=== PATIENT | male | born 1965 | race Caucasian/White ===

== ENCOUNTER 2016-08-27 13:33 | Inpatient (IN) | payer OTHER ==
[~2016-08-27] VITALS: Ht 185.4 cm; Wt 75.5 kg
[~2016-08-27 13:33] MED LIST: TRAZ50TA78 PO
[2016-08-27 13:37] VITALS: BP 111/67; PULSE 84; RESP 18; O2SAT 95
[2016-08-27] MEDS ORDERED: TRAZ100T5 PO (13:46)
[2016-08-27 14:07] VITALS: RESP 18; O2SAT 99
--- NOTE | 2016-08-27 14:09 | PD ---
HPI Chief Complaint: Chest Pain Time Seen by Provider: 13:54 Travel History International Travel<30 days: No Contact w/Intl Traveler<30days: No Traveled to known affect area: No History of Present Illness HPI This patient complains of chest tightness. Started at noon today while he was lying in his bed. Low center sternum as the location. No radiation. It did resolve spontaneously with no alleviating factors. It lasted approximately 90 minutes. He denies personal history of cardiac disease. Symptoms were moderate in severity but at this time have resolved. Denies productive cough or fever. Symptoms were not pleuritic. PFSH Past Medical History Anemia: Yes Arthritis: No Asthma: No Autoimmune Disease: No Blood Disorders: No Anxiety: Yes Depression: Yes Heart Rhythm Problems: No Cancer: No High Cholesterol: No Chemotherapy: No Chest Pain: Yes Congestive Heart Failure: No Cirrhosis: Yes COPD: No Cerebrovascular Accident: No Diabetes: No Diminished Hearing: Yes (Diminished hearing left side due to water/infection per pt.) Endocrine: No Gastrointestinal Disorders: Yes (Celiac disease) GERD: Yes Genitourinary: No Hiatal Hernia: No Hypertension: Yes Immune Disorder: No Implanted Vascular Access Dvce: Yes Kidney Stones: No Musculoskeletal: Yes (Back, Neck, and Left Femur) Neurologic: No Psychiatric: Yes Reproductive: No Respiratory: No Immunizations Current: Yes Migraines: Yes Radiation Therapy: No Renal Failure: No Sickle Cell Disease: No Sleep Apnea: No Thyroid Disease: Yes (hypothyroid) Ulcer: No Past Surgical History Abdominal Surgery: No AICD: No Arteriovenous Shunt: No Body Medical Devices: angel left leg Cardiac Surgery: Yes (pericardiocentesis) Ear Surgery: No Endocrine Surgery: No Eye Surgery: Yes (cataract both eyes) Genitourinary Surgery: No Gynecologic Surgery: Yes (Pelvic hernia) Insulin Pump: No Joint Replacement: Yes (LEFT FEMUR) Pacemaker: No Thoracic Surgery: No Other Surgery: Yes (LEFT FEMUR FX) Social History Alcohol Use: Yes (DAILY- 1 BOTTLE VODKA) Tobacco Use: No (OCCASIONALLY - 5 CIGARETTES/DAY) Substance Use: Yes (cocaine,heroine,speed,crystal meth,opiates ) Allergies-Medications (Allergen,Severity, Reaction): Coded Allergies: No Known Allergies (Unverified , 02/03/16) Reported Meds & Prescriptions Reported Meds & Active Scripts Active Desyrel (Trazodone HCl) 50 Mg Tab 150 Mg PO HS 30 Days Reported Trazodone HCl 100 Mg Tab 150 Review of Systems General / Constitutional: No: Fever Eyes: No: Visual changes HENT: No: Headaches Cardiovascular: Positive: Chest Pain or Discomfort Respiratory: No: Shortness of Breath Gastrointestinal: No: Abdominal Pain Genitourinary: No: Dysuria Musculoskeletal: No: Pain Skin: No Rash Neurologic: No: Weakness Psychiatric: No: Depression Endocrine: No: Polydipsia Hematologic/Lymphatic: No: Easy Bruising Physical Exam Narrative GENERAL: Well-nourished, well-developed patient in no apparent distress. SKIN: Focused skin assessment reveals no rash and nodules. Skin is Warm and dry. HEAD: Atraumatic. Normocephalic. EYES: Pupils equal and round. No scleral icterus. No injection or drainage. ENT: No nasal bleeding or discharge. Mucous membranes pink and moist. NECK: Trachea midline. No JVD. CARDIOVASCULAR: Regular rate and rhythm. No murmur appreciated. RESPIRATORY: No accessory muscle use. Clear to auscultation. Breath sounds equal bilaterally. GASTROINTESTINAL: Abdomen soft, non-tender, nondistended. Hepatic and splenic margins not palpable. MUSCULOSKELETAL: No obvious deformities. No clubbing. No cyanosis. No edema. NEUROLOGICAL: Awake and alert. No obvious cranial nerve deficits. Motor grossly within normal limits. Normal speech. PSYCHIATRIC: Appropriate mood and affect; insight and judgment normal. Data Data Last Documented VS Vital Signs Date Time Temp Pulse Resp B/P Pulse Ox O2 Delivery O2 Flow Rate FiO2 08/27/16 14:07 18 99 Room Air 08/27/16 13:41 82 08/27/16 13:37 111/67 Orders Electrocardiogram (08/27/16 14:04) Basic Metabolic Panel (Bmp) (08/27/16 14:04) Ckmb (Isoenzyme) Profile (08/27/16 14:04) Complete Blood Count With Diff (08/27/16 14:04) Prothrombin Time / Inr (Pt) (08/27/16 14:04) Act Partial Throm Time (Ptt) (08/27/16 14:04) Troponin I (08/27/16 14:04) Chest, Single Ap (08/27/16 14:04) Ecg Monitoring (08/27/16 14:04) Iv Access Insert/Monitor (08/27/16 14:04) Oximetry (08/27/16 14:04) Aspirin (Aspirin) (08/27/16 14:15) Sodium Chloride 0.9% Flush (Ns Flush) (08/27/16 14:15) CKMB (08/27/16 14:14) CKMB% (08/27/16 14:14) Admit Order (Ed Use Only) (08/27/16 16:20) Labs Laboratory Tests Test 08/27/16 14:14 White Blood Count 2.8 TH/MM3 Red Blood Count 3.81 MIL/MM3 Hemoglobin 9.7 GM/DL Hematocrit 30.8 % Mean Corpuscular Volume 80.7 FL Mean Corpuscular Hemoglobin 25.6 PG Mean Corpuscular Hemoglobin 31.7 % Concent Red Cell Distribution Width 19.8 % Platelet Count 136 TH/MM3 Mean Platelet Volume 7.8 FL Neutrophils (%) (Auto) 43.6 % Lymphocytes (%) (Auto) 37.3 % Monocytes (%) (Auto) 7.6 % Eosinophils (%) (Auto) 10.2 % Basophils (%) (Auto) 1.3 % Neutrophils # (Auto) 1.2 TH/MM3 Lymphocytes # (Auto) 1.0 TH/MM3 Monocytes # (Auto) 0.2 TH/MM3 Eosinophils # (Auto) 0.3 TH/MM3 Basophils # (Auto) 0.0 TH/MM3 CBC Comment DIFF FINAL Differential Comment Prothrombin Time 14.3 SEC Prothromb Time International 1.3 RATIO Ratio Activated Partial 32.5 SEC Thromboplast Time Sodium Level 137 MEQ/L Potassium Level 4.1 MEQ/L Chloride Level 100 MEQ/L Carbon Dioxide Level 22.7 MEQ/L Anion Gap 14 MEQ/L Blood Urea Nitrogen 7 MG/DL Creatinine 1.15 MG/DL Estimat Glomerular Filtration 67 ML/MIN Rate Random Glucose 117 MG/DL Calcium Level 8.0 MG/DL Total Creatine Kinase 4353 U/L Creatine Kinase MB 19.7 NG/ML Creatine Kinase MB % 0.5 % Troponin I LESS THAN 0.02 NG/ML MDM Medical Decision Making Medical Screen Exam Complete: Yes Emergency Medical Condition: Yes Medical Record Reviewed: Yes Differential Diagnosis Differential diagnosis includes GA, angina, pericarditis, pleurisy, GERD, anxiety. Narrative Course I have reviewed the patient's electronic medical record. This patient had stress testing here 16 months ago which I have reviewed. IV placed I reviewed the EKG shows sinus rhythm without ST elevation I reviewed the chest x-ray which is negative Extended cardiac monitoring shows sinus rhythm without ectopy CBC is shows pancytopenia, he has known cirrhosis Metabolic profile is normal CK is 4500 suggestive of rhabdomyolysis. MB percent is normal Troponin is normal Coagulation studies are normal I gave him an aspirin He is pain-free at this time. Patient has chest tightness which will need evaluation. He also is in rhabdomyolysis which is a frequent problem for him I gave him a liter normal saline IV Reviewed with [facility] hospitalist coverage who will admit Diagnosis Primary Impression: Chest pain Qualified Code: R07.9 - Chest pain, unspecified type Additional Impression: Rhabdomyolysis Qualified Code: M62.82 - Non-traumatic rhabdomyolysis Admitting Information Admitting Physician Requests: Admit Mikel Joyner MD August 27, 2016 14:09
[2016-08-27] MEDS ORDERED: ASPIRIN 325 MG TAB PO ONE (14:15)
[2016-08-27] MEDS ORDERED: SODIUM CHLORIDE 0.9% FLUSH 10 ML FLUSH IVF PRN (14:15)
[2016-08-27 14:28] LABS: AUTOMATED NEUTROPHIL # 1.2 TH/MM3 (1.8-7.7); BASOPHIL % 1.3 % (0.0-2.0); EOSINOPHIL # 0.3 TH/MM3 (0-0.4); EOSINOPHIL % 10.2 % (0.0-4.0); HEMATOCRIT 30.8 % (39.0-51.0); HEMO FLAGS DIFF FINAL; LYMPH % 37.3 % (9.0-44.0); MEAN CELL VOLUME 80.7 FL (80.0-100.0); MEAN CORPUSCULAR HEMOGLOBIN 25.6 PG (27.0-34.0); MEAN CORPUSCULAR HGB CONC 31.7 % (32.0-36.0); MONO % 7.6 % (0.0-8.0); NEUT % 43.6 % (16.0-70.0); PLATELET COUNT 136 TH/MM3 (150-450); RED BLOOD COUNT 3.81 MIL/MM3 (4.50-5.90); RED CELL DISTRIBUTION WIDTH 19.8 % (11.6-17.2); WHITE BLOOD COUNT 2.8 TH/MM3 (4.0-11.0)
[2016-08-27 14:38] LABS: PROTHROMBIN TIME - PATIENT 14.3 SEC (9.8-11.6)
[2016-08-27 14:39] LABS: APTT (PATIENT) 32.5 SEC (24.3-30.1); INTERNATIONAL NORMALIZED RATIO 1.3 RATIO
--- NOTE | 2016-08-27 14:54 | RADRPT ---
EXAM DATE/TIME: 08/27/2016 14:07 [facility] COMPARISON: CHEST SINGLE AP, December 14, 2015, 22:38. INDICATIONS : Patient has had chest pain since this afternoon. MEDICAL HISTORY : Hypertension. SURGICAL HISTORY : None. ENCOUNTER: Initial ACUITY: 1 day PAIN SCORE: 8/10 LOCATION: Bilateral chest FINDINGS: The examination demonstrates advanced COPD changes. The heart is normal in size. There is no pleural effusion. The visualized bony structures demonstrate degenerative changes but are otherwise intact. T he exam appears improved compared to previous dated 12/14/15. CONCLUSION: Advanced COPD. Tom Live MD on August 27, 2016 at 14:52 Board Certified Radiologist. This report was verified electronically.
[2016-08-27 15:22] LABS: ANION GAP 14 MEQ/L (5-15); BICARBONATE 22.7 MEQ/L (21.0-32.0); CHLORIDE 100 MEQ/L (98-107); CREATINE KINASE 4353 U/L (39-308); GLOMERULAR FILTRATION RATE 67 ML/MIN (>89); SODIUM (NA) 137 MEQ/L (136-145)
[2016-08-27 15:23] LABS: BLOOD UREA NITROGEN 7 MG/DL (7-18); POTASSIUM 4.1 MEQ/L (3.5-5.1)
[2016-08-27 15:35] LABS: CKMB 19.7 NG/ML (0.5-3.6)
[2016-08-27] MEDS ORDERED: ONDANSETRON HCL 4 MG/2 ML VIAL IVP PRN (16:45)
[2016-08-27] MEDS ORDERED: ACETAMINOPHEN 325 MG TAB PO PRN (16:45)
[2016-08-27] MEDS ORDERED: NALOXONE HCL 0.4 MG/ML AMP IV PRN (16:45)
[2016-08-27] MEDS ORDERED: SODIUM CHLORIDE 0.9% FLUSH 10 ML FLUSH IV FLUSH PRN (16:45)
[2016-08-27 17:45] VITALS: BP 100/60; PULSE 64; RESP 18; O2SAT 96
[2016-08-27] MEDS: SODIUM CHLOR 0.9% 1000 ML INJ 1,000 ML IV SCH (17:45)
[2016-08-27] MEDS ORDERED: RESP: ALBUTEROL 2.5 MG/IPRATROPIUM 0.5 MG NEB (PRN) NEB (18:15)
--- NOTE | 2016-08-27 18:20 | HHI.HP ---
HPI Service [facility] Primary Care Physician Kwame Du, DO Admission Diagnosis chest pain, rhabdomyolysis Diagnoses: Chief Complaint: CHEST PAIN (Corrina Moss Lisette LONGORIA) Travel History International Travel<30 Days: No Contact w/Intl Traveler <30 Da: No Traveled to Known Affected Are: No (Corrina MossRishi LONGORIA) History of Present Illness This is a 51-year-old with significant past medical history of anxiety , cirrhosis, celiac disease, hypothyroidism patient refuses to take thyroid replacement, COPD, history of DVT, history of EtOH abuse, pericardial effusion and psychosis, noncompliance.Pt. well known to undersign from multiple admissions for rhabdomyolysis, severe hypothyroid, and psychiatric admissions. Patient had not actually been in the hospital since January 2016. Patient call either today after he woke up around 12 noon and started to develop chest tightness, felt like a "snake" was squeezing his chest. He did have some shortness of breath, mild nausea, no diaphoresis, no palpitations. He also felt very cold, no fever, no chills, no cough, no sputum production. Patient indicates that prior to this had been doing relatively well. He uses a walker for ambulation. He continues to follow-up with his primary care physician but refuses to take his Synthroid. States that it doesn't do nothing for him. The only medications that he's taking is ibuprofen and trazodone. He does not follow-up with psychiatry as outpatient. Admits to drinking 2 L of vodka every 3 days and has been using cocaine, crystal meth and some marijuana. Patient was evaluated in emergency room, CBC remarkable for WBC of 2.8, hemoglobin 9.7, hematocrit 30.8, platelets 136. This is similar to previous admissions. BMP remarkable for rhabdomyolysis, total creatinine kinase 4353. Troponin negative, 0.02. Renal function was stable. Chest x-ray significant for advanced COPD but no acute findings. EKG did not reveal any acute findings , no ST segment elevation. Patient received aspirin. Patient is examined in the emergency room, he is covered up in blankets as he usually is. He is complaining of back pain which is chronic, indicates that that is the reason he continues to do drugs. At this time, his chest discomfort stable. He has no other complaints. Denies any history of coronary artery disease, thinks that he had a stress test many years ago that was negative. Did see cardiology last year for pericardial effusion which remained stable and was likely due to severe hypothyroidism. Patient is admitted for further evaluation and treatment. (Corrina Moss) Review of Systems ROS Limitations: Poor Historian Constitutional: COMPLAINS OF: Chills Respiratory: COMPLAINS OF: Cough, Shortness of breath Cardiovascular: COMPLAINS OF: Chest pain Gastrointestinal: COMPLAINS OF: Constipation (Corrina Moss) Past Family Social History Past Medical History anxiety, cirrhosis, celiac disease, hypothyroidism patient has been given medication the past and refuses to take this, COPD, history of DVT, history of EtOH abuse history of pericardial effusion and psychosis, pericardial effusion recently found 12/2015 multiple psych admissions -depression, substance-induced mood disorder, alcohol use disorder, Past Surgical History Left hip replacement, hernia repair, left femur fracture repair Reported Medications Reported Meds & Active Scripts Active Reported Trazodone HCl 100 Mg Tab 150 Mg PO HS (Corrina Moss) Allergies: Coded Allergies: No Known Allergies (Unverified , 02/03/16) Active Ordered Medications Inpatient Medications Acetaminophen (Tylenol) 650 mg Q4H PRN PO TEMP > 100.4; Start 08/27/16 at 16:45 Aspirin (Aspirin) 325 mg ONCE ONCE PO Last administered on 08/27/16 14:12; Start 08/27/16 at 14:15; Stop 08/27/16 at 14:16; Status DC Chlordiazepoxide (Librium) 10 mg Q8H PRN PO ANXIETY; Start 08/27/16 at 17:30 Naloxone HCl (Narcan Inj) 0.4 mg UNSCH PRN IV SEE LABEL COMMENTS; Start at 16:45 Ondansetron HCl (Zofran Inj) 4 mg Q6H PRN IVP NAUSEA OR VOMITING; Start at 16:45 Sodium Chloride (NS 1000 ml Inj) 1,000 ml @ 100 mls/hr Q10H IV Last administered on 08/27/16 17:45; Start 08/27/16 at 17:00 Sodium Chloride (NS Flush) 2 ml BID IV FLUSH ; Start 08/27/16 at 21:00 Sodium Chloride 2 ml 2 ml UNSCH PRN IVF FLUSH AFTER USING IV ACCESS; Start at 14:15; Stop 08/27/16 at 16:48; Status DC Family History Mother is alive and well, she's healthy. Has a brother who recently had some cardiac intervention, possibly an AICD placement. Social History Patient currently lives with his mother, he does not work. He smokes occasionally, 5 cigarettes a day. Indicates he drinks a 2 L bottle of vodka every 3 days, and also wine. Admits to cocaine use a few days ago, did crystal meth 2-3 weeks ago, does occasional marijuana. (Corrina Moss) Physical Exam Vital Signs Vital Signs Date Time Temp Pulse Resp B/P Pulse Ox O2 Delivery O2 Flow Rate FiO2 08/27/16 17:45 64 18 100/60 96 08/27/16 14:07 18 99 Room Air 08/27/16 13:41 82 18 95 Room Air 08/27/16 13:37 84 18 111/67 95 Physical Exam GENERAL: This is a frail thin built male, appears older than stated age. SKIN: Skin is pale, cool dry. Skin to his feet is extremely dry and flaky, toenails are thick and long. HEAD: Atraumatic. Normocephalic. No temporal or scalp tenderness. EYES: Pupils equal round and reactive. Extraocular motions intact. No scleral icterus. No injection or drainage. ENT: Nose without bleeding, purulent drainage or septal hematoma. Throat without erythema, tonsillar hypertrophy or exudate. Uvula midline. Airway patent. NECK: Trachea midline. No JVD or lymphadenopathy. Supple, nontender, no meningeal signs. CARDIOVASCULAR: Regular rate and rhythm without murmurs, gallops, or rubs. RESPIRATORY: Clear to auscultation. Breath sounds equal bilaterally. No wheezes , rales, or rhonchi. GASTROINTESTINAL: Abdomen soft, non-tender, nondistended. No hepato-splenomegaly , or palpable masses. No guarding. MUSCULOSKELETAL: Extremities without clubbing, cyanosis. Bilateral pedal edema , pulses +1 bilaterally .No joint tenderness, effusion, or edema noted. No calf tenderness. Negative Homans sign bilaterally. Lower extremities with muscle atrophy. NEUROLOGICAL: Awake, alert oriented 3. Follows commands. No focal deficits. Laboratory Laboratory Tests Test 08/27/16 14:14 White Blood Count 2.8 Red Blood Count 3.81 Hemoglobin 9.7 Hematocrit 30.8 Mean Corpuscular Volume 80.7 Mean Corpuscular Hemoglobin 25.6 Mean Corpuscular Hemoglobin 31.7 Concent Red Cell Distribution Width 19.8 Platelet Count 136 Mean Platelet Volume 7.8 Neutrophils (%) (Auto) 43.6 Lymphocytes (%) (Auto) 37.3 Monocytes (%) (Auto) 7.6 Eosinophils (%) (Auto) 10.2 Basophils (%) (Auto) 1.3 Neutrophils # (Auto) 1.2 Lymphocytes # (Auto) 1.0 Monocytes # (Auto) 0.2 Eosinophils # (Auto) 0.3 Basophils # (Auto) 0.0 CBC Comment DIFF FINAL Differential Comment Prothrombin Time 14.3 Prothromb Time International 1.3 Ratio Activated Partial 32.5 Thromboplast Time Sodium Level 137 Potassium Level 4.1 Chloride Level 100 Carbon Dioxide Level 22.7 Anion Gap 14 Blood Urea Nitrogen 7 Creatinine 1.15 Estimat Glomerular Filtration 67 Rate Random Glucose 117 Calcium Level 8.0 Total Creatine Kinase 4353 Creatine Kinase MB 19.7 Creatine Kinase MB % 0.5 Troponin I LESS THAN 0.02 (Corrina Moss) Result Diagram: 08/27/16 1414 08/27/16 1414 Imaging Last Impressions Chest X-Ray 08/27/16 1404 Signed Impressions: Service Date/Time: Saturday, August 27, 2016 14:07 - CONCLUSION: Advanced COPD. Tom Live MD (Corrina Moss) Assessment and Plan Problem List: (1) Chest pain (2) COPD (chronic obstructive pulmonary disease) (3) Anemia (4) Chronic leukopenia (5) Hypothyroid (6) Tobacco abuse (7) Alcohol abuse (8) Bilateral edema of lower extremity (9) Hypoalbuminemia (10) Noncompliance with medications (11) Rhabdomyolysis (12) Anxiety and depression Assessment and Plan Admit to Dr. Aguila This is a 51-year-old male with history of severe hypothyroidism and noncompliance refuses to take medications, pericardial effusion, rhabdomyolysis , polysubstance abuse. Patient presented to the emergency room complaining of chest pain, squeezing type, associated with shortness of breath nausea. Troponin negative, EKG without any acute findings. Chest pain, negative troponin, no EKG changes. Atypical presentation. Patient endorses doing cocaine and drinking heavily. -Continuous cardiac telemetry Continue with serial cardiac enzymes If any change in EKG and increase in troponin, will consult cardiology. At this time we will hold off Continue with aspirin 81 mg by mouth daily Severe hypothyroidism, due to noncompliance Patient again counseled about taking Synthroid, he adamantly refuses. Rhabdomyolysis, this is chronic -We will give normal saline at 100 hour CPK in the morning Polysubstance abuse, admits to drinking 2 L of vodka every 3 days, also positive for cocaine and meth use Tobacco abuse Patient counseled about polysubstance abuse -Monitor for withdrawal symptoms Librium 10 mg by mouth every 8 when necessary for anxiety and withdrawal symptoms. COPD, stable DuoNeb's when necessary for wheezing -Oxygen as needed to keep sats greater than 92 Chronic back pain Tylenol when necessary for back pain. Depression, stable, denies any suicidal ideation, no visual hallucinations Continue trazodone Anemia Chronic leukopenia Monitor CBC Home medications reviewed, initiated as indicated SCDs for DVT prophylaxis Plan of care has been discussed with the patient, attending and registered nurse. Further management of the patient will be dependent on the hospital course This patient was seen by myself and Dr. Aguila, this H&P is written on his behalf (Corrina Moss) Assessment and Plan evaluation was done as above chart was reviewed plan of care was chanel longoria dw pt (Chris Aguila MD) Problem Qualifiers (1) Chest pain: Qualified Code: R07.9 - Chest pain, unspecified type (2) COPD (chronic obstructive pulmonary disease): Qualified Code: J44.9 - Chronic obstructive pulmonary disease, unspecified COPD type (3) Hypothyroid: Qualified Code: E03.9 - Hypothyroidism, unspecified type (4) Rhabdomyolysis: Qualified Code: M62.82 - Non-traumatic rhabdomyolysis Corrina Moss August 27, 2016 18:20 Chris Aguila MD August 28, 2016 11:03
[2016-08-27 19:33] VITALS: O2SAT 96
[2016-08-27 20:00] VITALS: BP 126/81; PULSE 81; RESP 20; TEMP 97.5; O2SAT 99
[2016-08-27] MEDS: SODIUM CHLORIDE 0.9% FLUSH 10 ML FLUSH IV FLUSH SCH (21:00)
[2016-08-27] MEDS: traZODone HCL 50 MG TAB PO SCH (21:00)
[2016-08-27 21:41] LABS: CREATINE KINASE 4478 U/L (39-308)
[2016-08-27 21:55] LABS: CKMB 22.1 NG/ML (0.5-3.6)
[2016-08-28] VITALS (8 sets, daily range): BP systolic 90–121; BP diastolic 51–79; PULSE 70–84; RESP 16–20; TEMP 97.7–98.1; O2SAT 90–93
[2016-08-28 02:07] LABS: BASOPHIL % 1.7 % (0.0-2.0); EOSINOPHIL # 0.1 TH/MM3 (0-0.4); EOSINOPHIL % 5.3 % (0.0-4.0); HEMATOCRIT 29.3 % (39.0-51.0); LYMPH % 28.4 % (9.0-44.0); LYMPHOCYTE # 0.5 TH/MM3 (1.0-4.8); MEAN CELL VOLUME 79.8 FL (80.0-100.0); MEAN CORPUSCULAR HEMOGLOBIN 25.5 PG (27.0-34.0); MEAN CORPUSCULAR HGB CONC 31.9 % (32.0-36.0); MONO % 9.8 % (0.0-8.0); NEUT % 54.8 % (16.0-70.0); PLATELET COUNT 111 TH/MM3 (150-450); RED BLOOD COUNT 3.68 MIL/MM3 (4.50-5.90); RED CELL DISTRIBUTION WIDTH 19.1 % (11.6-17.2); WHITE BLOOD COUNT 1.9 TH/MM3 (4.0-11.0)
[2016-08-28 02:14] LABS: HEMO FLAGS AUTO DIFF
[2016-08-28 02:31] LABS: ANION GAP 12 MEQ/L (5-15); BICARBONATE 26.7 MEQ/L (21.0-32.0); BLOOD UREA NITROGEN 7 MG/DL (7-18); CHLORIDE 99 MEQ/L (98-107); GLOMERULAR FILTRATION RATE 69 ML/MIN (>89); POTASSIUM 3.8 MEQ/L (3.5-5.1); SODIUM (NA) 138 MEQ/L (136-145)
[2016-08-28 02:45] LABS: CREATINE KINASE 4082 U/L (39-308)
[2016-08-28 02:47] LABS: BURR CELLS 1+ (NORMAL); OVALOCYTES 1+ (NORMAL); PLATELET ESTIMATE SMEAR LOW (NORMAL); PLATELET MORPHOLOGY NORMAL (NORMAL); SCAN/DIFF AUTO DIFF CONFIRMED
[2016-08-28 02:57] LABS: CKMB 19.2 NG/ML (0.5-3.6)
[2016-08-28] MEDS: SODIUM CHLOR 0.9% 1000 ML INJ 1,000 ML IV SCH ×3 (03:00→23:00)
[2016-08-28] MEDS: SODIUM CHLORIDE 0.9% FLUSH 10 ML FLUSH IV FLUSH SCH ×2 (09:00→21:00)
[2016-08-28] MEDS: ASPIRIN EC 81 MG TABEC PO SCH (09:16)
[2016-08-28] MEDS ORDERED: LORazepam 2 MG/ML VIAL IV PUSH PRN ×4 (09:45)
[2016-08-28] MEDS ORDERED: LORazepam 2 MG TAB PO PRN (09:45)
[2016-08-28] MEDS ORDERED: FLUMAZENIL 0.5 MG/5 ML VIAL IV PUSH PRN (09:45)
--- NOTE | 2016-08-28 09:45 | HHI.PR ---
Subjective Remarks has been noted more jittery overnight, asking for Librium chronic back pain some chest pain, no sob no fever wants to eat "I can't go home, I don't have my keys" states mother in [place] and won't be back until Tuesday Objective Objective Results - Vital Signs Date Time Temp Pulse Resp B/P Pulse Ox O2 Delivery O2 Flow Rate FiO2 08/28/16 07:50 98.1 79 20 121/79 91 08/28/16 04:42 72 08/28/16 04:06 Room Air 08/28/16 04:00 97.9 83 16 111/73 93 08/28/16 00:05 97.9 70 16 110/67 93 08/28/16 00:00 Room Air 08/27/16 20:00 97.5 81 20 126/81 99 08/27/16 20:00 97.5 81 20 126/81 99 08/27/16 20:00 Room Air 08/27/16 19:33 96 Nasal Cannula 2.00 08/27/16 17:45 64 18 100/60 96 08/27/16 14:07 18 99 Room Air 08/27/16 13:41 82 18 95 Room Air 08/27/16 13:37 84 18 111/67 95 I/O 08/27/16 08/27/16 08/27/16 08/28/16 08/28/16 08/28/16 07:00 15:00 23:00 07:00 15:00 23:00 Intake Total 540 ml 997 ml Output Total 350 ml Balance 540 ml 647 ml Intake Oral 240 ml 220 ml IV Total 300 ml 777 ml Output Urine Total 350 ml Stool Total 0 ml Result Diagram: 08/28/16 0145 08/28/16 0145 Imaging Last Impressions Chest X-Ray 08/27/16 1404 Signed Impressions: Service Date/Time: Saturday, August 27, 2016 14:07 - CONCLUSION: Advanced COPD. Tom Live MD Other Results Laboratory Tests Test 08/27/16 08/27/16 08/28/16 14:14 20:40 01:45 White Blood Count 2.8 1.9 Red Blood Count 3.81 3.68 Hemoglobin 9.7 9.4 Hematocrit 30.8 29.3 Mean Corpuscular Volume 80.7 79.8 Mean Corpuscular Hemoglobin 25.6 25.5 Mean Corpuscular Hemoglobin 31.7 31.9 Concent Red Cell Distribution Width 19.8 19.1 Platelet Count 136 111 Mean Platelet Volume 7.8 7.4 Neutrophils (%) (Auto) 43.6 54.8 Lymphocytes (%) (Auto) 37.3 28.4 Monocytes (%) (Auto) 7.6 9.8 Eosinophils (%) (Auto) 10.2 5.3 Basophils (%) (Auto) 1.3 1.7 Neutrophils # (Auto) 1.2 1.0 Lymphocytes # (Auto) 1.0 0.5 Monocytes # (Auto) 0.2 0.2 Eosinophils # (Auto) 0.3 0.1 Basophils # (Auto) 0.0 0.0 CBC Comment DIFF FINAL AUTO DIFF Differential Comment AUTO DIFF CONFIRMED Prothrombin Time 14.3 Prothromb Time International 1.3 Ratio Activated Partial 32.5 Thromboplast Time Sodium Level 137 138 Potassium Level 4.1 3.8 Chloride Level 100 99 Carbon Dioxide Level 22.7 26.7 Anion Gap 14 12 Blood Urea Nitrogen 7 7 Creatinine 1.15 1.13 Estimat Glomerular Filtration 67 69 Rate Random Glucose 117 102 Calcium Level 8.0 8.2 Total Creatine Kinase 4353 4478 4082 Creatine Kinase MB 19.7 22.1 19.2 Creatine Kinase MB % 0.5 0.5 0.5 Troponin I LESS THAN 0.02 LESS THAN 0.02 LESS THAN 0.02 Platelet Estimate LOW Platelet Morphology Comment NORMAL Ovalocytes 1+ Luis Cells 1+ ROS General: Weakness, Other (POOR HISTORIAN ), No: Fatigue HEENT: No: Sore Throat, Dysphagia Cardiac: Chest Pain Pulmonary: No: Cough, SOB, Wheezing GI: No: Abdominal Pain, BM, Diarrhea, N/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 SKIN: Skin is pale, cool dry. Skin to his feet is extremely dry and flaky, toenails are thick and long. HEAD: Atraumatic. Normocephalic. No temporal or scalp tenderness. EYES: Pupils equal round and reactive. Extraocular motions intact. No scleral icterus. No injection or drainage. ENT: Nose without bleeding, purulent drainage or septal hematoma. Throat without erythema, tonsillar hypertrophy or exudate. Uvula midline. Airway patent. NECK: Trachea midline. No JVD or lymphadenopathy. Supple, nontender, no meningeal signs. CARDIOVASCULAR: Regular rate and rhythm without murmurs, gallops, or rubs. RESPIRATORY: Clear to auscultation. Breath sounds equal bilaterally. No wheezes , rales, or rhonchi. GASTROINTESTINAL: Abdomen soft, non-tender, nondistended. No hepato-splenomegaly , or palpable masses. No guarding. MUSCULOSKELETAL: Extremities without clubbing, cyanosis. Bilateral pedal edema , pulses +1 bilaterally .No joint tenderness, effusion, or edema noted. No calf tenderness. Negative Homans sign bilaterally. Lower extremities with muscle atrophy. NEUROLOGICAL: Awake, alert oriented 3. Follows commands. No focal deficits. Urinary Catheter: No Vascular Central Line Catheter: No A/P Diagnosis: (1) Chest pain (2) COPD (chronic obstructive pulmonary disease) (3) Anemia (4) Chronic leukopenia (5) Hypothyroid (6) Tobacco abuse (7) Alcohol abuse (8) Bilateral edema of lower extremity (9) Hypoalbuminemia (10) Noncompliance with medications (11) Rhabdomyolysis (12) Anxiety and depression Assessment and Plan This is a 51-year-old male with history of severe hypothyroidism and noncompliance refuses to take medications, pericardial effusion, rhabdomyolysis , polysubstance abuse. Patient presented to the emergency room complaining of chest pain, squeezing type, associated with shortness of breath nausea. Troponin negative, EKG without any acute findings. Chest pain, negative troponin, no EKG changes. Atypical presentation. Patient endorses doing cocaine and drinking heavily. -Continuous cardiac telemetry -cardiac enzymes negative, no EKG changes Continue with aspirin 81 mg by mouth daily Severe hypothyroidism, due to noncompliance Patient again counseled about taking Synthroid, he adamantly refuses. Rhabdomyolysis, this is chronic -We will give normal saline at 100 hour CPK trending down, 4082 Polysubstance abuse, admits to drinking 2 L of vodka every 3 days, also positive for cocaine and meth use Tobacco abuse Patient counseled about polysubstance abuse -Monitor for withdrawal symptoms put on CIWA protocol, more anxious today COPD, stable DuoNeb's when necessary for wheezing -Oxygen as needed to keep sats greater than 92 Chronic back pain Tylenol when necessary for back pain. Depression, stable, denies any suicidal ideation, no visual hallucinations Continue trazodone Anemia Chronic leukopenia-WBC 1.9 Thrombocytopenia plat 111 monitor CBC SCDs for DVT prophylaxis Keep one more day, monitor CPK and withdrawal symptoms Labs in am D/W RN D/W Dr. Aguila D/W pt. This patient was seen by myself and Dr. gAuila, this note is written on his behalf Problem Qualifiers (1) Chest pain: Qualified Code: R07.9 - Chest pain, unspecified type (2) COPD (chronic obstructive pulmonary disease): Qualified Code: J44.9 - Chronic obstructive pulmonary disease, unspecified COPD type (3) Hypothyroid: Qualified Code: E03.9 - Hypothyroidism, unspecified type (4) Rhabdomyolysis: Qualified Code: M62.82 - Non-traumatic rhabdomyolysis Corrina Moss August 28, 2016 09:45
[2016-08-28] MEDS: LORazepam 1 MG TAB PO PRN ×2 (11:17→21:50)
--- NOTE | 2016-08-28 16:41 | EKG ---
Date Performed: 08/27/2016 Time Performed: 13:44:02 PTAGE: 51 years EKG: Sinus rhythm WITH FIRST DEGREE AV BLOCK LOW QRS VOLTAGE IN EXTREMITY LEADS SEPTAL MYOCARDIAL INFARCTION Significa nt baseline artifact, precluding accurate interpretation Compared to prior tracing no significant clarita nge ABNORMAL ECG NO PREVIOUS TRACING DOCTOR: Bren Willoughby Interpretating Date/Time 08/28/2016 16:41:25
--- NOTE | 2016-08-28 16:42 | EKG ---
Date Performed: 08/28/2016 Time Performed: 03:04:56 PTAGE: 51 years EKG: Probable accelerated junctional rhythm Extensive T wave changes are nonspecific Low QRS vol tages in limb leads Significant baseline artifact, precluding accurate interpretation Compared to oneil or tracing no significant change Abnormal ECG PREVIOUS TRACING : 08/27/2016 19.50 DOCTOR: Bren Willoughby Interpretating Date/Time 08/28/2016 16:41:44
--- NOTE | 2016-08-28 16:42 | EKG ---
Date Performed: 08/27/2016 Time Performed: 19:50:20 PTAGE: 51 years EKG: Sinus rhythm WITH FIRST DEGREE AV BLOCK LOW QRS VOLTAGE IN EXTREMITY LEADS NONSPECIFIC T-WAVE ABNORMALITY Signifi cant baseline artifact, precluding accurate interpretation Compared to prior tracing no significant c hange ABNORMAL ECG PREVIOUS TRACING : 08/27/2016 13.44 DOCTOR: Bren Willoughby Interpretating Date/Time 08/28/2016 16:41:35
[2016-08-28] MEDS: traZODone HCL 50 MG TAB PO SCH (21:50)
[2016-08-29] VITALS: BP_SYST 102; BP_SYST 85; BP_DIAS 53; BP_DIAS 82; PULSE 75; RESP 18; O2SAT 90
[2016-08-29 06:00] VITALS: BP_SYST 104; BP_SYST 89; BP_DIAS 62; PULSE 88; RESP 18; O2SAT 93
[2016-08-29 08:00] VITALS: BP 102/63; PULSE 73; PULSE 80; RESP 16; TEMP 98.1; O2SAT 95
[2016-08-29] MEDS: SODIUM CHLORIDE 0.9% FLUSH 10 ML FLUSH IV FLUSH SCH ×2 (08:25→21:00)
[2016-08-29] MEDS: SODIUM CHLOR 0.9% 1000 ML INJ 1,000 ML IV SCH ×2 (08:25→23:13)
[2016-08-29] MEDS: ASPIRIN EC 81 MG TABEC PO SCH (08:25)
--- NOTE | 2016-08-29 09:16 | HHI.PR ---
Subjective Remarks chronic back pain no more cp no sob doesn't want to get out of bed wants to go to [facility] for rehab BP 90-100s Objective Objective Results - Vital Signs Date Time Temp Pulse Resp B/P Pulse Ox O2 Delivery O2 Flow Rate FiO2 08/29/16 08:00 Nasal Cannula 2.00 08/29/16 06:00 88 18 93 104/62 08/29/16 04:04 Nasal Cannula 2.00 08/29/16 00:00 Nasal Cannula 2.00 08/29/16 00:00 75 18 85/53 90 102/82 08/28/16 20:00 90 Room Air 08/28/16 20:00 74 08/28/16 20:00 97.9 82 20 104/66 90 08/28/16 15:50 97.7 84 20 90/51 91 08/28/16 11:50 98.0 83 20 109/74 92 I/O 08/28/16 08/28/16 08/28/16 08/29/16 08/29/16 08/29/16 07:00 15:00 23:00 07:00 15:00 23:00 Intake Total 997 ml 1245 ml 1272 ml 610 ml Output Total 350 ml 400 ml 250 ml 200 ml Balance 647 ml 845 ml 1022 ml 410 ml Intake Oral 220 ml 300 ml 480 ml IV Total 777 ml 945 ml 792 ml 610 ml Output Urine Total 350 ml 400 ml 250 ml 200 ml Stool Total 0 ml # Bowel Movements 0 Result Diagram: 08/28/16 0145 08/28/16 0145 Imaging Last Impressions Chest X-Ray 08/27/16 1404 Signed Impressions: Service Date/Time: Saturday, August 27, 2016 14:07 - CONCLUSION: Advanced COPD. Tom Live MD ROS General: Other (12 point ROS completed, unreliable ) Physical Exam Physical Exam GENERAL: This is a frail thin built male, appears older than stated age. SKIN: Skin is pale, cool dry. Skin to his feet is extremely dry and flaky, toenails are thick and long. HEAD: Atraumatic. Normocephalic. No temporal or scalp tenderness. EYES: Pupils equal round and reactive. Extraocular motions intact. No scleral icterus. No injection or drainage. ENT: Nose without bleeding, purulent drainage or septal hematoma. Throat without erythema, tonsillar hypertrophy or exudate. Uvula midline. Airway patent. NECK: Trachea midline. No JVD or lymphadenopathy. Supple, nontender, no meningeal signs. CARDIOVASCULAR: Regular rate and rhythm without murmurs, gallops, or rubs. RESPIRATORY: Clear to auscultation. Breath sounds equal bilaterally. No wheezes , rales, or rhonchi. GASTROINTESTINAL: Abdomen soft, non-tender, nondistended. No hepato-splenomegaly , or palpable masses. No guarding. MUSCULOSKELETAL: Extremities without clubbing, cyanosis. Bilateral pedal edema , pulses +1 bilaterally .No joint tenderness, effusion, or edema noted. No calf tenderness. Negative Homans sign bilaterally. Lower extremities with muscle atrophy. NEUROLOGICAL: Awake, alert oriented 3. Follows commands. No focal deficits. Urinary Catheter: No Vascular Central Line Catheter: No A/P Diagnosis: (1) Chest pain (2) COPD (chronic obstructive pulmonary disease) (3) Anemia (4) Chronic leukopenia (5) Hypothyroid (6) Tobacco abuse (7) Alcohol abuse (8) Bilateral edema of lower extremity (9) Hypoalbuminemia (10) Noncompliance with medications (11) Rhabdomyolysis (12) Anxiety and depression Assessment and Plan This is a 51-year-old male with history of severe hypothyroidism and noncompliance refuses to take medications, pericardial effusion, rhabdomyolysis , polysubstance abuse. Patient presented to the emergency room complaining of chest pain, squeezing type, associated with shortness of breath nausea. Troponin negative, EKG without any acute findings. Chest pain, negative troponin, no EKG changes. Atypical presentation. Patient endorses doing cocaine and drinking heavily. -Continuous cardiac telemetry -cardiac enzymes negative, no EKG changes Continue with aspirin 81 mg by mouth daily -no more cp, stable Severe hypothyroidism, due to noncompliance Patient again counseled about taking Synthroid, he adamantly refuses. Rhabdomyolysis, this is chronic -We will give normal saline at 100 hour CPK trending down, 4082, labs for today pending Low blood pressure, appears to be his baseline, asymptomatic -continue with IVF Polysubstance abuse, admits to drinking 2 L of vodka every 3 days, also positive for cocaine and meth use Tobacco abuse Patient counseled about polysubstance abuse -Monitor for withdrawal symptoms continue CIWA protocol COPD, stable DuoNeb's when necessary for wheezing -Oxygen as needed to keep sats greater than 92 Chronic back pain Tylenol when necessary for back pain. Depression, stable, denies any suicidal ideation, no visual hallucinations Continue trazodone Anemia Chronic leukopenia-WBC 1.9 Thrombocytopenia plat 111 monitor CBC SCDs for DVT prophylaxis CM for dc planning, wants rehab PT eval pending pt. refusing to get out of bed Labs pending D/W RN D/W Dr. Aguila D/W pt. This patient was seen by myself and Dr. Aguila, this note is written on his behalf Problem Qualifiers (1) Chest pain: Qualified Code: R07.9 - Chest pain, unspecified type (2) COPD (chronic obstructive pulmonary disease): Qualified Code: J44.9 - Chronic obstructive pulmonary disease, unspecified COPD type (3) Hypothyroid: Qualified Code: E03.9 - Hypothyroidism, unspecified type (4) Rhabdomyolysis: Qualified Code: M62.82 - Non-traumatic rhabdomyolysis Corrina Moss August 29, 2016 09:16
[2016-08-29 09:50] LABS: HEMATOCRIT 28.6 % (39.0-51.0); MEAN CELL VOLUME 81.8 FL (80.0-100.0); MEAN CORPUSCULAR HEMOGLOBIN 24.9 PG (27.0-34.0); MEAN CORPUSCULAR HGB CONC 30.4 % (32.0-36.0); PLATELET COUNT 76 TH/MM3 (150-450); RED BLOOD COUNT 3.49 MIL/MM3 (4.50-5.90); RED CELL DISTRIBUTION WIDTH 19.1 % (11.6-17.2); WHITE BLOOD COUNT 2.4 TH/MM3 (4.0-11.0)
[2016-08-29 10:17] LABS: BICARBONATE 28.6 MEQ/L (21.0-32.0); CALCIUM-PROTEIN CORRECTED 7.5 MG/DL (8.5-10.1); POTASSIUM 3.7 MEQ/L (3.5-5.1); TOTAL BILIRUBIN ADULT 0.7 MG/DL (0.2-1.0)
[2016-08-29 10:20] LABS: REVIEW FLAG AUTO DIFF
[2016-08-29 12:00] VITALS: BP 116/77; PULSE 88; RESP 16; TEMP 97.5; O2SAT 92
[2016-08-29 12:37] LABS: CKMB 8.4 NG/ML (0.5-3.6)
[2016-08-29] MEDS ORDERED: CALCIUM GLUCONATE INJ 2 GM in DEXTROSE 5% IN WATER 100ML INJ 100 ML IV ONE ×2 (13:00)
[2016-08-29 16:00] VITALS: BP 108/69; PULSE 85; RESP 20; TEMP 97.2; O2SAT 93
[2016-08-29 20:00] VITALS: BP 98/64; PULSE 75; PULSE 82; RESP 18; TEMP 97.6; O2SAT 96
[2016-08-29] MEDS: traZODone HCL 50 MG TAB PO SCH (23:12)
[2016-08-30] VITALS: BP 113/74; PULSE 92; RESP 18; TEMP 97.3; O2SAT 91
[2016-08-30 04:00] VITALS: BP 93/68; PULSE 80; RESP 18; TEMP 97.7; O2SAT 93
[2016-08-30] MEDS: SODIUM CHLOR 0.9% 1000 ML INJ 1,000 ML IV SCH ×2 (07:41→12:26)
[2016-08-30 08:02] VITALS: BP 111/75; PULSE 83; RESP 19; TEMP 98.2; O2SAT 90
[2016-08-30] MEDS: SODIUM CHLORIDE 0.9% FLUSH 10 ML FLUSH IV FLUSH SCH (08:46)
[2016-08-30] MEDS: ASPIRIN EC 81 MG TABEC PO SCH (08:46)
--- NOTE | 2016-08-30 10:28 | HHI.DCPOC ---
Discharge Care Plan Diagnosis: (1) Chest pain Your Health Problems Are: Chest Pain Goals to Promote Your Health * To prevent worsening of your condition and complications * To maintain your health at the optimal level Directions to Meet Your Goals Take your medications as prescribed Follow your dietary instruction Follow activity as directed Keep your appointments as scheduled Take your immunizations and boosters as scheduled If your symptoms worsen call your PCP, if no PCP go to Urgent Care Center or Emergency Room Smoking is Dangerous to Your Health. Avoid second hand smoke Call the 24-hour hour crisis hotline for domestic abuse at Corrina Moss. [facility] August 30, 2016 10:28
--- NOTE | 2016-08-30 10:34 | HHI.PR ---
Subjective Remarks chronic back pain no more cp no sob doesn't want rehab, wants to go home "I can't leave because my mother is out of town" states he has no keys to his home Objective Objective Results - Vital Signs Date Time Temp Pulse Resp B/P Pulse Ox O2 Delivery O2 Flow Rate FiO2 08/30/16 08:02 98.2 83 19 111/75 90 08/30/16 04:00 Nasal Cannula 2.00 08/30/16 04:00 97.7 80 18 93/68 93 08/30/16 00:00 Nasal Cannula 2.00 08/30/16 00:00 97.3 92 18 113/74 91 08/29/16 20:00 75 08/29/16 20:00 Nasal Cannula 2.00 08/29/16 20:00 97.6 82 18 98/64 96 08/29/16 16:00 97.2 85 20 108/69 93 08/29/16 16:00 Nasal Cannula 2.00 08/29/16 12:00 Nasal Cannula 2.00 08/29/16 12:00 97.5 88 16 116/77 92 I/O 08/29/16 08/29/16 08/29/16 08/30/16 08/30/16 08/30/16 06:59 14:59 22:59 06:59 14:59 22:59 Intake Total 610 ml 1712 ml 759 ml 915 ml Output Total 200 ml 400 ml Balance 410 ml 1712 ml 759 ml 515 ml Intake Oral 480 ml 240 ml 240 ml IV Total 610 ml 1232 ml 519 ml 675 ml Output Urine Total 200 ml Stool Total 400 ml # Voids 0 # Bowel Movements 0 0 Result Diagram: 08/29/16 0855 08/29/16 0853 Imaging Last Impressions Chest X-Ray 08/27/16 1404 Signed Impressions: Service Date/Time: Saturday, August 27, 2016 14:07 - CONCLUSION: Advanced COPD. Tom Live MD ROS General: Other (12 point ROS unreliable ) Physical Exam Physical Exam GENERAL: This is a frail thin built male, appears older than stated age. SKIN: Skin is pale, cool dry. Skin to his feet is extremely dry and flaky, toenails are thick and long. HEAD: Atraumatic. Normocephalic. No temporal or scalp tenderness. EYES: Pupils equal round and reactive. Extraocular motions intact. No scleral icterus. No injection or drainage. ENT: Nose without bleeding, purulent drainage or septal hematoma. Throat without erythema, tonsillar hypertrophy or exudate. Uvula midline. Airway patent. NECK: Trachea midline. No JVD or lymphadenopathy. Supple, nontender, no meningeal signs. CARDIOVASCULAR: Regular rate and rhythm without murmurs, gallops, or rubs. RESPIRATORY: Clear to auscultation. Breath sounds equal bilaterally. No wheezes , rales, or rhonchi. GASTROINTESTINAL: Abdomen soft, non-tender, nondistended. No hepato-splenomegaly , or palpable masses. No guarding. MUSCULOSKELETAL: Extremities without clubbing, cyanosis. Bilateral pedal edema , pulses +1 bilaterally .No joint tenderness, effusion, or edema noted. No calf tenderness. Negative Homans sign bilaterally. Lower extremities with muscle atrophy. NEUROLOGICAL: Awake, alert oriented 3. Follows commands. No focal deficits. Urinary Catheter: No Vascular Central Line Catheter: No A/P Diagnosis: (1) Chest pain (2) COPD (chronic obstructive pulmonary disease) (3) Anemia (4) Chronic leukopenia (5) Hypothyroid (6) Tobacco abuse (7) Alcohol abuse (8) Bilateral edema of lower extremity (9) Hypoalbuminemia (10) Noncompliance with medications (11) Rhabdomyolysis (12) Anxiety and depression Assessment and Plan This is a 51-year-old male with history of severe hypothyroidism and noncompliance refuses to take medications, pericardial effusion, rhabdomyolysis , polysubstance abuse. Patient presented to the emergency room complaining of chest pain, squeezing type, associated with shortness of breath nausea. Troponin negative, EKG without any acute findings. Chest pain, negative troponin, no EKG changes. Atypical presentation. Patient endorses doing cocaine and drinking heavily. -Continuous cardiac telemetry -cardiac enzymes negative, no EKG changes Continue with aspirin 81 mg by mouth daily -no more cp, stable Severe hypothyroidism, due to noncompliance Patient again counseled about taking Synthroid, he adamantly refuses. Rhabdomyolysis, this is chronic -continue IVF. CPK trending down, 2807 at baseline. It's chronically high. Low blood pressure, appears to be his baseline, asymptomatic -continue with IVF -BP better 100s Polysubstance abuse, admits to drinking 2 L of vodka every 3 days, also positive for cocaine and meth use Tobacco abuse Patient counseled about polysubstance abuse -Monitor for withdrawal symptoms continue CIWA protocol COPD, stable DuoNeb's when necessary for wheezing -Oxygen as needed to keep sats greater than 92 Chronic back pain Tylenol when necessary for back pain. Depression, stable, denies any suicidal ideation, no visual hallucinations Continue trazodone Anemia Chronic leukopenia-WBC 1.9 [address]romb[address] 111 monitor CBC SCDs for DVT prophylaxis PT eval CM consult dc planning, they can arrange hotel until mother returns to tomorrow. Pt. now doesn't want rehab. Wants to go home but requesting to stay in until tomorrow night. pt. counselled about polysubstance abuse, medication compliance. Not likely to follow advice. Stable for discharge Discharge home today, CM to arrange hotel F/U PCP Diet-heart healthy Activity-as tolerated D/W RN D/W Dr. Francisco D/W pt. D/C CM This patient was seen by myself and Dr. Francisco, this note is written on his behalf Problem Qualifiers (1) Chest pain: Qualified Code: R07.9 - Chest pain, unspecified type (2) COPD (chronic obstructive pulmonary disease): Qualified Code: J44.9 - Chronic obstructive pulmonary disease, unspecified COPD type (3) Hypothyroid: Qualified Code: E03.9 - Hypothyroidism, unspecified type (4) Rhabdomyolysis: Qualified Code: M62.82 - Non-traumatic rhabdomyolysis Corrina Moss August 30, 2016 10:34
--- NOTE | 2016-08-30 10:34 | HHI.DS ---
Discharge Summary Admission Date August 27, 2016 at 16:22 Discharge Date: August 30, 2016 Admitting Diagnosis chest pain, rhabdomyolysis (1) Chest pain (2) COPD (chronic obstructive pulmonary disease) (3) Anemia (4) Chronic leukopenia (5) Hypothyroid (6) Tobacco abuse (7) Alcohol abuse (8) Bilateral edema of lower extremity (9) Hypoalbuminemia (10) Noncompliance with medications (11) Rhabdomyolysis (12) Anxiety and depression CBC/BMP: 08/29/16 0855 08/29/16 0853 Significant Findings Laboratory Tests Test 08/27/16 08/27/16 08/28/16 08/29/16 14:14 20:40 01:45 08:53 White Blood Count 2.8 TH/MM3 1.9 TH/MM3 (4.0-11.0) (4.0-11.0) Red Blood Count 3.81 MIL/MM3 3.68 MIL/MM3 (4.50-5.90) (4.50-5.90) Hemoglobin 9.7 GM/DL 9.4 GM/DL (13.0-17.0) (13.0-17.0) Hematocrit 30.8 % 29.3 % (39.0-51.0) (39.0-51.0) Mean Corpuscular Hemoglobin 25.6 PG 25.5 PG (27.0-34.0) (27.0-34.0) Mean Corpuscular Hemoglobin 31.7 % 31.9 % Concent (32.0-36.0) (32.0-36.0) Red Cell Distribution Width 19.8 % 19.1 % (11.6-17.2) (11.6-17.2) Platelet Count 136 TH/MM3 111 TH/MM3 (150-450) (150-450) Eosinophils (%) (Auto) 10.2 % 5.3 % (0.0-4.0) (0.0-4.0) Neutrophils # (Auto) 1.2 TH/MM3 1.0 TH/MM3 (1.8-7.7) (1.8-7.7) Prothrombin Time 14.3 SEC (9.8-11.6) Activated Partial 32.5 SEC Thromboplast Time (24.3-30.1) Estimat Glomerular Filtration 67 ML/MIN (>89) 69 ML/MIN (>89) 72 ML/MIN (>89) Rate Random Glucose 117 MG/DL (74-106) Calcium Level 8.0 MG/DL 8.2 MG/DL 6.8 MG/DL (8.5-10.1) (8.5-10.1) (8.5-10.1) Total Creatine Kinase 4353 U/L 4478 U/L 4082 U/L 2807 U/L (39-308) (39-308) (39-308) (39-308) Creatine Kinase MB 19.7 NG/ML 22.1 NG/ML 19.2 NG/ML 8.4 NG/ML (0.5-3.6) (0.5-3.6) (0.5-3.6) (0.5-3.6) Troponin I LESS THAN 0.02 LESS THAN 0.02 LESS THAN 0.02 NG/ML NG/ML NG/ML (0.02-0.05) (0.02-0.05) (0.02-0.05) Mean Corpuscular Volume 79.8 FL (80.0-100.0) Monocytes (%) (Auto) 9.8 % (0.0-8.0) Lymphocytes # (Auto) 0.5 TH/MM3 (1.0-4.8) Platelet Estimate LOW (NORMAL) Ovalocytes 1+ (NORMAL) Luis Cells 1+ (NORMAL) Protein Corrected Calcium 7.5 MG/DL (8.5-10.1) Aspartate Amino Transf 98 U/L (15-37) (AST/SGOT) Total Protein 5.7 GM/DL (6.4-8.2) Albumin 3.2 GM/DL (3.4-5.0) Test 08/29/16 08:55 White Blood Count 2.4 TH/MM3 (4.0-11.0) Red Blood Count 3.49 MIL/MM3 (4.50-5.90) Hemoglobin 8.7 GM/DL (13.0-17.0) Hematocrit 28.6 % (39.0-51.0) Mean Corpuscular Hemoglobin 24.9 PG (27.0-34.0) Mean Corpuscular Hemoglobin 30.4 % Concent (32.0-36.0) Red Cell Distribution Width 19.1 % (11.6-17.2) Platelet Count 76 TH/MM3 (150-450) Hospital Course This is a 51-year-old with significant past medical history of anxiety , cirrhosis, celiac disease, hypothyroidism patient refuses to take thyroid replacement, COPD, history of DVT, history of EtOH abuse, pericardial effusion and psychosis, noncompliance.Pt. well known to undersign from multiple admissions for rhabdomyolysis, severe hypothyroid, and psychiatric admissions. Patient had not actually been in the hospital since January 2016. Patient call either today after he woke up around 12 noon and started to develop chest tightness, felt like a "snake" was squeezing his chest. He did have some shortness of breath, mild nausea, no diaphoresis, no palpitations. He also felt very cold, no fever, no chills, no cough, no sputum production. Patient indicates that prior to this had been doing relatively well. He uses a walker for ambulation. He continues to follow-up with his primary care physician but refuses to take his Synthroid. States that it doesn't do nothing for him. The only medications that he's taking is ibuprofen and trazodone. He does not follow-up with psychiatry as outpatient. Admits to drinking 2 L of vodka every 3 days and has been using cocaine, crystal meth and some marijuana. Patient was evaluated in emergency room, CBC remarkable for WBC of 2.8, hemoglobin 9.7, hematocrit 30.8, platelets 136. This is similar to previous admissions. BMP remarkable for rhabdomyolysis, total creatinine kinase 4353. Troponin negative, 0.02. Renal function was stable. Chest x-ray significant for advanced COPD but no acute findings. EKG did not reveal any acute findings , no ST segment elevation. Patient received aspirin. Patient is examined in the emergency room, he is covered up in blankets as he usually is. He is complaining of back pain which is chronic, indicates that that is the reason he continues to do drugs. At this time, his chest discomfort stable. He has no other complaints. Denies any history of coronary artery disease, thinks that he had a stress test many years ago that was negative. Did see cardiology last year for pericardial effusion which remained stable and was likely due to severe hypothyroidism. Patient is admitted for further evaluation and treatment. Pt Condition on Discharge: Stable Discharge Disposition: Discharge Home Discharge Instructions DIET: Follow Instructions for: Heart Healthy Diet Activities you can perform: Weight Bearing as Camron Corrina Moss August 30, 2016 10:34
== END 2016-08-30 15:16 | disposition home or self-care (01) | DRG 558 ==
LOC: NEPE 13:33 → NEDA 16:22 → N04B 18:55
PROVIDERS: ADMIT Specialist; ATTEND Specialist
DX: M62.82 Rhabdomyolysis (principal); D69.6 Thrombocytopenia, unspecified; K74.60 Unspecified cirrhosis of liver; K90.0 Celiac disease; E88.09 Other disorders of plasma-protein metabolism, not elsewhere classified; K21.9 Gastro-esophageal reflux disease without esophagitis; F32.9 Major depressive disorder, single episode, unspecified; F41.9 Anxiety disorder, unspecified; E03.9 Hypothyroidism, unspecified; F17.210 Nicotine dependence, cigarettes, uncomplicated; J44.9 Chronic obstructive pulmonary disease, unspecified; D64.9 Anemia, unspecified; F10.10 Alcohol abuse, uncomplicated; D72.819 Decreased white blood cell count, unspecified; G89.29 Other chronic pain; F14.10 Cocaine abuse, uncomplicated; F15.10 Other stimulant abuse, uncomplicated; M54.9 Dorsalgia, unspecified; Z91.14 Patient's other noncompliance with medication regimen; Z86.718 Personal history of other venous thrombosis and embolism
CPT/HCPCS: 71010; 80048; 80053; 82550; 82552; 84484; 85025; 85027; 85610; 85730; 93005; J0610; J7030

== ENCOUNTER 2017-05-26 08:24 | Inpatient (IN) | payer OTHER ==
[2017-05-26] VITALS (8 sets, daily range): BP systolic 92–111; BP diastolic 53–78; PULSE 64–103; RESP 14–20; TEMP 97.2–98.2; O2SAT 92–99
[~2017-05-26] VITALS: Ht 185.4 cm; Wt 66.8 kg
[~2017-05-26 08:24] MED LIST changes: +TRAZ100T5 PO; -TRAZ50TA78 PO
[2017-05-26] MEDS ORDERED: TRAZ1TAB14 PO (08:31)
--- NOTE | 2017-05-26 08:56 | PD ---
HPI Chief Complaint: Chest Pain Time Seen by Provider: 08:51 Travel History International Travel<30 days: No Contact w/Intl Traveler<30days: No Traveled to known affect area: No History of Present Illness HPI 52-year-old male patient presents to the ER today because he states that he started having substernal chest pains which she currently measures a 7 out of 10 starting about an hour before arrival by EMS. He has been having difficulty sleeping. He has some shortness of breath. He denies any coughing, fevers, or other issues. He states that he also tripped and flipped his left ankle several days ago and is having left ankle pain. Modifying Factors: None Associated Signs & Symptoms: Chest pain, left ankle injury Risk Factors: None PFSH Past Medical History Anemia: Yes Arthritis: No Asthma: No Autoimmune Disease: No Blood Disorders: No Anxiety: Yes Depression: Yes Heart Rhythm Problems: No Cancer: No Cardiovascular Problems: Yes High Cholesterol: No Chemotherapy: No Chest Pain: Yes Congestive Heart Failure: No Cirrhosis: Yes COPD: No Cerebrovascular Accident: No Diabetes: No Diminished Hearing: Yes (Diminished hearing left side due to water/infection per pt.) Endocrine: Yes Gastrointestinal Disorders: Yes (Celiac disease) GERD: Yes Genitourinary: No Hiatal Hernia: No Hypertension: Yes Immune Disorder: No Implanted Vascular Access Dvce: Yes Kidney Stones: No Musculoskeletal: Yes (Back, Neck, and Left Femur) Neurologic: No Psychiatric: Yes Reproductive: No Respiratory: Yes Immunizations Current: Yes Migraines: Yes Radiation Therapy: No Renal Failure: No Sickle Cell Disease: No Sleep Apnea: No Thyroid Disease: Yes (hypothyroid) Ulcer: No Tetanus Vaccination: Unknown Influenza Vaccination: No Past Surgical History Abdominal Surgery: No AICD: No Arteriovenous Shunt: No Body Medical Devices: angel left leg Cardiac Surgery: Yes (pericardiocentesis) Ear Surgery: No Endocrine Surgery: No Eye Surgery: Yes (cataract both eyes) Genitourinary Surgery: No Gynecologic Surgery: Yes (Pelvic hernia) Insulin Pump: No Joint Replacement: Yes (LEFT FEMUR) Pacemaker: No Thoracic Surgery: No Other Surgery: Yes (LEFT FEMUR FX) Social History Alcohol Use: Yes (PT REPORTED DRINKING OCCASIONALLY) Tobacco Use: Yes (3 CIGARETTES/DAY) Substance Use: No (DENIED, H/O marijuana , snorting cocaine,smoke meth ) Allergies-Medications (Allergen,Severity, Reaction): Coded Allergies: No Known Allergies (Unverified Adverse Reaction, Unknown, 05/26/17) Reported Meds & Prescriptions Reported Meds & Active Scripts Active Reported Trazodone (Trazodone HCl) 150 Mg Tablet 150 Mg PO HS Review of Systems Except as stated in HPI: all other systems reviewed are Neg Physical Exam Narrative GENERAL: Well-developed middle-aged male patient currently in mild distress. Awake and oriented 3. SKIN: Focused skin assessment warm/dry. HEAD: Atraumatic. Normocephalic. EYES: Pupils equal and round. No scleral icterus. No injection or drainage. ENT: No nasal bleeding or discharge. Mucous membranes pink and moist. NECK: Trachea midline. No JVD. Supple. CARDIOVASCULAR: Regular rate and rhythm. No murmur appreciated. RESPIRATORY: No accessory muscle use. Clear to auscultation. Breath sounds equal bilaterally. GASTROINTESTINAL: Abdomen soft, non-tender, nondistended. Hepatic and splenic margins not palpable. MUSCULOSKELETAL: No obvious deformities. No clubbing. No cyanosis. Bilateral ankle edema with barking and mild erythema, both mildly tender to palpation with no obvious bony deformities. NEUROLOGICAL: Awake and alert. No obvious cranial nerve deficits. Motor grossly within normal limits. Normal speech. PSYCHIATRIC: Appropriate mood and affect; insight and judgment normal. Data Data Last Documented VS Vital Signs Date Time Temp Pulse Resp B/P (MAP) Pulse Ox O2 Delivery O2 Flow Rate FiO2 05/26/17 10:07 70 16 101/65 (77) 99 Room Air 05/26/17 08:31 97.5 Orders Orders Electrocardiogram (05/26/17 08:51) B-Type Natriuretic Peptide (05/26/17 08:51) Ckmb (Isoenzyme) Profile (05/26/17 08:51) Complete Blood Count With Diff (05/26/17 08:51) Comprehensive Metabolic Panel (05/26/17 08:51) Magnesium (Mg) (05/26/17 08:51) Prothrombin Time / Inr (Pt) (05/26/17 08:51) Act Partial Throm Time (Ptt) (05/26/17 08:51) Troponin I (05/26/17 08:51) Chest, Single Ap (05/26/17 08:51) Ecg Monitoring (05/26/17 08:51) Bilateral Bp Monitoring (05/26/17 08:51) Iv Access Insert/Monitor (05/26/17 08:51) Oximetry (05/26/17 08:51) Oxygen Administration (05/26/17 08:51) Sodium Chloride 0.9% Flush (Ns Flush) (05/26/17 09:00) Ankle, Complete ([id number]) (05/26/17 08:51) CKMB (05/26/17 08:30) CKMB% (05/26/17 08:30) Sodium Chlor 0.9% 1000 Ml Inj (Ns 1000 M (05/26/17 10:15) Admit Order (Ed Use Only) (05/26/17 10:38) Labs Laboratory Tests Test 05/26/17 08:30 White Blood Count 2.7 TH/MM3 Red Blood Count 2.89 MIL/MM3 Hemoglobin 8.3 GM/DL Hematocrit 24.3 % Mean Corpuscular Volume 84.3 FL Mean Corpuscular Hemoglobin 28.6 PG Mean Corpuscular Hemoglobin Concent 34.0 % Red Cell Distribution Width 17.5 % Platelet Count 194 TH/MM3 Mean Platelet Volume 7.7 FL Neutrophils (%) (Auto) 37.1 % Lymphocytes (%) (Auto) 36.7 % Monocytes (%) (Auto) 13.5 % Eosinophils (%) (Auto) 11.3 % Basophils (%) (Auto) 1.4 % Neutrophils # (Auto) 1.0 TH/MM3 Lymphocytes # (Auto) 1.0 TH/MM3 Monocytes # (Auto) 0.4 TH/MM3 Eosinophils # (Auto) 0.3 TH/MM3 Basophils # (Auto) 0.0 TH/MM3 CBC Comment DIFF FINAL Differential Comment Prothrombin Time 11.0 SEC Prothromb Time International Ratio 1.1 RATIO Activated Partial Thromboplast Time 28.9 SEC Blood Urea Nitrogen 19 MG/DL Creatinine 0.83 MG/DL Random Glucose 93 MG/DL Total Protein 6.6 GM/DL Albumin 3.3 GM/DL Calcium Level 7.4 MG/DL Magnesium Level 2.3 MG/DL Alkaline Phosphatase 54 U/L Aspartate Amino Transf (AST/SGOT) 125 U/L Alanine Aminotransferase (ALT/SGPT) 53 U/L Total Bilirubin 0.4 MG/DL Sodium Level 138 MEQ/L Potassium Level 4.6 MEQ/L Chloride Level 105 MEQ/L Carbon Dioxide Level 26.3 MEQ/L Anion Gap 7 MEQ/L Estimat Glomerular Filtration Rate 98 ML/MIN Protein Corrected Calcium 7.7 MG/DL Total Creatine Kinase 6245 U/L Creatine Kinase MB 39.4 NG/ML Creatine Kinase MB % 0.6 % Troponin I LESS THAN 0.02 NG/ML B-Type Natriuretic Peptide 26 PG/ML MDM Medical Decision Making Medical Screen Exam Complete: Yes Emergency Medical Condition: Yes Medical Record Reviewed: Yes Interpretation(s) EKG shows normal sinus rhythm at a rate of 69 bpm. Low voltage leads. No signs of acute ST elevations or depressions. Laboratory Tests Test 05/26/17 08:30 White Blood Count 2.7 TH/MM3 (4.0-11.0) Red Blood Count 2.89 MIL/MM3 (4.50-5.90) Hemoglobin 8.3 GM/DL (13.0-17.0) Hematocrit 24.3 % (39.0-51.0) Red Cell Distribution Width 17.5 % (11.6-17.2) Monocytes (%) (Auto) 13.5 % (0.0-8.0) Eosinophils (%) (Auto) 11.3 % (0.0-4.0) Neutrophils # (Auto) 1.0 TH/MM3 (1.8-7.7) Blood Urea Nitrogen 19 MG/DL (7-18) Albumin 3.3 GM/DL (3.4-5.0) Calcium Level 7.4 MG/DL (8.5-10.1) Aspartate Amino Transf (AST/SGOT) 125 U/L (15-37) Protein Corrected Calcium 7.7 MG/DL (8.5-10.1) Total Creatine Kinase 6245 U/L (39-308) Creatine Kinase MB 39.4 NG/ML (0.5-3.6) Troponin I LESS THAN 0.02 NG/ML Last 24 hours Impressions Chest X-Ray 05/26/1753 Signed Impressions: Service Date/Time: May 09:06 - CONCLUSION: 1. Minimal left lung base airspace disease, presumably atelectasis. Gregor Haynes MD Ankle X-Ray 05/26/1781 Signed Impressions: Service Date/Time: May 09:11 - CONCLUSION: 1. Soft tissue swelling about is an acute fracture or dislocation. 2. Significant bone demineralization. Shawn Rodriguez MD Differential Diagnosis ACS versus dysrhythmias versus costochondritis Narrative Course Patient has been here multiple times for rhabdomyolysis and chest pains. Lab work are indicative of rhabdomyolysis, and IV fluids were given in the ER. EKG did not show dysrhythmias or any signs of ST changes. Cardiac enzymes, troponin was negative. X-ray of the left ankle which he states he injured is not showing any signs of fractures. He may have an ankle strain. At this point , my plan would be to admit the patient for further treatment of rhabdomyolysis. Case was discussed with Dr. Anne for admission. Diagnosis Primary Impression: Elevated CK Additional Impressions: Rhabdomyolysis Chest pain Admitting Information Admitting Physician Requests: Yaquelin Elmore MD May 26, 2017 08:56
[2017-05-26] MEDS ORDERED: SODIUM CHLORIDE 0.9% FLUSH 10 ML FLUSH IVF PRN (09:00)
[2017-05-26 09:13] LABS: BASOPHIL % 1.4 % (0.0-2.0); EOSINOPHIL # 0.3 TH/MM3 (0-0.4); EOSINOPHIL % 11.3 % (0.0-4.0); HEMATOCRIT 24.3 % (39.0-51.0); HEMOGLOBIN 8.3 GM/DL (13.0-17.0); LYMPH % 36.7 % (9.0-44.0); MEAN CELL VOLUME 84.3 FL (80.0-100.0); MEAN CORPUSCULAR HEMOGLOBIN 28.6 PG (27.0-34.0); MEAN PLATELET VOLUME 7.7 FL (7.0-11.0); MONO % 13.5 % (0.0-8.0); MONOCYTE # 0.4 TH/MM3 (0-0.9); NEUT % 37.1 % (16.0-70.0); PLATELET COUNT 194 TH/MM3 (150-450); RED BLOOD COUNT 2.89 MIL/MM3 (4.50-5.90); RED CELL DISTRIBUTION WIDTH 17.5 % (11.6-17.2); WHITE BLOOD COUNT 2.7 TH/MM3 (4.0-11.0)
[2017-05-26 09:25] LABS: INTERNATIONAL NORMALIZED RATIO 1.1 RATIO
--- NOTE | 2017-05-26 09:29 | RADRPT ---
EXAM DATE/TIME: 05/26/2017 09:11 [facility] COMPARISON: ANKLE LEFT COMPLETE ([id number]), April 14, 2014, 16:58. INDICATIONS : Left ankle pain, fall down steps. MEDICAL HISTORY : Hypertension. SURGICAL HISTORY : None. ENCOUNTER: Initial ACUITY: 2 days PAIN SCORE: 9/10 LOCATION: Left entire ankle FINDINGS: Three view exam was performed of the left ankle. The bony structures are in normal alignment. Marked generalized soft tissue swelling is noted. There is no evidence of acute fracture or dislocation. Th e ankle mortise is intact. No radiopaque foreign bodies are seen. Significant decreased bone mineral ization is noted. CONCLUSION: 1. Soft tissue swelling about is an acute fracture or dislocation. 2. Significant bone demineralization. Shawn Rodriguez MD on May 26, 2017 at 9:26 Board Certified Radiologist. This report was verified electronically.
--- NOTE | 2017-05-26 09:37 | RADRPT ---
EXAM DATE/TIME: 05/26/2017 09:06 [facility] COMPARISON: CHEST SINGLE AP, August 27, 2016, 14:07. INDICATIONS : Chest pain. MEDICAL HISTORY : Hypertension. SURGICAL HISTORY : None. ENCOUNTER: Initial ACUITY: 2 days PAIN SCORE: 8/10 LOCATION: Left upper chest FINDINGS: Mild diffuse interstitial prominence with biapical scarring. Minimal left lung base airspace disease. Cardiomediastinal contours are stable. Remainder of exam is unchanged. CONCLUSION: 1. Minimal left lung base airspace disease, presumably atelectasis. Gregor Haynes MD on May 26, 2017 at 9:26 Board Certified Radiologist. This report was verified electronically.
[2017-05-26 09:56] LABS: ALBUMIN 3.3 GM/DL (3.4-5.0); ALKALINE PHOSPHATASE 54 U/L (45-117); ALT (GPT) 53 U/L (12-78); AST (GOT) 125 U/L (15-37); BICARBONATE 26.3 MEQ/L (21.0-32.0); BLOOD UREA NITROGEN 19 MG/DL (7-18); CALCIUM 7.4 MG/DL (8.5-10.1); CALCIUM-PROTEIN CORRECTED 7.7 MG/DL (8.5-10.1); CHLORIDE 105 MEQ/L (98-107); CREATININE 0.83 MG/DL (0.60-1.30); GLOMERULAR FILTRATION RATE 98 ML/MIN (>89); GLUCOSE,RANDOM 93 MG/DL (74-106); MAGNESIUM 2.3 MG/DL (1.5-2.5); SODIUM (NA) 138 MEQ/L (136-145); TOTAL BILIRUBIN ADULT 0.4 MG/DL (0.2-1.0); TOTAL PROTEIN 6.6 GM/DL (6.4-8.2); TROPONIN I LESS THAN 0.02 NG/ML (0.02-0.05)
[2017-05-26] MEDS ORDERED: SODIUM CHLOR 0.9% 1000 ML INJ 1,000 ML IV ONE (10:15)
[2017-05-26] MEDS ORDERED: ACETAMINOPHEN 500 MG CPLT PO PRN (10:45)
[2017-05-26] MEDS ORDERED: BISACODYL 10 MG SUPP RECTAL PRN (10:45)
[2017-05-26] MEDS ORDERED: LACTULOSE SYRUP 20 GM/30 ML CUP PO PRN (10:45)
[2017-05-26] MEDS ORDERED: SENNOSIDES 8.6 MG TAB PO PRN (10:45)
[2017-05-26] MEDS ORDERED: NALOXONE HCL 0.4 MG/ML AMP IV PUSH PRN ×2 (10:45→14:00)
[2017-05-26] MEDS ORDERED: SODIUM CHLORIDE 0.9% FLUSH 10 ML FLUSH IV FLUSH PRN (10:45)
[2017-05-26] MEDS ORDERED: ACETAMINOPHEN 325 MG TAB PO PRN (10:45)
[2017-05-26] MEDS ORDERED: ONDANSETRON HCL 4 MG/2 ML VIAL IVP PRN (10:45)
[2017-05-26] MEDS ORDERED: MAGNESIUM HYDROXIDE SUSP 30 ML CUP PO PRN (10:45)
[2017-05-26] MEDS: SODIUM CHLOR 0.9% 1000 ML INJ 1,000 ML IV SCH ×2 (11:24→20:23)
[2017-05-26] MEDS: HEPARIN SODIUM - SQ 10,000 UNITS/ML VIAL SQ SCH (12:30)
--- NOTE | 2017-05-26 14:22 | HHI.HP ---
[facility] No Primary Care Physician Admission Diagnosis Chest pain/rhabdomyolysis Diagnoses: Chief Complaint: Shortness of breath and chest pain Travel History International Travel<30 Days: No Contact w/Intl Traveler <30 Da: No Traveled to Known Affected Are: No History of Present Illness 52-year-old male with a medical history significant for anxiety, depression, substance-induced mood disorder, hypothyroidism not on medications presented to the hospital with complaints of shortness of breath and chest tightness that started this morning. By the time of my evaluation, the patient reported shortness of breath and chest pain has resolved. However he is complaining of left ankle pain. He reports persistent and sharp pain. He states that the pain started yesterday after he tripped on a doorway injured his ankle. Workup in the emergency room concerning for rhabdomyolysis. Initial EKG and cardiac enzymes unremarkable. Review of Systems Constitutional: DENIES: Fever, Chills Endocrine: DENIES: Polyuria, Polyphagia Eyes: DENIES: Blurred vision, Vision loss Respiratory: COMPLAINS OF: Shortness of breath Cardiovascular: COMPLAINS OF: Chest pain, DENIES: Palpitations, Syncope Gastrointestinal: DENIES: Abdominal pain, Nausea, Vomiting Musculoskeletal: COMPLAINS OF: Joint pain Except as stated in HPI: all other systems reviewed are Neg Past Family Social History Past Medical History anxiety, depression, substance-induced mood disorder, hypothyroidism, patient has been refusing to be on medications for hypothyroidism. Past Surgical History History of left hip replacement Left femur fracture repair Hernia repair. Reported Medications Reported Meds & Active Scripts Active Reported Trazodone (Trazodone HCl) 150 Mg Tablet 150 Mg PO HS Allergies: Coded Allergies: No Known Allergies (Unverified Allergy, Unknown, 05/26/17) Family History Reviewed and found to be noncontributory. Social History Patient admits to smoking up to 1 pack of cigarettes per day. He states he only drank alcohol a couple of times a week. 2-6 drinks at a time. He denies illicit drug use. States he has not use drugs for years. Physical Exam Vital Signs Vital Signs Date Time Temp Pulse Resp B/P (MAP) Pulse Ox O2 Delivery O2 Flow Rate FiO2 05/26/17 12:50 72 14 111/78 (89) 98 Room Air 05/26/17 10:07 70 16 101/65 (77) 99 Room Air 05/26/17 08:31 97.5 103 16 101/65 (77) 97 Physical Exam GENERAL: This is a well-nourished, well-developed patient, in no apparent distress. SKIN: Bilateral lower extremities with dry scales diffusely. HEAD: Atraumatic. Normocephalic. No temporal or scalp tenderness. EYES: Pupils equal round and reactive. Extraocular motions intact. No scleral icterus. No injection or drainage. ENT: Nose without bleeding, purulent drainage or septal hematoma. Throat without erythema, tonsillar hypertrophy or exudate. Uvula midline. Airway patent. NECK: Trachea midline. No JVD or lymphadenopathy. Supple, nontender, no meningeal signs. CARDIOVASCULAR: Regular rate and rhythm without murmurs, gallops, or rubs. RESPIRATORY: Clear to auscultation. Breath sounds equal bilaterally. No wheezes , rales, or rhonchi. GASTROINTESTINAL: Abdomen soft, non-tender, nondistended. No hepato-splenomegaly , or palpable masses. No guarding. MUSCULOSKELETAL: Left ankle with mild swelling. Some limitation of ankle range of motion secondary to pain. Normal passive range of motion. As noted above, chronic venous stasis changes in diffuse dry blocks on bilateral lower extremities. NEUROLOGICAL: Awake and alert. Cranial nerves II through XII intact. Motor and sensory grossly within normal limits. Five out of 5 muscle strength in all muscle groups. Normal speech. Laboratory Laboratory Tests Test 05/26/17 08:30 05/26/17 13:20 White Blood Count 2.7 Red Blood Count 2.89 Hemoglobin 8.3 Hematocrit 24.3 Mean Corpuscular Volume 84.3 Mean Corpuscular Hemoglobin 28.6 Mean Corpuscular Hemoglobin Concent 34.0 Red Cell Distribution Width 17.5 Platelet Count 194 Mean Platelet Volume 7.7 Neutrophils (%) (Auto) 37.1 Lymphocytes (%) (Auto) 36.7 Monocytes (%) (Auto) 13.5 Eosinophils (%) (Auto) 11.3 Basophils (%) (Auto) 1.4 Neutrophils # (Auto) 1.0 Lymphocytes # (Auto) 1.0 Monocytes # (Auto) 0.4 Eosinophils # (Auto) 0.3 Basophils # (Auto) 0.0 CBC Comment DIFF FINAL Differential Comment Prothrombin Time 11.0 Prothromb Time International Ratio 1.1 Activated Partial Thromboplast Time 28.9 Blood Urea Nitrogen 19 Creatinine 0.83 Random Glucose 93 Total Protein 6.6 Albumin 3.3 Calcium Level 7.4 Magnesium Level 2.3 Alkaline Phosphatase 54 Aspartate Amino Transf (AST/SGOT) 125 Alanine Aminotransferase (ALT/SGPT) 53 Total Bilirubin 0.4 Sodium Level 138 Potassium Level 4.6 Chloride Level 105 Carbon Dioxide Level 26.3 Anion Gap 7 Estimat Glomerular Filtration Rate 98 Protein Corrected Calcium 7.7 Total Creatine Kinase 6245 Creatine Kinase MB 39.4 Creatine Kinase MB % 0.6 Troponin I LESS THAN 0.02 B-Type Natriuretic Peptide 26 Result Diagram: 05/26/1782905/26/17829 Imaging Last Impressions Chest X-Ray 05/26/17850 Signed Impressions: Service Date/Time: May 09:06 - CONCLUSION: 1. Minimal left lung base airspace disease, presumably atelectasis. Gregor Haynes MD Ankle X-Ray 05/26/17850 Signed Impressions: Service Date/Time: May 09:11 - CONCLUSION: 1. Soft tissue swelling about is an acute fracture or dislocation. 2. Significant bone demineralization. MD Kt Josue VTE Risk Assessment Caprini VTE Risk Assessment: Mod/High Risk (score >= 2) Caprini Risk Assessment Model Point Value = 1 Point Value = 2 Point Value = 3 Point Value = 5 Age 41-60 Minor surgery BMI > 25 kg/m2 Swollen legs Varicose veins or History of unexplained or recurrent spontaneous Oral contraceptives or hormone replacement Sepsis (< 1 month) Serious lung disease, including pneumonia (< 1 month) Abnormal pulmonary function Acute myocardial infarction Congestive heart failure (< 1 month) History of inflammatory bowel disease Medical patient at bed rest Age 61-74 Arthroscopic surgery Major open surgery (> 45 min) Laparoscopic surgery (> 45 min) Malignancy Confined to bed (> 72 hours) Immobilizing plaster cast Central venous access Age >= 75 History of VTE Family history of VTE Factor V Leiden Prothrombin [id number] Lupus anticoagulant Anticardiolipin antibodies Elevated serum homocysteine Heparin-induced thrombocytopenia Other congenital or acquired thrombophilia Stroke (< 1 month) Elective arthroplasty Hip, pelvis, or leg fracture Acute spinal cord injury (< 1 month) Prophylaxis Regimen Total Risk Factor Score Risk Level Prophylaxis Regimen 0-1 Low Early ambulation 2 Moderate Order ONE of the following: *Sequential Compression Device (SCD) *Heparin 5000 units SQ BID 3-4 Higher Order ONE of the following medications: *Heparin 5000 units SQ TID *Enoxaparin/Lovenox 40 mg SQ daily (WT < 150 kg, CrCl > 30 mL/min) *Enoxaparin/Lovenox 30 mg SQ daily (WT < 150 kg, CrCl > 10-29 mL/min) *Enoxaparin/Lovenox 30 mg SQ BID (WT < 150 kg, CrCl > 30 mL/min) AND/OR *Sequential Compression Device (SCD) 5 or more Highest Order ONE of the following medications: *Heparin 5000 units SQ TID (Preferred with Epidurals) *Enoxaparin/Lovenox 40 mg SQ daily (WT < 150 kg, CrCl > 30 mL/min) *Enoxaparin/Lovenox 30 mg SQ daily (WT < 150 kg, CrCl > 10-29 mL/min) *Enoxaparin/Lovenox 30 mg SQ BID (WT < 150 kg, CrCl > 30 mL/min) AND *Sequential Compression Device (SCD) Assessment and Plan Problem List: (1) Rhabdomyolysis ICD Code: M62.82 - Rhabdomyolysis Status: Acute Plan: Likely secondary to ankle injury. Continue IV hydration. Follow-up CK tomorrow BMP in a.m. (2) Chest pain ICD Code: R07.9 - Chest pain, unspecified Status: Acute Plan: I suspect this is related to anxiety. Symptoms have completely resolved. Patient admits that he was very anxious today due to "life stressors " Initial EKG and cardiac enzymes unremarkable. Continue ACS rule out with serial cardiac enzymes and EKG.. (3) Generalized anxiety disorder ICD Code: F41.1 - Generalized anxiety disorder Status: Acute Plan: Continue trazodone at night. Counseling provided to the patient. (4) Hypothyroidism ICD Code: E03.9 - Hypothyroidism Status: Acute Plan: Patient reports he always has side effects from thyroid medication and adamantly refused to take them. He was counseled on importance of treating hypothyroidism, he still refused. I advised him to follow-up outpatient with PCP. (5) Noncompliance with medications ICD Code: Z91.14 - Noncompliance with medication regimen Status: Chronic (6) Tobacco abuse ICD Code: Z72.0 - Tobacco use Status: Acute Plan: Tobacco cessation counseling provided. Patient minimize adverse effects of tobacco on his health. (7) Onychomycosis of toenail ICD Code: B35.1 - Onychomycosis of toenail Status: Acute Discussed Condition With Dr. Parker Physician Certification 2 Midnight Certification Type: Admission for Inpatient Services Order for Inpatient Services The services are ordered in accordance with Medicare regulations or non- Medicare payer requirements, as applicable. In the case of services not specified as inpatient-only, they are appropriately provided as inpatient services in accordance with the 2-midnight benchmark. Estimated LOS (days): 2 days is the estimated time the patient will need to remain in the hospital, assuming treatment plan goals are met and no additional complications. Post-Hospital Plan: Home Nicholas Anne MD May 26, 2017 14:22
--- NOTE | 2017-05-26 14:31 | EKG ---
Date Performed: 05/26/2017 Time Performed: 08:53:52 PTAGE: 52 years EKG: Sinus rhythm WITH FIRST DEGREE AV BLOCK LOW QRS VOLTAGE IN PRECORDIAL LEADS POSSIBLE INFERIOR MYOCARDIAL INFARCTI ON ABNORMAL ECG Compared to PREVIOUS TRACING , inferior Q-waves are new, clinical correlation is recommended. PREVIOU S TRACIN08/28/2016 03.04 DOCTOR: Peter Fairbanks Interpretating Date/Time 05/26/2017 14:28:45
[2017-05-26] MEDS: CALCIUM CARBONATE 500 MG CHEWABLE TAB CHEW SCH ×2 (15:37→20:24)
[2017-05-26] MEDS: IBUPROFEN 400 MG TAB PO PRN (15:37)
[2017-05-26] MEDS: FAMOTIDINE 20 MG TAB PO SCH (20:22)
[2017-05-26] MEDS: SODIUM CHLORIDE 0.9% FLUSH 10 ML FLUSH IV FLUSH SCH (20:23)
[2017-05-26] MEDS ORDERED: traZODone HCL 50 MG TAB PO SCH (21:00)
[2017-05-26] MEDS ORDERED: CALCIUM GLUCONATE 10% 1 GM/10 ML VIAL IV PUSH ONE (22:30)
[2017-05-27] MEDS ORDERED: CALCIUM GLUCONATE INJ 2 GM in SODIUM CHLORIDE 0.9% INJ 100 ML IV ONE ×2
[2017-05-27] MEDS: IBUPROFEN 400 MG TAB PO PRN ×2 (03:38→09:59)
[2017-05-27 03:44] VITALS: PULSE 56
[2017-05-27 04:45] VITALS: BP 94/59; PULSE 64; RESP 16; TEMP 97.8; O2SAT 92
[2017-05-27 08:00] VITALS: PULSE 55
[2017-05-27] MEDS: SODIUM CHLORIDE 0.9% FLUSH 10 ML FLUSH IV FLUSH SCH (09:00)
[2017-05-27] MEDS: FAMOTIDINE 20 MG TAB PO SCH (09:59)
[2017-05-27] MEDS: CALCIUM CARBONATE 500 MG CHEWABLE TAB CHEW SCH (09:59)
[2017-05-27] MEDS ORDERED: NORC5TAB PO (11:06)
[2017-05-27 11:19] LABS: BICARBONATE 26.2 MEQ/L (21.0-32.0); CREATININE 0.69 MG/DL (0.60-1.30)
--- NOTE | 2017-05-27 11:22 | HHI.PR ---
Subjective Remarks Patient reports he is feeling okay. He wants to go home. He adamantly refused any thyroid medications. He states he was diagnosed 20 years ago and has been refusing medications since. States his ankle pain is not well controlled with the ibuprofen, he is requesting [place]. Objective Vitals Vital Signs Date Time Temp Pulse Resp B/P (MAP) Pulse Ox O2 Delivery O2 Flow Rate FiO2 05/27/17 08:00 55 05/27/17 04:45 97.8 64 16 94/59 (71) 92 05/27/17 03:44 56 05/26/17 23:49 72 05/26/17 23:42 98.2 84 16 98/53 (68) 92 05/26/17 20:45 97.5 67 16 92/63 (73) 92 05/26/17 19:47 66 05/26/17 16:00 97.2 64 20 106/68 (81) 96 05/26/17 14:50 05/26/17 12:50 72 14 111/78 (89) 98 Room Air I/O 05/26/17 05/26/17 05/26/17 05/27/17 05/27/17 05/27/17 07:00 15:00 23:00 07:00 15:00 23:00 Intake Total 1000 ml 950 ml 240 ml Output Total 250 ml Balance 1000 ml 950 ml -10 ml Intake Oral 240 ml IV Total 1000 ml 950 ml Output Urine Total 250 ml # Bowel Movements 0 Result Diagram: 05/26/17 0830 05/27/17 0908 Objective Remarks GENERAL: Obese male, in no apparent distress. SKIN: Bilateral lower extremities with dry scales diffusely. CARDIOVASCULAR: Regular rate and rhythm without murmurs, gallops, or rubs. RESPIRATORY: Clear to auscultation. Breath sounds equal bilaterally. No wheezes , rales, or rhonchi. MUSCULOSKELETAL: Left ankle with mild swelling. Some limitation of ankle range of motion secondary to pain. Normal passive range of motion. As noted above, chronic venous stasis changes in diffuse dry blocks on bilateral lower extremities. NEUROLOGICAL: Awake and alert. Normal speech. A/P Problem List: (1) Rhabdomyolysis ICD Code: M62.82 - Rhabdomyolysis Status: Acute Plan: Likely secondary to ankle injury. Much improved with IV fluid. CK trending down. Patient does have some elements of chronically elevated CK. He is advised on continuing with oral hydration. (2) Chest pain ICD Code: R07.9 - Chest pain, unspecified Status: Acute Plan: I suspect this is related to anxiety. Symptoms have completely resolved. Patient admits that he was very anxious today due to "life stressors " ACS ruled out with negative serial cardiac enzymes and EKG.. (3) Generalized anxiety disorder ICD Code: F41.1 - Generalized anxiety disorder Status: Acute Plan: Continue trazodone at night. Counseling provided to the patient. (4) Hypothyroidism ICD Code: E03.9 - Hypothyroidism Status: Acute Plan: Patient adamantly refused thyroid medications. He states he was diagnosed over 20 years ago and has been refusing medication since. He was counseled on the possible adverse effects of prolonged hypothyroidism. (5) Noncompliance with medications ICD Code: Z91.14 - Noncompliance with medication regimen Status: Chronic (6) Tobacco abuse ICD Code: Z72.0 - Tobacco use Status: Acute Plan: Tobacco cessation counseling provided. Patient minimize adverse effects of tobacco on his health. (7) Onychomycosis of toenail ICD Code: B35.1 - Onychomycosis of toenail Status: Acute Discharge Planning The patient is refusing recommended treatments. He has capacity to make medical decisions. At this time, he is deemed stable for discharge home. Discharge home in stable condition Activity: Regular as tolerated. Diet: Heart healthy Meds: Per med rec Follow-up: With PCP Nicholas Anne MD May 27, 2017 11:22
[2017-05-27 11:33] LABS: TOTAL PROTEIN 5.2 GM/DL (6.4-8.2)
[2017-05-27 12:00] VITALS: BP 109/66; PULSE 68; RESP 20; TEMP 97.6; O2SAT 93
[2017-05-27 12:36] VITALS: PULSE 62
--- NOTE | 2017-05-27 12:36 | HHI.DCPOC ---
Discharge Care Plan Diagnosis: (1) Rhabdomyolysis (2) Generalized anxiety disorder (3) Chest pain (4) Hypothyroid (5) Tobacco abuse Goals to Promote Your Health * To prevent worsening of your condition and complications * To maintain your health at the optimal level Directions to Meet Your Goals Take your medications as prescribed Follow your dietary instruction Follow activity as directed Keep your appointments as scheduled Take your immunizations and boosters as scheduled If your symptoms worsen call your PCP, if no PCP go to Urgent Care Center or Emergency Room Smoking is Dangerous to Your Health. Avoid second hand smoke Call the 24-hour hour crisis hotline for domestic abuse at Nicholas Anne MD May 27, 2017 12:36
[2017-05-27] MEDS: HEPARIN SODIUM - SQ 10,000 UNITS/ML VIAL SQ SCH ×2 (13:01)
--- NOTE | 2017-05-28 00:21 | EKG ---
Date Performed: 05/26/2017 Time Performed: 21:48:18 PTAGE: 52 years EKG: Sinus rhythm WITH FIRST DEGREE AV BLOCK LOW QRS VOLTAGE ABNORMAL ECG PREVIOUS TRACING : 05/26/2017 14.45 Since the prior tracing, there has been no significant rodriguez DOCTOR: Katerina Adame Interpretating Date/Time 05/28/2017 00:19:36
--- NOTE | 2017-05-28 00:59 | EKG ---
Date Performed: 05/26/2017 Time Performed: 14:45:31 PTAGE: 52 years EKG: Sinus rhythm WITH FIRST DEGREE AV BLOCK LOW QRS VOLTAGE SEPTAL MYOCARDIAL INFARCTION ABNORMAL ECG PREVIOUS TRACING : 05/26/2017 08.53 Since the prior tracing, there has been no significant rodriguez DOCTOR: Katerina Adame Interpretating Date/Time 05/28/2017 00:58:45
== END 2017-05-27 16:12 | disposition home or self-care (01) | DRG 558 ==
LOC: NEPC 08:24 → NEDA 10:40 → N04B 15:08
PROVIDERS: ADMIT Family Medicine; ATTEND Family Medicine
DX: M62.82 Rhabdomyolysis (principal); K74.60 Unspecified cirrhosis of liver; B35.1 Tinea unguium; F17.210 Nicotine dependence, cigarettes, uncomplicated; I10 Essential (primary) hypertension; Z68.1 Body mass index [BMI] 19.9 or less, adult; R07.89 Other chest pain; E03.9 Hypothyroidism, unspecified; K21.9 Gastro-esophageal reflux disease without esophagitis; S93.402A Sprain of unspecified ligament of left ankle, initial encounter; H91.90 Unspecified hearing loss, unspecified ear; X50.1XXA Overexertion from prolonged static or awkward postures, initial encounter; E66.9 Obesity, unspecified; F32.9 Major depressive disorder, single episode, unspecified; F41.1 Generalized anxiety disorder; Z91.14 Patient's other noncompliance with medication regimen; Z96.642 Presence of left artificial hip joint
CPT/HCPCS: 71045; 73610; 80048; 80053; 80307; 82550; 82552; 83735; 83880; 84155; 84443; 84484; 85025; 85610; 85730; 93005; 94150; 96360; J1644; J7030

== ENCOUNTER 2017-05-31 11:06 | Inpatient (IN) | payer OTHER ==
[2017-05-31] VITALS (19 sets, daily range): BP systolic 84–115; BP diastolic 56–79; PULSE 50–78; RESP 16–22; TEMP 94.7–98; O2SAT 96–100
[~2017-05-31] VITALS: Ht 188 cm; Wt 78.8 kg
[~2017-05-31 11:06] MED LIST changes: +NORC5TAB PO; -TRAZ100T5 PO; +TRAZ1TAB14 PO
--- NOTE | 2017-05-31 11:25 | PD ---
HPI Chief Complaint: possible syncope Time Seen by Provider: 11:14 Travel History International Travel<30 days: No Contact w/Intl Traveler<30days: No Traveled to known affect area: No History of Present Illness HPI This 52-year-old male is somewhat incoherent. He believes he passed out this morning. He apparently lives with his mother. Paramedics were called and he apparently had several falls. It is not known if he hit his head. He does drink heavily. He was released from the hospital on the May 27 after an admission for rhabdomyolysis. He admits that he has been drinking. He was complaining to paramedics of pain all over. He has been admitted to the hospital on several occasions for rhabdomyolysis he was discharged just a few days ago. He has been hypothyroid in the past. 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.) Endocrine: Yes Gastrointestinal Disorders: Yes (Celiac disease) GERD: Yes Genitourinary: No Hiatal Hernia: No Hypertension: Yes Immune Disorder: No Implanted Vascular Access Dvce: Yes Kidney Stones: No Musculoskeletal: Yes (Back, Neck, and Left Femur) Neurologic: No Psychiatric: Yes Reproductive: No Respiratory: Yes Immunizations Current: Yes Migraines: Yes Radiation Therapy: No Renal Failure: No Sickle Cell Disease: No Sleep Apnea: No Thyroid Disease: Yes (hypothyroid) Ulcer: No Past Surgical History Abdominal Surgery: No AICD: No Arteriovenous Shunt: No Body Medical Devices: angel left leg Cardiac Surgery: Yes (pericardiocentesis) Ear Surgery: No Endocrine Surgery: No Eye Surgery: Yes (cataract both eyes) Genitourinary Surgery: No Gynecologic Surgery: No Insulin Pump: No Joint Replacement: Yes (LEFT FEMUR) Pacemaker: No Thoracic Surgery: No Other Surgery: Yes (LEFT FEMUR FX) Social History Alcohol Use: Yes (PT REPORTED DRINKING OCCASIONALLY) Tobacco Use: Yes (3 CIGARETTES/DAY) Substance Use: No (DENIED, H/O marijuana , snorting cocaine,smoke meth ) Allergies-Medications (Allergen,Severity, Reaction): Coded Allergies: No Known Allergies (Unverified Allergy, Unknown, 05/31/17) Reported Meds & Prescriptions Reported Meds & Active Scripts Active [place] (Hydrocodone-Acetaminophen) 5 Mg-325 Mg Tab 1 Tab PO Q6H PRN Reported Trazodone (Trazodone HCl) 150 Mg Tablet 150 Mg PO HS Review of Systems ROS Limitations: Altered Mental Status Physical Exam Narrative GENERAL: Chronically ill-appearing male. He is a very pale. He is somewhat combative SKIN: Focused skin assessment cool HEAD: Atraumatic. Normocephalic. EYES: Pupils equal and round. No scleral icterus. No injection or drainage. ENT: No nasal bleeding or discharge. Mucous membranes pink and moist. NECK: Trachea midline. No JVD. CARDIOVASCULAR: Regular rate and rhythm. No murmur appreciated. RESPIRATORY: No accessory muscle use. Clear to auscultation. Breath sounds equal bilaterally. GASTROINTESTINAL: Abdomen soft, liver appears firm and enlarged, nondistended. Hepatic and splenic margins not palpable. Rectal exam there are no masses. Stool is brown and guaiac negative MUSCULOSKELETAL: No obvious deformities. No clubbing. No cyanosis. Bilateral pedal edema. There is some bruising of his right hand NEUROLOGICAL: Confused. Moves all extremities PSYCHIATRIC: Not testable Data Data Last Documented VS Vital Signs Date Time Temp Pulse Resp B/P (MAP) Pulse Ox O2 Delivery O2 Flow Rate FiO2 05/31/17 13:50 57 16 84/56 (65) 96 Nasal Cannula 2.00 05/31/17 11:40 94.8 Orders Orders Electrocardiogram (05/31/17 11:16) Complete Blood Count With Diff (05/31/17 11:16) Comprehensive Metabolic Panel (05/31/17 11:16) Creatine Kinase (Cpk) (05/31/17 11:16) Ckmb (Isoenzyme) Profile (05/31/17 11:16) Troponin I (05/31/17 11:16) Prothrombin Time / Inr (Pt) (05/31/17 11:16) Act Partial Throm Time (Ptt) (05/31/17 11:16) Lipase (05/31/17 11:16) Urinalysis - C+S If Indicated (05/31/17 11:16) Magnesium (Mg) (05/31/17 11:16) Ammonia (05/31/17 11:16) Ct Brain W/O Iv Contrast(Rout) (05/31/17 11:16) Drug Screen, Random Urine (05/31/17 11:16) Alcohol (Ethanol) (05/31/17 11:16) Ct Cerv Spine W/O Contrast (05/31/17 11:16) Hand, Complete ([id number]) (05/31/17 11:28) Ct Abd/Pel W Iv Contrast(Rout) (05/31/17 11:28) Sodium Chlor 0.9% 1000 Ml Inj (Ns 1000 M (05/31/17 11:30) Thiamine Inj (Thiamine Inj) (05/31/17 11:30) Chest, Single Ap (05/31/17 11:50) Thyroid Stimulating Hormone (05/31/17 11:20) CKMB (05/31/17 11:20) CKMB% (05/31/17 11:20) Sodium Chlor 0.9% 1000 Ml Inj (Ns 1000 M (05/31/17 12:45) Ct Thorax/ Chest W Iv Contrast (05/31/17 12:49) Admit Order (Ed Use Only) (05/31/17 14:17) Labs Laboratory Tests Test 05/31/17 11:20 05/31/17 12:00 White Blood Count 2.2 TH/MM3 Red Blood Count 3.03 MIL/MM3 Hemoglobin 8.2 GM/DL Hematocrit 25.9 % Mean Corpuscular Volume 85.5 FL Mean Corpuscular Hemoglobin 27.1 PG Mean Corpuscular Hemoglobin Concent 31.7 % Red Cell Distribution Width 17.3 % Platelet Count 251 TH/MM3 Mean Platelet Volume 6.7 FL Neutrophils (%) (Auto) 28.9 % Lymphocytes (%) (Auto) 47.4 % Monocytes (%) (Auto) 7.7 % Eosinophils (%) (Auto) 14.6 % Basophils (%) (Auto) 1.4 % Neutrophils # (Auto) 0.6 TH/MM3 Lymphocytes # (Auto) 1.1 TH/MM3 Monocytes # (Auto) 0.2 TH/MM3 Eosinophils # (Auto) 0.3 TH/MM3 Basophils # (Auto) 0.0 TH/MM3 CBC Comment AUTO DIFF Differential Total Cells Counted 100 Neutrophils % (Manual) 30 % Lymphocytes % 53 % Monocytes % 4 % Eosinophils % 13 % Neutrophils # (Manual) 0.7 TH/MM3 Differential Comment FINAL DIFF MANUAL Prothrombin Time 11.8 SEC Prothromb Time International Ratio 1.2 RATIO Activated Partial Thromboplast Time 31.7 SEC Blood Urea Nitrogen 8 MG/DL Creatinine 0.84 MG/DL Random Glucose 85 MG/DL Total Protein 6.3 GM/DL Albumin 3.4 GM/DL Calcium Level 7.4 MG/DL Magnesium Level 2.5 MG/DL Alkaline Phosphatase 55 U/L Aspartate Amino Transf (AST/SGOT) 97 U/L Alanine Aminotransferase (ALT/SGPT) 44 U/L Total Bilirubin 0.3 MG/DL Sodium Level 140 MEQ/L Potassium Level 4.2 MEQ/L Chloride Level 105 MEQ/L Carbon Dioxide Level 28.5 MEQ/L Anion Gap 7 MEQ/L Estimat Glomerular Filtration Rate 96 ML/MIN Protein Corrected Calcium 7.8 MG/DL Total Creatine Kinase 5034 U/L Creatine Kinase MB 39.0 NG/ML Creatine Kinase MB % 0.8 % Troponin I LESS THAN 0.02 NG/ML Lipase 170 U/L Thyroid Stimulating Hormone 3rd Gen 71.000 uIU/ML Ethyl Alcohol Level 262 MG/DL Ammonia 14 MCMOL/L [facility] Medical Decision Making Medical Screen Exam Complete: Yes Emergency Medical Condition: Yes Medical Record Reviewed: Yes Differential Diagnosis Differential includes subdural hematoma, alcohol intoxication, rhabdomyolysis Narrative Course Hemoglobin is 8.2 with a white count of 2.2. There are 30% neutrophils 50% lymphocytes and 13% eosinophils. Urine is a. His CPK is again elevated at 5034. TSH is quite elevated at 71. His blood alcohol is 262. X-ray of the hand does not show any acute fracture. Chest x-ray showed ill-defined infiltrate in the left lower lung. EKG showed low voltage. There is sinus bradycardia with first-degree AV block. CT brain is negative. CT cervical spine is negative. CT abdomen and pelvis shows sludge within the gallbladder. No calcified stones or biliary duct dilatation. There is pericardial effusion CT thorax shows old lower rib fractures probable pericardial effusion and clear lungs Diagnosis Primary Impression: Rhabdomyolysis Qualified Codes: M62.82 - Rhabdomyolysis Additional Impressions: Severe hypothyroidism Alcohol intoxication Mario Alvarado MD May 31, 2017 11:25
[2017-05-31] MEDS ORDERED: THIAMINE INJ 100 MG in SODIUM CHLORIDE 0.9% INJ 100 ML IV ONE (11:30)
[2017-05-31] MEDS ORDERED: SODIUM CHLOR 0.9% 1000 ML INJ 1,000 ML IV ONE ×2 (11:30→12:45)
[2017-05-31 11:31] LABS: AUTOMATED NEUTROPHIL # 0.6 TH/MM3 (1.8-7.7); BASOPHIL % 1.4 % (0.0-2.0); EOSINOPHIL # 0.3 TH/MM3 (0-0.4); EOSINOPHIL % 14.6 % (0.0-4.0); HEMATOCRIT 25.9 % (39.0-51.0); HEMOGLOBIN 8.2 GM/DL (13.0-17.0); LYMPH % 47.4 % (9.0-44.0); LYMPHOCYTE # 1.1 TH/MM3 (1.0-4.8); MEAN CELL VOLUME 85.5 FL (80.0-100.0); MEAN CORPUSCULAR HEMOGLOBIN 27.1 PG (27.0-34.0); MEAN CORPUSCULAR HGB CONC 31.7 % (32.0-36.0); MEAN PLATELET VOLUME 6.7 FL (7.0-11.0); MONO % 7.7 % (0.0-8.0); MONOCYTE # 0.2 TH/MM3 (0-0.9); NEUT % 28.9 % (16.0-70.0); PLATELET COUNT 251 TH/MM3 (150-450); RED BLOOD COUNT 3.03 MIL/MM3 (4.50-5.90); RED CELL DISTRIBUTION WIDTH 17.3 % (11.6-17.2); WHITE BLOOD COUNT 2.2 TH/MM3 (4.0-11.0)
[2017-05-31 11:43] LABS: CHLORIDE 105 MEQ/L (98-107); SODIUM (NA) 140 MEQ/L (136-145)
[2017-05-31 11:50] LABS: INTERNATIONAL NORMALIZED RATIO 1.2 RATIO; PROTHROMBIN TIME - PATIENT 11.8 SEC (9.8-11.6)
[2017-05-31 12:00] LABS: LYMPHOCYTES 53 % (9-44); MONOCYTES 4 % (0-8); NEUTROPHIL # MANUAL DIFF 0.7 TH/MM3 (1.8-7.7); POLYS (SEG NEUTROPHILS) 30 % (16-70)
[2017-05-31 12:11] LABS: ALBUMIN 3.4 GM/DL (3.4-5.0); ALKALINE PHOSPHATASE 55 U/L (45-117); ALT (GPT) 44 U/L (12-78); AST (GOT) 97 U/L (15-37); BICARBONATE 28.5 MEQ/L (21.0-32.0); BLOOD UREA NITROGEN 8 MG/DL (7-18); CALCIUM 7.4 MG/DL (8.5-10.1); CALCIUM-PROTEIN CORRECTED 7.8 MG/DL (8.5-10.1); CREATININE 0.84 MG/DL (0.60-1.30); GLOMERULAR FILTRATION RATE 96 ML/MIN (>89); GLUCOSE,RANDOM 85 MG/DL (74-106); MAGNESIUM 2.5 MG/DL (1.5-2.5); TOTAL BILIRUBIN ADULT 0.3 MG/DL (0.2-1.0); TOTAL PROTEIN 6.3 GM/DL (6.4-8.2); TROPONIN I LESS THAN 0.02 NG/ML (0.02-0.05)
--- NOTE | 2017-05-31 12:13 | RADRPT ---
EXAM DATE/TIME: 05/31/2017 11:51 [facility] COMPARISON: CHEST SINGLE AP, May 26, 2017, 9:06. INDICATIONS : Chest pain. MEDICAL HISTORY : Hypertension. Pericardiocentesis. SURGICAL HISTORY : None. ENCOUNTER: Initial ACUITY: 1 day PAIN SCORE: 5/10 LOCATION: Bilateral chest FINDINGS: The patient's chin superimposes upon the apex. There are patchy infiltrates in the lower lateral lef t lung superimposing upon the cardiac apex. The right lung is clear. Healed bilateral rib fractures similar to prior. Diffuse osteopenia. The heart is normal size. CONCLUSION: Ill-defined infiltrate in the left lower lung. Alok Bae MD on May 31, 2017 at 12:09 Board Certified Radiologist. This report was verified electronically.
--- NOTE | 2017-05-31 12:15 | RADRPT ---
EXAM DATE/TIME: 05/31/2017 11:51 [facility] COMPARISON: No previous studies available for comparison. INDICATIONS : Right hand pain. Bruising at the proximal 2nd and 3rd digit. MEDICAL HISTORY : Hypertension. Pericardiocentesis. SURGICAL HISTORY : None. ENCOUNTER: Initial ACUITY: 1 day PAIN SCORE: 5/10 LOCATION: Right hand. FINDINGS: Diffuse osteopenia. Deformity of the distal 5th metacarpal bone characteristic of an old healed boxe r's fracture. There is also some sclerosis in the proximal metaphysis of the proximal phalanx of the 5th digit suggesting old injury. The osseous structures of the 2nd and 3rd digit are intact without evidence of fracture or dislocation. No radiopaque foreign bodies. CONCLUSION: No evidence of recent bony injury. Diffuse osteopenia. Evidence of old bony injury 5th digit proximal phalanx and distal metacarpal bone. Alok Bae MD on May 31, 2017 at 12:11 Board Certified Radiologist. This report was verified electronically.
[2017-05-31] MEDS ORDERED: IOHEXOL 350 MG/ML 10 ML VIAL (for RAD DIAG) IVCONTRAST ONE (13:01)
--- NOTE | 2017-05-31 13:28 | RADRPT ---
EXAM DATE/TIME: 05/31/2017 12:55 [facility] COMPARISON: CT BRAIN W/O CONTRAST, November 21, 2015, 22:06. INDICATIONS : Passed out and fell. Pain everywhere. RADIATION DOSE: 65.07 CTDIvol (mGy) MEDICAL HISTORY : Hypothyroidism. Cirrhosis. Hepatitis.Celiac disease. Hypertension. SURGICAL HISTORY : Musculoskeletal surgery. ENCOUNTER: Initial ACUITY: 1 day PAIN SCALE: 5/10 LOCATION: cranial TECHNIQUE: Multiple contiguous axial images were obtained of the head. Using automated exposure control and adj ustment of the mA and/or kV according to patient size, radiation dose was kept as low as reasonably a chievable to obtain optimal diagnostic quality images. DICOM format image data is available electro nically for review and comparison. FINDINGS: CEREBRUM: The ventricles are normal for age. No evidence of midline shift, mass lesion, hemorrhage or acute in farction. No extra-axial fluid collections are seen. POSTERIOR FOSSA: The cerebellum and brainstem are intact. The 4th ventricle is midline. The cerebellopontine angle i s unremarkable. EXTRACRANIAL: The visualized portion of the orbits is intact. SKULL: The calvaria is intact. No evidence of skull fracture. CONCLUSION: Negative noncontrast CT brain. Alok Bae MD on May 31, 2017 at 13:25 Board Certified Radiologist. This report was verified electronically.
--- NOTE | 2017-05-31 13:31 | RADRPT ---
EXAM DATE/TIME: 05/31/2017 12:55 [facility] COMPARISON: CT CERVICAL SPINE W/O CONTRAST, November 21, 2015, 22:06. INDICATIONS : Passed out and fell. Pain everywhere. RADIATION DOSE: 26.66 CTDIvol (mGy) MEDICAL HISTORY : Hypothyroidism. Cirrhosis. Hepatitis.Celiac disease. Hypertension. SURGICAL HISTORY : Musculoskeletal surgery. ENCOUNTER: Initial ACUITY: 1 day PAIN SCALE: 5/10 LOCATION: neck TECHNIQUE: Volumetric scanning of the cervical spine was performed. Multiplanar reconstructions in the sagittal, coronal and oblique axial planes were performed. Using automated exposure control and adjustment o f the mA and/or kV according to patient size, radiation dose was kept as low as reasonably achievable to obtain optimal diagnostic quality images. DICOM format image data is available electronically f or review and comparison. FINDINGS: There is normal alignment of vertebral bodies of the cervical spine and preservation of vertebral bod y height. Posterior elements are normal alignment without evidence of locked or perched facets. The spinous processes are intact. The atlantoaxial articulation is intact. C2-C3: No fracture seen. The neural foramina are patent. C3-C4: No fracture seen. The neural foramina are patent. Mild bulging of the disc, similar to prior. C4-C5: No fracture seen. The neural foramina are patent. Mild disc bulging, similar to prior. C5-C6: No fracture seen. The neural foramina are patent. C6-C7: No fracture seen. The neural foramina are patent. C7-T1: No fracture seen. The neural foramina are patent. CONCLUSION: 1. No evidence of compression deformity or spondylolisthesis. Alok Bae MD on May 31, 2017 at 13:27 Board Certified Radiologist. This report was verified electronically.
--- NOTE | 2017-05-31 13:39 | RADRPT ---
EXAM DATE/TIME: 05/31/2017 13:01 [facility] COMPARISON: No previous studies available for comparison. INDICATIONS : Passed out and fell. Pain all over. IV CONTRAST: 95 cc Omnipaque 350 (iohexol) IV ; Cumulative dose for multiple exams. RADIATION DOSE: 14.19 CTDIvol (mGy) ; Combined studies - Thorax/Abdomen/Pelvis MEDICAL HISTORY : Hypothyroidism. Cirrhosis. Hepatitis.Hypertension. Celiac disease. SURGICAL HISTORY : None. ENCOUNTER: Initial ACUITY: 1 day PAIN SCALE: 6/10 LOCATION: chest TECHNIQUE: Volumetric scanning of the chest was performed. Using automated exposure control and adjustment of t he mA and/or kV according to patient size, radiation dose was kept as low as reasonably achievable to obtain optimal diagnostic quality images. DICOM format image data is available electronically for review and comparison. Follow-up recommendations for detected pulmonary nodules are based at a minimum on nodule size and pa tient risk factors according to Fleischner Society Guidelines. FINDINGS: LUNGS: There is no consolidation or pneumothorax. No concerning pulmonary nodule is visualized. PLEURA: There is no pleural thickening or pleural effusion. MEDIASTINUM: No evidence of mediastinal adenopathy or pneumomediastinum most the ascending aorta is mildly promine nt measuring 4.6 centimeters in AP dimension. The margins are smooth and the surrounding soft tissue s have a normal configuration.. No intraluminal abnormality. The arch and descending aorta is jitendra l dimension. There is moderate thickening of the pericardium measuring 1.4 cm anteriorly. AXILLAE: Within normal limits. No lymphadenopathy. SKELETAL: Fractures with some callus, but still discernible fracture lines are seen crew person lateral right 9th an d 10th ribs and posterolateral left 9th rib. CONCLUSION: 1. Bilateral lower lateral rib fractures with some non-bridging callus formation suggesting that thes e are subacute or old. 2. Probable pericardial effusion. 3. Mild aneurysmal enlargement to the ascending aorta measuring 4.6 cm without luminal irregularity o r defect.. 4. The lungs are clear. No evidence of pneumothorax. Alok Bae MD on May 31, 2017 at 13:30 Board Certified Radiologist. This report was verified electronically.
--- NOTE | 2017-05-31 13:44 | RADRPT ---
EXAM DATE/TIME: 05/31/2017 13:01 [facility] COMPARISON: CT ABDOMEN & PELVIS W CONTRAST, February 22, 2012, 16:46. INDICATIONS : Passed out and fell. Pain everywhere. IV CONTRAST: 95 cc Omnipaque 350 (iohexol) IV ; Cumulative dose for multiple exams. ORAL CONTRAST: No oral contrast ingested. RADIATION DOSE: 14.19 CTDIvol (mGy) ; Combined studies - Thorax/Abdomen/Pelvis MEDICAL HISTORY : Hypothyroidism. Cirrhosis. Hepatitis.Celiac disease. Hypertension. SURGICAL HISTORY : Musculoskeletal surgery. ENCOUNTER: Initial ACUITY: 1 day PAIN SCALE: 6/10 LOCATION: pelvis abdomen TECHNIQUE: Volumetric scanning of the abdomen and pelvis was performed. Using automated exposure control and ad justment of the mA and/or kV according to patient size, radiation dose was kept as low as reasonably achievable to obtain optimal diagnostic quality images. DICOM format image data is available electro nically for review and comparison. FINDINGS: LOWER LUNGS: The visualized lower lungs are clear. Pericardial effusion. LIVER: Homogeneous density without lesion. There is no dilation of the biliary tree. No calcified gallston es, but there is some layering sludge within the dependent lumen near the neck.. SPLEEN: Normal size without lesion. PANCREAS: Within normal limits. KIDNEYS: Normal in size and shape. There is no mass, stone or hydronephrosis. ADRENAL GLANDS: Within normal limits. VASCULAR: There is no aortic aneurysm. BOWEL/MESENTERY: No dilated loops of small or large bowel. ABDOMINAL WALL: Within normal limits. RETROPERITONEUM: There is no lymphadenopathy. BLADDER: Moderately distended with smooth margins. No wall thickening or mass. REPRODUCTIVE: Within normal limits. INGUINAL: There is no lymphadenopathy or hernia. MUSCULOSKELETAL: Femoral neck screw and intramedullary angel in the proximal left femur. Healed fractures of the inferi or pubic ramus bilaterally and multiple posterolateral rib fractures, very similar to prior CT scan i n 2011. Bilateral pars defects at L5. CONCLUSION: 1. Probable sludge within the gallbladder. No calcified stones or biliary ductal dilatation. 2. Pericardial effusion. 3. Old fractures of the ribs and pelvis. Stable bilateral pars defects L5 Alok Bae MD on May 31, 2017 at 13:37 Board Certified Radiologist. This report was verified electronically.
[2017-05-31] MEDS ORDERED: MAGNESIUM HYDROXIDE SUSP 30 ML CUP PO PRN (14:30)
[2017-05-31] MEDS ORDERED: LACTULOSE SYRUP 20 GM/30 ML CUP PO PRN (14:30)
[2017-05-31] MEDS ORDERED: FLUMAZENIL 0.5 MG/5 ML VIAL IV PUSH PRN (14:30)
[2017-05-31] MEDS ORDERED: MISCELLANEOUS NURSING INFORMATION XX SCH (14:30)
[2017-05-31] MEDS ORDERED: CHLORHEXIDINE GLUCONATE 2 % 1 PACK (2 CLOTHS) TOP PRN (14:30)
[2017-05-31] MEDS ORDERED: SENNOSIDES 8.6 MG TAB PO PRN (14:30)
[2017-05-31] MEDS ORDERED: SODIUM CHLORIDE 0.9% FLUSH 10 ML FLUSH IV FLUSH PRN (14:30)
[2017-05-31] MEDS ORDERED: RESP: ALBUTEROL 2.5 MG/IPRATROPIUM 0.5 MG NEB (PRN) INH (14:30)
[2017-05-31] MEDS ORDERED: ONDANSETRON HCL 4 MG/2 ML VIAL IV PUSH PRN (14:30)
[2017-05-31] MEDS: LEVOTHYROXINE SODIUM 100 MCG TAB PO ONE ×2 (14:30→14:50)
[2017-05-31] MEDS ORDERED: BISACODYL 10 MG SUPP RECTAL PRN (14:30)
[2017-05-31] MEDS ORDERED: LORazepam 2 MG/ML VIAL IV PUSH PRN (14:30)
[2017-05-31] MEDS ORDERED: LEVOTHYROXINE SODIUM 100 MCG VIAL IV PUSH ONE (15:15)
[2017-05-31 15:51] LABS: BILIRUBIN, URINE NEG (NEG); BLOOD, URINE NEG (NEG); GLUCOSE,URINE NEG (NEG); KETONE, URINE NEG (NEG); NITRITE,URINE NEG (NEG); PH, URINE 5.5 (5.0-8.5); URINE LEUKOCYTE ESTERASE NEG (NEG)
[2017-05-31] MEDS: THIAMINE INJ 100 MG in SODIUM CHLORIDE 0.9% INJ 100 ML IV SCH (16:00)
[2017-05-31] MEDS: MULTIVITAMIN INJ 10 ML, FOLIC ACID INJ 1 MG in SODIUM CHLORID 0.9% 500 ML INJ 500 ML IV SCH (16:09)
[2017-05-31] MEDS: SODIUM CHLOR 0.9% 1000 ML INJ 1,000 ML IV SCH ×2 (16:09→21:29)
[2017-05-31] MEDS: HEPARIN SODIUM - SQ 10,000 UNITS/ML VIAL SQ SCH (16:10)
[2017-05-31 16:25] LABS: URINE COLOR YELLOW (YELLW/STRAW)
[2017-05-31 16:26] LABS: SQUAMOUS EPITHELIAL CELL URINE 0-5 /hpf (0-5)
[2017-05-31 17:17] LABS: FREE T3 LESS THAN 0.50 PG/ML (2.18-3.98)
--- NOTE | 2017-05-31 18:55 | HHI.HP ---
HPI Service Critical Care Medicine Primary Care Physician No Primary Care Physician Admission Diagnosis RHABDOMYOLYSIS Diagnosis: Travel History International Travel<30 Days: No Contact w/Intl Traveler <30 Da: No Traveled to Known Affected Are: No History of Present Illness HPI This 52-year-old male that presented to the ED, with altered mental status. Per report from ED , he believes he he had LOC the morning. The paramedics were called and he apparently had several falls. It is not known if he hit his head. He has a history of EtOH abuse. He was released from the hospital on the May 27 after an admission for rhabdomyolysis. He was complaining to paramedics of pain all over. He has been admitted to the hospital on several occasions for rhabdomyolysis he was discharged just a few days ago. The patient 's medical history is significant for hypothyroidism for several years patient has refused to take Synthroid, stating side effects despite extensive counseling regarding hypothyroidism and the possibility of myxedema edema, and . Critical care medicine was consulted secondary to his hypotension. 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.) Endocrine: Yes Gastrointestinal Disorders: Yes (Celiac disease) GERD: Yes Genitourinary: No Hiatal Hernia: No Hypertension: Yes Immune Disorder: No Implanted Vascular Access Dvce: Yes Kidney Stones: No Musculoskeletal: Yes (Back, Neck, and Left Femur) Neurologic: No Psychiatric: Yes Reproductive: No Respiratory: Yes Immunizations Current: Yes Migraines: Yes Radiation Therapy: No Renal Failure: No Sickle Cell Disease: No Sleep Apnea: No Thyroid Disease: Yes (hypothyroid) Ulcer: No Past Surgical History Abdominal Surgery: No AICD: No Arteriovenous Shunt: No Body Medical Devices: angel left leg Cardiac Surgery: Yes (pericardiocentesis) Ear Surgery: No Endocrine Surgery: No Eye Surgery: Yes (cataract both eyes) Genitourinary Surgery: No Gynecologic Surgery: No Insulin Pump: No Joint Replacement: Yes (LEFT FEMUR) Pacemaker: No Thoracic Surgery: No Other Surgery: Yes (LEFT FEMUR FX) Social History Alcohol Use: Yes (PT REPORTED DRINKING OCCASIONALLY) Tobacco Use: Yes (3 CIGARETTES/DAY) Substance Use: No (DENIED, H/O marijuana , snorting cocaine,smoke meth ) Allergies-Medications Allergies-Medications (Allergen,Severity, Reaction): Coded Allergies: No Known Allergies (Unverified Allergy, Unknown, 05/31/17) Reported Meds & Prescriptions Reported Meds & Active Scripts Active [place] (Hydrocodone-Acetaminophen) 5 Mg-325 Mg Tab 1 Tab PO Q6H PRN Reported Trazodone (Trazodone HCl) 150 Mg Tablet 150 Mg PO HS ROS Review of Systems ROS Limitations: Altered Mental St Physical Exam Vital Signs Vital Signs Date Time Temp Pulse Resp B/P (MAP) Pulse Ox O2 Delivery O2 Flow Rate FiO2 05/31/17 18:00 78 16 97/63 (74) 100 05/31/17 18:00 78 05/31/17 17:00 50 22 93/64 (74) 96 05/31/17 16:34 66 17 113/78 (90) 96 05/31/17 16:20 72 05/31/17 16:15 97.4 60 18 110/67 (81) 98 05/31/17 16:03 60 16 99/58 (72) 99 Nasal Cannula 2.00 05/31/17 14:36 60 16 84/56 (65) 97 Nasal Cannula 2.00 05/31/17 14:23 94.7 05/31/17 13:50 57 16 84/56 (65) 96 Nasal Cannula 2.00 05/31/17 13:50 Nasal Cannula 2.00 05/31/17 12:41 60 16 103/67 (79) 99 Nasal Cannula 2.00 05/31/17 12:07 78 16 101/68 (79) 98 Nasal Cannula 2.00 05/31/17 11:40 94.8 56 16 89/67 (74) 96 Nasal Cannula 2.00 05/31/17 11:30 Room Air 05/31/17 11:26 94.8 68 18 88/60 (69) 96 Physical Exam GENERAL: This is a well-developed well-nourished male notably inebriated at this time, with complaints of pain '"all over" SKIN: Warm and dry. HEAD: Atraumatic. Normocephalic. EYES: Pupils equal and round. No scleral icterus. No injection or drainage. ENT: No nasal bleeding or discharge. Mucous membranes pink and moist. NECK: Trachea midline. No JVD. CARDIOVASCULAR: Normal rate, regular rhythm. RESPIRATORY: No accessory muscle use. Clear to auscultation. Breath sounds equal bilaterally. GASTROINTESTINAL: Abdomen soft, non-tender, nondistended. No guarding. MUSCULOSKELETAL: Extremities without clubbing, cyanosis. B/L lower extremity edema scaling flaky dry skin NEUROLOGICAL: Lethargic. RASS -1. No gross focal/sensory deficits. Follows commands in all 4 extremities. Laboratory Laboratory Tests Test 05/31/17 11:20 05/31/17 12:00 05/31/17 15:00 05/31/17 15:10 White Blood Count 2.2 Red Blood Count 3.03 Hemoglobin 8.2 Hematocrit 25.9 Mean Corpuscular Volume 85.5 Mean Corpuscular Hemoglobin 27.1 Mean Corpuscular Hemoglobin Concent 31.7 Red Cell Distribution Width 17.3 Platelet Count 251 Mean Platelet Volume 6.7 Neutrophils (%) (Auto) 28.9 Lymphocytes (%) (Auto) 47.4 Monocytes (%) (Auto) 7.7 Eosinophils (%) (Auto) 14.6 Basophils (%) (Auto) 1.4 Neutrophils # (Auto) 0.6 Lymphocytes # (Auto) 1.1 Monocytes # (Auto) 0.2 Eosinophils # (Auto) 0.3 Basophils # (Auto) 0.0 CBC Comment AUTO DIFF Differential Total Cells Counted 100 Neutrophils % (Manual) 30 Lymphocytes % 53 Monocytes % 4 Eosinophils % 13 Neutrophils # (Manual) 0.7 Differential Comment FINAL DIFF MANUAL Prothrombin Time 11.8 Prothromb Time International Ratio 1.2 Activated Partial Thromboplast Time 31.7 Blood Urea Nitrogen 8 Creatinine 0.84 Random Glucose 85 Total Protein 6.3 Albumin 3.4 Calcium Level 7.4 Magnesium Level 2.5 Alkaline Phosphatase 55 Aspartate Amino Transf (AST/SGOT) 97 Alanine Aminotransferase (ALT/SGPT) 44 Total Bilirubin 0.3 Sodium Level 140 Potassium Level 4.2 Chloride Level 105 Carbon Dioxide Level 28.5 Anion Gap 7 Estimat Glomerular Filtration Rate 96 Protein Corrected Calcium 7.8 Total Creatine Kinase 5034 Creatine Kinase MB 39.0 Creatine Kinase MB % 0.8 Troponin I LESS THAN 0.02 Lipase 170 Free Thyroxine 0.10 Free Triiodothyronine (T3) pg/dL LESS THAN 0.50 Thyroid Stimulating Hormone 3rd Gen 71.000 Ethyl Alcohol Level 262 Ammonia 14 Random Cortisol 9.8 Urine Color YELLOW Urine Turbidity CLEAR Urine pH 5.5 Urine Specific [place] 1.015 Urine Protein NEG Urine Glucose (UA) NEG Urine Ketones NEG Urine Occult Blood NEG Urine Nitrite NEG Urine Bilirubin NEG Urine Leukocyte Esterase NEG Urine Squamous Epithelial Cells 0-5 Microscopic Urinalysis Comment CULT NOT INDICATED Urine Opiates Screen NEG Urine Barbiturates Screen NEG Urine Amphetamines Screen NEG Urine Benzodiazepines Screen NEG Urine Cocaine Screen NEG Urine Cannabinoids Screen NEG Test 05/31/17 16:50 Result Diagram: 05/31/17 1120 05/31/17 1120 Imaging Last Impressions Chest CT 05/31/17 1249 Signed Impressions: Service Date/Time: Wednesday, May 31, 2017 13:01 - CONCLUSION: 1. Bilateral lower lateral rib fractures with some non-bridging callus formation suggesting that these are subacute or old. 2. Probable pericardial effusion. 3. Mild aneurysmal enlargement to the ascending aorta measuring 4.6 cm without luminal irregularity or defect.. 4. The lungs are clear. No evidence of pneumothorax. Alok Bae MD Chest X-Ray 05/31/17 1150 Signed Impressions: Service Date/Time: Wednesday, May 31, 2017 11:51 - CONCLUSION: Ill- defined infiltrate in the left lower lung. Alok Bae MD Hand X-Ray 05/31/17 1128 Signed Impressions: Service Date/Time: Wednesday, May 31, 2017 11:51 - CONCLUSION: No evidence of recent bony injury. Diffuse osteopenia. Evidence of old bony injury 5th digit proximal phalanx and distal metacarpal bone. Alok Bae MD Abdomen/Pelvis CT 05/31/17 1128 Signed Impressions: Service Date/Time: Wednesday, May 31, 2017 13:01 - CONCLUSION: 1. Probable sludge within the gallbladder. No calcified stones or biliary ductal dilatation. 2. Pericardial effusion. 3. Old fractures of the ribs and pelvis. Stable bilateral pars defects L5 Alok Bae MD Head CT 05/31/17 1116 Signed Impressions: Service Date/Time: Wednesday, May 31, 2017 12:55 - CONCLUSION: Negative noncontrast CT brain. Alok Bae MD Cervical Spine CT 05/31/17 1116 Signed Impressions: Service Date/Time: Wednesday, May 31, 2017 12:55 - CONCLUSION: 1. No evidence of compression deformity or spondylolisthesis. Alok Bae MD Septic Shock Reassessment Septic shock perfusion: reassessment completed Caprini VTE Risk Assessment Caprini VTE Risk Assessment: Mod/High Risk (score >= 2) Caprini Risk Assessment Model Point Value = 1 Point Value = 2 Point Value = 3 Point Value = 5 Age 41-60 Minor surgery BMI > 25 kg/m2 Swollen legs Varicose veins or History of unexplained or recurrent spontaneous Oral contraceptives or hormone replacement Sepsis (< 1 month) Serious lung disease, including pneumonia (< 1 month) Abnormal pulmonary function Acute myocardial infarction Congestive heart failure (< 1 month) History of inflammatory bowel disease Medical patient at bed rest Age 61-74 Arthroscopic surgery Major open surgery (> 45 min) Laparoscopic surgery (> 45 min) Malignancy Confined to bed (> 72 hours) Immobilizing plaster cast Central venous access Age >= 75 History of VTE Family history of VTE Factor V Leiden Prothrombin [id number] Lupus anticoagulant Anticardiolipin antibodies Elevated serum homocysteine Heparin-induced thrombocytopenia Other congenital or acquired thrombophilia Stroke (< 1 month) Elective arthroplasty Hip, pelvis, or leg fracture Acute spinal cord injury (< 1 month) Prophylaxis Regimen Total Risk Factor Score Risk Level Prophylaxis Regimen 0-1 Low Early ambulation 2 Moderate Order ONE of the following: *Sequential Compression Device (SCD) *Heparin 5000 units SQ BID 3-4 Higher Order ONE of the following medications: *Heparin 5000 units SQ TID *Enoxaparin/Lovenox 40 mg SQ daily (WT < 150 kg, CrCl > 30 mL/min) *Enoxaparin/Lovenox 30 mg SQ daily (WT < 150 kg, CrCl > 10-29 mL/min) *Enoxaparin/Lovenox 30 mg SQ BID (WT < 150 kg, CrCl > 30 mL/min) AND/OR *Sequential Compression Device (SCD) 5 or more Highest Order ONE of the following medications: *Heparin 5000 units SQ TID (Preferred with Epidurals) *Enoxaparin/Lovenox 40 mg SQ daily (WT < 150 kg, CrCl > 30 mL/min) *Enoxaparin/Lovenox 30 mg SQ daily (WT < 150 kg, CrCl > 10-29 mL/min) *Enoxaparin/Lovenox 30 mg SQ BID (WT < 150 kg, CrCl > 30 mL/min) AND *Sequential Compression Device (SCD) Assessment and Plan Assessment and Plan This is a 52-year-old male with a history of EtOH abuse and noncompliance with medication regimen. Patient has a noted medical diagnoses of hypothyroidism and refuses to take Synthroid, stating side effects uncomfortable for him . Patient has been hospitalized on multiple occasion, recently for rhabdomyolysis on 05/26. Rhabdomyolysis and significant hypothyroidism due to noncompliance with medication regimen. 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 Monitor for signs of alcohol withdrawal Alcohol level 262 Ammonia level 14 Ativan 2 mg every 4 hours when necessary for agitation and anxiety Seizure precautions Multivitamin and thiamine supplementation Counseled patient on the importance of taking medication as prescribed, and resultant effects of severe hypothyroidism to include myxedema coma and possible Tylenol 650 mg every 6 hours for pain Respiratory: Tobaccoism Consider nicotine patch Maintain O2 sat greater than 92% currently O2 sat 96% on room air Patient counseled on smoking cessation Duo nebs every 4 hours when necessary for wheezing Cardiovascular: Hypotension Maintain MAP greater than 60 Begin steroid supplementation hydrocortisone 100 mg every 12 hours Begin Synthroid 50 mics daily (IV) Renal: 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 Central line if indicated Dispo: Level 2 follow-up. Plan transfer to [facility] in a.m. 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
[2017-05-31] MEDS ORDERED: CALCIUM GLUCONATE INJ 2 GM in SODIUM CHLORIDE 0.9% INJ 100 ML IV ONE (20:00)
[2017-05-31] MEDS: DOCUSATE SODIUM 50 MG/SENNA 8.6 MG TAB PO SCH (21:00)
[2017-05-31] MEDS: SODIUM CHLORIDE 0.9% FLUSH 10 ML FLUSH IV FLUSH SCH (21:26)
[2017-05-31] MEDS: HYDROCORTISONE SOD SUCCINATE 100 MG VIAL IV PUSH SCH (21:30)
[2017-05-31] MEDS: FAMOTIDINE 20 MG/2 ML VIAL IV PUSH SCH (21:30)
[2017-06-01] VITALS (24 sets, daily range): BP systolic 99–128; BP diastolic 70–89; PULSE 54–88; RESP 14–26; TEMP 97.4–98.6; O2SAT 86–97
[2017-06-01] MEDS: CHLORHEXIDINE GLUCONATE 2 % 1 PACK (2 CLOTHS) TOP SCH (03:16)
[2017-06-01] MEDS: SODIUM CHLOR 0.9% 1000 ML INJ 1,000 ML IV SCH ×4 (03:16→18:55)
[2017-06-01] MEDS: HEPARIN SODIUM - SQ 10,000 UNITS/ML VIAL SQ SCH ×2 (03:18→16:18)
[2017-06-01 05:03] LABS: AUTOMATED NEUTROPHIL # 2.8 TH/MM3 (1.8-7.7); BASOPHIL # 0.1 TH/MM3 (0-0.2); BASOPHIL % 1.7 % (0.0-2.0); EOSINOPHIL % 0.6 % (0.0-4.0); HEMATOCRIT 28.4 % (39.0-51.0); HEMOGLOBIN 9.3 GM/DL (13.0-17.0); LYMPH % 13.4 % (9.0-44.0); LYMPHOCYTE # 0.4 TH/MM3 (1.0-4.8); MEAN CELL VOLUME 84.8 FL (80.0-100.0); MEAN CORPUSCULAR HEMOGLOBIN 27.9 PG (27.0-34.0); MEAN CORPUSCULAR HGB CONC 32.8 % (32.0-36.0); MEAN PLATELET VOLUME 7.2 FL (7.0-11.0); MONO % 1.2 % (0.0-8.0); NEUT % 83.1 % (16.0-70.0); PLATELET COUNT 267 TH/MM3 (150-450); RED BLOOD COUNT 3.35 MIL/MM3 (4.50-5.90); RED CELL DISTRIBUTION WIDTH 17.7 % (11.6-17.2); WHITE BLOOD COUNT 3.3 TH/MM3 (4.0-11.0)
[2017-06-01 05:21] LABS: ALBUMIN 3.3 GM/DL (3.4-5.0); BICARBONATE 22.5 MEQ/L (21.0-32.0); CALCIUM 7.4 MG/DL (8.5-10.1); CALCIUM-PROTEIN CORRECTED 7.8 MG/DL (8.5-10.1); CREATININE 0.71 MG/DL (0.60-1.30); MAGNESIUM 2.2 MG/DL (1.5-2.5); PHOSPHORUS 3.2 MG/DL (2.5-4.9); TOTAL BILIRUBIN ADULT 0.4 MG/DL (0.2-1.0); TOTAL PROTEIN 6.4 GM/DL (6.4-8.2)
[2017-06-01] MEDS ORDERED: LEVOTHYROXINE SODIUM 100 MCG VIAL IV PUSH SCH (06:00)
[2017-06-01] MEDS ORDERED: LEVOTHYROXINE SODIUM 100 MCG TAB PO SCH (06:00)
[2017-06-01] MEDS: FAMOTIDINE 20 MG/2 ML VIAL IV PUSH SCH ×2 (08:36→21:00)
[2017-06-01] MEDS: HYDROCORTISONE SOD SUCCINATE 100 MG VIAL IV PUSH SCH ×2 (08:36→21:00)
[2017-06-01] MEDS: DOCUSATE SODIUM 50 MG/SENNA 8.6 MG TAB PO SCH ×2 (08:37→21:00)
[2017-06-01] MEDS: SODIUM CHLORIDE 0.9% FLUSH 10 ML FLUSH IV FLUSH SCH ×2 (08:37→21:00)
[2017-06-01] MEDS: LEVOTHYROXINE SODIUM 100 MCG TAB PO SCH (10:00)
--- NOTE | 2017-06-01 11:41 | HHI.PR ---
Subjective Remarks Follow-up rhabdomyolysis. Patient seen and examined, lying in bed comfortably. Patient states he did not sleep well requesting his home trazodone. Patient has been eating well, denies any abdominal pain, nausea or vomiting. Patient states that he will not take his thyroid medication prescribed to him, states that this does not help him and makes him sick. Spoke extensively about the importance of taking this medicine, patient continues to refuse. Blood pressure normal today, continued IV fluids. No improvement with CPK. Continue to monitor. Objective Vitals Vital Signs Date Time Temp Pulse Resp B/P (MAP) Pulse Ox O2 Delivery O2 Flow Rate FiO2 06/01/17 09:00 80 15 127/85 (99) 96 06/01/17 08:00 72 06/01/17 08:00 63 19 102/79 (87) 86 06/01/17 07:00 98 Room Air 06/01/17 07:00 98.3 72 20 102/79 (87) 97 06/01/17 06:00 60 06/01/17 06:00 64 16 102/71 (81) 97 06/01/17 05:00 64 16 113/71 (85) 97 06/01/17 04:00 58 06/01/17 04:00 98.0 70 16 100/76 (84) 95 06/01/17 03:00 70 16 111/77 (88) 95 06/01/17 02:00 54 06/01/17 02:00 60 16 99/71 (80) 06/01/17 01:00 56 16 107/73 (84) 06/01/17 00:00 97.4 56 16 110/74 (86) 96 06/01/17 00:00 56 05/31/17 23:22 62 16 115/79 (91) 05/31/17 22:00 60 16 109/77 (88) 98 05/31/17 22:00 60 05/31/17 21:00 58 16 111/69 (83) 98 05/31/17 20:12 99 Room Air 05/31/17 20:05 98.0 66 16 113/75 (88) 100 05/31/17 20:00 56 05/31/17 19:00 60 16 110/69 (83) 100 05/31/17 18:00 78 16 97/63 (74) 100 05/31/17 18:00 78 05/31/17 17:00 50 22 93/64 (74) 96 05/31/17 16:34 66 17 113/78 (90) 96 05/31/17 16:20 72 05/31/17 16:15 97.4 60 18 110/67 (81) 98 05/31/17 16:03 60 16 99/58 (72) 99 Nasal Cannula 2.00 05/31/17 14:36 60 16 84/56 (65) 97 Nasal Cannula 2.00 05/31/17 14:23 94.7 05/31/17 13:50 57 16 84/56 (65) 96 Nasal Cannula 2.00 05/31/17 13:50 Nasal Cannula 2.00 05/31/17 12:41 60 16 103/67 (79) 99 Nasal Cannula 2.00 05/31/17 12:07 78 16 101/68 (79) 98 Nasal Cannula 2.00 05/31/17 11:40 94.8 56 16 89/67 (74) 96 Nasal Cannula 2.00 05/31/17 11:30 Room Air 05/31/17 11:26 94.8 68 18 88/60 (69) 96 I/O 05/31/17 05/31/17 05/31/17 06/01/17 06/01/17 06/01/17 07:00 15:00 23:00 07:00 15:00 23:00 Intake Total 1101 ml 2510 ml 1220 ml 1000 ml Output Total 600 ml 2100 ml Balance 1101 ml 1910 ml -880 ml 1000 ml Intake Oral 100 ml IV Total 1101 ml 2510 ml 1120 ml 1000 ml Output Urine Total 600 ml 2100 ml # Voids 1 3 # Bowel Movements 0 Result Diagram: 06/01/17 0406 06/01/17 0406 Imaging Last Impressions Chest CT 05/31/17 1249 Signed Impressions: Service Date/Time: Wednesday, May 31, 2017 13:01 - CONCLUSION: 1. Bilateral lower lateral rib fractures with some non-bridging callus formation suggesting that these are subacute or old. 2. Probable pericardial effusion. 3. Mild aneurysmal enlargement to the ascending aorta measuring 4.6 cm without luminal irregularity or defect.. 4. The lungs are clear. No evidence of pneumothorax. Alok Bae MD Chest X-Ray 2/20/18 1150 Signed Impressions: Service Date/Time: Wednesday, May 31, 2017 11:51 - CONCLUSION: Ill- defined infiltrate in the left lower lung. Alok Bae MD Hand X-Ray 05/31/17 1128 Signed Impressions: Service Date/Time: Wednesday, May 31, 2017 11:51 - CONCLUSION: No evidence of recent bony injury. Diffuse osteopenia. Evidence of old bony injury 5th digit proximal phalanx and distal metacarpal bone. Alok Bae MD Abdomen/Pelvis CT 05/31/17 1128 Signed Impressions: Service Date/Time: Wednesday, May 31, 2017 13:01 - CONCLUSION: 1. Probable sludge within the gallbladder. No calcified stones or biliary ductal dilatation. 2. Pericardial effusion. 3. Old fractures of the ribs and pelvis. Stable bilateral pars defects L5 Alok Bae MD Head CT 05/31/17 1116 Signed Impressions: Service Date/Time: Wednesday, May 31, 2017 12:55 - CONCLUSION: Negative noncontrast CT brain. Alok Bae MD Cervical Spine CT 05/31/17 1116 Signed Impressions: Service Date/Time: Wednesday, May 31, 2017 12:55 - CONCLUSION: 1. No evidence of compression deformity or spondylolisthesis. Alok Bae MD Objective Remarks GENERAL: Well-developed, well-nourished patient in [facility]. SKIN: Warm and dry. No rash. Pale HEAD: Normocephalic. Atraumatic. EYES: Pupils equal and round. No scleral icterus. No injection or drainage. ENT: No nasal bleeding or discharge. Mucous membranes pink and moist. NECK: Supple. Trachea midline. CARDIOVASCULAR: Regular rate and rhythm. S1, S2 noted. No murmur appreciated. RESPIRATORY: No accessory muscle use. Clear to auscultation. Breath sounds equal bilaterally. GASTROINTESTINAL: Abdomen soft, non-tender, nondistended. Normoactive bowel sounds x4. MUSCULOSKELETAL: No obvious deformities. Extremities without clubbing, cyanosis , or edema. NEUROLOGICAL: Awake and alert. No obvious cranial nerve deficits. Motor grossly within normal limits. 5/5 muscle strength in bilateral upper and lower extremities. Normal speech. PSYCHIATRIC: Appropriate mood and affect; insight and judgment normal. A/P Assessment and Plan This is a 52-year-old male with a history of EtOH abuse and noncompliance with medication regimen. Patient has a noted medical diagnoses of hypothyroidism and refuses to take Synthroid, stating side effects uncomfortable for him . Patient has been hospitalized on multiple occasion, recently for rhabdomyolysis on 05/26. Rhabdomyolysis and significant hypothyroidism due to noncompliance with medication regimen. 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 Noncompliant. Trending CPK. No improvement today. Strict I/Os. Continue IVF. Encourage PO intake. PT evaluation performed, appreciate recommendations and input. Continue condom catheter. Chest CT reviewed showing bilateral lower lateral rib fractures, suggestive of old fractures. Probable pericaridal effusion. Mild aneurysmal enlargement to ascending aorta. Lungs clear. No pneumo. Head CT reviewed, negative. PT following. Fall risk assessment complete. Hypotension suspect secondary to dehydration, resolved. Maintain MAP greater than 60. Continue IVF for now. 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 Tylenol 650 mg every 6 hours for pain Will continue Trazodone for sleep. Tobaccoism Maintain O2 sat greater than 92% currently O2 sat 97% on room air Patient counseled on smoking cessation Duo nebs every 4 hours when necessary for wheezing Hypothyroidism TSH 65 Continue Synthroid 50 mics IV daily, patient is refusing. Stress importance. Continue cortisol 100 mg every 12 hours GI Prophylaxis: Famotidine every 12 hours DVT Prophylaxis: SCDs. Heparin. Buffy Morales Jun 01, 2017 11:41
--- NOTE | 2017-06-01 11:44 | HHI.FF ---
Face to Face Verification Diagnosis: (1) Rhabdomyolysis (2) Hypothyroid (3) Pericardial effusion Physical Therapy Order: Evaluate and Treat, Improve ambulation, Strength and gait training Home Health Nursing Order: Medical education Signs/symptoms of disease process Medication education-adverse effect Nursing assessment with vital signs I have seen patient Venkata Bryant on 06/01/17. My clinical findings support the need for the requested home health care services because: Deconditioned w/ increased weakness I certify that my clinical findings support that this patient is homebound because: Unsteady gait/balance Buffy Morales Jun 01, 2017 11:44
[2017-06-01] MEDS ORDERED: IBUPROFEN 200 MG TAB PO PRN (12:00)
[2017-06-01] MEDS ORDERED: CALCIUM GLUCONATE INJ 1 GM in SODIUM CHLORIDE 0.9% INJ 100 ML IV ONE (13:00)
--- NOTE | 2017-06-01 16:05 | EKG ---
Date Performed: 05/31/2017 Time Performed: 11:43:11 PTAGE: 52 years EKG: SINUS BRADYCARDIA WITH FIRST DEGREE AV BLOCK LOW QRS VOLTAGE IN EXTREMITY LEADS SEPTAL MYOC ARDIAL INFARCTION ABNORMAL ECG PREVIOUS TRACING : 05/26/2017 21.48 DOCTOR: Steven Rapp Interpretating Date/Time 06/01/2017 16:03:38
[2017-06-01] MEDS: THIAMINE INJ 100 MG in SODIUM CHLORIDE 0.9% INJ 100 ML IV SCH (16:18)
[2017-06-01] MEDS: MULTIVITAMIN INJ 10 ML, FOLIC ACID INJ 1 MG in SODIUM CHLORID 0.9% 500 ML INJ 500 ML IV SCH (17:29)
[2017-06-01] MEDS ORDERED: traZODone HCL 50 MG TAB PO SCH (21:00)
[2017-06-02] VITALS (15 sets, daily range): BP systolic 87–138; BP diastolic 53–82; PULSE 64–92; RESP 11–26; TEMP 97.3–99; O2SAT 89–99
[2017-06-02] MEDS: SODIUM CHLOR 0.9% 1000 ML INJ 1,000 ML IV SCH ×3 (00:34→12:20)
[2017-06-02] MEDS: HEPARIN SODIUM - SQ 10,000 UNITS/ML VIAL SQ SCH (04:00)
[2017-06-02] MEDS: CHLORHEXIDINE GLUCONATE 2 % 1 PACK (2 CLOTHS) TOP SCH (04:00)
[2017-06-02 05:52] LABS: AUTOMATED NEUTROPHIL # 2.4 TH/MM3 (1.8-7.7); BASOPHIL % 0.4 % (0.0-2.0); EOSINOPHIL % 0.9 % (0.0-4.0); HEMATOCRIT 23.2 % (39.0-51.0); HEMOGLOBIN 7.3 GM/DL (13.0-17.0); LYMPH % 27.1 % (9.0-44.0); MEAN CELL VOLUME 84.8 FL (80.0-100.0); MEAN CORPUSCULAR HEMOGLOBIN 26.8 PG (27.0-34.0); MEAN CORPUSCULAR HGB CONC 31.6 % (32.0-36.0); MEAN PLATELET VOLUME 7.5 FL (7.0-11.0); MONO % 9.2 % (0.0-8.0); MONOCYTE # 0.3 TH/MM3 (0-0.9); NEUT % 62.4 % (16.0-70.0); PLATELET COUNT 235 TH/MM3 (150-450); RED BLOOD COUNT 2.73 MIL/MM3 (4.50-5.90); RED CELL DISTRIBUTION WIDTH 17.6 % (11.6-17.2); WHITE BLOOD COUNT 3.7 TH/MM3 (4.0-11.0)
[2017-06-02] MEDS: LEVOTHYROXINE SODIUM 100 MCG TAB PO SCH (06:00)
[2017-06-02 06:19] LABS: ALBUMIN 2.7 GM/DL (3.4-5.0); BICARBONATE 25.3 MEQ/L (21.0-32.0)
[2017-06-02 06:35] LABS: CALCIUM 6.8 MG/DL (8.5-10.1); CALCIUM-PROTEIN CORRECTED 7.8 MG/DL (8.5-10.1); CREATININE 0.88 MG/DL (0.60-1.30); TOTAL BILIRUBIN ADULT 0.5 MG/DL (0.2-1.0); TOTAL PROTEIN 5.2 GM/DL (6.4-8.2)
[2017-06-02] MEDS ORDERED: POTASSIUM CHLORIDE 10 MEQ CONTROLLED RELEASE TAB PO ONE (08:00)
[2017-06-02] MEDS: HYDROCORTISONE SOD SUCCINATE 100 MG VIAL IV PUSH SCH (09:00)
[2017-06-02] MEDS: FAMOTIDINE 20 MG/2 ML VIAL IV PUSH SCH (09:00)
[2017-06-02] MEDS ORDERED: CALCIUM GLUCONATE INJ 1 GM in SODIUM CHLORIDE 0.9% INJ 100 ML IV ONE (09:00)
[2017-06-02] MEDS: DOCUSATE SODIUM 50 MG/SENNA 8.6 MG TAB PO SCH (09:50)
[2017-06-02] MEDS: SODIUM CHLORIDE 0.9% FLUSH 10 ML FLUSH IV FLUSH SCH (09:52)
--- NOTE | 2017-06-02 10:50 | HHI.PR ---
Subjective Remarks Follow-up rhabdomyolysis. Patient seen and examined, sleeping in bed. Awakens to voice. Patient states he did not sleep once again. Has been eating okay, denies any nausea or vomiting or diarrhea. Patient denies any suicidal ideation or plan at this time. Was seen by psychiatry who has [place] acted him this morning, plan to transfer to medical psych unit today. Patient still denies need for thyroid medication prescribed to him, continued to express the importance of taking this medicine. Vital signs are stable today. CPK improving some. Will be discharged to medical psych unit today. Hemoglobin has dropped, will repeat H&H. Suspect secondary to aggressive IV hydration. Although, patient may need blood transfusion if symptomatic, asymptomatic at this time. Blood pressure and heart rate normal. Will continue IV fluid on medical psych unit and continue to trend CPK. Objective Vitals Vital Signs Date Time Temp Pulse Resp B/P (MAP) Pulse Ox O2 Delivery O2 Flow Rate FiO2 06/02/17 10:01 92 18 119/82 (94) 93 06/02/17 10:00 89 06/02/17 09:00 78 22 99/60 (73) 92 06/02/17 08:00 66 13 92/57 (69) 93 06/02/17 07:00 Room Air 06/02/17 07:00 98.9 68 13 93/56 (68) 93 06/02/17 06:00 74 15 96/60 (72) 93 06/02/17 06:00 85 06/02/17 05:00 66 12 91/53 (66) 93 06/02/17 04:00 68 06/02/17 04:00 99.0 70 11 92/57 (69) 91 06/02/17 03:00 68 13 93/57 (69) 90 06/02/17 02:00 68 12 87/56 (66) 90 06/02/17 02:00 67 06/02/17 01:00 68 12 90/59 (69) 89 06/02/17 00:00 98.5 64 13 108/72 (84) 89 06/02/17 00:00 68 06/01/17 23:00 72 17 111/77 (88) 92 06/01/17 22:00 72 06/01/17 22:00 76 19 113/71 (85) 91 06/01/17 21:00 78 23 116/82 (93) 90 06/01/17 21:00 78 23 116/82 (93) 90 06/01/17 20:00 73 06/01/17 20:00 86 19 121/78 (92) 92 06/01/17 19:49 88 22 121/77 (92) 92 06/01/17 19:00 98 Room Air 06/01/17 18:00 66 26 111/70 (84) 92 06/01/17 18:00 87 06/01/17 17:00 70 20 113/72 (86) 94 06/01/17 16:00 98.6 70 23 117/70 (86) 91 06/01/17 16:00 70 06/01/17 15:00 66 16 114/73 (87) 95 06/01/17 14:00 74 06/01/17 14:00 74 19 109/80 (90) 96 06/01/17 13:00 74 14 118/78 (91) 95 06/01/17 12:00 70 06/01/17 12:00 98.6 72 18 128/89 (102) 97 06/01/17 11:00 66 15 117/80 (92) 97 I/O 06/01/17 06/01/17 06/01/17 06/02/17 06/02/17 06/02/17 06:59 14:59 22:59 06:59 14:59 22:59 Intake Total 1220 ml 1110 ml 1061 ml 3750 ml Output Total 2100 ml 1550 ml Balance -880 ml 1110 ml -489 ml 3750 ml Intake Oral 100 ml 960 ml 620 ml IV Total 1120 ml 1110 ml 101 ml 3130 ml Output Urine Total 2100 ml 1550 ml # Voids 3 2 # Bowel Movements 0 1 0 Result Diagram: 06/02/17 0525 06/02/17 0525 Imaging Last Impressions Lower Extremity Ultrasound 06/02/17 0000 Signed Impressions: Service Date/Time: May 12:15 - CONCLUSION: 1. No DVT identified within the left lower extremity. Tom Live MD [id number] Chest CT 05/31/17 1249 Signed Impressions: Service Date/Time: Wednesday, May 31, 2017 13:01 - CONCLUSION: 1. Bilateral lower lateral rib fractures with some non-bridging callus formation suggesting that these are subacute or old. 2. Probable pericardial effusion. 3. Mild aneurysmal enlargement to the ascending aorta measuring 4.6 cm without luminal irregularity or defect.. 4. The lungs are clear. No evidence of pneumothorax. Alok Bae MD Chest X-Ray 05/31/17 1150 Signed Impressions: Service Date/Time: Wednesday, May 31, 2017 11:51 - CONCLUSION: Ill- defined infiltrate in the left lower lung. Alok Bae MD Hand X-Ray 05/31/17 1128 Signed Impressions: Service Date/Time: Wednesday, May 31, 2017 11:51 - CONCLUSION: No evidence of recent bony injury. Diffuse osteopenia. Evidence of old bony injury 5th digit proximal phalanx and distal metacarpal bone. Alok Bae MD Abdomen/Pelvis CT 05/31/17 1128 Signed Impressions: Service Date/Time: Wednesday, May 31, 2017 13:01 - CONCLUSION: 1. Probable sludge within the gallbladder. No calcified stones or biliary ductal dilatation. 2. Pericardial effusion. 3. Old fractures of the ribs and pelvis. Stable bilateral pars defects L5 Alok Bae MD Head CT 05/31/17 1116 Signed Impressions: Service Date/Time: Wednesday, May 31, 2017 12:55 - CONCLUSION: Negative noncontrast CT brain. Alok Bae MD Cervical Spine CT 05/31/17 1116 Signed Impressions: Service Date/Time: Wednesday, May 31, 2017 12:55 - CONCLUSION: 1. No evidence of compression deformity or spondylolisthesis. Alok Bae MD Objective Remarks GENERAL: Well-developed, well-nourished patient in [facility]. SKIN: Warm and dry. No rash. Pale HEAD: Normocephalic. Atraumatic. EYES: Pupils equal and round. No scleral icterus. No injection or drainage. ENT: No nasal bleeding or discharge. Mucous membranes pink and moist. NECK: Supple. Trachea midline. CARDIOVASCULAR: Regular rate and rhythm. S1, S2 noted. No murmur appreciated. RESPIRATORY: No accessory muscle use. Clear to auscultation. Breath sounds equal bilaterally. GASTROINTESTINAL: Abdomen soft, non-tender, nondistended. Normoactive bowel sounds x4. MUSCULOSKELETAL: No obvious deformities. Extremities without clubbing, cyanosis , or edema. Left lower extremity pain to palpation, mild erythema and swelling. NEUROLOGICAL: Awake and alert. No obvious cranial nerve deficits. Motor grossly within normal limits. 5/5 muscle strength in bilateral upper and lower extremities. Normal speech. PSYCHIATRIC: Appropriate mood and affect; insight and judgment normal. A/P Assessment and Plan This is a 52-year-old male with a history of EtOH abuse and noncompliance with medication regimen. Patient has a noted medical diagnoses of hypothyroidism and refuses to take Synthroid, stating side effects uncomfortable for him . Patient has been hospitalized on multiple occasion, recently for rhabdomyolysis on 05/26. Rhabdomyolysis and significant hypothyroidism due to noncompliance with medication regimen. 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 Noncompliant. Trending CPK. Some improvement today. Continue to follow. Strict I/Os. Continue IVF. Encourage PO intake. PT evaluation performed, appreciate recommendations and input. Continue condom catheter. Chest CT reviewed showing bilateral lower lateral rib fractures, suggestive of old fractures. Probable pericaridal effusion. Mild aneurysmal enlargement to ascending aorta. Lungs clear. No pneumo. Head CT reviewed, negative. PT following. Fall risk assessment complete. Normocytic hypochromic anemia, suspect secondary aggressive IV hydration Continue to monitor CBC. Patient may need blood transfusion if symptomatic, at this time patient is asymptomatic. Vitals are stable. Continue to monitor. Trend H&H. Will recheck. Suicidal ideation Psychiatry consulted, appreciate input recommendations. Plan will be to transfer to medical psych unit. At this time patient denies any suicidal ideation or plan. Continue to monitor. Suicide precautions. 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 Tylenol 650 mg every 6 hours for pain Will continue Trazodone for sleep. Tobaccoism Maintain O2 sat greater than 92% currently O2 sat 97% on room air Patient counseled on smoking cessation Duo nebs every 4 hours when necessary for wheezing Hypothyroidism TSH 65 Continue Synthroid 50 mics IV daily, patient is refusing. Stressed importance. Continue p.o. steroids. GI Prophylaxis: Famotidine every 12 hours DVT Prophylaxis: SCDs. Heparin. Buffy Morales Jun 02, 2017 10:50
--- NOTE | 2017-06-02 11:30 | HHI.DS ---
Discharge Summary Admission Date May 31, 2017 at 14:18 Discharge Date: Jun 02, 2017 Admitting Diagnosis RHABDOMYOLYSIS (1) Weakness ICD Code: R53.1 - Weakness Status: Acute (2) Elevated CK ICD Code: R74.8 - Abnormal levels of other serum enzymes Status: Acute (3) Rhabdomyolysis ICD Code: M62.82 - Rhabdomyolysis Status: Acute (4) Anemia ICD Code: D64.9 - Anemia Status: Acute Procedures . Brief History - From Admission This 52-year-old male that presented to the ED, with altered mental status. Per report from ED , he believes he he had LOC the morning. The paramedics were called and he apparently had several falls. It is not known if he hit his head. He has a history of EtOH abuse. He was released from the hospital on the May 27 after an admission for rhabdomyolysis. He was complaining to paramedics of pain all over. He has been admitted to the hospital on several occasions for rhabdomyolysis he was discharged just a few days ago. The patient 's medical history is significant for hypothyroidism for several years patient has refused to take Synthroid, stating side effects despite extensive counseling regarding hypothyroidism and the possibility of myxedema edema, and . Critical care medicine was consulted secondary to his hypotension. 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.) Endocrine: Yes Gastrointestinal Disorders: Yes (Celiac disease) GERD: Yes Genitourinary: No Hiatal Hernia: No Hypertension: Yes Immune Disorder: No Implanted Vascular Access Dvce: Yes Kidney Stones: No Musculoskeletal: Yes (Back, Neck, and Left Femur) Neurologic: No Psychiatric: Yes Reproductive: No Respiratory: Yes Immunizations Current: Yes Migraines: Yes Radiation Therapy: No Renal Failure: No Sickle Cell Disease: No Sleep Apnea: No Thyroid Disease: Yes (hypothyroid) Ulcer: No Past Surgical History Abdominal Surgery: No AICD: No Arteriovenous Shunt: No Body Medical Devices: angel left leg Cardiac Surgery: Yes (pericardiocentesis) Ear Surgery: No Endocrine Surgery: No Eye Surgery: Yes (cataract both eyes) Genitourinary Surgery: No Gynecologic Surgery: No Insulin Pump: No Joint Replacement: Yes (LEFT FEMUR) Pacemaker: No Thoracic Surgery: No Other Surgery: Yes (LEFT FEMUR FX) Social History Alcohol Use: Yes (PT REPORTED DRINKING OCCASIONALLY) Tobacco Use: Yes (3 CIGARETTES/DAY) Substance Use: No (DENIED, H/O marijuana , snorting cocaine,smoke meth ) Allergies-Medications Allergies-Medications (Allergen,Severity, Reaction): Coded Allergies: No Known Allergies (Unverified Allergy, Unknown, 05/31/17) Reported Meds & Prescriptions Reported Meds & Active Scripts Active [place] (Hydrocodone-Acetaminophen) 5 Mg-325 Mg Tab 1 Tab PO Q6H PRN Reported Trazodone (Trazodone HCl) 150 Mg Tablet 150 Mg PO HS ROS Review of Systems ROS Limitations: Altered Mental St CBC/BMP: 06/02/17 0525 06/02/17 0525 Significant Findings Laboratory Tests Test 05/31/17 11:20 05/31/17 12:00 05/31/17 15:00 05/31/17 15:10 White Blood Count 2.2 TH/MM3 (4.0-11.0) Red Blood Count 3.03 MIL/MM3 (4.50-5.90) Hemoglobin 8.2 GM/DL (13.0-17.0) Hematocrit 25.9 % (39.0-51.0) Mean Corpuscular Hemoglobin Concent 31.7 % (32.0-36.0) Red Cell Distribution Width 17.3 % (11.6-17.2) Mean Platelet Volume 6.7 FL (7.0-11.0) Lymphocytes (%) (Auto) 47.4 % (9.0-44.0) Eosinophils (%) (Auto) 14.6 % (0.0-4.0) Neutrophils # (Auto) 0.6 TH/MM3 (1.8-7.7) Lymphocytes % 53 % (9-44) Eosinophils % 13 % (0-4) Neutrophils # (Manual) 0.7 TH/MM3 (1.8-7.7) Prothrombin Time 11.8 SEC (9.8-11.6) Activated Partial Thromboplast Time 31.7 SEC (24.3-30.1) Total Protein 6.3 GM/DL (6.4-8.2) Calcium Level 7.4 MG/DL (8.5-10.1) Aspartate Amino Transf (AST/SGOT) 97 U/L (15-37) Protein Corrected Calcium 7.8 MG/DL (8.5-10.1) Total Creatine Kinase 5034 U/L (39-308) Creatine Kinase MB 39.0 NG/ML (0.5-3.6) Troponin I LESS THAN 0.02 NG/ML Free Thyroxine 0.10 NG/DL (0.76-1.46) Free Triiodothyronine (T3) pg/dL LESS THAN 0.50 PG/ML Thyroid Stimulating Hormone 3rd Gen 71.000 uIU/ML (0.358-3.740) Ethyl Alcohol Level 262 MG/DL (0-5) Test 05/31/17 16:50 05/31/17 20:15 06/01/17 04:06 06/02/17 05:25 Total Creatine Kinase 4728 U/L (39-308) 4867 U/L (39-308) 3254 U/L (39-308) Creatine Kinase MB 42.6 NG/ML (0.5-3.6) 37.9 NG/ML (0.5-3.6) 14.9 NG/ML (0.5-3.6) White Blood Count 3.3 TH/MM3 (4.0-11.0) 3.7 TH/MM3 (4.0-11.0) Red Blood Count 3.35 MIL/MM3 (4.50-5.90) 2.73 MIL/MM3 (4.50-5.90) Hemoglobin 9.3 GM/DL (13.0-17.0) 7.3 GM/DL (13.0-17.0) Hematocrit 28.4 % (39.0-51.0) 23.2 % (39.0-51.0) Red Cell Distribution Width 17.7 % (11.6-17.2) 17.6 % (11.6-17.2) Neutrophils (%) (Auto) 83.1 % (16.0-70.0) Lymphocytes # (Auto) 0.4 TH/MM3 (1.0-4.8) Albumin 3.3 GM/DL (3.4-5.0) 2.7 GM/DL (3.4-5.0) Calcium Level 7.4 MG/DL (8.5-10.1) 6.8 MG/DL (8.5-10.1) Aspartate Amino Transf (AST/SGOT) 87 U/L (15-37) 60 U/L (15-37) Protein Corrected Calcium 7.8 MG/DL (8.5-10.1) 7.8 MG/DL (8.5-10.1) Ammonia LESS THAN 10 MCMOL/L Mean Corpuscular Hemoglobin 26.8 PG (27.0-34.0) Mean Corpuscular Hemoglobin Concent 31.6 % (32.0-36.0) Monocytes (%) (Auto) 9.2 % (0.0-8.0) Random Glucose 134 MG/DL (74-106) Total Protein 5.2 GM/DL (6.4-8.2) Potassium Level 3.3 MEQ/L (3.5-5.1) Imaging Last Impressions Lower Extremity Ultrasound 06/02/17 0000 Signed Impressions: Service Date/Time: May 12:15 - CONCLUSION: 1. No DVT identified within the left lower extremity. Tom Live MD [id number] Chest CT 05/31/17 1249 Signed Impressions: Service Date/Time: Wednesday, May 31, 2017 13:01 - CONCLUSION: 1. Bilateral lower lateral rib fractures with some non-bridging callus formation suggesting that these are subacute or old. 2. Probable pericardial effusion. 3. Mild aneurysmal enlargement to the ascending aorta measuring 4.6 cm without luminal irregularity or defect.. 4. The lungs are clear. No evidence of pneumothorax. Alok Bae MD Chest X-Ray 05/31/17 1150 Signed Impressions: Service Date/Time: Wednesday, May 31, 2017 11:51 - CONCLUSION: Ill- defined infiltrate in the left lower lung. Alok Bae MD Hand X-Ray 05/31/17 1128 Signed Impressions: Service Date/Time: Wednesday, May 31, 2017 11:51 - CONCLUSION: No evidence of recent bony injury. Diffuse osteopenia. Evidence of old bony injury 5th digit proximal phalanx and distal metacarpal bone. Alok Bae MD Abdomen/Pelvis CT 05/31/17 1128 Signed Impressions: Service Date/Time: Wednesday, May 31, 2017 13:01 - CONCLUSION: 1. Probable sludge within the gallbladder. No calcified stones or biliary ductal dilatation. 2. Pericardial effusion. 3. Old fractures of the ribs and pelvis. Stable bilateral pars defects L5 Alok Bae MD Head CT 05/31/17 1116 Signed Impressions: Service Date/Time: Wednesday, May 31, 2017 12:55 - CONCLUSION: Negative noncontrast CT brain. Alok Bae MD Cervical Spine CT 05/31/17 1116 Signed Impressions: Service Date/Time: Wednesday, May 31, 2017 12:55 - CONCLUSION: 1. No evidence of compression deformity or spondylolisthesis. Alok Bae MD PE at Discharge GENERAL: Well-developed, well-nourished patient in NAD. SKIN: Warm and dry. No rash. Pale HEAD: Normocephalic. Atraumatic. EYES: Pupils equal and round. No scleral icterus. No injection or drainage. ENT: No nasal bleeding or discharge. Mucous membranes pink and moist. NECK: Supple. Trachea midline. CARDIOVASCULAR: Regular rate and rhythm. S1, S2 noted. No murmur appreciated. RESPIRATORY: No accessory muscle use. Clear to auscultation. Breath sounds equal bilaterally. GASTROINTESTINAL: Abdomen soft, non-tender, nondistended. Normoactive bowel sounds x4. MUSCULOSKELETAL: No obvious deformities. Extremities without clubbing, cyanosis , or edema. NEUROLOGICAL: Awake and alert. No obvious cranial nerve deficits. Motor grossly within normal limits. 5/5 muscle strength in bilateral upper and lower extremities. Normal speech. PSYCHIATRIC: Appropriate mood and affect; insight and judgment normal. Pt update on day of discharge Follow-up rhabdomyolysis. Patient seen and examined, sleeping in bed. Awakens to voice. Patient states he did not sleep once again. Has been eating okay, denies any nausea or vomiting or diarrhea. Patient denies any suicidal ideation or plan at this time. Was seen by psychiatry who has [place] acted him this morning, plan to transfer to medical psych unit today. Patient still denies need for thyroid medication prescribed to him, continued to express the importance of taking this medicine. Vital signs are stable today. CPK improving some. Will be discharged to medical psych unit today. Hemoglobin has dropped, will repeat H&H. Suspect secondary to aggressive IV hydration. Although, patient may need blood transfusion if symptomatic, asymptomatic at this time. Blood pressure and heart rate normal. Will continue IV fluid on medical psych unit and continue to trend CPK. 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 Patient refusing thyroid supplementation despite education of importance. Noncompliant. CPK was elevated. Aggressive IVF were given. Chest CT reviewed showing bilateral lower lateral rib fractures, suggestive of old fractures. Probable pericaridal effusion. Mild aneurysmal enlargement to ascending aorta. Lungs clear. No pneumo. Head CT reviewed, negative. Patient does admit to a history of pericardiocentesis in the past and has been following outpatient. BP and heart stable upon discharge, asymptomatic. During hospitalization patient did express some suicidal ideation. Psychiatry [place] Acted patient and transferred to medical psych unit. Suicide precautions. History of multiple psych issues including alcohol use disorder, anxiety disorder, substance-induced mood disorder, noncompliance, depression. Alcohol level on presentation 262. Placed on multivitamin and thiamine supplementation. Counseled extensively on the importance of taking medication as prescribed, and resultant effects of severe hypothyroidism to include myxedema coma and possible . TSH 65 on presentation. Synthroid ordered but patient refusing despite extensive education on importance of medication and disease. Started on steroids, continued on DC. Day of discharge to medical psych unit H&H has dropped likely secondary to aggressive IV hydration and dilutional reasons. Patient's vitals are stable and asymptomatic. Will trend H&H and monitor for any bleeding upon discharge to psych med unit. Patient may need blood transfusion if continues to drop. Hospitalist will be consulted upon arrival to medical psych unit and will continue to trend H&H as well as continue IVF for rhabdomyolysis and trend CPK. Pt Condition on Discharge: Stable Discharge Disposition: Disc to Psych Care Fac Discharge Time: <= 30 minutes Discharge Instructions DIET: Follow Instructions for: Heart Healthy Diet Speech Therapy-Diet Recommends: Regular Activities you can perform: Regular-No Restrictions Follow up Referrals: PCP Follow-up Please have Hospitalist consulted upon admission to MED PSYCH. New Medications: Folic Acid (Folic Acid) 1 Mg Tablet 1 MG PO DAILY for supplementation for 30 Days, #30 TAB Hydrocortisone (Hydrocortisone) 20 Mg Tab 20 MG PO BID for adrenal insuff for 30 Days, #60 TAB 0 Refills Take with food to decrease GI upset Thiamine (B-1) 250 Mg Tab 250 MG PO DAILY for Nutritional Supplement for 30 Days, #30 TAB 0 Refills Levothyroxine (Synthroid) 100 Mcg Tab 100 MCG PO DAILY@0600 for hypothyroidism for 30 Days, #30 TAB Sennosides-Docusate Sodium (Gnp Senna Plus 8.6-50 mg) 8.6 Mg-50 Mg Tab 1 TAB PO BID for constipation for 30 Days, #60 TAB Continued Medications: Hydrocodone-Acetaminophen ([place]) 5 Mg-325 Mg Tab 1 TAB PO Q6H PRN for PAIN, #10 TAB 0 Refills Trazodone (Trazodone) 150 Mg Tablet 150 MG PO HS for Control Depression, #30 TAB 0 Refills Additional Information Consult medical hospitalist upon transfer to main medical psych unit. Trend CPK. Continue IVF. Trend H&H, monitor for any bleeding. Anemia likely dilutional , may need blood transfusion if symptomatic. Buffy Morales Jun 02, 2017 11:30
--- NOTE | 2017-06-02 12:08 | PD.PSY.CON ---
Provisional Diagnosis Admission Date May 31, 2017 at 14:18 [place] I. Major depressive disorder, recurrent, severe, without psychosis, alcohol use disorder [place] II. Deferred [place] III. Hypothyroidism, COPD History of Present Illness Service Psychiatry Consult Requested By Medical team Reason for Consult Suicidal ideation Primary Care Physician No Primary Care Physician HPI The patient is a 52 year-old man, domiciled with his mother, single, unemployed, supported by [facility], with psychiatric history of major depressive disorder, 1 previous psychiatric hospitalization here in [place] in 2016, documentation was reviewed. He also has history of alcohol use disorder, no previous suicidal attempts, he is in trazodone 150 mg at bedtime, prescribed by PCP, with medical history of hypothyroidism, noncompliant with medications.Patient has a noted medical diagnoses of hypothyroidism and refuses to take Synthroid, stating side effects uncomfortable for him . Patient has been hospitalized on multiple occasion, recently for rhabdomyolysis on 05/26. Admitted due to Rhabdomyolysis and significant hypothyroidism due to noncompliance with medication regimen. Consulted to psychiatry due to symptoms of depression and suicidal ideation. On psychiatric evaluation the patient is found in the ICU, he is is sleeping but easily arousable. Patient reports that he has been feeling very frustrated, overwhelmed, sad. He says that he doesn't know exactly what he is going to do tomorrow "maybe I just should ". He says that he is too sick, his mother doesn't want him back Home, he doesn't have a place to go, he doesn't have any friends, no family support, and he feels very hopeless, helpless, worthless. The patient has a marked psychomotor retardation, slow speech, delayed thought process which is to be part of severe hypothyroidism. He reports suicidal ideation with a plan of overdosing with his medications. The patient reports also poor sleep at night without his medication, low level of energy, poor appetite and energy. The patient is fully oriented 3, without any attention deficit, no fluctuation of consciousness, no major or gross cognitive impairment present. He reports daily use of alcohol, 3 or 4 beers per day. He denies the use of illegal drugs. Rh Review of Systems Constitutional: DENIES: Diaphoretic episodes, Fatigue, Fever, Weight gain, Weight loss, Chills, Dizziness, Change in appetite, Night Sweats Endocrine: DENIES: Heat/cold intolerance, Polydipsia, Polyuria, Polyphagia Eyes: DENIES: Blurred vision, Diplopia, Eye inflammation, Eye pain, Vision loss , Photosensitivity, Double Vision Ears, nose, mouth, throat: DENIES: Tinnitus, Hearing loss, Vertigo, Nasal discharge, Oral lesions, Throat pain, Hoarseness, Ear Pain, Running Nose, Epistaxis, Sinus Pain, Toothache, Odynophagia Respiratory: DENIES: Apneas, Cough, Snoring, Wheezing, Hemoptysis, Sputum production, Shortness of breath Cardiovascular: DENIES: Chest pain, Palpitations, Syncope, Dyspnea on Exertion , PND, Lower Extremity Edema, Orthopnea, Claudication Gastrointestinal: DENIES: Abdominal pain, Black stools, Bloody stools, Constipation, Diarrhea, Nausea, Vomiting, Difficulty Swallowing, Anorexia Genitourinary: DENIES: Sexual dysfunction, Urinary frequency, Urinary incontinence, Urgency, Hematuria, Dysuria, Nocturia, Penile Discharge, Testicular Pain, Testicular Swelling Musculoskeletal: DENIES: Joint pain, Muscle aches, Stiffness, Joint Swelling, Back pain, Neck pain Integumentary: DENIES: Abnormal pigmentation, Nail changes, Pruritus, Rash Hematologic/lymphatic: DENIES: Bruising, Lymphadenopathy Immunologic/allergic: DENIES: Eczema, Urticaria Neurologic: DENIES: Abnormal gait, Headache, Localized weakness, Paresthesias, Seizures, Speech Problems, Tremor, Poor Balance Psychiatric: COMPLAINS OF: Mood changes, Depression, Suicidal Ideation, DENIES : Anxiety, Confusion, Hallucinations, Agitation, Homicidal Ideation, Delusions Past Family Social History Coded Allergies: No Known Allergies (Unverified Allergy, Unknown, 05/31/17) Active Scripts Hydrocodone-Acetaminophen ([place]) 5 Mg-325 Mg Tab, 1 TAB PO Q6H Y for PAIN, #10 TAB 0 Refills Prov:Nicholas Anne MD 05/27/17 Reported Medications Trazodone (Trazodone) 150 Mg Tablet, 150 MG PO HS for Control Depression, #30 TAB 0 Refills 05/26/17 Current Medications Medications (Trade) Dose Ordered Sig/Mohini Route Start Time Stop Time Status Last Admin Sodium Chloride 1,000 ml @ 125 mls/hr Q8H IV 05/31/17 14:20 06/02/17 00:34 (NS Flush) 2 ml UNSCH PRN IV FLUSH 05/31/17 14:30 (NS Flush) 2 ml BID IV FLUSH 05/31/17 21:00 06/02/17 09:52 (Pepcid Inj) 20 mg Q12HR IV PUSH 05/31/17 21:00 05/31/17 21:30 (Ativan Inj) 2 mg Q4H PRN IV PUSH 05/31/17 14:30 (Zofran Inj) 4 mg Q6H PRN IV PUSH 05/31/17 14:30 (Duoneb Neb) 1 ampule Q4HR NEB PRN INH 05/31/17 14:30 (Heparin Inj) 5,000 units Q12H SQ 05/31/17 16:00 06/01/17 16:18 Miscellaneous Information 1 Q361D XX 05/31/17 14:30 05/31/17 14:30 (Chlorhexidine 2% Cloth) 3 pack Taper DAILY@04 TOP 06/01/17 04:00 05/28/18 03:59 06/01/17 03:16 (Chlorhexidine 2% Cloth) 3 pack UNSCH PRN TOP 05/31/17 14:30 (Dominga-Colace) 1 tab BID PO 05/31/17 21:00 06/02/17 09:50 (Milk Of Magnesia Liq) 30 ml Q12H PRN PO 05/31/17 14:30 (Senokot) 17.2 mg Q12H PRN PO 05/31/17 14:30 (Dulcolax Supp) 10 mg DAILY PRN RECTAL 05/31/17 14:30 (Lactulose Liq) 30 ml DAILY PRN PO 05/31/17 14:30 Multivitamins 10 ml/Folic Acid 1 mg/Sodium Chloride 510.2 ml @ 125 mls/hr Q24H IV 05/31/17 16:00 06/05/17 15:59 06/01/17 17:29 Thiamine HCl 100 mg/Sodium Chloride 101 ml @ 100 mls/hr Q24H IV 05/31/17 16:00 06/03/17 15:59 06/01/17 16:18 (Romazicon Inj) 0.2 mg Q1M PRN IV PUSH 05/31/17 14:30 (SoluCORTEF INJ) 100 mg Q12HR IV PUSH 05/31/17 21:00 06/01/17 08:36 (Synthroid) 100 mcg DAILY@0600 PO 06/01/17 10:00 (Desyrel) 150 mg HS PO 06/01/17 21:00 06/01/17 21:20 (Advil) 400 mg Q6H PRN PO 06/01/17 12:00 06/01/17 14:01 Family Psych History No family psychiatric history Social History Patient was born and raised in [facility] [place], he lives with his mother in [facility] [place], unemployed, supported by [facility], his single, his highest level of education is GED Patient's Strengths (min. 2) Verbal communication Physical Exam Marked psychomotor retardation, but no tremors, no EPS, no stiffness Vital Signs Vital Signs Date Time Temp Pulse Resp B/P (MAP) Pulse Ox O2 Delivery O2 Flow Rate FiO2 06/02/17 11:01 68 13 106/73 (84) 91 06/02/17 07:00 Room Air 06/02/17 07:00 98.9 05/31/17 16:03 2.00 I/O 06/02/17 06/02/17 06/03/17 08:00 16:00 00:00 Intake Total 3750 ml Balance 3750 ml Lab Results Test 06/02/17 05:25 White Blood Count 3.7 TH/MM3 Red Blood Count 2.73 MIL/MM3 Hemoglobin 7.3 GM/DL Hematocrit 23.2 % Mean Corpuscular Volume 84.8 FL Mean Corpuscular Hemoglobin 26.8 PG Mean Corpuscular Hemoglobin Concent 31.6 % Red Cell Distribution Width 17.6 % Platelet Count 235 TH/MM3 Mean Platelet Volume 7.5 FL Neutrophils (%) (Auto) 62.4 % Lymphocytes (%) (Auto) 27.1 % Monocytes (%) (Auto) 9.2 % Eosinophils (%) (Auto) 0.9 % Basophils (%) (Auto) 0.4 % Neutrophils # (Auto) 2.4 TH/MM3 Lymphocytes # (Auto) 1.0 TH/MM3 Monocytes # (Auto) 0.3 TH/MM3 Eosinophils # (Auto) 0.0 TH/MM3 Basophils # (Auto) 0.0 TH/MM3 CBC Comment DIFF FINAL Differential Comment Blood Urea Nitrogen 10 MG/DL Creatinine 0.88 MG/DL Random Glucose 134 MG/DL Total Protein 5.2 GM/DL Albumin 2.7 GM/DL Calcium Level 6.8 MG/DL Alkaline Phosphatase 52 U/L Aspartate Amino Transf (AST/SGOT) 60 U/L Alanine Aminotransferase (ALT/SGPT) 34 U/L Total Bilirubin 0.5 MG/DL Sodium Level 141 MEQ/L Potassium Level 3.3 MEQ/L Chloride Level 107 MEQ/L Carbon Dioxide Level 25.3 MEQ/L Anion Gap 9 MEQ/L Estimat Glomerular Filtration Rate 91 ML/MIN Protein Corrected Calcium 7.8 MG/DL Magnesium Level 1.8 MG/DL Total Creatine Kinase 3254 U/L Creatine Kinase MB 14.9 NG/ML Creatine Kinase MB % 0.5 % Mental Status Examination Appearance: Appropriate Consciousness: Alert Orientation: x4 Motor Activity: Normal gait Speech: Unremarkable Language: Adequate Fund of Knowledge: Adequate Attention and Concentration: Adequate Mood: Appropriate, Sad Affect: Sad Thought Process & Associations: Intact Thought Content: Appropriate Hallucination Type: None Delusion Type: None Suicidal Ideation: Yes Suicidal Plan: Yes Suicidal Intention: No Homicidal Ideation: No Homicidal Plan: No Homicidal Intention: No Insight: Poor Judgment: Poor Assessment & Plan Problem List: (1) Major depressive disorder, recurrent episode, severe ICD Codes: F33.2 - Major depressive disorder, recurrent severe without psychotic features Status: Acute Assessment & Plan: On psychiatric evaluation today the patient presents with severe symptomatology of depression consisting of sense of hopelessness, helplessness, worthlessness, poor level of energy, appetite, insomnia, and suicidal ideation with a plan of overdosing. Patient reports as a major stressors recent argument with his mother, medical decompensations. Patient has history of suicidal attempts and previous psychiatric hospitalizations. She has an increased risk of danger to self. He denies psychiatric hospitalization for stabilization. Will restart trazodone 150 mg at bedtime for depression. Please transfer to med psych once medically stable. Assessment & Plan Estimated LOS: Jay Noguera MD Jun 02, 2017 12:08
--- NOTE | 2017-06-02 13:02 | RADRPT ---
EXAM DATE/TIME: 06/02/2017 12:15 [place] COMPARISON: US CAROTID ARTERIES, April 07, 2015, 22:51. INDICATIONS : Left leg pain. MEDICAL HISTORY : Hypertension. Hypothyroidism. Gastroesophageal reflux disease. Hiatal hernia. Cirrhosis. Hepatitis . ETOH use daily. SURGICAL HISTORY : Left femur surgery. ENCOUNTER: Initial ACUITY: 1 day PAIN SCORE: 3/10 LOCATION: Left leg. TECHNIQUE: Venous ultrasound of the leg was performed from the inguinal ligament to the proximal calf. Real-lidia e, color Doppler and spectral tracing, compression and augmentation techniques were used. FINDINGS: The There is normal compressibility of the deep venous system from the inguinal region to the proximal ca lf. No echogenic clot is seen in the lumen of the common femoral, femoral, popliteal, and posterior tibial veins. There is a normal response of the venous system to proximal and distal augmentation an d respiration. CONCLUSION: 1. No DVT identified within the left lower extremity. Tom Live MD on June 02, 2017 at 12:36 Board Certified Radiologist. This report was verified electronically.
[2017-06-02] MEDS ORDERED: FOLI1TAB6 PO (14:16)
[2017-06-02] MEDS ORDERED: LEVO.1 PO (14:16)
[2017-06-02] MEDS ORDERED: PERI PO (14:16)
[2017-06-02] MEDS ORDERED: HYDR20TA PO (14:16)
[2017-06-02] MEDS ORDERED: B-1250TA PO (14:16)
[2017-06-02 14:46] LABS: HEMATOCRIT 25.7 % (39.0-51.0); HEMOGLOBIN 8.2 GM/DL (13.0-17.0)
== END 2017-06-02 16:00 | DRG 644 ==
LOC: PHED 11:06 → PHEDA 14:18 → PHICU 16:03
PROVIDERS: ADMIT Hospitalist; ATTEND Hospitalist
DX: E03.9 Hypothyroidism, unspecified (principal); M62.82 Rhabdomyolysis; I31.3 Pericardial effusion (noninflammatory); F33.2 Major depressive disorder, recurrent severe without psychotic features; R45.851 Suicidal ideations; G73.7 Myopathy in diseases classified elsewhere; I10 Essential (primary) hypertension; D50.9 Iron deficiency anemia, unspecified; I71.2 Thoracic aortic aneurysm, without rupture; K90.0 Celiac disease; E86.0 Dehydration; K21.9 Gastro-esophageal reflux disease without esophagitis; I44.0 Atrioventricular block, first degree; R00.1 Bradycardia, unspecified; H91.92 Unspecified hearing loss, left ear; F10.129 Alcohol abuse with intoxication, unspecified; F17.210 Nicotine dependence, cigarettes, uncomplicated; F41.9 Anxiety disorder, unspecified; Y90.8 Blood alcohol level of 240 mg/100 ml or more; Z91.14 Patient's other noncompliance with medication regimen
CPT/HCPCS: 70450; 71045; 71260; 72125; 73130; 74177; 76937; 80053; 80307; 81001; 82140; 82533; 82550; 82552; 83690; 83735; 84100; 84439; 84443; 84481; 84484; 85007; 85014; 85018; 85025; 85027; 85610; 85730; 87641; 93005; 93971; 96361; 96365; J0610; J1644; J1720; J3411; J7030; J7040; Q9967

== ENCOUNTER 2017-06-02 16:39 | Inpatient (IN) | payer MEDICAID, OTHER ==
[~2017-06-02] VITALS: Ht 188 cm; Wt 77.6 kg
[~2017-06-02 16:39] MED LIST changes: +B-1250TA PO; +FOLI1TAB6 PO; +HYDR20TA PO; +LEVO.1 PO; +PERI PO
[2017-06-02 16:54] VITALS: BP 119/80; PULSE 75; RESP 16; TEMP 97.3
[2017-06-03 06:00] VITALS: BP 107/68; PULSE 70; RESP 16; TEMP 97.2; O2SAT 93
[2017-06-03] MEDS ORDERED: ACETAMINOPHEN 325 MG TAB PO PRN (11:45)
[2017-06-03] MEDS ORDERED: diphenhydrAMINE HCL 50 MG CAP PO PRN (11:45)
[2017-06-03] MEDS ORDERED: MAGNESIUM HYDROXIDE SUSP 30 ML CUP PO PRN (11:45)
[2017-06-03] MEDS ORDERED: hydrOXYzine HCL 50 MG TAB PO PRN (11:45)
[2017-06-03] MEDS ORDERED: ALUMINUM/MAGNESIUM/SIMETH 30 ML CUP PO PRN (11:45)
--- NOTE | 2017-06-03 11:58 | HHI.HP ---
Provisional Diagnosis Admission Date Jun 02, 2017 at 16:39 Certification of Person's Competence To Provide Express and Informed Consent I have personally examined Venkata Bryant , a person being served at [facility] on, Jun 03, 2017 11:42. Express and informed consent means consent voluntarily given in writing, by a competent person, after sufficient explanation and disclosure of the subject matter involved to enable the person to make a knowing and willful decision without any element of force, fraud, deceit, duress, or other form of constraint or coercion. This person is 18 years of age or older, is not now known to be incompetent to consent to treatment with a guardian advocate, and does not have a health care surrogate or proxy currently making medical treatment decisions. I have found this person to be one of the following: [xxx] Competent to provide express and informed consent, as defined above, for voluntary admission to this facility and is competent to provide express and informed consent for treatment. He/she has the consistent capacity to make well reasoned, willful, and knowing decisions concerning his or her medical or mental health treatment. The person fully and consistently understands the purpose of the admission for examination/placement and is fully capable of personally exercising all rights assured under [place] Incompetent to provide express and informed consent to voluntary admission, and this is incompetent to provide express and informed consent to treatment. The person must be transferred to involuntary status and a petition for a guardian advocate filed with the Circuit Court. [] Refusing to provide express and informed consent to voluntary admission but is competent to provide express and informed consent for treatment. The person must be discharged or transferred to involuntary status. Form shall be completed within 24 hours of a person's arrival at the receiving facility and filed in the clinical record of each person: 1. Admitted on a voluntary basis 2. Permitted to provide express and informed consent to his/her own treatment 3. Allowed to transfer from involuntary to voluntary status 4. Prior to permitting a person to consent to his or her own treatment after having been previously found incompetent to consent to treatment. History of Present Illness Capacity: Has Capacity HPI Patient is a 52-year-old man, single, unemployed on SSI, recently was domiciled with mother but not homeless for the past psychiatric history of major depressive disorder, 1 previous psychiatric admission in 2016, alcohol use disorder, no previous suicide attempts or self-injurious behavior was seen during his medical admission for rhabdomyolysis hypothyroidism as patient was endorsing feeling depressed along with suicide ideations with plan to overdose which she was admitted to the inpatient psychiatry for further evaluation and management. Patient was found lying in hospital bed, cooperative. Patient reports prior to his admission he had fell in the context of alcohol intoxication which mother had called 911 was admitted to the inpatient medical unit for rhabdomyolysis hypothyroidism. Patient reports that he has had issues with hypothyroidism but states that he does not believe he needs to take any medications for the same. He also reports that he had been intoxicated the day of admission because she was watching "[place]". Reports feeling depressed due to financial difficulties, now being homeless stating that his mother did not want him to return back to the home along with decreased sleep, appetite energy concentration along with feeling helpless and hopeless. Patient also endorses paranoid ideations of "cocaine dealers after me" but denies any perceptual disturbances at this time. Patient had also admitted to suicidal ideations 2 days ago but denies at this time. Family psychiatric history: Denies Past psychiatric history: Previous psychiatric diagnoses of MDD, 1 previous psychiatric admissions 2016, no previous suicide attempt or self with his behavior. Patient denies any history of abuse. Patient also has a diagnosis of alcohol use disorder. Substance use history: Patient with alcohol use disorder usually about 3-4 beers per day but during interview denies drinking, marijuana use years ago as well as remote use of polysubstances including heroin, cocaine and meth amphetamine. Patient denies any previous detox or habitation progress. Past medical history: Hypothyroidism Allergies NKDA Social history: single, unemployed on [employer], born and raised in [place], domiciled with mother in [place] recently but now homeless. Patient highest education is GED Review of Systems Musculoskeletal: COMPLAINS OF: Joint pain (Pain and fifth digits of right hand with limited range of motion this was noted pain upon palpation) Except as stated in HPI: all other systems reviewed are Neg Past Psych History Psychological trauma history Denies Violence risk - others (6 mos) Low Violence risk - self (6 mos) Elevated due to recent report of suicide ideations Substance Abuse History Drugs/Alcohol past 12 months Patient with alcohol use disorder usually about 3-4 beers per day but during interview denies drinking, marijuana use years ago as well as remote use of polysubstances including heroin, cocaine and meth amphetamine. Patient denies any previous detox or habitation progress. Past Family Social History Coded Allergies: No Known Allergies (Unverified Allergy, Unknown, 05/31/17) Active Scripts Hydrocortisone (Hydrocortisone) 20 Mg Tab, 20 MG PO BID for adrenal insuff for 30 Days, #60 TAB 0 Refills Take with food to decrease GI upset Prov:Buffy Morales 06/02/17 Folic Acid (Folic Acid) 1 Mg Tablet, 1 MG PO DAILY for supplementation for 30 Days, #30 TAB Prov:Buffy Morales 06/02/17 Thiamine (B-1) 250 Mg Tab, 250 MG PO DAILY for Nutritional Supplement for 30 Days, #30 TAB 0 Refills Prov:Buffy Morales 06/02/17 Sennosides-Docusate Sodium (Gnp Senna Plus 8.6-50 mg) 8.6 Mg-50 Mg Tab, 1 TAB PO BID for constipation for 30 Days, #60 TAB Prov:Buffy Morales 06/02/17 Levothyroxine (Synthroid) 100 Mcg Tab, 100 MCG PO DAILY@0600 for hypothyroidism for 30 Days, #30 TAB Prov:Buffy Morales 06/02/17 Hydrocodone-Acetaminophen ([place]) 5 Mg-325 Mg Tab, 1 TAB PO Q6H Y for PAIN, #10 TAB 0 Refills Prov:Nicholsa Anne MD 05/27/17 Reported Medications Trazodone (Trazodone) 150 Mg Tablet, 150 MG PO HS for Control Depression, #30 TAB 0 Refills 05/26/17 Family Psych History Denies Social History single, unemployed on [employer], born and raised in [place], domiciled with mother in [place] recently but now homeless. Patient highest education is GED Patient's Strengths (min. 2) Verbal and communicative Physical Exam Patient not noted to be in acute distress, no gross motor abnormalities aside from swelling of fifth digit of right hand along with Limited range of motion pain upon palpation, no tremor or EPS noted, no psychomotor agitation or retardation noted. Vital Signs Vital Signs Date Time Temp Pulse Resp B/P (MAP) Pulse Ox O2 Delivery O2 Flow Rate FiO2 2/23/18 06:00 97.2 70 16 107/68 (23) 93 I/O 06/03/17 06/03/17 06/03/17 07:59 15:59 23:59 Intake Total 240 ml Balance 240 ml Mental Status Examination Appearance: Disheveled Consciousness: Alert Orientation: Person, Place, Date/Time Speech: Unremarkable Language: Adequate Fund of Knowledge: Inadequate Attention and Concentration: Adequate Memory: Unremarkable Mood: Sad, Anxious Affect: Sad, Anxious Thought Process & Associations: Intact, Linear Thought Content: Delusional Hallucination Type: None Delusion Type: Paranoid Suicidal Ideation: Yes Suicidal Plan: No Suicidal Intention: No Homicidal Ideation: No Homicidal Plan: No Homicidal Intention: No Insight: Fair Judgment: Impulsive Assessment & Plan Problem List: (1) Adjustment disorder with depressed mood ICD Codes: F43.21 - Adjustment disorder with depressed mood Assessment & Plan Patient is a 52-year-old man who carries a diagnosis of depression, alcohol use disorder, remote history of polysubstance use, who was brought in under [place] act for worsening depression along with suicide ideation and paranoid delusions. We will start patient on quetiapine 50 mg p.o. at bedtime with upper titration for depression and psychosis. We will add lorazepam 1 mg every 6 hours as needed anxiety as well as diphenhydramine 50 mg at bedtime for insomnia. Patient to continue recommendations per medical team. Collateral information pending from patient's mother (Vangie Little [phone]). Discharge planning in progress Discharge Planning To be determined Carlos Chou MD Jun 03, 2017 11:58
--- NOTE | 2017-06-03 13:59 | RADRPT ---
EXAM DATE/TIME: 06/03/2017 13:30 [facility] COMPARISON: No previous studies available for comparison. INDICATIONS : Right hand 5th digit pain, fell MEDICAL HISTORY : Hypertension. Hepatitis. Hypothyroidism. cirrhosis, celiac disease SURGICAL HISTORY : None. ENCOUNTER: Initial ACUITY: 3 days PAIN SCORE: 8/10 LOCATION: Right 5th digit FINDINGS: Mild osteopenia. There is deformity of the distal 5th metacarpal bone characteristic of a healed box er's fracture. There is also cortical angulation in the proximal metaphysis of the 5th digit proxima l phalanx suggesting a nondisplaced metaphyseal fracture. The remainder of the osseous structures th e hand appear intact. CONCLUSION: 1. Probable non-displaced/non-angulated fracture of the proximal metaphysis of the 5th digit proximal phalanx. 2. Old boxers fracture with palmar angulation deformity. Alok Bae MD on June 03, 2017 at 13:56 Board Certified Radiologist. This report was verified electronically.
[2017-06-03 18:00] VITALS: BP 114/69; PULSE 77; RESP 16; TEMP 97.6; O2SAT 96
--- NOTE | 2017-06-03 20:52 | PD.CONS ---
HPI Service [facility] Hospitalists Consult Requested By Dr. Chou. Reason for Consult Medical management. Primary Care Physician No Primary Care Physician Diagnoses: History of Present Illness This is a 52-year-old male with past medical history as stated below who presented to [facility] on May 31, 2017 with altered mental status. At that time the patient was admitted to the hospital and was found to have rhabdomyolysis and significant hypothyroidism. 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 Patient was treated with IV fluids and initially started on Synthroid IV as well as steroid supplementation with hydrocortisone. The patient as per medical records has been refusing to supplementation despite education of importance. Rhabdomyolysis improved with IV fluid administration. CT of the chest show bilateral lower lateral rib fractures, suggestive of old fractures. Probable pericardial effusion. 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 Head CT negative at the time. Apparently the patient expressed some suicidal ideation. Psychiatry was consulted and patient was placed on [place] act and the patient was transferred to the medical psych unit where I am being consulted. Review of Systems As per HPI, other systems reviewed by me and negative. Past Family Social History Allergies: Coded Allergies: No Known Allergies (Unverified Allergy, Unknown, 05/31/17) Past Medical History 1. Rhabdomyolysis. 2. Anemia. 3. Anxiety. 4. Depression. 5. Cirrhosis. 6. Celiac disease. 7. Hypothyroidism. 8. Migraine headaches. Past Surgical History 1. History of pericardiocentesis. 2. Correct surgery in both eyes. 3. Left femur fracture status post angel placement in the left lower extremity. Reported Medications Reported Meds & Active Scripts Active Hydrocortisone 20 Mg Tab 20 Mg PO BID 30 Days Take with food to decrease GI upset Folic Acid 1 Mg Tablet 1 Mg PO DAILY 30 Days B-1 (Thiamine HCl) 250 Mg Tab 250 Mg PO DAILY 30 Days Gnp Senna Plus 8.6-50 mg (Sennosides-Docusate Sodium) 8.6 Mg-50 Mg Tab 1 Tab PO BID 30 Days Synthroid (Levothyroxine Sodium) 100 Mcg Tab 100 Mcg PO DAILY@0600 30 Days [place] (Hydrocodone-Acetaminophen) 5 Mg-325 Mg Tab 1 Tab PO Q6H PRN Reported Trazodone (Trazodone HCl) 150 Mg Tablet 150 Mg PO HS Active Ordered Medications Current Medications Medications (Trade) Dose Ordered Sig/Mohini Route Start Time Stop Time Status Last Admin (Benadryl) 50 mg HS PRN PO 06/03/17 11:45 (Tylenol) 650 mg Q4H PRN PO 06/03/17 11:45 (Milk Of Magnesia Liq) 30 ml DAILY PRN PO 06/03/17 11:45 (Mag-Al Plus Susp Liq) 30 ml Q6H PRN PO 06/03/17 11:45 (Atarax) 50 mg Q6H PRN PO 06/03/17 11:45 (SEROquel) 50 mg Taper HS PO 06/03/17 21:00 06/16/17 20:59 Social History Smokes 3 cigarettes per day. Patient reports drinking occasionally. Patient denies history of substance abuse. Physical Exam Vital Signs Vital Signs Date Time Temp Pulse Resp B/P (MAP) Pulse Ox O2 Delivery O2 Flow Rate FiO2 06/03/17 18:00 97.6 77 16 114/69 (84) 96 06/03/17 06:00 97.2 70 16 107/68 (81) 93 Physical Exam GENERAL: This is a well-nourished, well-developed patient, in no apparent distress. SKIN: No rashes, ecchymoses or lesions. Cool and dry. HEAD: Atraumatic. Normocephalic. No temporal or scalp tenderness. EYES: Pupils equal round and reactive. Extraocular motions intact. No scleral icterus. No injection or drainage. ENT: Nose without bleeding, purulent drainage or septal hematoma. Throat without erythema, tonsillar hypertrophy or exudate. Uvula midline. Airway patent. NECK: Trachea midline. No JVD or lymphadenopathy. Supple, nontender, no meningeal signs. CARDIOVASCULAR: Regular rate and rhythm without murmurs, gallops, or rubs. RESPIRATORY: Clear to auscultation. Breath sounds equal bilaterally. No wheezes , rales, or rhonchi. GASTROINTESTINAL: Abdomen soft, non-tender, nondistended. No hepato-splenomegaly , or palpable masses. No guarding. MUSCULOSKELETAL: Extremities without clubbing, cyanosis, or edema. No joint tenderness, effusion, or edema noted. No calf tenderness. Negative Homans sign bilaterally. NEUROLOGICAL: Awake and alert. Cranial nerves II through XII intact. Motor and sensory grossly within normal limits. Five out of 5 muscle strength in all muscle groups. Normal speech. Imaging Last Impressions Finger X-Ray 06/03/17 0000 Signed Impressions: Service Date/Time: Saturday, June 03, 2017 13:30 - CONCLUSION: 1. Probable non-displaced/non-angulated fracture of the proximal metaphysis of the 5th digit proximal phalanx. 2. Old boxers fracture with palmar angulation deformity. Alok Bae MD Assessment and Plan Problem List: (1) Suicidal ideation ICD Code: R45.851 - Suicidal ideations Plan: Management as per psychiatry. The patient has been started on Seroquel 50 mg at at bedtime. 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 We will place on normal saline. Continue to monitor CPK. (3) Chronic leukopenia ICD Code: D72.819 - Decreased white blood cell count, unspecified Status: Acute (4) Hypothyroid ICD Code: E03.9 - Hypothyroidism, unspecified Status: Acute (5) Anemia ICD Code: D64.9 - Anemia, unspecified Status: Acute Assessment and Plan This is a 52-year-old male with a history of EtOH abuse and noncompliance with medication regimen. Patient has a noted medical diagnoses of hypothyroidism and refuses to take Synthroid, stating side effects uncomfortable for him . Patient has been hospitalized on multiple occasion, recently for rhabdomyolysis on 05/26. Rhabdomyolysis and significant hypothyroidism due to noncompliance with medication regimen. 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 Noncompliant. Trending CPK. Some improvement today. Continue to follow. Strict I/Os. Placed on IV fluids. Encourage PO intake. PT evaluation performed, appreciate recommendations and input. PT consultation. Normocytic hypochromic anemia, Check iron studies. Check stool guaiac. Continue to monitor CBC. Suicidal ideation Management as per psychiatry. 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 Tylenol 650 mg every 6 hours for pain Will continue Trazodone for sleep. Tobaccoism Patient counseled on smoking cessation Hypothyroidism TSH 65, free T4 0.10. Continue Synthroid 50 mics IV daily, patient is refusing. Stressed importance. Continue p.o. steroids. Hypocalcemia. Will check calcium levels and replace with IV calcium chloride if needed. Hypokalemia Potassium 3.3 on BMP dated 06/02/17. Will check BMP and replace with oral potassium chloride if less than 3.5. Code Status Full code Discussed Condition With Patient, RN. Problem Qualifiers (1) Rhabdomyolysis: Qualified Codes: M62.82 - Rhabdomyolysis Eleuterio Hudson MD Jun 03, 2017 20:52
[2017-06-03] MEDS: HYDROCORTISONE 10 MG TAB PO SCH (21:00)
[2017-06-03] MEDS: QUEtiapine FUMARATE 100 MG TAB PO SCH (21:00)
[2017-06-03] MEDS: NS + KCL 20 MEQ INJ 1,000 ML IV SCH (21:00)
[2017-06-03] MEDS: DOCUSATE SODIUM 50 MG/SENNA 8.6 MG TAB PO SCH (21:00)
[2017-06-03] MEDS ORDERED: PILL SPLITTER OTHER PRN (22:30)
[2017-06-04] MEDS: NS + KCL 20 MEQ INJ 1,000 ML IV SCH ×3 (05:00→20:59)
[2017-06-04] MEDS: LEVOTHYROXINE SODIUM 100 MCG TAB PO SCH (06:00)
[2017-06-04 06:32] VITALS: BP 94/54; PULSE 79; RESP 15; TEMP 97.6; O2SAT 93
[2017-06-04 07:35] LABS: AUTOMATED NEUTROPHIL # 1.5 TH/MM3 (1.8-7.7); BASOPHIL % 0.8 % (0.0-2.0); EOSINOPHIL # 0.3 TH/MM3 (0-0.4); HEMATOCRIT 23.1 % (39.0-51.0); HEMOGLOBIN 7.7 GM/DL (13.0-17.0); LYMPH % 32.7 % (9.0-44.0); MEAN CELL VOLUME 84.3 FL (80.0-100.0); MEAN CORPUSCULAR HEMOGLOBIN 28.2 PG (27.0-34.0); MEAN CORPUSCULAR HGB CONC 33.4 % (32.0-36.0); MEAN PLATELET VOLUME 7.3 FL (7.0-11.0); MONO % 9.1 % (0.0-8.0); MONOCYTE # 0.3 TH/MM3 (0-0.9); NEUT % 48.4 % (16.0-70.0); PLATELET COUNT 195 TH/MM3 (150-450); RED BLOOD COUNT 2.74 MIL/MM3 (4.50-5.90); RED CELL DISTRIBUTION WIDTH 17.5 % (11.6-17.2); WHITE BLOOD COUNT 3.1 TH/MM3 (4.0-11.0)
[2017-06-04 08:15] LABS: ALBUMIN 2.5 GM/DL (3.4-5.0); ALKALINE PHOSPHATASE 39 U/L (45-117); ALT (GPT) 31 U/L (12-78); AST (GOT) 48 U/L (15-37); BICARBONATE 28.9 MEQ/L (21.0-32.0); BLOOD UREA NITROGEN 11 MG/DL (7-18); CALCIUM-PROTEIN CORRECTED 8.2 MG/DL (8.5-10.1); CHLORIDE 102 MEQ/L (98-107); CHOLESTEROL 171 MG/DL (120-200); CHOLESTEROL/ HDL RATIO 5.87 RATIO; CREATININE 0.73 MG/DL (0.60-1.30); GLOMERULAR FILTRATION RATE 113 ML/MIN (>89); GLUCOSE,RANDOM 91 MG/DL (74-106); HDL CHOLESTEROL 29.1 MG/DL (40.0-60.0); LDL CHOLESTEROL 102 MG/DL (0-99); MAGNESIUM 1.8 MG/DL (1.5-2.5); SODIUM (NA) 139 MEQ/L (136-145); TOTAL BILIRUBIN ADULT 0.2 MG/DL (0.2-1.0); TOTAL PROTEIN 4.9 GM/DL (6.4-8.2); TRIGLYCERIDES 200 MG/DL (42-150)
[2017-06-04] MEDS: DOCUSATE SODIUM 50 MG/SENNA 8.6 MG TAB PO SCH ×2 (09:00→21:00)
[2017-06-04] MEDS: THIAMINE HCL 100 MG TAB PO SCH (09:00)
[2017-06-04] MEDS: HYDROCORTISONE 10 MG TAB PO SCH ×2 (09:00→21:00)
[2017-06-04] MEDS: FOLIC ACID 1 MG TAB PO SCH (09:00)
[2017-06-04] MEDS: CALCIUM CARBONATE 1.25 GM (CA 500 MG) TAB PO SCH (12:00)
[2017-06-04] MEDS ORDERED: POTASSIUM CHLORIDE 25 MEQ EFFERVESCENT TAB PO ONE (12:00)
--- NOTE | 2017-06-04 13:19 | HHI.PR ---
Subjective Remarks f/u for medical conditions patient refusing medication. When I explained to patient purpose of treatment he stated "no you take it." otherwise no other complaints. discussed case with nurse. Objective Vitals Vital Signs Date Time Temp Pulse Resp B/P (MAP) Pulse Ox O2 Delivery O2 Flow Rate FiO2 06/04/17 06:32 97.6 79 15 94/54 (67) 93 06/03/17 18:00 97.6 77 16 114/69 (84) 96 I/O 06/03/17 06/03/17 06/03/17 06/04/17 06/04/17 06/04/17 07:00 15:00 23:00 07:00 15:00 23:00 Intake Total 240 ml 360 ml Output Total 300 ml Balance 240 ml 360 ml -300 ml Intake Oral 240 ml 360 ml Output Urine Total 300 ml Result Diagram: 06/04/17 0643 06/04/17 0643 Objective Remarks GENERAL: in NAD CARDIOVASCULAR: Regular rate and rhythm without murmurs, gallops, or rubs. RESPIRATORY: Breath sounds equal bilaterally. No accessory muscle use. GASTROINTESTINAL: Abdomen soft, non-tender, nondistended. MUSCULOSKELETAL: No cyanosis, or edema. Medications and IVs Current Medications Diphenhydramine HCl (Benadryl) 50 mg HS PRN PO INSOMNIA; Start 06/03/17 at 11: 45 Acetaminophen (Tylenol) 650 mg Q4H PRN PO Pain 1-5 or Temp >101F; Start at 11:45 Magnesium Hydroxide (Milk Of Magnesia Liq) 30 ml DAILY PRN PO CONSTIPATION; Start 06/03/17 at 11:45 Al Hydrox/Mg Hydrox/Simethicone (Mag-Al Plus Susp Liq) 30 ml Q6H PRN PO DYSPEPSIA; Start 06/03/17 at 11:45 Hydroxyzine HCl (Atarax) 50 mg Q6H PRN PO ANXIETY; Start 06/03/17 at 11:45 Quetiapine Fumarate (SEROquel) 50 mg Taper HS PO Last administered on at 21:00; Start 06/03/17 at 21:00; Stop 06/16/17 at 20:59 Potassium Chloride/Sodium Chloride 1,000 ml @ 125 mls/hr Q8H IV Last administered on 06/03/17at 21:00; Start 06/03/17 at 21:00 Folic Acid (Folate) 1 mg DAILY PO ; Start 06/04/17 at 09:00 Hydrocortisone (Cortef) 20 mg BID PO ; Start 06/03/17 at 21:00 Levothyroxine Sodium (Synthroid) 100 mcg DAILY@0600 PO ; Start 06/04/17 at 06:00 Senna/Docusate Sodium ([place]-Colace) 1 tab BID PO ; Start 06/03/17 at 21:00 Thiamine HCl (Vitamin B1) 250 mg DAILY PO ; Start 06/04/17 at 09:00 Acetaminophen/ Hydrocodone Bitart ([place] 5-325 Mg) 1 tab Q6H PRN PO PAIN 6-10 ; Start 06/03/17 at 21:00 Miscellaneous (Pill Splitter) 1 ea UNSCH PRN OTHER SEE LABEL COMMENTS; Start at 22:30 Potassium Bicarb/ Potassium Chloride (K-Lyte Cl Eff) 50 meq ONCE ONCE PO ; Start 06/04/17 at 12:00; Stop 06/04/17 at 12:01; Status DC Calcium Carbonate ([place]scal) 500 mg Q12H PO ; Start 06/04/17 at 12:00 A/P Problem List: (1) Suicidal ideation ICD Code: R45.851 - Suicidal ideations (2) Rhabdomyolysis ICD Code: M62.82 - Rhabdomyolysis (3) Chronic leukopenia ICD Code: D72.819 - Decreased white blood cell count, unspecified Status: Acute (4) Hypothyroid ICD Code: E03.9 - Hypothyroidism, unspecified Status: Acute (5) Anemia ICD Code: D64.9 - Anemia, unspecified Status: Acute Assessment and Plan This is a 52-year-old male with a history of EtOH abuse and noncompliance with medication regimen. Patient has a noted medical diagnoses of hypothyroidism and refuses to take Synthroid, stating side effects uncomfortable for him . Patient has been hospitalized on multiple occasion, recently for rhabdomyolysis on 05/26. Rhabdomyolysis and significant hypothyroidism due to noncompliance with medication regimen. 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 noncompliance. Strict I/Os. Placed on IV fluids. Encourage PO intake. PT consulted. Normocytic hypochromic anemia, Check iron studies. Check stool guaiac. Continue to monitor CBC. Suicidal ideation Management as per psychiatry. 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 Tylenol 650 mg every 6 hours for pain Will continue Trazodone for sleep. Tobaccoism Patient counseled on smoking cessation Hypothyroidism TSH 65, free T4 0.10. Continue Synthroid 50 mics IV daily, patient is refusing. Stressed importance. Continue p.o. steroids. Hypocalcemia. Will check calcium levels and replace with IV calcium chloride if needed. Hypokalemia Potassium 3.3 on BMP dated 06/02/17. Will check BMP and replace with oral potassium chloride if less than 3.5. Problem Qualifiers (1) Rhabdomyolysis: Qualified Codes: M62.82 - Rhabdomyolysis Lizabeth Merritt MD Jun 04, 2017 13:19
[2017-06-04 14:22] LABS: HEMOGLOBIN A1C 6.3 % (4.3-6.0)
--- NOTE | 2017-06-04 16:37 | HHI.PYPN ---
Subjective Remarks Patient seen and examined with nurse in weekend coverage for Dr. Chou. Chart reviewed. Case discussed with nursing staff. Patient refused all of his medications except for his Seroquel which she did accept last night. On my examination today, the patient presents as hypoverbal and flat. He endorses vague suicidal ideation but contracts for safety on the inpatient unit. He reports vague visual hallucinations out of the corner of his eye but denies any other hallucinatory material. He is somewhat watchful and guarded. He complains of some restless legs from the Seroquel but otherwise denies side effects. No physical complaints. Review of Systems ROS Limitations: Poor Historian Except as stated in HPI: all other systems reviewed are Neg Mental Status Examination Appearance: Disheveled Consciousness: Alert Orientation: Person, Place Speech: Unremarkable Language: Adequate Fund of Knowledge: Inadequate Attention and Concentration: Adequate Memory: Unremarkable Mood: Other (somewhat dysphoric) Affect: Flat Thought Process & Associations: Intact, Linear Thought Content: Delusional Hallucination Type: None Delusion Type: Paranoid Suicidal Ideation: Yes (vague) Suicidal Plan: No Suicidal Intention: No (contracts for safety on the inpatient unit) Homicidal Ideation: No Homicidal Plan: No Homicidal Intention: No Insight: Fair Judgment: Impulsive Results Labs Test 06/04/17 06:43 White Blood Count 3.1 TH/MM3 Red Blood Count 2.74 MIL/MM3 Hemoglobin 7.7 GM/DL Hematocrit 23.1 % Mean Corpuscular Volume 84.3 FL Mean Corpuscular Hemoglobin 28.2 PG Mean Corpuscular Hemoglobin Concent 33.4 % Red Cell Distribution Width 17.5 % Platelet Count 195 TH/MM3 Mean Platelet Volume 7.3 FL Neutrophils (%) (Auto) 48.4 % Lymphocytes (%) (Auto) 32.7 % Monocytes (%) (Auto) 9.1 % Eosinophils (%) (Auto) 9.0 % Basophils (%) (Auto) 0.8 % Neutrophils # (Auto) 1.5 TH/MM3 Lymphocytes # (Auto) 1.0 TH/MM3 Monocytes # (Auto) 0.3 TH/MM3 Eosinophils # (Auto) 0.3 TH/MM3 Basophils # (Auto) 0.0 TH/MM3 CBC Comment DIFF FINAL Differential Comment Blood Urea Nitrogen 11 MG/DL Creatinine 0.73 MG/DL Random Glucose 91 MG/DL Total Protein 4.9 GM/DL Albumin 2.5 GM/DL Calcium Level 7.0 MG/DL Phosphorus Level 3.0 MG/DL Magnesium Level 1.8 MG/DL Alkaline Phosphatase 39 U/L Aspartate Amino Transf (AST/SGOT) 48 U/L Alanine Aminotransferase (ALT/SGPT) 31 U/L Total Bilirubin 0.2 MG/DL Sodium Level 139 MEQ/L Potassium Level 3.0 MEQ/L Chloride Level 102 MEQ/L Carbon Dioxide Level 28.9 MEQ/L Anion Gap 8 MEQ/L Estimat Glomerular Filtration Rate 113 ML/MIN Hemoglobin A1c 6.3 % Protein Corrected Calcium 8.2 MG/DL Total Creatine Kinase 2315 U/L Creatine Kinase MB 11.0 NG/ML Creatine Kinase MB % 0.5 % Triglycerides Level 200 MG/DL Cholesterol Level 171 MG/DL LDL Cholesterol 102 MG/DL HDL Cholesterol 29.1 MG/DL Cholesterol/HDL Ratio 5.87 RATIO Labs reviewed. Vitals/IOs Vital Signs Date Time Temp Pulse Resp B/P (MAP) Pulse Ox O2 Delivery O2 Flow Rate FiO2 06/04/17 06:32 97.6 79 15 94/54 (67) 93 Intake and Output 06/04/17 06/04/17 06/05/17 08:00 16:00 00:00 Output Total 300 ml 425 ml Balance -300 ml -425 ml Assessment & Plan Problem List: (1) Adjustment disorder with depressed mood ICD Codes: F43.21 - Adjustment disorder with depressed mood Assessment & Plan Continue Seroquel titration as ordered by Dr. Chou. I have encouraged patient to adhere with his medication regimen including medical medications. I will make Cogentin available as needed for any EPS. Continue to monitor on inpatient unit. Continue other medications and care as ordered. Justification for Cont. Inpt. Risk for decompensation and less restrictive environment. Discharge Planning Per Yeison Ramos MD Jun 04, 2017 16:37
[2017-06-04] MEDS ORDERED: BENZTROPINE MESYLATE 1 MG TAB PO PRN (16:45)
[2017-06-04 17:00] VITALS: BP 121/78; PULSE 70; RESP 16; TEMP 97.8; O2SAT 92
[2017-06-04] MEDS: QUEtiapine FUMARATE 100 MG TAB PO SCH (21:00)
[2017-06-05] MEDS: NS + KCL 20 MEQ INJ 1,000 ML IV SCH ×3 (05:00→20:35)
[2017-06-05] MEDS: LEVOTHYROXINE SODIUM 100 MCG TAB PO SCH (05:41)
[2017-06-05 06:00] VITALS: BP 120/77; PULSE 82; RESP 18; TEMP 97.9; O2SAT 95
--- NOTE | 2017-06-05 08:45 | HHI.PR ---
Subjective Remarks Patient is in bed he appears in no acute distress at this time. Still refusing medication and care. No nausea vomiting no diarrhea or constipation.. Eating well Objective Vitals Vital Signs Date Time Temp Pulse Resp B/P (MAP) Pulse Ox O2 Delivery O2 Flow Rate FiO2 06/05/17 06:00 97.9 82 18 120/77 (91) 95 06/04/17 17:00 97.8 70 16 121/78 (92) 92 I/O 06/04/17 06/04/17 06/04/17 06/05/17 06/05/17 06/05/17 07:00 15:00 23:00 07:00 15:00 23:00 Intake Total 1440 ml 720 ml 480 ml Output Total 300 ml 1200 ml Balance -300 ml 240 ml 720 ml 480 ml Intake Oral 1440 ml 720 ml 480 ml Output Urine Total 300 ml 1200 ml # Voids 1 # Bowel Movements 1 Result Diagram: 06/04/17 0643 06/04/17 0643 Imaging Last Impressions Finger X-Ray 06/03/17 0000 Signed Impressions: Service Date/Time: Saturday, June 03, 2017 13:30 - CONCLUSION: 1. Probable non-displaced/non-angulated fracture of the proximal metaphysis of the 5th digit proximal phalanx. 2. Old boxers fracture with palmar angulation deformity. Alok Bae MD Objective Remarks GENERAL: 52-year-old male, in NAD, pale. CARDIOVASCULAR: Regular rate and rhythm without murmurs, gallops, or rubs. RESPIRATORY: Breath sounds equal bilaterally. No accessory muscle use. GASTROINTESTINAL: Abdomen soft, non-tender, nondistended. MUSCULOSKELETAL: No cyanosis, or edema. A/P Problem List: (1) Suicidal ideation ICD Code: R45.851 - Suicidal ideations (2) Rhabdomyolysis ICD Code: M62.82 - Rhabdomyolysis (3) Chronic leukopenia ICD Code: D72.819 - Decreased white blood cell count, unspecified Status: Acute (4) Hypothyroid ICD Code: E03.9 - Hypothyroidism, unspecified Status: Acute (5) Anemia ICD Code: D64.9 - Anemia, unspecified Status: Acute Assessment and Plan This is a 52-year-old male with a history of EtOH abuse and noncompliance with medication regimen. Patient has a noted medical diagnoses of hypothyroidism and refuses to take Synthroid, stating side effects uncomfortable for him . Patient has been hospitalized on multiple occasion, recently for rhabdomyolysis on 05/26. Rhabdomyolysis and significant hypothyroidism due to noncompliance with medication regimen. 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 noncompliance. Strict I/Os. Placed on IV fluids. Encourage PO intake. PT consulted. Normocytic hypochromic anemia, Check iron studies. Check stool guaiac. Continue to monitor CBC. Suicidal ideation Management as per psychiatry. 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 Tylenol 650 mg every 6 hours for pain Will continue Trazodone for sleep. Tobaccoism Patient counseled on smoking cessation Hypothyroidism TSH 65, free T4 0.10. Continue Synthroid 50 mics IV daily, patient is refusing. Stressed importance. Continue p.o. steroids. Hypocalcemia. Will check calcium levels and replace with IV calcium chloride if needed. Patient refusing ca IV. Will give tums patient agrees o take tums Hypokalemia, refusing supplement, says he is eating better, monitor and replace as need, Moderate protein calorie patient.. Low albumin, check prealbumin. Multivitamins, add Ensure to diet and encourage p.o. intake. Consult dietitian. Discussed with the patient, nurse Problem Qualifiers (1) Rhabdomyolysis: Qualified Codes: M62.82 - Rhabdomyolysis Alena Rubi MD Jun 05, 2017 08:45
[2017-06-05] MEDS: DOCUSATE SODIUM 50 MG/SENNA 8.6 MG TAB PO SCH ×2 (09:00→20:35)
[2017-06-05] MEDS: MULTIVITAMIN TAB PO SCH (09:00)
[2017-06-05] MEDS: FOLIC ACID 1 MG TAB PO SCH (09:00)
[2017-06-05] MEDS: HYDROCORTISONE 10 MG TAB PO SCH ×2 (09:00→20:35)
[2017-06-05] MEDS: CALCIUM CARBONATE 500 MG CHEWABLE TAB CHEW SCH ×2 (09:00→21:00)
[2017-06-05] MEDS: THIAMINE HCL 100 MG TAB PO SCH (09:00)
[2017-06-05] MEDS: CALCIUM CARBONATE 1.25 GM (CA 500 MG) TAB PO SCH ×2 (11:33)
--- NOTE | 2017-06-05 16:25 | HHI.PYPN ---
Subjective Remarks Patient seen and examined with nurse in coverage for Dr. Chou. Chart reviewed. Case discussed with nurse. Patient is now refusing all medications. He is taking his meals. On my examination today, the patient is hypoverbal. He remains quite flat. He says that he plans to refuse all psychotropic medications because "I feel like I don't need them." I endeavored to provide education to the patient on the need to take his prescribed medications, but he is quite recalcitrant on this point. He denies any suicidal or homicidal ideation. No physical complaints. Review of Systems ROS Limitations: Poor Historian Except as stated in HPI: all other systems reviewed are Neg Mental Status Examination Appearance: Disheveled Consciousness: Alert Orientation: Person, Place (at least) Motor Activity: Other (no motor abnormalities noted) Speech: Unremarkable Language: Adequate Fund of Knowledge: Inadequate Attention and Concentration: Adequate Memory: Unremarkable Mood: Other (dysphoric) Affect: Flat Thought Process & Associations: Intact, Linear, Other (slowed) Thought Content: Delusional Hallucination Type: None Delusion Type: Paranoid Suicidal Ideation: No Suicidal Plan: No Suicidal Intention: No Homicidal Ideation: No Homicidal Plan: No Homicidal Intention: No Insight: Fair Judgment: Impulsive Results Labs Labs reviewed. Vitals/IOs Vital Signs Date Time Temp Pulse Resp B/P (MAP) Pulse Ox O2 Delivery O2 Flow Rate FiO2 06/05/17 06:00 97.9 82 18 120/77 (91) 95 Intake and Output 06/05/17 06/05/17 06/06/17 08:00 16:00 00:00 Intake Total 960 ml 480 ml Balance 960 ml 480 ml Assessment & Plan Problem List: (1) Adjustment disorder with depressed mood ICD Codes: F43.21 - Adjustment disorder with depressed mood Assessment & Plan Patient now refusing all medications including psychotropics. Consider transferring patient to involuntary status and requesting a healthcare surrogate /guardian advocate. Continue to monitor on inpatient unit. Continue other medications and care as ordered. Justification for Cont. Inpt. Risk for decompensation in less restrictive environment. Discharge Planning Per Yeison Ramos MD Jun 05, 2017 16:25
[2017-06-05 18:03] VITALS: BP 113/78; PULSE 78; RESP 18; TEMP 98; O2SAT 93
[2017-06-05] MEDS: QUEtiapine FUMARATE 100 MG TAB PO SCH (21:00)
[2017-06-06] MEDS: NS + KCL 20 MEQ INJ 1,000 ML IV SCH ×3 (04:59→21:00)
[2017-06-06] MEDS: LEVOTHYROXINE SODIUM 100 MCG TAB PO SCH (06:00)
[2017-06-06 06:12] VITALS: BP 105/56; PULSE 72; RESP 17; TEMP 97.9; O2SAT 91
[2017-06-06 08:29] LABS: AUTOMATED NEUTROPHIL # 2.2 TH/MM3 (1.8-7.7); BASOPHIL % 1.2 % (0.0-2.0); EOSINOPHIL # 0.3 TH/MM3 (0-0.4); EOSINOPHIL % 8.8 % (0.0-4.0); HEMATOCRIT 26.4 % (39.0-51.0); HEMOGLOBIN 8.8 GM/DL (13.0-17.0); LYMPH % 24.6 % (9.0-44.0); MEAN CELL VOLUME 84.1 FL (80.0-100.0); MEAN CORPUSCULAR HEMOGLOBIN 28.1 PG (27.0-34.0); MEAN CORPUSCULAR HGB CONC 33.4 % (32.0-36.0); MEAN PLATELET VOLUME 6.9 FL (7.0-11.0); MONO % 9.5 % (0.0-8.0); MONOCYTE # 0.4 TH/MM3 (0-0.9); NEUT % 55.9 % (16.0-70.0); PLATELET COUNT 215 TH/MM3 (150-450); RED BLOOD COUNT 3.14 MIL/MM3 (4.50-5.90); RED CELL DISTRIBUTION WIDTH 17.6 % (11.6-17.2); WHITE BLOOD COUNT 3.9 TH/MM3 (4.0-11.0)
[2017-06-06] MEDS: ACETAMINOPHEN/HYDROcodone 325 MG/5 MG TAB PO PRN ×3 (08:45→22:38)
[2017-06-06] MEDS: MULTIVITAMIN TAB PO SCH (09:00)
[2017-06-06] MEDS: THIAMINE HCL 100 MG TAB PO SCH (09:00)
[2017-06-06] MEDS: FOLIC ACID 1 MG TAB PO SCH (09:00)
[2017-06-06] MEDS: CALCIUM CARBONATE 500 MG CHEWABLE TAB CHEW SCH ×2 (09:00→21:00)
[2017-06-06] MEDS: DOCUSATE SODIUM 50 MG/SENNA 8.6 MG TAB PO SCH ×2 (09:00→21:00)
[2017-06-06] MEDS: HYDROCORTISONE 10 MG TAB PO SCH ×2 (09:00→21:00)
[2017-06-06 09:08] LABS: BICARBONATE 32.8 MEQ/L (21.0-32.0); BLOOD UREA NITROGEN 15 MG/DL (7-18); CALCIUM 8.2 MG/DL (8.5-10.1); CHLORIDE 97 MEQ/L (98-107); CREATININE 0.84 MG/DL (0.60-1.30); GLOMERULAR FILTRATION RATE 96 ML/MIN (>89); GLUCOSE,RANDOM 87 MG/DL (74-106); SODIUM (NA) 135 MEQ/L (136-145)
[2017-06-06 09:10] LABS: % SATURATION IRON PROFILE 5.9 % (20-50); IRON (FE) 24 MCG/DL (65-175); TOTAL IRON BINDING CAPACITY 407 MCG/DL (250-450)
[2017-06-06 09:13] LABS: FERRITIN 6 NG/ML (26-388)
--- NOTE | 2017-06-06 10:22 | HHI.PYPN ---
Subjective Remarks Patient is here for follow, chart reviewed. Discussion nursing staff reported the patient refusing all medications including psychotropics, continues to report missing his mother and having suicide ideations along with poor sleep. Patient was found lying in hospital bed, calm and cooperative. Patient states that she had difficulty with sleep last night and believing that the bed vibrates which kept him up. Patient states that he continues to feel depressed and when asked about suicide ideations patient stated "I do not know". Patient is encouraged to continue adherent to treatment when she continues to be resistant and refusing stating that he does not need this medication and was perseverative on being able to return back to live with mother. Importance of adherence to recommendations for per medical team as well as treatment for his depression was reviewed patient continues to have poor insight into the consequences of untreated medical conditions and psychiatric. Patient's focused solely on being homeless at this time. Review of Systems Except as stated in HPI: all other systems reviewed are Neg Mental Status Examination Appearance: Disheveled, Other Consciousness: Alert Orientation: Person, Place (at least) Motor Activity: Other (no motor abnormalities noted) Speech: Unremarkable Language: Adequate Fund of Knowledge: Inadequate Attention and Concentration: Adequate Memory: Unremarkable Mood: Other (dysphoric) Affect: Flat Thought Process & Associations: Intact, Linear, Other (slowed) Thought Content: Delusional Hallucination Type: None Delusion Type: Paranoid (Drug dealers are after him) Suicidal Ideation: No Suicidal Plan: No Suicidal Intention: No Homicidal Ideation: No Homicidal Plan: No Homicidal Intention: No Insight: Poor Judgment: Poor Results Labs Labs reviewed Test 06/06/17 08:17 White Blood Count 3.9 TH/MM3 Red Blood Count 3.14 MIL/MM3 Hemoglobin 8.8 GM/DL Hematocrit 26.4 % Mean Corpuscular Volume 84.1 FL Mean Corpuscular Hemoglobin 28.1 PG Mean Corpuscular Hemoglobin Concent 33.4 % Red Cell Distribution Width 17.6 % Platelet Count 215 TH/MM3 Mean Platelet Volume 6.9 FL Neutrophils (%) (Auto) 55.9 % Lymphocytes (%) (Auto) 24.6 % Monocytes (%) (Auto) 9.5 % Eosinophils (%) (Auto) 8.8 % Basophils (%) (Auto) 1.2 % Neutrophils # (Auto) 2.2 TH/MM3 Lymphocytes # (Auto) 1.0 TH/MM3 Monocytes # (Auto) 0.4 TH/MM3 Eosinophils # (Auto) 0.3 TH/MM3 Basophils # (Auto) 0.0 TH/MM3 CBC Comment DIFF FINAL Differential Comment Blood Urea Nitrogen 15 MG/DL Creatinine 0.84 MG/DL Random Glucose 87 MG/DL Calcium Level 8.2 MG/DL Magnesium Level 2.0 MG/DL Sodium Level 135 MEQ/L Potassium Level 3.9 MEQ/L Chloride Level 97 MEQ/L Carbon Dioxide Level 32.8 MEQ/L Anion Gap 5 MEQ/L Estimat Glomerular Filtration Rate 96 ML/MIN Iron Level 24 MCG/DL Total Iron Binding Capacity 407 MCG/DL Percent Iron Saturation 5.9 % Ferritin 6 NG/ML Vitals/IOs Vital Signs Date Time Temp Pulse Resp B/P (MAP) Pulse Ox O2 Delivery O2 Flow Rate FiO2 06/06/17 06:12 97.9 72 17 105/56 (72) 91 Intake and Output 06/06/17 06/06/17 06/07/17 08:00 16:00 00:00 Intake Total 660 ml Balance 660 ml Assessment & Plan Problem List: (1) Adjustment disorder with depressed mood ICD Codes: F43.21 - Adjustment disorder with depressed mood Assessment & Plan Patient this time has poor insight into the severity of his current medical conditions including rhabdomyolysis which is 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 At this time there is concern for patient's ability to make appropriate decisions for self-care which includes his treatment for current ongoing medical conditions as well as for depression. Patient only willing to take trazodone and therefore we will continue to titrate for depression at this time. Will petition for involuntary psychiatric admission with concerns of patient's inability to care for self at this time which probable secondary to ongoing depressive disorder with paranoia coupled with alcohol use disorder and untreated hypothyroidism. Second opinion will be requested. Continue to encourage patient to adhere the current recommendations. Continue monitor mood and behavior. We will request patient to have healthcare surrogate and a guardian advocate. Discharge planning in progress. Justification for Cont. Inpt. At risk of further decompensation at lower level of care. Carlos Chou MD Jun 06, 2017 10:22
[2017-06-06] MEDS: CALCIUM CARBONATE 1.25 GM (CA 500 MG) TAB PO SCH ×2 (12:00)
--- NOTE | 2017-06-06 13:38 | PD.PSY.CON ---
Provisional Diagnosis Admission Date Jun 02, 2017 at 16:39 History of Present Illness Service Psychiatry Consult Requested By Psychiatry Reason for Consult Second opinion Primary Care Physician No Primary Care Physician HPI Patient is a 52-year-old man, single, unemployed on [facility], recently was domiciled with mother but not homeless for the past psychiatric history of major depressive disorder, 1 previous psychiatric admission in 2016, alcohol use disorder, no previous suicide attempts or self-injurious behavior was seen during his medical admission for rhabdomyolysis hypothyroidism as patient was endorsing feeling depressed along with suicide ideations with plan to overdose which she was admitted to the inpatient psychiatry for further evaluation and management. Patient was found lying in hospital bed, cooperative. Patient reports prior to his admission he had fell in the context of alcohol intoxication which mother had called 911 was admitted to the inpatient medical unit for rhabdomyolysis hypothyroidism. Patient reports that he has had issues with hypothyroidism but states that he does not believe he needs to take any medications for the same. He also reports that he had been intoxicated the day of admission because she was watching "[employer]". Reports feeling depressed due to financial difficulties, now being homeless stating that his mother did not want him to return back to the home along with decreased sleep, appetite energy concentration along with feeling helpless and hopeless. Patient also endorses paranoid ideations of "cocaine dealers after me" but denies any perceptual disturbances at this time. Patient had also admitted to suicidal ideations 2 days ago but denies at this time. The patient is a 52 year-old man, domiciled with his mother, single, unemployed, supported by [facility], with psychiatric history of major depressive disorder, 1 previous psychiatric hospitalization here in [place] in 2016, documentation was reviewed. He also has history of alcohol use disorder, no previous suicidal attempts, he is in trazodone 150 mg at bedtime, prescribed by PCP, with medical history of hypothyroidism, noncompliant with medications.Patient has a noted medical diagnoses of hypothyroidism and refuses to take Synthroid, stating side effects uncomfortable for him . Patient was admitted under the care of Dr. Chou. I was consulted for second opinion. Patient reports that he has been feeling very frustrated, overwhelmed, sad. He says that he doesn't know exactly what he is going to do tomorrow "maybe I just should ". He says that he is too sick, his mother doesn't want him back Home , he doesn't have a place to go, he doesn't have any friends, no family support , and he feels very hopeless, helpless, worthless. The patient has a marked psychomotor retardation, slow speech, delayed thought process which is to be part of severe hypothyroidism. He reports suicidal ideation with a plan of overdosing with his medications. The patient reports also poor sleep at night without his medication, low level of energy, poor appetite and energy. The patient is fully oriented 3, without any attention deficit, no fluctuation of consciousness, no major or gross cognitive impairment present. He reports daily use of alcohol, 3 or 4 beers per day. He denies the use of illegal drugs. Past Family Social History Coded Allergies: No Known Allergies (Unverified Allergy, Unknown, 05/31/17) Active Scripts Hydrocortisone (Hydrocortisone) 20 Mg Tab, 20 MG PO BID for adrenal insuff for 30 Days, #60 TAB 0 Refills Take with food to decrease GI upset Prov:Buffy Morales 06/02/17 Folic Acid (Folic Acid) 1 Mg Tablet, 1 MG PO DAILY for supplementation for 30 Days, #30 TAB Prov:Buffy Morales 06/02/17 Thiamine (B-1) 250 Mg Tab, 250 MG PO DAILY for Nutritional Supplement for 30 Days, #30 TAB 0 Refills Prov:Buffy Morales 06/02/17 Sennosides-Docusate Sodium (Gnp Senna Plus 8.6-50 mg) 8.6 Mg-50 Mg Tab, 1 TAB PO BID for constipation for 30 Days, #60 TAB Prov:Buffy Morales 06/02/17 Levothyroxine (Synthroid) 100 Mcg Tab, 100 MCG PO DAILY@0600 for hypothyroidism for 30 Days, #30 TAB Prov:Buffy Morales 06/02/17 Hydrocodone-Acetaminophen (Peralta) 5 Mg-325 Mg Tab, 1 TAB PO Q6H Y for PAIN, #10 TAB 0 Refills Prov:Nicholas Anne MD 05/27/17 Reported Medications Trazodone (Trazodone) 150 Mg Tablet, 150 MG PO HS for Control Depression, #30 TAB 0 Refills 05/26/17 Current Medications Medications (Trade) Dose Ordered Sig/Mohini Route Start Time Stop Time Status Last Admin (Benadryl) 50 mg HS PRN PO 06/03/17 11:45 06/06/17 03:17 (Tylenol) 650 mg Q4H PRN PO 06/03/17 11:45 (Milk Of Magnesia Liq) 30 ml DAILY PRN PO 06/03/17 11:45 (Mag-Al Plus Susp Liq) 30 ml Q6H PRN PO 06/03/17 11:45 (Atarax) 50 mg Q6H PRN PO 06/03/17 11:45 (SEROquel) 200 mg Taper HS PO 06/03/17 21:00 06/16/17 20:59 06/03/17 21:00 Potassium Chloride/Sodium Chloride 1,000 ml @ 125 mls/hr Q8H IV 06/03/17 21:00 06/03/17 21:00 (Folate) 1 mg DAILY PO 06/04/17 09:00 (Cortef) 20 mg BID PO 06/03/17 21:00 (Synthroid) 100 mcg DAILY@0600 PO 06/04/17 06:00 (Dominga-Colace) 1 tab BID PO 06/03/17 21:00 (Vitamin B1) 250 mg DAILY PO 06/04/17 09:00 (Peralta 5-325 Mg) 1 tab Q6H PRN PO 06/03/17 21:00 06/06/17 08:45 (Pill Splitter) 1 ea UNSCH PRN OTHER 06/03/17 22:30 (Oscal) 500 mg Q12H PO 06/04/17 12:00 (Cogentin) 1 mg Q12HR PRN PO 06/04/17 16:45 (Tums Chew) 500 mg Q12HR CHEW 06/05/17 09:00 (Theragran) 1 tab DAILY PO 06/05/17 09:00 (Desyrel) 150 mg HS PO 06/06/17 21:00 Patient's Strengths (min. 2) Verbal and communicative Physical Exam Vital Signs Vital Signs Date Time Temp Pulse Resp B/P (MAP) Pulse Ox O2 Delivery O2 Flow Rate FiO2 06/06/17 06:12 97.9 72 17 105/56 (72) 91 I/O 06/06/17 06/06/1706/07/18 08:00 16:00 00:00 Intake Total 660 ml 240 ml Balance 660 ml 240 ml Lab Results Test 06/06/17 08:17 White Blood Count 3.9 TH/MM3 Red Blood Count 3.14 MIL/MM3 Hemoglobin 8.8 GM/DL Hematocrit 26.4 % Mean Corpuscular Volume 84.1 FL Mean Corpuscular Hemoglobin 28.1 PG Mean Corpuscular Hemoglobin Concent 33.4 % Red Cell Distribution Width 17.6 % Platelet Count 215 TH/MM3 Mean Platelet Volume 6.9 FL Neutrophils (%) (Auto) 55.9 % Lymphocytes (%) (Auto) 24.6 % Monocytes (%) (Auto) 9.5 % Eosinophils (%) (Auto) 8.8 % Basophils (%) (Auto) 1.2 % Neutrophils # (Auto) 2.2 TH/MM3 Lymphocytes # (Auto) 1.0 TH/MM3 Monocytes # (Auto) 0.4 TH/MM3 Eosinophils # (Auto) 0.3 TH/MM3 Basophils # (Auto) 0.0 TH/MM3 CBC Comment DIFF FINAL Differential Comment Blood Urea Nitrogen 15 MG/DL Creatinine 0.84 MG/DL Random Glucose 87 MG/DL Calcium Level 8.2 MG/DL Magnesium Level 2.0 MG/DL Sodium Level 135 MEQ/L Potassium Level 3.9 MEQ/L Chloride Level 97 MEQ/L Carbon Dioxide Level 32.8 MEQ/L Anion Gap 5 MEQ/L Estimat Glomerular Filtration Rate 96 ML/MIN Iron Level 24 MCG/DL Total Iron Binding Capacity 407 MCG/DL Percent Iron Saturation 5.9 % Ferritin 6 NG/ML Prealbumin 22 MG/DL Mental Status Examination Appearance: Disheveled, Other Consciousness: Alert Orientation: Person, Place (at least) Motor Activity: Other (no motor abnormalities noted) Speech: Unremarkable Language: Adequate Fund of Knowledge: Inadequate Attention and Concentration: Adequate Memory: Unremarkable Mood: Other (dysphoric) Affect: Flat Thought Process & Associations: Intact, Linear, Other (slowed) Thought Content: Delusional Hallucination Type: None Delusion Type: Paranoid (Drug dealers are after him) Suicidal Ideation: No Suicidal Plan: No Suicidal Intention: No Homicidal Ideation: No Homicidal Plan: No Homicidal Intention: No Insight: Poor Judgment: Poor Assessment & Plan Problem List: (1) Adjustment disorder with depressed mood ICD Codes: F43.21 - Adjustment disorder with depressed mood Assessment & Plan: I have seen and examined this patient, reviewed the documentation, I agree and concur with Dr. Chou assessment and plan. Assessment & Plan Estimated LOS: Jay Noguera MD Jun 06, 2017 13:38
--- NOTE | 2017-06-06 14:59 | HHI.PR ---
Subjective Remarks Patient reported "I feel like the bed is vibrating " No chest pain short of breath fever or chills Objective Vitals Vital Signs Date Time Temp Pulse Resp B/P (MAP) Pulse Ox O2 Delivery O2 Flow Rate FiO2 06/06/17 06:12 97.9 72 17 105/56 (72) 91 06/05/17 18:03 98.0 78 18 113/78 (90) 93 I/O 06/05/17 06/05/17 06/05/17 06/06/17 06/06/17 06/06/17 07:00 15:00 23:00 07:00 15:00 23:00 Intake Total 720 ml 720 ml 1080 ml 480 ml 420 ml Balance 720 ml 720 ml 1080 ml 480 ml 420 ml Intake Oral 720 ml 720 ml 1080 ml 480 ml 420 ml # Voids 1 1 2 # Bowel Movements 1 Result Diagram: 06/06/1781606/06/17 0817 Objective Remarks GENERAL: This is a well-nourished, well-developed patient, in no apparent distress. CARDIOVASCULAR: Regular rate and rhythm without murmurs, gallops, or rubs. RESPIRATORY: Fair air entry bilaterally. No wheezes, rales, or rhonchi. GASTROINTESTINAL: Abdomen soft, non-tender, nondistended. Positive bowel sounds MUSCULOSKELETAL: Extremities without clubbing, cyanosis, or edema. Pedal pulses appreciated NEUROLOGICAL: Awake and alert. Moves all extremity. Normal speech.no focal neurological deficit A/P Problem List: (1) Suicidal ideation ICD Code: R45.851 - Suicidal ideations (2) Rhabdomyolysis ICD Code: M62.82 - Rhabdomyolysis (3) Chronic leukopenia ICD Code: D72.819 - Decreased white blood cell count, unspecified Status: Acute (4) Hypothyroid ICD Code: E03.9 - Hypothyroidism, unspecified Status: Acute (5) Anemia ICD Code: D64.9 - Anemia, unspecified Status: Acute Assessment and Plan This is a 52-year-old male with a history of EtOH abuse and noncompliance with medication regimen. Patient has a noted medical diagnoses of hypothyroidism and refuses to take Synthroid, stating side effects uncomfortable for him . Patient has been hospitalized on multiple occasion, recently for rhabdomyolysis on 05/26. Rhabdomyolysis and significant hypothyroidism due to noncompliance with medication regimen. 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 noncompliance. Strict I/Os. Placed on IV fluids. Encourage PO intake. PT consulted. 06/06 Repeat BMP, monitor vitals Normocytic hypochromic anemia, Iron studies reviewed Continue to monitor CBC. Suicidal ideation Management as per psychiatry. 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 Tylenol 650 mg every 6 hours for pain Will continue Trazodone for sleep. Tobaccoism Patient counseled on smoking cessation Hypothyroidism TSH 65, free T4 0.10. Continue Synthroid 50 mics IV daily, patient is refusing. Stressed importance. Continue p.o. steroids. Hypocalcemia. Improved continue calcium carbonate Hypokalemia, refusing supplement, says he is eating better, monitor and replace as need, Moderate protein calorie patient.. Low albumin, check prealbumin. Multivitamins, add Ensure to diet and encourage p.o. intake. Consult dietitian. Problem Qualifiers (1) Rhabdomyolysis: Qualified Codes: M62.82 - Rhabdomyolysis Harvinder Pennington MD Jun 06, 2017 14:59
--- NOTE | 2017-06-06 16:24 | PD.TTN ---
Patient Problems 1. Discharge planning 2. Medication compliance 3. Knowledge deficit 4. Lack of coping skills Progress Toward Goals Provider Present: Dr. Luca Chou Provider Input: 06/06/2017; patient is being stablized medically and with medication Nurse(s) Present: DENIZ Long Nurse(s) Input: 06/06/2017; patient is eating, taking medication no behavior Psychiatric Counselors Present: YESSICA Mo Psych Therapist Input: 06/06/2017; counselor will discuss outpatient and placement needs with patient Group Spec/RT/OT/BOLAÑOS Input: 06/06/2017; patient does not participate with groups or activities Documentation Scribe: YESSICA Mo Sandra LMHC Jun 06, 2017 16:24
[2017-06-06 18:00] VITALS: BP 110/71; PULSE 76; RESP 17; TEMP 97.6; O2SAT 91
[2017-06-06] MEDS: QUEtiapine FUMARATE 100 MG TAB PO SCH (21:00)
[2017-06-06] MEDS: traZODone HCL 100 MG TAB PO SCH (21:27)
[2017-06-07 05:00] VITALS: BP 113/67; PULSE 74; RESP 16; TEMP 97.7
[2017-06-07] MEDS: NS + KCL 20 MEQ INJ 1,000 ML IV SCH ×3 (05:00→21:00)
[2017-06-07] MEDS: LEVOTHYROXINE SODIUM 100 MCG TAB PO SCH (05:01)
[2017-06-07] MEDS: ACETAMINOPHEN/HYDROcodone 325 MG/5 MG TAB PO PRN ×3 (05:08→21:00)
[2017-06-07] MEDS: HYDROCORTISONE 10 MG TAB PO SCH ×2 (08:56→21:00)
[2017-06-07] MEDS: CALCIUM CARBONATE 500 MG CHEWABLE TAB CHEW SCH ×2 (08:56→21:00)
[2017-06-07] MEDS: FOLIC ACID 1 MG TAB PO SCH (08:56)
[2017-06-07] MEDS: THIAMINE HCL 100 MG TAB PO SCH (08:57)
[2017-06-07] MEDS: DOCUSATE SODIUM 50 MG/SENNA 8.6 MG TAB PO SCH ×2 (09:00→21:00)
[2017-06-07] MEDS: MULTIVITAMIN TAB PO SCH (09:00)
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
[2017-06-07] MEDS: CALCIUM CARBONATE 1.25 GM (CA 500 MG) TAB PO SCH ×3 (11:56→23:51)
--- NOTE | 2017-06-07 15:29 | HHI.PR ---
Subjective Remarks REFUSING TO TAKE HIS MEDICATIONS ARMAND RN AND PATIENT Objective Vitals Vital Signs Date Time Temp Pulse Resp B/P (MAP) Pulse Ox O2 Delivery O2 Flow Rate FiO2 06/07/17 05:00 97.7 74 16 113/67 (82) 06/06/17 23:38 18 06/06/17 18:00 97.6 76 17 110/71 (84) 91 I/O 06/06/17 06/06/17 06/06/17 06/07/17 06/07/17 06/07/17 07:00 15:00 23:00 07:00 15:00 23:00 Intake Total 480 ml 840 ml 720 ml 240 ml 360 ml Balance 480 ml 840 ml 720 ml 240 ml 360 ml Intake Oral 480 ml 840 ml 720 ml 240 ml 360 ml # Voids 2 2 2 Result Diagram: 06/06/17 0817 06/06/17 0817 Other Results Laboratory Tests Test 06/06/17 08:17 White Blood Count 3.9 TH/MM3 Red Blood Count 3.14 MIL/MM3 Hemoglobin 8.8 GM/DL Hematocrit 26.4 % Mean Corpuscular Volume 84.1 FL Mean Corpuscular Hemoglobin 28.1 PG Mean Corpuscular Hemoglobin Concent 33.4 % Red Cell Distribution Width 17.6 % Platelet Count 215 TH/MM3 Mean Platelet Volume 6.9 FL Neutrophils (%) (Auto) 55.9 % Lymphocytes (%) (Auto) 24.6 % Monocytes (%) (Auto) 9.5 % Eosinophils (%) (Auto) 8.8 % Basophils (%) (Auto) 1.2 % Neutrophils # (Auto) 2.2 TH/MM3 Lymphocytes # (Auto) 1.0 TH/MM3 Monocytes # (Auto) 0.4 TH/MM3 Eosinophils # (Auto) 0.3 TH/MM3 Basophils # (Auto) 0.0 TH/MM3 CBC Comment DIFF FINAL Differential Comment Blood Urea Nitrogen 15 MG/DL Creatinine 0.84 MG/DL Random Glucose 87 MG/DL Calcium Level 8.2 MG/DL Magnesium Level 2.0 MG/DL Sodium Level 135 MEQ/L Potassium Level 3.9 MEQ/L Chloride Level 97 MEQ/L Carbon Dioxide Level 32.8 MEQ/L Anion Gap 5 MEQ/L Estimat Glomerular Filtration Rate 96 ML/MIN Iron Level 24 MCG/DL Total Iron Binding Capacity 407 MCG/DL Percent Iron Saturation 5.9 % Ferritin 6 NG/ML Prealbumin 22 MG/DL Imaging Last Impressions Finger X-Ray 06/03/17 0000 Signed Impressions: Service Date/Time: Saturday, June 03, 2017 13:30 - CONCLUSION: 1. Probable non-displaced/non-angulated fracture of the proximal metaphysis of the 5th digit proximal phalanx. 2. Old boxers fracture with palmar angulation deformity. Alok Bae MD Objective Remarks GENERAL: AWAKE AND ALERT AND CONFUSED WITH POOR THOUGHT PROCESS SKIN: Warm and dry. MULTIPLE EXCORIATIONS ON LEGS HEAD: Atraumatic. Normocephalic. EYES: Pupils equal and round. No scleral icterus. No injection or drainage. EOMI ENT: No nasal bleeding or discharge. Mucous membranes pink and moist. TONGUE MIDLINE NECK: Trachea midline. No JVD. SUPPLE CARDIOVASCULAR: Regular rate and rhythm. S1, S2 NO S3 OR S4 RESPIRATORY: No accessory muscle use. Clear to auscultation. Breath sounds equal bilaterally. GASTROINTESTINAL: Abdomen soft, non-tender, nondistended. Hepatic and splenic margins not palpable. MUSCULOSKELETAL: Extremities without clubbing, cyanosis, or edema. No obvious deformities. NEUROLOGICAL: Awake and alert. No obvious cranial nerve deficits. Motor grossly within normal limits. Five out of 5 muscle strength in the arms and legs. Normal speech. PSYCHIATRIC: INAppropriate mood and affect; insight and judgment GROSSLY ABnormal. Medications and IVs Current Medications Diphenhydramine HCl (Benadryl) 50 mg HS PRN PO INSOMNIA Last administered on at 03:17; Start 06/03/17 at 11:45 Acetaminophen (Tylenol) 650 mg Q4H PRN PO Pain 1-5 or Temp >101F; Start at 11:45 Magnesium Hydroxide (Milk Of Magnesia Liq) 30 ml DAILY PRN PO CONSTIPATION; Start 06/03/17 at 11:45 Al Hydrox/Mg Hydrox/Simethicone (Mag-Al Plus Susp Liq) 30 ml Q6H PRN PO DYSPEPSIA; Start 06/03/17 at 11:45 Hydroxyzine HCl (Atarax) 50 mg Q6H PRN PO ANXIETY; Start 06/03/17 at 11:45 Quetiapine Fumarate (SEROquel) 300 mg Taper HS PO Last administered on at 21:00; Start 06/03/17 at 21:00; Stop 06/07/17 at 10:28; Status DC Potassium Chloride/Sodium Chloride 1,000 ml @ 125 mls/hr Q8H IV Last administered on 06/03/17at 21:00; Start 06/03/17 at 21:00 Folic Acid (Folate) 1 mg DAILY PO Last administered on 06/07/17at 08:56; Start 06/04/17 at 09:00 Hydrocortisone (Cortef) 20 mg BID PO Last administered on 06/07/17at 08:56; Start 06/03/17 at 21:00 Levothyroxine Sodium (Synthroid) 100 mcg DAILY@0600 PO ; Start 06/04/17 at 06:00 Senna/Docusate Sodium (Dominga-Colace) 1 tab BID PO ; Start 06/03/17 at 21:00 Thiamine HCl (Vitamin B1) 250 mg DAILY PO Last administered on 06/07/17at 08:57 ; Start 06/04/17 at 09:00 Acetaminophen/ Hydrocodone Bitart ([place] 5-325 Mg) 1 tab Q6H PRN PO PAIN 6-10 Last administered on 06/07/17at 11:57; Start 06/03/17 at 21:00 Miscellaneous (Pill Splitter) 1 ea UNSCH PRN OTHER SEE LABEL COMMENTS; Start at 22:30 Potassium Bicarb/ Potassium Chloride (K-Lyte Cl Eff) 50 meq ONCE ONCE PO ; Start 06/04/17 at 12:00; Stop 06/04/17 at 12:01; Status DC Calcium Carbonate (Oscal) 500 mg Q12H PO ; Start 06/04/17 at 12:00 Benztropine Mesylate (Cogentin) 1 mg Q12HR PRN PO EXTRA PYRAMIDAL SYMPTOMS; Start 06/04/17 at 16:45 Calcium Carbonate (Tums Chew) 500 mg Q12HR CHEW Last administered on 06/07/17at 08:56; Start 06/05/17 at 09:00 Multivitamins (Theragran) 1 tab DAILY PO ; Start 06/05/17 at 09:00 Trazodone HCl (Desyrel) 150 mg HS PO Last administered on 06/06/17at 21:27; Start 06/06/17 at 21:00 Olanzapine (ZyPREXA) 5 mg HS PO ; Start 06/07/17 at 21:00 Olanzapine (ZyPREXA INJ) 5 mg HS IM ; Start 06/07/17 at 21:00 A/P Problem List: (1) Suicidal ideation ICD Code: R45.851 - Suicidal ideations (2) Rhabdomyolysis ICD Code: M62.82 - Rhabdomyolysis (3) Chronic leukopenia ICD Code: D72.819 - Decreased white blood cell count, unspecified Status: Acute (4) Hypothyroid ICD Code: E03.9 - Hypothyroidism, unspecified Status: Acute (5) Anemia ICD Code: D64.9 - Anemia, unspecified Status: Acute Assessment and Plan This is a 52-year-old male with a history of EtOH abuse and noncompliance with medication regimen. Patient has a noted medical diagnoses of hypothyroidism and refuses to take Synthroid, stating side effects uncomfortable for him . Patient has been hospitalized on multiple occasion, recently for rhabdomyolysis on 05/26. Rhabdomyolysis and significant hypothyroidism due to noncompliance with medication regimen. 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 noncompliance. Strict I/Os. Placed on IV fluids. Encourage PO intake. PT consulted. 06/06 Repeat BMP, monitor vitals Normocytic hypochromic anemia, Iron studies reviewed Continue to monitor CBC. Suicidal ideation Management as per psychiatry. 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 Tylenol 650 mg every 6 hours for pain Will continue Trazodone for sleep. Tobaccoism Patient counseled on smoking cessation Hypothyroidism TSH 65, free T4 0.10. Continue Synthroid 50 mics IV daily, patient is refusing. Stressed importance. Continue p.o. steroids. Hypocalcemia. Improved continue calcium carbonate Hypokalemia, refusing supplement, says he is eating better, monitor and replace as need, Moderate protein calorie patient.. Low albumin, check prealbumin. Multivitamins, add Ensure to diet and encourage p.o. intake. Consult dietitian. MALIGNANT MEDICAL NONCOMPLIANCE Discharge Planning PENDING PSYCHIATRIC CLEARANCE Problem Qualifiers (1) Rhabdomyolysis: Qualified Codes: M62.82 - Rhabdomyolysis Mustapha Cornelius DO Jun 07, 2017 15:29
[2017-06-07 18:05] VITALS: BP 93/68; PULSE 71; RESP 16; TEMP 97.4; O2SAT 98
[2017-06-07] MEDS: OLANZapine IM 10 MG VIAL IM SCH (21:00)
[2017-06-07] MEDS: traZODone HCL 100 MG TAB PO SCH (21:01)
[2017-06-07] MEDS: OLANZapine 5 MG TAB PO SCH (21:12)
[2017-06-08 04:45] VITALS: PULSE 78; RESP 16; TEMP 97.3; O2SAT 89
[2017-06-08] MEDS: NS + KCL 20 MEQ INJ 1,000 ML IV SCH ×2 (05:00→20:47)
[2017-06-08] MEDS: LEVOTHYROXINE SODIUM 100 MCG TAB PO SCH (05:26)
[2017-06-08] MEDS ORDERED: SODIUM CHLORID 0.9% 500 ML INJ 500 ML IV ONE (06:15)
[2017-06-08 08:29] VITALS: BP 91/55
[2017-06-08] MEDS: MULTIVITAMIN TAB PO SCH (09:00)
--- NOTE | 2017-06-08 10:32 | RADRPT ---
EXAM DATE/TIME: 06/08/2017 10:07 [facility] COMPARISON: FINGER RIGHT 5TH DIGIT (TGQ3LAL), June 03, 2017, 13:30. INDICATIONS : Right 5th digit pain and bruising for 1 week. MEDICAL HISTORY : Hypertension. Hypothyroidism. Gastroesophageal reflux disease. Hiatal hernia. Cirrhosis. Hepatitis. SURGICAL HISTORY : Left femur surgery. ENCOUNTER: Initial ACUITY: 4 - 6 days PAIN SCORE: 4/10 LOCATION: Right posterior 5th digit. FINDINGS: 3 views of the right hand fifth digit demonstrate a transverse nondisplaced fracture of the fifth dig it proximal phalanx. Fracture line extends through the proximal metaphysis. There is buckling of the cortex along the medial aspect. No other fracture or dislocation is seen. The bones are overall under mineralized. Change in the distal fifth metacarpal is likely related to o ld healed fracture. No soft tissue abnormality or radiopaque foreign body is identified. CONCLUSION: There is a transverse nondisplaced fracture of the fifth digit proximal phalanx proximal metaphysis. The appearance is stable from the prior study. Jaya Eduardo MD on June 08, 2017 at 10:26 Board Certified Radiologist. This report was verified electronically.
--- NOTE | 2017-06-08 12:11 | HHI.PYPN ---
Subjective Remarks Patient seen for follow-up, chart reviewed. Discussion nursing staff reported the patient was resistant with adhering to olanzapine this evening, was found to have low blood pressure which patient had received bolus of normal saline IV 1. Patient was found lying in hospital bed continued to be disheveled stating that he has been stressed due to his relationship discord with his mother states that he had spoken with her yesterday and stating "she is not too mad". Patient continues to report feeling depressed along with suicide ideations. Patient continues to have poor insight into importance of adherence to his treatment but did agree to start antipsychotic medications last evening. Patient was encouraged to maintain adequate hydration as well as adhere to treatment for his hypothyroidism, we will continue to monitor, rhabdomyolysis which is likely secondary to his hypothyroid myopathy, hypokalemia and hypocalcemia. Patient continues with paranoid ideations and persecutory delusions Review of Systems Except as stated in HPI: all other systems reviewed are Neg Mental Status Examination Appearance: Disheveled, Other Consciousness: Alert Orientation: Person, Place (at least) Motor Activity: Other (no motor abnormalities noted) Speech: Unremarkable Language: Adequate Fund of Knowledge: Inadequate Attention and Concentration: Adequate Memory: Unremarkable Mood: Other (dysphoric) Affect: Flat Thought Process & Associations: Intact, Linear, Other (slowed) Thought Content: Bizarre thinking, Delusional Hallucination Type: None Delusion Type: Paranoid (Drug dealers are after him), Other (Persecutory) Suicidal Ideation: Yes Suicidal Plan: No Suicidal Intention: No Homicidal Ideation: No Homicidal Plan: No Homicidal Intention: No Insight: Poor Judgment: Poor Results Vitals/IOs Vital Signs Date Time Temp Pulse Resp B/P (MAP) Pulse Ox O2 Delivery O2 Flow Rate FiO2 06/08/17 08:29 91/55 (67) 06/08/17 04:45 97.3 78 16 89 Intake and Output 06/08/17 06/08/17 06/09/17 08:00 16:00 00:00 Intake Total 720 ml Balance 720 ml Assessment & Plan Problem List: (1) Adjustment disorder with depressed mood ICD Codes: F43.21 - Adjustment disorder with depressed mood (2) Unspecified psychosis ICD Codes: F29 - Unspecified psychosis not due to a substance or known physiological condition Status: Acute Assessment & Plan Patient this time continues with depressed mood along with prosecutorial delusions, paranoia and suicidal ideations. Patient began taking olanzapine last evening, we will continue current treatment regimen as this was just started. Continue to encourage patient to adhere to recommendations for current medical issues as stated previously. Continue to monitor with behavior. Continue to encourage patient to maintain personal hygiene and participate in his care. Patient will present to mental health court tomorrow for petition for involuntary hospitalization. Discharge planning in progress. Justification for Cont. Inpt. At risk for further decompensation at lower level of care Discharge Planning To be determined Carlos Chou MD Jun 08, 2017 12:11
--- NOTE | 2017-06-08 12:24 | EKG ---
Date Performed: 06/07/2017 Time Performed: 13:41:29 PTAGE: 52 years EKG: Sinus rhythm WITH FIRST DEGREE AV BLOCK LOW QRS VOLTAGE ABNORMAL QRS-T ANGLE ABNORMAL ECG PREVIOUS TRACING : 05/31/2017 11.43 Since the prior tracing, there has been no significant rodriguez DOCTOR: Yeison Springer Interpretating Date/Time 06/08/2017 12:22:38
--- NOTE | 2017-06-08 13:30 | HHI.PR ---
Subjective Remarks Although I took the time to explain the impact of chronic hypothyroidism, and the danger of rhabdomyolysis, patient is refusing treatments still. His chief complaint today is right finger pain in the fifth digit of his right hand. He injured this during his fall at home. Objective Vitals Vital Signs Date Time Temp Pulse Resp B/P (MAP) Pulse Ox O2 Delivery O2 Flow Rate FiO2 06/08/17 08:29 91/55 (67) 06/08/17 04:45 97.3 78 16 89 06/07/17 18:05 97.4 71 16 93/68 (76) 98 I/O 06/07/17 06/07/17 06/07/17 06/08/17 06/08/17 06/08/17 07:00 15:00 23:00 07:00 15:00 23:00 Intake Total 240 ml 360 ml 960 ml 480 ml 960 ml Balance 240 ml 360 ml 960 ml 480 ml 960 ml Intake Oral 240 ml 360 ml 960 ml 480 ml 960 ml # Voids 2 1 4 Result Diagram: 06/06/1781606/06/17816 Objective Remarks GENERAL: Well-nourished, well-developed patient. SKIN: Warm and dry. HEAD: Normocephalic. EYES: No scleral icterus. No injection or drainage. NECK: Supple, trachea midline. No JVD or lymphadenopathy. CARDIOVASCULAR: Regular rate and rhythm without murmurs, gallops, or rubs. RESPIRATORY: Breath sounds equal bilaterally. No accessory muscle use. GASTROINTESTINAL: Abdomen soft, non-tender, nondistended. EXTREMITIES: Swelling of right fifth digit, unable to fully extend. NEUROLOGICAL: Awake, alert, and oriented x 3. Non-focal. A/P Problem List: (1) Suicidal ideation ICD Code: R45.851 - Suicidal ideations (2) Rhabdomyolysis ICD Code: M62.82 - Rhabdomyolysis (3) Chronic leukopenia ICD Code: D72.819 - Decreased white blood cell count, unspecified Status: Acute (4) Hypothyroid ICD Code: E03.9 - Hypothyroidism, unspecified Status: Acute (5) Anemia ICD Code: D64.9 - Anemia, unspecified Status: Acute Assessment and Plan This is a 52-year-old male with a history of EtOH abuse and noncompliance with medication regimen. Patient has a noted medical diagnoses of hypothyroidism and refuses to take Synthroid, stating side effects uncomfortable for him . Patient has been hospitalized on multiple occasion, recently for rhabdomyolysis on 05/26. Rhabdomyolysis and significant hypothyroidism due to noncompliance with medication regimen. Rhabdomyolysis Recent fall patient was on the floor for greater than 12 hours (alcohol-related) Patient continues to refused medication. noncompliance. Continue IV fluids and encourage PO intake Repeat total CK ordered for tomorrow Fracture right fifth digit Nondisplaced according to x-ray Requesting right hand orthosis per [facility] consult deferred due to nondisplacement, will repeat film after splint in place Hypothyroidism TSH 65, free T4 0.10. Patient is refusing all meds, states he does not have a problem, noncompliant Patient has been counseled extensively about the impact of refusing these medications Anemia Normocytic hypochromic Likely due to hypothyroidism Will monitor periodic CBC to watch for any downward trend Suicidal ideation /depression Management per psychiatry Alcoholism Monitor for signs of alcohol withdrawal Multivitamin / thiamine supplementation Anxiety disorder Trazodone for insomnia Further meds per psychiatry Tobaccoism Patient counseled on smoking cessation Hypocalcemia Resolved Problem Qualifiers (1) Rhabdomyolysis: Qualified Codes: M62.82 - Rhabdomyolysis Connor Lal MD Jun 08, 2017 13:30
[2017-06-08 18:00] VITALS: BP 78/53; PULSE 79; RESP 16; TEMP 97; O2SAT 96
[2017-06-08] MEDS: ACETAMINOPHEN/HYDROcodone 325 MG/5 MG TAB PO PRN (20:44)
[2017-06-08] MEDS: traZODone HCL 100 MG TAB PO SCH (20:46)
[2017-06-08] MEDS: HYDROCORTISONE 10 MG TAB PO SCH (20:47)
[2017-06-08] MEDS: DOCUSATE SODIUM 50 MG/SENNA 8.6 MG TAB PO SCH (20:48)
[2017-06-08] MEDS: OLANZapine 5 MG TAB PO SCH (20:48)
[2017-06-08] MEDS: CALCIUM CARBONATE 500 MG CHEWABLE TAB CHEW SCH (20:48)
[2017-06-08] MEDS: OLANZapine IM 10 MG VIAL IM SCH (20:53)
[2017-06-08] MEDS: CALCIUM CARBONATE 1.25 GM (CA 500 MG) TAB PO SCH (23:26)
[2017-06-09] MEDS: NS + KCL 20 MEQ INJ 1,000 ML IV SCH ×3 (01:00→21:00)
[2017-06-09] MEDS: LEVOTHYROXINE SODIUM 100 MCG TAB PO SCH ×2 (05:33→06:00)
[2017-06-09 06:00] VITALS: BP 75/49; PULSE 78; RESP 18; TEMP 97.3; O2SAT 93
[2017-06-09 08:05] LABS: AUTOMATED NEUTROPHIL # 2.3 TH/MM3 (1.8-7.7); BASOPHIL % 0.6 % (0.0-2.0); EOSINOPHIL # 0.1 TH/MM3 (0-0.4); EOSINOPHIL % 2.5 % (0.0-4.0); HEMATOCRIT 22.7 % (39.0-51.0); HEMOGLOBIN 7.5 GM/DL (13.0-17.0); LYMPH % 23.5 % (9.0-44.0); LYMPHOCYTE # 0.8 TH/MM3 (1.0-4.8); MEAN CELL VOLUME 84.8 FL (80.0-100.0); MEAN CORPUSCULAR HEMOGLOBIN 27.9 PG (27.0-34.0); MEAN CORPUSCULAR HGB CONC 32.9 % (32.0-36.0); MEAN PLATELET VOLUME 7.5 FL (7.0-11.0); MONOCYTE # 0.3 TH/MM3 (0-0.9); NEUT % 64.4 % (16.0-70.0); PLATELET COUNT 173 TH/MM3 (150-450); RED BLOOD COUNT 2.68 MIL/MM3 (4.50-5.90); RED CELL DISTRIBUTION WIDTH 17.3 % (11.6-17.2); WHITE BLOOD COUNT 3.5 TH/MM3 (4.0-11.0)
[2017-06-09 08:21] LABS: BICARBONATE 31.9 MEQ/L (21.0-32.0); CALCIUM 8.4 MG/DL (8.5-10.1); CREATININE 0.82 MG/DL (0.60-1.30)
[2017-06-09] MEDS: MULTIVITAMIN TAB PO SCH (09:00)
[2017-06-09] MEDS: THIAMINE HCL 100 MG TAB PO SCH ×2 (09:00→11:09)
[2017-06-09] MEDS: FOLIC ACID 1 MG TAB PO SCH ×2 (09:00→11:09)
[2017-06-09] MEDS: ACETAMINOPHEN/HYDROcodone 325 MG/5 MG TAB PO PRN ×2 (09:30→17:30)
[2017-06-09] MEDS: IBUPROFEN 400 MG TAB PO SCH ×3 (09:45→22:00)
--- NOTE | 2017-06-09 10:33 | HHI.PR ---
Subjective Remarks Patient has right hand in soft cast today. He still complains of pain in that finger. He has been unable to tolerate Lortab due to hypotension. We discussed Motrin. Objective Vitals Vital Signs Date Time Temp Pulse Resp B/P (MAP) Pulse Ox O2 Delivery O2 Flow Rate FiO2 06/09/17 06:00 97.3 78 18 75/49 (58) 93 06/08/17 18:00 97.0 79 16 78/53 (61) 96 I/O 06/08/17 06/08/17 06/08/17 06/09/17 06/09/17 06/09/17 07:00 15:00 23:00 07:00 15:00 23:00 Intake Total 480 ml 1920 ml 1560 ml 240 ml Output Total 650 ml Balance 480 ml 1270 ml 1560 ml 240 ml Intake Oral 480 ml 1920 ml 1560 ml 240 ml Output Urine Total 650 ml # Voids 4 2 1 Result Diagram: 06/09/1772506/09/17 0726 Objective Remarks GENERAL: Well-nourished, well-developed patient. SKIN: Warm and dry. HEAD: Normocephalic. EYES: No scleral icterus. No injection or drainage. NECK: Supple, trachea midline. No JVD or lymphadenopathy. CARDIOVASCULAR: Regular rate and rhythm without murmurs, gallops, or rubs. RESPIRATORY: Breath sounds equal bilaterally. No accessory muscle use. GASTROINTESTINAL: Abdomen soft, non-tender, nondistended. EXTREMITIES: Right hand in soft cast, gutter splint over fourth and fifth digit NEUROLOGICAL: Awake, alert, and oriented x 3. Non-focal. A/P Problem List: (1) Suicidal ideation ICD Code: R45.851 - Suicidal ideations (2) Rhabdomyolysis ICD Code: M62.82 - Rhabdomyolysis (3) Chronic leukopenia ICD Code: D72.819 - Decreased white blood cell count, unspecified Status: Acute (4) Hypothyroid ICD Code: E03.9 - Hypothyroidism, unspecified Status: Acute (5) Anemia ICD Code: D64.9 - Anemia, unspecified Status: Acute Assessment and Plan Rhabdomyolysis Recent fall patient was on the floor for greater than 12 hours (alcohol-related) Patient continues to refused medication. noncompliance. Continue IV fluids and encourage PO intake Total CKs showing downward trend, will follow Fracture right fifth digit Nondisplaced according to x-ray Patient placed in soft cast with gutter splint right fourth and fifth digits Orthopedic consult deferred due to nondisplacement We will repeat film in 1-2 days Hypothyroidism TSH 65, free T4 0.10. Patient agreed to single dose of Synthroid today Patient has been counseled extensively about the impact of refusing his Synthroid Anemia Normocytic hypochromic Likely due to hypothyroidism Will monitor periodic CBC to watch for any downward trend Suicidal ideation /depression Management per psychiatry Alcoholism Monitor for signs of alcohol withdrawal Multivitamin / thiamine supplementation Anxiety disorder Trazodone for insomnia Further meds per psychiatry Tobaccoism Patient counseled on smoking cessation Hypocalcemia Resolved DVT prophylaxis Patient is ambulatory Problem Qualifiers (1) Rhabdomyolysis: Qualified Codes: M62.82 - Rhabdomyolysis Connor Lal MD Jun 09, 2017 10:33
[2017-06-09] MEDS: HYDROCORTISONE 10 MG TAB PO SCH ×2 (11:08→21:00)
[2017-06-09] MEDS: CALCIUM CARBONATE 500 MG CHEWABLE TAB CHEW SCH ×2 (11:08→21:00)
[2017-06-09] MEDS: DOCUSATE SODIUM 50 MG/SENNA 8.6 MG TAB PO SCH ×2 (11:09→21:00)
[2017-06-09] MEDS: CALCIUM CARBONATE 1.25 GM (CA 500 MG) TAB PO SCH (11:12)
--- NOTE | 2017-06-09 14:00 | HHI.PYPN ---
Subjective Remarks Patient is here for follow-up, chart reviewed. Discussion nurses have reported the patient continued to be somewhat resistant to some medications. Patient was presented to mental health [facility] where patient was retained on involuntary hospitalization with mother being reported as healthcare surrogate and guardian advocate during this hospitalization. Patient was seen later in room noted to be calm and cooperative. Patient continues to report feeling fatigued, depressed along with continue suicide ideations. Patient was reviewed the importance of adhering to treatment in order to address his current depressive symptomatology which is in part related to his untreated hypothyroidism as well. Patient acknowledged and although resistant had agreed. Patient denies any perceptual disturbances but continues with persecutory delusions. Review of Systems Except as stated in HPI: all other systems reviewed are Neg Mental Status Examination Appearance: Disheveled, Other Consciousness: Alert Orientation: Person, Place (at least) Motor Activity: Other (no motor abnormalities noted) Speech: Unremarkable Language: Adequate Fund of Knowledge: Inadequate Attention and Concentration: Adequate Memory: Unremarkable Mood: Other (dysphoric) Affect: Flat Thought Process & Associations: Intact, Linear, Other (slowed) Thought Content: Bizarre thinking, Delusional Hallucination Type: None Delusion Type: Paranoid (Drug dealers are after him), Other (Persecutory) Suicidal Ideation: Yes Suicidal Plan: No Suicidal Intention: No Homicidal Ideation: No Homicidal Plan: No Homicidal Intention: No Insight: Poor Judgment: Poor Results Labs Labs reviewed Test 06/09/17 07:26 White Blood Count 3.5 TH/MM3 Red Blood Count 2.68 MIL/MM3 Hemoglobin 7.5 GM/DL Hematocrit 22.7 % Mean Corpuscular Volume 84.8 FL Mean Corpuscular Hemoglobin 27.9 PG Mean Corpuscular Hemoglobin Concent 32.9 % Red Cell Distribution Width 17.3 % Platelet Count 173 TH/MM3 Mean Platelet Volume 7.5 FL Neutrophils (%) (Auto) 64.4 % Lymphocytes (%) (Auto) 23.5 % Monocytes (%) (Auto) 9.0 % Eosinophils (%) (Auto) 2.5 % Basophils (%) (Auto) 0.6 % Neutrophils # (Auto) 2.3 TH/MM3 Lymphocytes # (Auto) 0.8 TH/MM3 Monocytes # (Auto) 0.3 TH/MM3 Eosinophils # (Auto) 0.1 TH/MM3 Basophils # (Auto) 0.0 TH/MM3 CBC Comment DIFF FINAL Differential Comment Blood Urea Nitrogen 15 MG/DL Creatinine 0.82 MG/DL Random Glucose 104 MG/DL Calcium Level 8.4 MG/DL Sodium Level 136 MEQ/L Potassium Level 4.2 MEQ/L Chloride Level 97 MEQ/L Carbon Dioxide Level 31.9 MEQ/L Anion Gap 7 MEQ/L Estimat Glomerular Filtration Rate 99 ML/MIN Total Creatine Kinase 1488 U/L Creatine Kinase MB 10.5 NG/ML Creatine Kinase MB % 0.7 % Vitals/IOs Vital Signs Date Time Temp Pulse Resp B/P (MAP) Pulse Ox O2 Delivery O2 Flow Rate FiO2 06/09/17 06:00 97.3 78 18 75/49 (58) 93 Intake and Output 06/09/17 06/09/17 06/10/17 08:00 16:00 00:00 Intake Total 360 ml Balance 360 ml Assessment & Plan Problem List: (1) Adjustment disorder with depressed mood ICD Codes: F43.21 - Adjustment disorder with depressed mood (2) Unspecified psychosis ICD Codes: F29 - Unspecified psychosis not due to a substance or known physiological condition Status: Acute Assessment & Plan Patient this time continues to report feeling depressed along with continue suicide ideations and persecutory delusions. Patient did agree to take his medications today with much encouragement. Patient was detained by mental health Court for involuntary hospitalization. Continue to encourage patient to maintain adherence to recommendations and treatment. Continue to monitor mood and behavior. Continue recommendations as per primary medical team. Discharge planning in progress. Justification for Cont. Inpt. At risk for further decompensation if at lower level of care Discharge Planning To be determined Carlos Chou MD Jun 09, 2017 14:00
[2017-06-09 18:43] VITALS: BP 117/68; PULSE 87; RESP 16; TEMP 97.5
[2017-06-09] MEDS: OLANZapine 5 MG TAB PO SCH (21:00)
[2017-06-09] MEDS: OLANZapine IM 10 MG VIAL IM SCH (21:00)
[2017-06-09] MEDS: traZODone HCL 100 MG TAB PO SCH (21:00)
[2017-06-10] MEDS: NS + KCL 20 MEQ INJ 1,000 ML IV SCH ×3 (05:00→21:40)
[2017-06-10 06:00] VITALS: BP 109/51; PULSE 71; RESP 17; TEMP 97.4; O2SAT 93
[2017-06-10] MEDS: IBUPROFEN 400 MG TAB PO SCH ×4 (06:00→21:56)
[2017-06-10] MEDS: LEVOTHYROXINE SODIUM 100 MCG TAB PO SCH (06:00)
--- NOTE | 2017-06-10 07:57 | HHI.PYPN ---
Subjective Remarks Patient seen for follow, chart reviewed. Discussion nursing staff reported the patient less evening was paranoid with medication and ended up wiping his pain medication with hand violin tutor. Patient was found lying hospital bed noted B, cooperative. Patient states that he is feeling "tired" continues report feeling depressed "a lot" but denies any suicide ideations at this time. Patient denies any perceptual disturbances, reports attempting to eat and drink better but continues to require IV fluid. Patient also reporting having some difficulty with his vision for the past couple weeks which she sees is blurring. Patient continues to endorse paranoid ideations about medications provided to him by staff feeling that they were contaminated or poisoned but is taking with encouragement. Patient also continues with persecutory delusions. Review of Systems Except as stated in HPI: all other systems reviewed are Neg Mental Status Examination Appearance: Disheveled, Other Consciousness: Alert Orientation: Person, Place (at least) Motor Activity: Other (no motor abnormalities noted) Speech: Unremarkable Language: Adequate Fund of Knowledge: Inadequate Attention and Concentration: Adequate Memory: Unremarkable Mood: Sad Affect: Flat Thought Process & Associations: Intact, Linear, Other (slowed) Thought Content: Bizarre thinking, Delusional Hallucination Type: None Delusion Type: Paranoid (Drug dealers are after him), Other (Persecutory) Suicidal Ideation: Yes Suicidal Plan: No Suicidal Intention: No Homicidal Ideation: No Homicidal Plan: No Homicidal Intention: No Insight: Poor Judgment: Poor Results Vitals/IOs Vital Signs Date Time Temp Pulse Resp B/P (MAP) Pulse Ox O2 Delivery O2 Flow Rate FiO2 06/10/17 06:00 97.4 71 17 109/51 (70) 93 Intake and Output 06/10/17 06/10/17 06/11/17 08:00 16:00 00:00 Intake Total 120 ml Balance 120 ml Assessment & Plan Problem List: (1) Adjustment disorder with depressed mood ICD Codes: F43.21 - Adjustment disorder with depressed mood (2) Unspecified psychosis ICD Codes: F29 - Unspecified psychosis not due to a substance or known physiological condition Status: Acute Assessment & Plan Patient this time continues report feeling depressed along with paranoid persecutory delusions but denying any suicide ideations today. We will increase olanzapine to 5 mg p.o. twice daily for psychosis, continue rest of medications. We will consider adding fluoxetine once patient has been more consistent with adherence to treatment. Continue to monitor mood and behavior. Continue to encourage patient to maintain good nutritional intake and fluid intake. Continue recommendations as per prior medical team. Discharge planning in progress. Justification for Cont. Inpt. At risk of further decompensation at lower level of care Discharge Planning To be determined Carlos Chou MD Jun 10, 2017 07:57
[2017-06-10] MEDS ORDERED: OLANZapine IM 10 MG VIAL IM PRN (09:00)
[2017-06-10] MEDS: OLANZapine 5 MG TAB PO SCH ×3 (09:00→21:40)
[2017-06-10] MEDS: CALCIUM CARBONATE 500 MG CHEWABLE TAB CHEW SCH ×3 (09:00→21:39)
[2017-06-10] MEDS: THIAMINE HCL 100 MG TAB PO SCH (09:00)
[2017-06-10] MEDS: HYDROCORTISONE 10 MG TAB PO SCH ×3 (09:00→21:40)
[2017-06-10] MEDS: DOCUSATE SODIUM 50 MG/SENNA 8.6 MG TAB PO SCH ×3 (09:00→21:40)
[2017-06-10] MEDS: FOLIC ACID 1 MG TAB PO SCH (09:00)
[2017-06-10] MEDS: MULTIVITAMIN TAB PO SCH (09:00)
--- NOTE | 2017-06-10 09:59 | PD.TTN ---
Patient Problems 1. Discharge planning 2. Medication compliance 3. Knowledge deficit 4. Lack of coping skills Progress Toward Goals Provider Present: Dr. Luca Chou Provider Input: 06/08/2017; Patient is refusing medication and requires coaching and prompting by staff. Still delusional and paranoid with his thoughts, medication continues to be adjusted 06/06/2017; patient is being stablized medically and with medication Nurse(s) Present: DENIZ Long Nurse(s) Input: 06/08/2017; patient refuses medcation, and needs coaching 06/06/2017; patient is eating, taking medication no behavior Psychiatric Counselors Present: YESSICA Mo Psych Therapist Input: 06/08/2017; patient is encouraged with medication and will be assisted with placement 06/06/2017; counselor will discuss outpatient and placement needs with patient Group Spec/RT/OT/BOLAÑOS Present: MIKY Marquis Spec/RT/OT/BOLAÑOS Input: 06/08/2017; patient refuses groups and activities 06/06/2017; patient does not participate with groups or activities Documentation Scribe: YESSICA Mo Sandra LMHC Jun 10, 2017 09:59
[2017-06-10] MEDS: CALCIUM CARBONATE 1.25 GM (CA 500 MG) TAB PO SCH ×4 (10:41→21:56)
--- NOTE | 2017-06-10 13:02 | HHI.PR ---
Subjective Remarks Patient is concerned about "'warts" that he has had on his ankles for greater than 6 months. When I suggested that these may be due to fungal skin infection he disagreed. When I offered him Lotrisone cream he refused my suggestion. Objective Vitals Vital Signs Date Time Temp Pulse Resp B/P (MAP) Pulse Ox O2 Delivery O2 Flow Rate FiO2 06/10/17 06:00 97.4 71 17 109/51 (70) 93 06/09/17 18:43 97.5 87 16 117/68 (84) I/O 06/09/17 06/09/17 06/09/17 06/10/17 06/10/17 06/10/17 07:00 15:00 23:00 07:00 15:00 23:00 Intake Total 360 ml 1080 ml 120 ml 120 ml Balance 360 ml 1080 ml 120 ml 120 ml Intake Oral 360 ml 1080 ml 120 ml 120 ml # Voids 1 0 2 Result Diagram: 06/09/1772506/09/17725 Objective Remarks GENERAL: Well-nourished, well-developed patient. SKIN: Scaly slightly excoriated dry skin over bilateral heels. Fungal element evident. HEAD: Normocephalic. EYES: No scleral icterus. No injection or drainage. NECK: Supple, trachea midline. No JVD or lymphadenopathy. CARDIOVASCULAR: Regular rate and rhythm without murmurs, gallops, or rubs. RESPIRATORY: Breath sounds equal bilaterally. No accessory muscle use. GASTROINTESTINAL: Abdomen soft, non-tender, nondistended. EXTREMITIES: Right hand in soft cast, gutter splint over fourth and fifth digit NEUROLOGICAL: Awake, alert, and oriented x 3. Non-focal. A/P Problem List: (1) Suicidal ideation ICD Code: R45.851 - Suicidal ideations (2) Rhabdomyolysis ICD Code: M62.82 - Rhabdomyolysis (3) Chronic leukopenia ICD Code: D72.819 - Decreased white blood cell count, unspecified Status: Acute (4) Hypothyroid ICD Code: E03.9 - Hypothyroidism, unspecified Status: Acute (5) Anemia ICD Code: D64.9 - Anemia, unspecified Status: Acute Assessment and Plan Rhabdomyolysis Recent fall patient was on the floor for greater than 12 hours (alcohol-related) Patient continues to refused medication. noncompliance. Continue IV fluids and encourage PO intake Total CKs showing downward trend, will follow Fracture right fifth digit Nondisplaced according to x-ray Patient placed in soft cast with gutter splint right fourth and fifth digits Orthopedic consult deferred due to nondisplacement Repeat film following casting Hypothyroidism TSH 65, free T4 0.10. Patient agreed to single dose of Synthroid, I encouraged him to continue this medication Patient has been counseled extensively about the impact of refusing his Synthroid Anemia Normocytic hypochromic Likely due to hypothyroidism Will monitor periodic CBC to watch for any downward trend Suicidal ideation /depression Management per psychiatry Alcoholism Monitor for signs of alcohol withdrawal Multivitamin / thiamine supplementation Anxiety disorder Trazodone for insomnia Further meds per psychiatry Tobaccoism Patient counseled on smoking cessation Hypocalcemia Resolved DVT prophylaxis Patient is ambulatory Problem Qualifiers (1) Rhabdomyolysis: Qualified Codes: M62.82 - Rhabdomyolysis Connor Lal MD Jun 10, 2017 13:02
--- NOTE | 2017-06-10 14:46 | RADRPT ---
EXAM DATE/TIME: 06/10/2017 14:16 [facility] COMPARISON: FINGER RIGHT 5TH DIGIT ([id number]), June 08, 2017, 10:07. INDICATIONS : Right hand fifth digit pain. Fall. MEDICAL HISTORY : Hypertension. Hypothyroidism. Gastroesophageal reflux disease. Hiatal SURGICAL HISTORY : None. ENCOUNTER: Subsequent ACUITY: 1 week PAIN SCORE: 8/10 LOCATION: Right hand, fifth digit FINDINGS: Fracture base of the fifth digit in the alignment in fiberglass. CONCLUSION: Alignment in fiberglass. Mustapha Live MD FACR on June 10, 2017 at 14:45 Board Certified Radiologist. This report was verified electronically.
[2017-06-10] MEDS: ACETAMINOPHEN/HYDROcodone 325 MG/5 MG TAB PO PRN (16:45)
[2017-06-10 18:04] VITALS: BP 103/60; PULSE 87; RESP 16; TEMP 97.4; O2SAT 93
[2017-06-10] MEDS: traZODone HCL 100 MG TAB PO SCH ×2 (21:00→21:40)
[2017-06-11] MEDS: ACETAMINOPHEN/HYDROcodone 325 MG/5 MG TAB PO PRN ×3 (00:24→20:04)
[2017-06-11] MEDS: LEVOTHYROXINE SODIUM 100 MCG TAB PO SCH (05:13)
[2017-06-11] MEDS: IBUPROFEN 400 MG TAB PO SCH ×3 (05:13→19:41)
[2017-06-11] MEDS: NS + KCL 20 MEQ INJ 1,000 ML IV SCH ×2 (05:15→13:17)
[2017-06-11 05:55] VITALS: BP 108/62; PULSE 79; RESP 20; TEMP 97.6; O2SAT 95
[2017-06-11 08:21] LABS: AUTOMATED NEUTROPHIL # 1.9 TH/MM3 (1.8-7.7); BASOPHIL % 0.9 % (0.0-2.0); EOSINOPHIL # 0.2 TH/MM3 (0-0.4); HEMATOCRIT 23.5 % (39.0-51.0); HEMOGLOBIN 7.6 GM/DL (13.0-17.0); LYMPH % 31.7 % (9.0-44.0); LYMPHOCYTE # 1.2 TH/MM3 (1.0-4.8); MEAN CELL VOLUME 85.6 FL (80.0-100.0); MEAN CORPUSCULAR HEMOGLOBIN 27.8 PG (27.0-34.0); MEAN CORPUSCULAR HGB CONC 32.4 % (32.0-36.0); MEAN PLATELET VOLUME 8.2 FL (7.0-11.0); MONO % 12.8 % (0.0-8.0); MONOCYTE # 0.5 TH/MM3 (0-0.9); NEUT % 49.6 % (16.0-70.0); PLATELET COUNT 184 TH/MM3 (150-450); RED BLOOD COUNT 2.75 MIL/MM3 (4.50-5.90); RED CELL DISTRIBUTION WIDTH 17.1 % (11.6-17.2); WHITE BLOOD COUNT 3.9 TH/MM3 (4.0-11.0)
[2017-06-11] MEDS: HYDROCORTISONE 10 MG TAB PO SCH ×2 (08:51→19:40)
[2017-06-11] MEDS: CALCIUM CARBONATE 500 MG CHEWABLE TAB CHEW SCH ×3 (08:51→19:40)
[2017-06-11] MEDS: FOLIC ACID 1 MG TAB PO SCH (08:52)
[2017-06-11] MEDS: MULTIVITAMIN TAB PO SCH ×2 (08:52→09:00)
[2017-06-11] MEDS: DOCUSATE SODIUM 50 MG/SENNA 8.6 MG TAB PO SCH ×3 (08:52→19:41)
[2017-06-11] MEDS: THIAMINE HCL 100 MG TAB PO SCH (08:53)
[2017-06-11] MEDS: OLANZapine 5 MG TAB PO SCH ×2 (08:53→19:41)
[2017-06-11] MEDS: CALCIUM CARBONATE 1.25 GM (CA 500 MG) TAB PO SCH ×2 (12:00→19:41)
--- NOTE | 2017-06-11 15:09 | HHI.PYPN ---
Subjective Remarks On psychiatric evaluation today the patient is calm, cooperative, reports improved mood, better sleep, good appetite, he is oriented 3, has been compliant with his medications,and medical side effects. Mental Status Examination Appearance: Disheveled, Other Consciousness: Alert Orientation: Person, Place (at least) Motor Activity: Other (no motor abnormalities noted) Speech: Unremarkable Language: Adequate Fund of Knowledge: Inadequate Attention and Concentration: Adequate Memory: Unremarkable Mood: Sad Affect: Flat Thought Process & Associations: Intact, Linear, Other (slowed) Thought Content: Bizarre thinking, Delusional Hallucination Type: None Delusion Type: Paranoid (Drug dealers are after him), Other (Persecutory) Suicidal Ideation: Yes Suicidal Plan: No Suicidal Intention: No Homicidal Ideation: No Homicidal Plan: No Homicidal Intention: No Insight: Poor Judgment: Poor Results Labs Test 06/11/17 07:23 White Blood Count 3.9 TH/MM3 Red Blood Count 2.75 MIL/MM3 Hemoglobin 7.6 GM/DL Hematocrit 23.5 % Mean Corpuscular Volume 85.6 FL Mean Corpuscular Hemoglobin 27.8 PG Mean Corpuscular Hemoglobin Concent 32.4 % Red Cell Distribution Width 17.1 % Platelet Count 184 TH/MM3 Mean Platelet Volume 8.2 FL Neutrophils (%) (Auto) 49.6 % Lymphocytes (%) (Auto) 31.7 % Monocytes (%) (Auto) 12.8 % Eosinophils (%) (Auto) 5.0 % Basophils (%) (Auto) 0.9 % Neutrophils # (Auto) 1.9 TH/MM3 Lymphocytes # (Auto) 1.2 TH/MM3 Monocytes # (Auto) 0.5 TH/MM3 Eosinophils # (Auto) 0.2 TH/MM3 Basophils # (Auto) 0.0 TH/MM3 CBC Comment DIFF FINAL Differential Comment Total Creatine Kinase 1177 U/L Creatine Kinase MB 10.7 NG/ML Creatine Kinase MB % 0.9 % Vitals/IOs Vital Signs Date Time Temp Pulse Resp B/P (MAP) Pulse Ox O2 Delivery O2 Flow Rate FiO2 06/11/17 14:09 18 06/11/17 05:55 97.6 79 108/62 (77) 95 Intake and Output 06/11/17 06/11/17 06/12/17 08:00 16:00 00:00 Intake Total 360 ml 500 ml Balance 360 ml 500 ml Assessment & Plan Problem List: (1) Adjustment disorder with depressed mood ICD Codes: F43.21 - Adjustment disorder with depressed mood (2) Unspecified psychosis ICD Codes: F29 - Unspecified psychosis not due to a substance or known physiological condition Status: Acute Assessment & Plan Estimated LOS: days Justification for Cont. Inpt. Continue current psychotropic. Patient has an elevated risk to decompensate at a lower level of care to Jay Clay MD Jun 11, 2017 15:09
--- NOTE | 2017-06-11 15:49 | HHI.PR ---
Subjective Remarks Pt seen and examined this morning. Vitals reviewed. Reports he feels lousy but states "I don't want to be lectured." Does not elaborate further on symptoms. States he doesn't want to hear about having to take thyroid medication. Objective Vital Signs Date Time Temp Pulse Resp B/P (MAP) Pulse Ox O2 Delivery O2 Flow Rate FiO2 06/11/17 14:09 18 06/11/17 05:55 97.6 79 20 108/62 (77) 95 06/10/17 18:04 97.4 87 16 103/60 (74) 93 I/O 06/10/17 06/10/17 06/10/17 06/11/17 06/11/17 06/11/17 07:00 15:00 23:00 07:00 15:00 23:00 Intake Total 120 ml 120 ml 1560 ml 120 ml 740 ml Balance 120 ml 120 ml 1560 ml 120 ml 740 ml Intake Oral 120 ml 120 ml 1560 ml 120 ml 240 ml IV Total 500 ml # Voids 2 0 1 Result Diagram: 06/11/17 0723 06/09/17 0726 Objective Remarks GENERAL: Pale, disheveled male laying in bed in NAD. SKIN: Warm and dry. HEENT: Pupils equal and round. Periorbital edema. MMM. NECK: Supple no tender LAD or JVD. HEART: RRR no m/r/g. LUNGS: CTAB without wheezes or crackles. ABDOMEN: Soft, NT, ND. EXTREMITIES: No LE edema or calf tenderness. Soft cast right wrist. NEURO: Awake and alert. A/P Problem List: (1) Rhabdomyolysis ICD Code: M62.82 - Rhabdomyolysis Status: Acute (2) Hypothyroidism ICD Code: E03.9 - Hypothyroidism Status: Acute (3) Anemia ICD Code: D64.9 - Anemia, unspecified Status: Acute (4) Tobacco abuse ICD Code: Z72.0 - Tobacco use Status: Acute Assessment and Plan 52 year old male originally admitted on 05/31 with AMS found to have rhabdomyolysis and significant hypothyroidism. Rhabdomyolysis Recent fall patient was on the floor for greater than 12 hours (alcohol-related) CK downtrending; continue to follow Can D/C IV fluids and encourage PO since eating and drinking Fracture right fifth digit Nondisplaced according to x-ray Patient placed in soft cast with gutter splint right fourth and fifth digits Repeat film following casting showed normal alignment Hypothyroidism TSH 65, free T4 0.10. Refusing all forms of Synthroid (both IV and PO) Patient has been counseled extensively about the impact of refusing his Synthroid Anemia Normocytic hypochromic Likely due to hypothyroidism as well as iron deficiency (low ferritin, % sat, and iron) Start ferrous sulfate Suicidal ideation /depression Management per psychiatry Alcoholism No signs of withdrawal Rally pack Anxiety disorder Trazodone for insomnia Further meds per psychiatry Tobaccoism Patient counseled on smoking cessation DVT prophylaxis Patient is ambulatory Juliana Flores MD Jun 11, 2017 15:49
[2017-06-11 18:00] VITALS: BP 128/85; PULSE 103; RESP 20; TEMP 97.5
[2017-06-11] MEDS: traZODone HCL 100 MG TAB PO SCH (21:17)
[2017-06-12] MEDS: IBUPROFEN 400 MG TAB PO SCH ×3 (04:44→20:52)
[2017-06-12] MEDS: LEVOTHYROXINE SODIUM 100 MCG TAB PO SCH (04:44)
[2017-06-12 06:02] VITALS: BP 104/63; PULSE 70; RESP 20; TEMP 97.7; O2SAT 93
[2017-06-12] MEDS: HYDROCORTISONE 10 MG TAB PO SCH ×2 (09:00→20:51)
[2017-06-12] MEDS: THIAMINE HCL 100 MG TAB PO SCH (09:00)
[2017-06-12] MEDS: FOLIC ACID 1 MG TAB PO SCH (09:00)
[2017-06-12] MEDS: FERROUS SULFATE 325 MG (65 MG ELEMENTAL IRON) TAB PO SCH (09:00)
[2017-06-12] MEDS: MULTIVITAMIN TAB PO SCH (09:00)
[2017-06-12] MEDS: CALCIUM CARBONATE 500 MG CHEWABLE TAB CHEW SCH ×2 (09:00→20:51)
[2017-06-12] MEDS: OLANZapine 5 MG TAB PO SCH ×2 (09:00→20:44)
[2017-06-12] MEDS: DOCUSATE SODIUM 50 MG/SENNA 8.6 MG TAB PO SCH ×2 (09:00→20:51)
[2017-06-12] MEDS: ACETAMINOPHEN/HYDROcodone 325 MG/5 MG TAB PO PRN ×3 (09:30→22:24)
--- NOTE | 2017-06-12 09:39 | HHI.PYPN ---
Subjective Remarks The patient was seen today for psychiatric reevaluation. Patient was found sleeping, but easily arousable. Calm, cooperative and pleasant. Oriented 3. Reports good mood. He has been compliant with his medications,and medical side effects. His behavior, no behavioral dysregulation or agitation reported. Mental Status Examination Appearance: Disheveled, Other Consciousness: Alert Orientation: Person, Place (at least) Motor Activity: Other (no motor abnormalities noted) Speech: Unremarkable Language: Adequate Fund of Knowledge: Inadequate Attention and Concentration: Adequate Memory: Unremarkable Mood: Sad Affect: Flat Thought Process & Associations: Intact, Linear, Other (slowed) Thought Content: Bizarre thinking, Delusional Hallucination Type: None Delusion Type: Paranoid (Drug dealers are after him), Other (Persecutory) Suicidal Ideation: Yes Suicidal Plan: No Suicidal Intention: No Homicidal Ideation: No Homicidal Plan: No Homicidal Intention: No Insight: Poor Judgment: Poor Results Vitals/IOs Vital Signs Date Time Temp Pulse Resp B/P (MAP) Pulse Ox O2 Delivery O2 Flow Rate FiO2 06/12/17 06:02 97.7 70 20 104/63 (77) 93 Intake and Output 06/12/17 06/12/17 06/13/17 08:00 16:00 00:00 Intake Total 280 ml Balance 280 ml Assessment & Plan Problem List: (1) Adjustment disorder with depressed mood ICD Codes: F43.21 - Adjustment disorder with depressed mood (2) Unspecified psychosis ICD Codes: F29 - Unspecified psychosis not due to a substance or known physiological condition Status: Acute Assessment & Plan: Continue current psychotropic regimen. Assessment & Plan Estimated LOS: days Justification for Cont. Inpt. Patient has an elevated risk to decompensate at a lower level of care. Jay Clay MD Jun 12, 2017 09:39
--- NOTE | 2017-06-12 10:53 | HHI.PR ---
Subjective Remarks Pt seen and examined this morning. Vitals reviewed. Does not endorse any physical symptoms today and is preoccupied with the nursing staff being part of the "cocaine cartel" and he fears he is in danger. Denies CP, SOB, or myalgias. States he takes his medications when he wants and doesn't want to hear about taking any Synthroid. Objective Vital Signs Date Time Temp Pulse Resp B/P (MAP) Pulse Ox O2 Delivery O2 Flow Rate FiO2 06/12/17 06:02 97.7 70 20 104/63 (77) 93 06/11/17 18:00 97.5 103 20 128/85 (99) 06/11/17 14:09 18 I/O 06/11/17 06/11/17 06/11/17 06/12/17 06/12/17 06/12/17 07:00 15:00 23:00 07:00 15:00 23:00 Intake Total 120 ml 740 ml 1710 ml 280 ml Balance 120 ml 740 ml 1710 ml 280 ml Intake Oral 120 ml 240 ml 1510 ml 280 ml IV Total 500 ml 200 ml # Voids 1 4 2 # Bowel Movements 0 0 Result Diagram: 06/11/17 0723 06/09/17 0726 Objective Remarks GENERAL: Pale, disheveled male laying in bed in NAD. SKIN: Warm and dry. HEENT: Pupils equal and round. Periorbital edema. MMM. NECK: Supple no tender LAD or JVD. HEART: RRR no m/r/g. LUNGS: CTAB without wheezes or crackles. ABDOMEN: Soft, NT, ND. EXTREMITIES: No LE edema or calf tenderness. Soft cast right wrist. NEURO: Awake and alert. PSYCH: Delusional. Speech slowed and repetitive. A/P Problem List: (1) Rhabdomyolysis ICD Code: M62.82 - Rhabdomyolysis Status: Acute (2) Hypothyroidism ICD Code: E03.9 - Hypothyroidism Status: Acute (3) Anemia ICD Code: D64.9 - Anemia, unspecified Status: Acute (4) Tobacco abuse ICD Code: Z72.0 - Tobacco use Status: Acute (5) Schizophrenia ICD Code: F20.9 - Schizophrenia, unspecified Assessment and Plan 52 year old male originally admitted on 05/31 with AMS found to have rhabdomyolysis and significant hypothyroidism. Rhabdomyolysis Recent fall patient was on the floor for greater than 12 hours (alcohol-related) CK downtrending; continue to follow IV fluids discontinued yesterday since eating and drinking Encourage PO Fracture right fifth digit Nondisplaced according to x-ray Patient placed in soft cast with gutter splint right fourth and fifth digits Repeat film following casting showed normal alignment Hypothyroidism TSH 65, free T4 0.10. Refusing all forms of Synthroid (both IV and PO) Patient has been counseled extensively about the impact of refusing his Synthroid Anemia Normocytic hypochromic Likely due to hypothyroidism as well as iron deficiency (low ferritin, % sat, and iron) Start ferrous sulfate Schizophrenia Actively psychotic with delusions Management per psych Suicidal ideation /depression Management per psychiatry Alcoholism No signs of withdrawal Rally pack Anxiety disorder Trazodone for insomnia Further meds per psychiatry Tobaccoism Patient counseled on smoking cessation DVT prophylaxis Patient is ambulatory Juliana Flores MD Jun 12, 2017 10:52
[2017-06-12] MEDS: CALCIUM CARBONATE 1.25 GM (CA 500 MG) TAB PO SCH (12:00)
[2017-06-12 18:06] VITALS: BP 123/73; PULSE 107; RESP 18; TEMP 97.7
[2017-06-12] MEDS: traZODone HCL 100 MG TAB PO SCH (20:45)
[2017-06-13] MEDS: LEVOTHYROXINE SODIUM 100 MCG TAB PO SCH (05:01)
[2017-06-13] MEDS: IBUPROFEN 400 MG TAB PO SCH ×3 (05:01→22:00)
[2017-06-13 05:04] VITALS: BP 103/68; PULSE 68; RESP 17; TEMP 97.5; O2SAT 92
[2017-06-13] MEDS: ACETAMINOPHEN/HYDROcodone 325 MG/5 MG TAB PO PRN ×2 (05:57→22:17)
[2017-06-13] MEDS: FERROUS SULFATE 325 MG (65 MG ELEMENTAL IRON) TAB PO SCH (09:00)
[2017-06-13] MEDS: MULTIVITAMIN TAB PO SCH (09:00)
[2017-06-13] MEDS: FOLIC ACID 1 MG TAB PO SCH (09:00)
[2017-06-13] MEDS: THIAMINE HCL 100 MG TAB PO SCH (09:00)
[2017-06-13] MEDS: DOCUSATE SODIUM 50 MG/SENNA 8.6 MG TAB PO SCH ×2 (09:00→21:00)
[2017-06-13] MEDS: CALCIUM CARBONATE 500 MG CHEWABLE TAB CHEW SCH ×2 (09:00→21:00)
[2017-06-13] MEDS: HYDROCORTISONE 10 MG TAB PO SCH (09:00)
[2017-06-13] MEDS: OLANZapine 5 MG TAB PO SCH ×2 (09:58→22:16)
[2017-06-13] MEDS: CALCIUM CARBONATE 1.25 GM (CA 500 MG) TAB PO SCH ×3 (12:00→22:23)
--- NOTE | 2017-06-13 13:42 | HHI.PYPN ---
Subjective Remarks Reviewed electronic medical record, labs, and discussed case with staff. Follow -up evaluation conducted in patient's room with nurse present. Patient sitting in his bed, alert and oriented to person and place. His speech is clear and organized. Appearance is disheveled. Patient reports that he feels "so-so, up- and-down". When asked to elaborate, patient advises that there is a "drug dealer trying to kill him". Patient continues with his paranoid delusions. Reports that he sleeping well and his appetite is good. He continues to refuse all medications prescribed by medical staff reporting "I do not need it". Mental Status Examination Appearance: Disheveled Consciousness: Alert Orientation: Person, Place (at least) Motor Activity: Other (no motor abnormalities noted) Speech: Unremarkable Language: Adequate Fund of Knowledge: Inadequate Attention and Concentration: Adequate Memory: Unremarkable Mood: Good Affect: Euthymic Thought Process & Associations: Intact, Linear, Other (slowed) Thought Content: Bizarre thinking, Delusional Hallucination Type: None Delusion Type: Paranoid (Drug dealers are after him), Other (Persecutory) Suicidal Ideation: No Suicidal Plan: No Suicidal Intention: No Homicidal Ideation: No Homicidal Plan: No Homicidal Intention: No Insight: Poor Judgment: Poor Results Labs Test 06/13/17 09:11 Total Creatine Kinase 914 U/L Creatine Kinase MB 10.1 NG/ML Creatine Kinase MB % 1.1 % Vitals/IOs Vital Signs Date Time Temp Pulse Resp B/P (MAP) Pulse Ox O2 Delivery O2 Flow Rate FiO2 06/13/17 05:04 97.5 68 17 103/68 (80) 92 Intake and Output 06/13/17 06/13/17 06/14/17 08:00 16:00 00:00 Intake Total 240 ml 120 ml Balance 240 ml 120 ml Assessment & Plan Problem List: (1) Adjustment disorder with depressed mood ICD Codes: F43.21 - Adjustment disorder with depressed mood (2) Unspecified psychosis ICD Codes: F29 - Unspecified psychosis not due to a substance or known physiological condition Status: Acute Assessment & Plan Estimated LOS: We will continue with treatment plan to the patient is psychiatrically stabilized. Due to his paranoid delusions and feelings of persecution, Mr. Bryant would be a danger to himself and others at this time. Justification for Cont. Inpt. Moving this patient to a lower level of care would likely result in decompensation at this time. Jeanine Walters Jun 13, 2017 13:42
[2017-06-13 16:22] VITALS: BP 89/53
[2017-06-13 16:23] VITALS: BP 93/50
--- NOTE | 2017-06-13 16:24 | HHI.PR ---
Subjective Remarks Patient seen this afternoon around 1 PM. Says he is feeling all right. Denies any chest pain shortness of breath. Denies any nausea or vomiting. He is very concerned with dry skin on bilateral feet. Discussed with patient that he needs to take his levothyroxine due to his severe hypothyroidism. He adamantly refuses. Objective Vital Signs Date Time Temp Pulse Resp B/P (MAP) Pulse Ox O2 Delivery O2 Flow Rate FiO2 06/13/17 05:04 97.5 68 17 103/68 (80) 92 06/12/17 18:06 97.7 107 18 123/73 (90) I/O 06/12/17 06/12/17 06/12/17 06/13/17 06/13/17 06/13/17 07:00 15:00 23:00 07:00 15:00 23:00 Intake Total 280 ml 480 ml 240 ml 240 ml 120 ml Balance 280 ml 480 ml 240 ml 240 ml 120 ml Intake Oral 280 ml 480 ml 240 ml 240 ml 120 ml # Voids 2 2 1 1 # Bowel Movements 0 Result Diagram: 06/11/17 0723 06/09/17 0726 Objective Remarks GENERAL: sitting up in bed. AAOx4 SKIN: Warm and dry. HEAD: Normocephalic. EYES: No scleral icterus. No injection or drainage. NECK: Supple, trachea midline. No JVD. CARDIOVASCULAR: Regular rate and rhythm without murmurs, gallops, or rubs. RESPIRATORY: Breath sounds equal bilaterally. No accessory muscle use. GASTROINTESTINAL: Abdomen soft, non-tender, nondistended. MUSCULOSKELETAL: No cyanosis. Nonpitting edema bilateral lower extremities. Very dry flaky skin bilateral lower extremities BACK: Nontender without obvious deformity. No CVA tenderness. A/P Assessment and Plan 52 year old male originally admitted on 05/31 with AMS found to have rhabdomyolysis and significant hypothyroidism. Rhabdomyolysis Recent fall patient was on the floor for greater than 12 hours (alcohol-related) CK downtrending; continue to follow IV fluids discontinued yesterday since eating and drinking Encourage PO Fracture right fifth digit Nondisplaced according to x-ray Patient placed in soft cast with gutter splint right fourth and fifth digits Repeat film following casting showed normal alignment Hypothyroidism TSH 65, free T4 0.10. Refusing all forms of Synthroid (both IV and PO) Patient has been counseled extensively about the impact of refusing his Synthroid Anemia Normocytic hypochromic Likely due to hypothyroidism as well as iron deficiency (low ferritin, % sat, and iron) Start ferrous sulfate Schizophrenia Actively psychotic with delusions Management per psych Suicidal ideation /depression Management per psychiatry Alcoholism No signs of withdrawal Rally pack Anxiety disorder Trazodone for insomnia Further meds per psychiatry Tobaccoism Patient counseled on smoking cessation DVT prophylaxis Patient is ambulatory Discharge Planning We will continue to follow. Jean Whitney MD Jun 13, 2017 16:24
[2017-06-13] MEDS ORDERED: LEVOTHYROXINE SODIUM 100 MCG VIAL IV PUSH ONE (18:00)
[2017-06-13 18:08] VITALS: BP 95/69; PULSE 84; RESP 16; TEMP 97.2; O2SAT 96
[2017-06-13] MEDS: traZODone HCL 100 MG TAB PO SCH (22:15)
[2017-06-13] MEDS: HYDROCORTISONE SOD SUCCINATE 100 MG VIAL IV PUSH SCH (22:18)
[2017-06-14 06:00] VITALS: BP 94/57; PULSE 90; RESP 18; TEMP 97.1; O2SAT 94
[2017-06-14] MEDS: IBUPROFEN 400 MG TAB PO SCH ×3 (06:00→21:03)
[2017-06-14] MEDS ORDERED: LEVOTHYROXINE SODIUM 100 MCG VIAL IV PUSH SCH (06:00)
[2017-06-14] MEDS: ACETAMINOPHEN/HYDROcodone 325 MG/5 MG TAB PO PRN ×3 (06:46→21:24)
[2017-06-14] MEDS: HYDROCORTISONE SOD SUCCINATE 100 MG VIAL IV PUSH SCH ×2 (09:00→21:05)
[2017-06-14] MEDS: CALCIUM CARBONATE 500 MG CHEWABLE TAB CHEW SCH ×2 (10:04→21:00)
[2017-06-14] MEDS: DOCUSATE SODIUM 50 MG/SENNA 8.6 MG TAB PO SCH ×2 (10:04→21:04)
[2017-06-14] MEDS: OLANZapine 5 MG TAB PO SCH ×2 (10:04→21:04)
[2017-06-14] MEDS: FERROUS SULFATE 325 MG (65 MG ELEMENTAL IRON) TAB PO SCH (10:05)
[2017-06-14] MEDS: THIAMINE HCL 100 MG TAB PO SCH (10:05)
[2017-06-14] MEDS: FOLIC ACID 1 MG TAB PO SCH (10:05)
[2017-06-14] MEDS: MULTIVITAMIN TAB PO SCH (10:05)
[2017-06-14] MEDS: CALCIUM CARBONATE 1.25 GM (CA 500 MG) TAB PO SCH (12:00)
--- NOTE | 2017-06-14 12:37 | HHI.PYPN ---
Subjective Remarks Reviewed medical record and discussed case with staff. Additionally, spoke with patient's guardian (mother) this am by phone. She advises that he should "only be given whatever medication he wants too take". She too verbally expresses disbelief that his thyroid could be an issue in his delusions, in spite of this providers best efforts to educate her. Patient's follow-up was conducted in his room with nurse present. I advised patient that if he refused to take the synthroid, there is no further reason to keep him inpatient as he denies SI, HI , visual or auditory hallucinations. Patient responded, "But, I'm homeless". Explained that while this was unfortunate, if he will not comply with treatment for the only condition which warrants his admission at this time, we would be unable to keep him. He then responded "then I will say that I am suicidal again ". Advised patient that this was blatantly manipulative behavior to keep a roof over his head on his part and was witnessed by myself and the DENIZ Rags[place]. Again offered patient the choice between complying with medical treatment or discharge. Patient states that he will comply with po medications. Patient reports that he is sleeping well and has a good appetite. Mental Status Examination Appearance: Disheveled Consciousness: Alert Orientation: Person, Place (at least) Motor Activity: Other (no motor abnormalities noted) Speech: Unremarkable Language: Adequate Fund of Knowledge: Inadequate Attention and Concentration: Adequate Memory: Unremarkable Mood: Good Affect: Euthymic Thought Process & Associations: Intact, Linear, Other (slowed) Thought Content: Bizarre thinking, Delusional Hallucination Type: None Delusion Type: Paranoid (Drug dealers are after him), Other (Persecutory) Suicidal Ideation: No Suicidal Plan: No Suicidal Intention: No Homicidal Ideation: No Homicidal Plan: No Homicidal Intention: No Insight: Poor Judgment: Poor Results Vitals/IOs Vital Signs Date Time Temp Pulse Resp B/P (MAP) Pulse Ox O2 Delivery O2 Flow Rate FiO2 06/14/17 06:00 97.1 90 18 94/57 (69) 94 Intake and Output 06/14/17 06/14/17 06/15/17 08:00 16:00 00:00 Intake Total 240 ml Balance 240 ml Assessment & Plan Problem List: (1) Adjustment disorder with depressed mood ICD Codes: F43.21 - Adjustment disorder with depressed mood (2) Unspecified psychosis ICD Codes: F29 - Unspecified psychosis not due to a substance or known physiological condition Status: Acute Assessment & Plan Estimated LOS: Patient will be medicated for his elevated TSH. Discharge planning is in progress. Justification for Cont. Inpt. Moving patient to a lower level of care would likely result in decompensation. Jeanine Walters Jun 14, 2017 12:36
--- NOTE | 2017-06-14 16:22 | HHI.PR ---
Subjective Remarks Patient seen today around 11 AM. Reports feeling all right. Denies any chest pain or shortness of breath. He agrees to take by mouth Synthroid. Objective Vital Signs Date Time Temp Pulse Resp B/P (MAP) Pulse Ox O2 Delivery O2 Flow Rate FiO2 06/14/17 06:00 97.1 90 18 94/57 (69) 94 06/13/17 18:08 97.2 84 16 95/69 (78) 96 06/13/17 16:23 93/50 (64) 06/13/17 16:22 89/53 (65) I/O 06/13/17 06/13/17 06/13/17 06/14/17 06/14/17 06/14/17 07:00 15:00 23:00 07:00 15:00 23:00 Intake Total 240 ml 120 ml 600 ml 240 ml Balance 240 ml 120 ml 600 ml 240 ml Intake Oral 240 ml 120 ml 600 ml 240 ml # Voids 1 1 2 Result Diagram: 06/11/17 0723 Objective Remarks GENERAL: sitting up in bed. AAOx4. Exam unchanged today. SKIN: Warm and dry. HEAD: Normocephalic. EYES: No scleral icterus. No injection or drainage. NECK: Supple, trachea midline. No JVD. CARDIOVASCULAR: Regular rate and rhythm without murmurs, gallops, or rubs. RESPIRATORY: Breath sounds equal bilaterally. No accessory muscle use. GASTROINTESTINAL: Abdomen soft, non-tender, nondistended. MUSCULOSKELETAL: No cyanosis. Nonpitting edema bilateral lower extremities. Very dry flaky skin bilateral lower extremities BACK: Nontender without obvious deformity. No CVA tenderness. A/P Assessment and Plan 52 year old male originally admitted on 05/31 with AMS found to have rhabdomyolysis and significant hypothyroidism. //Rhabdomyolysis Recent fall patient was on the floor for greater than 12 hours (alcohol-related) CK downtrending; continue to follow IV fluids discontinued yesterday since eating and drinking Encourage PO //Fracture right fifth digit Nondisplaced according to x-ray Patient placed in soft cast with gutter splint right fourth and fifth digits Repeat film following casting showed normal alignment //Hypothyroidism TSH 65, free T4 0.10. Initially refusing all forms of Synthroid (both IV and PO) Patient has been counseled extensively about the impact of refusing his Synthroid = Discussed with psychiatry. Patient is excepting by mouth Synthroid. Will switch back to by mouth Synthroid. Continue to monitor. Recheck TSH in 1 month. //Anemia Normocytic hypochromic Likely due to hypothyroidism as well as iron deficiency (low ferritin, % sat, and iron) Start ferrous sulfate //Schizophrenia Actively psychotic with delusions Management per psych //Suicidal ideation /depression Management per psychiatry //Alcoholism No signs of withdrawal Rally pack //Anxiety disorder Trazodone for insomnia Further meds per psychiatry //Tobaccoism Patient counseled on smoking cessation //DVT prophylaxis Patient is ambulatory Discharge Planning We will continue to follow. Jean Whitney MD Jun 14, 2017 16:22
[2017-06-14 19:06] VITALS: BP 92/50; PULSE 67; RESP 16; TEMP 97.6; O2SAT 93
[2017-06-15] MEDS: CALCIUM CARBONATE 1.25 GM (CA 500 MG) TAB PO SCH ×2 (00:17→12:00)
[2017-06-15] MEDS: traZODone HCL 100 MG TAB PO SCH (00:20)
[2017-06-15 05:21] VITALS: BP 112/47; PULSE 79; RESP 17; TEMP 97.8; O2SAT 93
[2017-06-15] MEDS: IBUPROFEN 400 MG TAB PO SCH ×2 (06:00→14:00)
[2017-06-15] MEDS: ACETAMINOPHEN/HYDROcodone 325 MG/5 MG TAB PO PRN ×2 (06:28→16:14)
[2017-06-15 07:38] LABS: BASOPHIL % 0.8 % (0.0-2.0); EOSINOPHIL # 0.4 TH/MM3 (0-0.4); EOSINOPHIL % 7.7 % (0.0-4.0); HEMATOCRIT 22.7 % (39.0-51.0); HEMOGLOBIN 7.6 GM/DL (13.0-17.0); LYMPH % 25.1 % (9.0-44.0); LYMPHOCYTE # 1.3 TH/MM3 (1.0-4.8); MEAN CELL VOLUME 84.5 FL (80.0-100.0); MEAN CORPUSCULAR HEMOGLOBIN 28.4 PG (27.0-34.0); MEAN CORPUSCULAR HGB CONC 33.6 % (32.0-36.0); MEAN PLATELET VOLUME 7.8 FL (7.0-11.0); MONO % 8.1 % (0.0-8.0); MONOCYTE # 0.4 TH/MM3 (0-0.9); NEUT % 58.3 % (16.0-70.0); PLATELET COUNT 234 TH/MM3 (150-450); RED BLOOD COUNT 2.69 MIL/MM3 (4.50-5.90); RED CELL DISTRIBUTION WIDTH 17.5 % (11.6-17.2); WHITE BLOOD COUNT 5.1 TH/MM3 (4.0-11.0)
[2017-06-15 07:55] LABS: ALBUMIN 3.1 GM/DL (3.4-5.0); CALCIUM 7.5 MG/DL (8.5-10.1); CREATININE 1.03 MG/DL (0.60-1.30); MAGNESIUM 2.4 MG/DL (1.5-2.5); PHOSPHORUS 4.1 MG/DL (2.5-4.9)
[2017-06-15] MEDS: DOCUSATE SODIUM 50 MG/SENNA 8.6 MG TAB PO SCH (09:00)
[2017-06-15] MEDS: THIAMINE HCL 100 MG TAB PO SCH (09:00)
[2017-06-15] MEDS: OLANZapine 5 MG TAB PO SCH (09:00)
[2017-06-15] MEDS: MULTIVITAMIN TAB PO SCH (09:00)
[2017-06-15] MEDS: CALCIUM CARBONATE 500 MG CHEWABLE TAB CHEW SCH (09:00)
[2017-06-15] MEDS: FERROUS SULFATE 325 MG (65 MG ELEMENTAL IRON) TAB PO SCH (09:00)
[2017-06-15] MEDS: FOLIC ACID 1 MG TAB PO SCH (09:00)
--- NOTE | 2017-06-15 11:29 | HHI.PYPN ---
Subjective Remarks Reviewed electronic medical record and discussed case with staff. Reviewed labs. Follow-up conducted in patient's room with patient lying in bed. He is awake alert and oriented. His speech is clear and organized. He reports that he slept "better than usual". When asked about suicidal ideation patient states , "maybe a couple of times, I do not know". He denies homicidal ideation, visual and auditory hallucinations. Patient is vague about his thoughts of self -harm, and they seem to increase it opportune times. He voiced concern about the possibility of being moved to another unit. Stating, "there is a man trying to kill me". Explained the patient that the unit is locked, with camera monitoring, and staff around the clock and that he would be kept safe there. Patient was visited by an assisted living facility parts sales representative today. However, his counselor advises that he inform the parts sales representative he does not want to go there. He did ask this morning about the possibility of being discharged to his mother's. However, he stated that he did not want there to be any record of the address that he would be going to. He would not share why this was a concern. Mental Status Examination Appearance: Disheveled Consciousness: Alert Orientation: Person, Place (at least) Motor Activity: Other (no motor abnormalities noted, patient ambulates to the bathroom and back without difficulty) Speech: Unremarkable Language: Adequate Fund of Knowledge: Inadequate Attention and Concentration: Adequate Memory: Unremarkable Mood: Good Affect: Euthymic Thought Process & Associations: Intact, Linear, Other (slowed) Thought Content: Bizarre thinking, Delusional (He continues to report that a drug dealer is trying to kill him.) Hallucination Type: None Delusion Type: Paranoid (Drug dealers are after him), Other (Persecutory) Suicidal Ideation: No Suicidal Plan: No Suicidal Intention: No Homicidal Ideation: No Homicidal Plan: No Homicidal Intention: No Insight: Fair Judgment: Impulsive Results Labs Test 06/14/17 17:52 06/15/17 06:40 Total Creatine Kinase 1270 U/L Creatine Kinase MB 16.3 NG/ML Creatine Kinase MB % 1.3 % White Blood Count 5.1 TH/MM3 Red Blood Count 2.69 MIL/MM3 Hemoglobin 7.6 GM/DL Hematocrit 22.7 % Mean Corpuscular Volume 84.5 FL Mean Corpuscular Hemoglobin 28.4 PG Mean Corpuscular Hemoglobin Concent 33.6 % Red Cell Distribution Width 17.5 % Platelet Count 234 TH/MM3 Mean Platelet Volume 7.8 FL Neutrophils (%) (Auto) 58.3 % Lymphocytes (%) (Auto) 25.1 % Monocytes (%) (Auto) 8.1 % Eosinophils (%) (Auto) 7.7 % Basophils (%) (Auto) 0.8 % Neutrophils # (Auto) 3.0 TH/MM3 Lymphocytes # (Auto) 1.3 TH/MM3 Monocytes # (Auto) 0.4 TH/MM3 Eosinophils # (Auto) 0.4 TH/MM3 Basophils # (Auto) 0.0 TH/MM3 CBC Comment DIFF FINAL Differential Comment Blood Urea Nitrogen 23 MG/DL Creatinine 1.03 MG/DL Random Glucose 100 MG/DL Albumin 3.1 GM/DL Calcium Level 7.5 MG/DL Phosphorus Level 4.1 MG/DL Magnesium Level 2.4 MG/DL Sodium Level 136 MEQ/L Potassium Level 4.2 MEQ/L Chloride Level 100 MEQ/L Carbon Dioxide Level 30.0 MEQ/L Anion Gap 6 MEQ/L Estimat Glomerular Filtration Rate 76 ML/MIN Vitals/IOs Vital Signs Date Time Temp Pulse Resp B/P (MAP) Pulse Ox O2 Delivery O2 Flow Rate FiO2 06/15/17 05:21 97.8 79 17 112/47 (68) 93 Intake and Output 06/15/17 06/15/17 06/16/17 08:00 16:00 00:00 Intake Total 480 ml Balance 480 ml Assessment & Plan Problem List: (1) Adjustment disorder with depressed mood ICD Codes: F43.21 - Adjustment disorder with depressed mood (2) Unspecified psychosis ICD Codes: F29 - Unspecified psychosis not due to a substance or known physiological condition Status: Acute Assessment & Plan Estimated LOS: Patient continues to be treated for hypothyroidism. This morning it was noted that some of his labs had begun to trend back upwards. Staff notifying his medical care provider for further orders. A safe discharge plan is actively being pursued. Barring the need for further medical treatment , patient should be discharged within the next few days. Justification for Cont. Inpt. Giving patient a lower level of care may result in decompensation at this time. Jeanine Walters Jun 15, 2017 11:29
[2017-06-15 12:33] VITALS: BP 120/88; PULSE 97; RESP 18; TEMP 97.8; O2SAT 98
[2017-06-15] MEDS ORDERED: TRAZ1TAB14 PO (13:56)
[2017-06-15] MEDS ORDERED: OLAN5TAB PO ×2 (13:56→16:36)
[2017-06-15] MEDS ORDERED: FERR325T20 PO (13:59)
--- NOTE | 2017-06-15 14:29 | HHI.DS ---
Psychiatry Discharge Summary Inpatient Psychiatric care?: Yes Advance Directive: No Reason Not Provided: refused Mental Health AdvanceDirective: No Health Care Proxy: No Admission Admission Date Jun 02, 2017 at 16:39 Admission Diagnosis: (1) Adjustment disorder ICD Code: F43.20 - Adjustment disorder, unspecified Brief History Patient is a 52-year-old man, single, unemployed on [facility], recently was domiciled with mother but not homeless for the past psychiatric history of major depressive disorder, 1 previous psychiatric admission in 2016, alcohol use disorder, no previous suicide attempts or self-injurious behavior was seen during his medical admission for rhabdomyolysis hypothyroidism as patient was endorsing feeling depressed along with suicide ideations with plan to overdose which she was admitted to the inpatient psychiatry for further evaluation and management. Patient was found lying in hospital bed, cooperative. Patient reports prior to his admission he had fell in the context of alcohol intoxication which mother had called 911 was admitted to the inpatient medical unit for rhabdomyolysis hypothyroidism. Patient reports that he has had issues with hypothyroidism but states that he does not believe he needs to take any medications for the same. He also reports that he had been intoxicated the day of admission because she was watching "[employer]". Reports feeling depressed due to financial difficulties, now being homeless stating that his mother did not want him to return back to the home along with decreased sleep, appetite energy concentration along with feeling helpless and hopeless. Patient also endorses paranoid ideations of "cocaine dealers after me" but denies any perceptual disturbances at this time. Patient had also admitted to suicidal ideations 2 days ago but denies at this time. The patient is a 52 year-old man, domiciled with his mother, single, unemployed, supported by [facility], with psychiatric history of major depressive disorder, 1 previous psychiatric hospitalization here in [place] in 2016, documentation was reviewed. He also has history of alcohol use disorder, no previous suicidal attempts, he is in trazodone 150 mg at bedtime, prescribed by PCP, with medical history of hypothyroidism, noncompliant with medications.Patient has a noted medical diagnoses of hypothyroidism and refuses to take Synthroid, stating side effects uncomfortable for him . Patient was admitted under the care of Dr. Chou. I was consulted for second opinion. Patient reports that he has been feeling very frustrated, overwhelmed, sad. He says that he doesn't know exactly what he is going to do tomorrow "maybe I just should ". He says that he is too sick, his mother doesn't want him back Home , he doesn't have a place to go, he doesn't have any friends, no family support , and he feels very hopeless, helpless, worthless. The patient has a marked psychomotor retardation, slow speech, delayed thought process which is to be part of severe hypothyroidism. He reports suicidal ideation with a plan of overdosing with his medications. The patient reports also poor sleep at night without his medication, low level of energy, poor appetite and energy. The patient is fully oriented 3, without any attention deficit, no fluctuation of consciousness, no major or gross cognitive impairment present. He reports daily use of alcohol, 3 or 4 beers per day. He denies the use of illegal drugs. Tobacco Use In Past 30 Days: Cigarettes But Not Daily Alcohol Use: 4 or More Times Per Week Hospital Course Patient was admitted to a locked medical psychiatric floor. Safety precautions were maintained around the clock during his stay. During his stay patient tended to pick and choose which medications he was willing to take however, for the most part he remained compliant with his psychotropic medications. He continues to report that he believes a "drug dealer is out to kill him". This is a fixed delusion which patient's mother reports he has had for approximately last 10 years. He denies feeling suicidal except for when discharge is brought up and then he has vague thoughts of suicide with no plan. Today however he did express a desire to be discharged to his mother's home. He is awake, alert , and oriented. His speech is clear, and organized and except for the delusion is logical but manipulative. Patient stated to this provider, in front of the nurse, that he has used his reported suicidality to procure a place to sleep. He no longer meets inpatient criteria, has reached maximal benefit from this day. He does not pose an imminent threat to himself or others. He expresses a desire to be discharged his mother, who has agreed to take him in. Patient will be discharged to home with a follow-up appointment. He is been advised to return if his condition worsens. Results Blood Pressure 120 / 88 Vital Signs Date Time Temp Pulse Resp B/P (MAP) Pulse Ox O2 Delivery O2 Flow Rate FiO2 06/15/17 12:33 97.8 97 18 120/88 (99) 98 Laboratory Tests Test 06/13/17 09:11 06/14/17 17:52 06/15/17 06:40 Total Creatine Kinase 914 U/L (39-308) 1270 U/L (39-308) Creatine Kinase MB 10.1 NG/ML (0.5-3.6) 16.3 NG/ML (0.5-3.6) Red Blood Count 2.69 MIL/MM3 (4.50-5.90) Hemoglobin 7.6 GM/DL (13.0-17.0) Hematocrit 22.7 % (39.0-51.0) Red Cell Distribution Width 17.5 % (11.6-17.2) Monocytes (%) (Auto) 8.1 % (0.0-8.0) Eosinophils (%) (Auto) 7.7 % (0.0-4.0) Blood Urea Nitrogen 23 MG/DL (7-18) Albumin 3.1 GM/DL (3.4-5.0) Calcium Level 7.5 MG/DL (8.5-10.1) Estimat Glomerular Filtration Rate 76 ML/MIN (>89) Laboratory Results Test 06/04/17 06:43 Cholesterol Level 171 MG/DL (120-200) HDL Cholesterol 29.1 MG/DL (40.0-60.0) Hemoglobin A1c 6.3 % (4.3-6.0) LDL Cholesterol 102 MG/DL (0-99) Triglycerides Level 200 MG/DL (42-150) Summary of Procedures none Imaging Last Impressions Finger X-Ray 06/10/17 0000 Signed Impressions: Service Date/Time: Saturday, June 10, 2017 14:16 - CONCLUSION: Alignment in fiberglass. Mustapha Live MD FACR Pending results at discharge: No Medications # of Antipsychotic meds at D/C: 1 Approp Antipsych med options 1 - Minimum of three failed multiple trials of monotherapy. 2 - Documented plan to taper to monotherapy due to previous use of multiple meds OR cross-taper in progress at D/C. 3 - Documentation of augmentation of Clozapine. 4 - Justification other than those listed in allowable values 1-3, document here : Discharge Discharge Date: Jun 15, 2017 Discharge Diagnosis: (1) Adjustment disorder with depressed mood Diagnosis: Principal ICD Code: F43.21 - Adjustment disorder with depressed mood Pt Condition on Discharge: Stable Discharge Disposition: Discharge Home Discharge Instructions Diet Instructions: As Tolerated, No Restrictions Activities you can perform: Regular-No Restrictions Discharge Time > 30 minutes Mental Status Examination Appearance: Disheveled Consciousness: Alert Orientation: Person, Place (at least) Motor Activity: Other (no motor abnormalities noted, patient ambulates to the bathroom and back without difficulty) Speech: Unremarkable Language: Adequate Fund of Knowledge: Inadequate Attention and Concentration: Adequate Memory: Unremarkable Mood: Good Affect: Euthymic Thought Process & Associations: Intact, Linear, Other (slowed) Thought Content: Bizarre thinking, Delusional (He continues to report that a drug dealer is trying to kill him.) Hallucination Type: None Delusion Type: Paranoid (Drug dealers are after him), Other (Persecutory) Suicidal Ideation: No Suicidal Plan: No Suicidal Intention: No Homicidal Ideation: No Homicidal Plan: No Homicidal Intention: No Insight: Fair Judgment: Impulsive Discharge/Advance Care Plan Health Problems: (1) Adjustment disorder with depressed mood (2) Unspecified psychosis Goals to promote your health * To prevent worsening of your condition and complications * To maintain your health at the optimal level Directions to meet your goals Take your medications as prescribed Follow your dietary instruction Follow activity as directed Keep your appointments as scheduled Take your immunizations and boosters as scheduled If your symptoms worsen call your PCP, if no PCP go to Urgent Care Center or Emergency Room For 01/11 questions related to your inpatient stay or results of tests pending at discharge, please contact Dr. Jeanine Walters at Smoking is Dangerous to Your Health. Avoid second hand smoking Problem Qualifiers (1) Adjustment disorder: Qualified Codes: F43.21 - Adjustment disorder with depressed mood Jeanine Walters Jun 15, 2017 14:29
--- NOTE | 2017-06-15 15:42 | PD.TTN ---
Patient Problems 1. Discharge planning 2. Medication compliance 3. Knowledge deficit 4. Lack of coping skills Progress Toward Goals Provider Present: Dr. Luca Chou Provider Input: 06/15/17 if patient is medically cleared he can be dc 06/08/2017; Patient is refusing medication and requires coaching and prompting by staff. Still delusional and paranoid with his thoughts, medication continues to be adjusted 06/06/2017; patient is being stablized medically and with medication Nurse(s) Present: RN Nurse(s) Input: 06/15/2017; patient selectivly takes medication, isolates to self and requires coaching with behavior 06/08/2017; patient refuses medcation, and needs coaching 06/06/2017; patient is eating, taking medication no behavior Psychiatric Counselors Present: YESSICA Mo Psych Therapist Input: 06/15/17; Caroline with [facility] came to assess patient and he refused to go into an [facility], also [facility] was willing to accept patient 06/08/2017; patient is encouraged with medication and will be assisted with placement 06/06/2017; counselor will discuss outpatient and placement needs with patient Group Spec/RT/OT/BOLAÑOS Present: MIKY Marquis Group Spec/RT/OT/BOLAÑOS Input: 06/15/2017; patient refuses groups and activities 06/08/2017; patient refuses groups and activities 06/06/2017; patient does not participate with groups or activities Documentation Scribe: YESSICA Mo Sandra LMHC Jun 15, 2017 15:41
[2017-06-15] MEDS ORDERED: HYDROCORTISONE 10 MG TAB PO SCH (16:00)
--- NOTE | 2017-06-15 22:15 | HHI.PR ---
Subjective Remarks Patient seen today around 11 AM. Reports feeling all right. Denies any chest pain or shortness of breath. he says he wishes to go home today.he says that he will take his Synthroid. Objective Vital Signs Date Time Temp Pulse Resp B/P (MAP) Pulse Ox O2 Delivery O2 Flow Rate FiO2 06/15/17 12:33 97.8 97 18 120/88 (99) 98 06/15/17 05:21 97.8 79 17 112/47 (68) 93 I/O 06/14/17 06/14/17 06/14/17 06/15/17 06/15/17 06/15/17 07:00 15:00 23:00 07:00 15:00 23:00 Intake Total 240 ml 1080 ml 0 ml 720 ml 480 ml Balance 240 ml 1080 ml 0 ml 720 ml 480 ml Intake Oral 240 ml 1080 ml 0 ml 720 ml 480 ml # Voids 2 1 2 Result Diagram: 06/15/17 0640 06/15/17 0640 Objective Remarks GENERAL: sitting up in bed. AAOx4. Exam again unchanged today. SKIN: Warm and dry. HEAD: Normocephalic. EYES: No scleral icterus. No injection or drainage. NECK: Supple, trachea midline. No JVD. CARDIOVASCULAR: Regular rate and rhythm without murmurs, gallops, or rubs. RESPIRATORY: Breath sounds equal bilaterally. No accessory muscle use. GASTROINTESTINAL: Abdomen soft, non-tender, nondistended. MUSCULOSKELETAL: No cyanosis. Nonpitting edema bilateral lower extremities. Very dry flaky skin bilateral lower extremities BACK: Nontender without obvious deformity. No CVA tenderness. A/P Assessment and Plan 52 year old male originally admitted on 05/31 with AMS found to have rhabdomyolysis and significant hypothyroidism. //Rhabdomyolysis Recent fall patient was on the floor for greater than 12 hours (alcohol-related) CK downtrending; continue to follow IV fluids discontinued yesterday since eating and drinking Encourage PO =this is chronic, has always been elevated since 2011, likely secondary to untreated hypothyroidism. //Fracture right fifth digit Nondisplaced according to x-ray Patient placed in soft cast with gutter splint right fourth and fifth digits Repeat film following casting showed normal alignment =patient advised to follow-up with primary care as outpatient. //Hypothyroidism TSH 65, free T4 0.10. Initially refusing all forms of Synthroid (both IV and PO) Patient has been counseled extensively about the impact of refusing his Synthroid = Discussed with psychiatry. Patient is excepting by mouth Synthroid. Will switch back to by mouth Synthroid. Continue to monitor. Recheck TSH in 1 month. =discharge home on by mouth Synthroid, hydrocortisone. //Anemia Normocytic hypochromic Likely due to hypothyroidism as well as iron deficiency (low ferritin, % sat, and iron) Start ferrous sulfate //Schizophrenia Actively psychotic with delusions Management per psych //Suicidal ideation /depression Management per psychiatry //Alcoholism No signs of withdrawal Rally pack //Anxiety disorder Trazodone for insomnia Further meds per psychiatry //Tobaccoism Patient counseled on smoking cessation //DVT prophylaxis Patient is ambulatory Discharge Planning patient was discharged home. Follow-up with primary care. Jean Whitney MD Jun 15, 2017 22:15
[2017-06-16] MEDS ORDERED: HYDROCORTISONE 10 MG TAB PO SCH (09:00)
== END 2017-06-15 17:25 | disposition home or self-care (01) | DRG 885 ==
LOC: H4EA 16:39 → H260 06-15 12:20
PROVIDERS: ADMIT Student in an Organized Health Care Education/Training Program; ATTEND Student in an Organized Health Care Education/Training Program
DX: F22 Delusional disorders (principal); M62.82 Rhabdomyolysis; I95.9 Hypotension, unspecified; R45.851 Suicidal ideations; E83.51 Hypocalcemia; Z91.14 Patient's other noncompliance with medication regimen; K90.0 Celiac disease; F43.21 Adjustment disorder with depressed mood; K74.60 Unspecified cirrhosis of liver; E03.9 Hypothyroidism, unspecified; D72.819 Decreased white blood cell count, unspecified; F41.9 Anxiety disorder, unspecified; E87.6 Hypokalemia; G47.00 Insomnia, unspecified; D50.9 Iron deficiency anemia, unspecified; G25.81 Restless legs syndrome; T43.595A Adverse effect of other antipsychotics and neuroleptics, initial encounter; S62.646A Nondisplaced fracture of proximal phalanx of right little finger, initial encounter for closed fracture; F29 Unspecified psychosis not due to a substance or known physiological condition; F10.20 Alcohol dependence, uncomplicated; F17.210 Nicotine dependence, cigarettes, uncomplicated; W19.XXXA Unspecified fall, initial encounter; Y92.029 Unspecified place in mobile home as the place of occurrence of the external cause; Z59.0 Homelessness
CPT/HCPCS: 73140; 80048; 80053; 80061; 80069; 82550; 82552; 82728; 83036; 83540; 83550; 83735; 84100; 84134; 85025; 93005; J1720; J3480; J7040; Q0163

== ENCOUNTER 2017-07-06 21:57 | Emergency (ER) | payer MEDICAID, OTHER ==
[~2017-07-06] VITALS: Ht 188 cm; Wt 70.0 kg
[~2017-07-06 21:57] MED LIST changes: +FERR325T20 PO; +OLAN5TAB PO
[2017-07-06 23:17] VITALS: BP 93/62; PULSE 96; RESP 18; TEMP 97.8; O2SAT 95
--- NOTE | 2017-07-06 23:51 | RADRPT ---
EXAM DATE/TIME: 07/06/2017 23:37 [facility] COMPARISON: ANKLE LEFT COMPLETE ([id number]), May 26, 2017, 9:11. INDICATIONS : Left ankle sprain from walking. MEDICAL HISTORY : Hypertension. Hypothyroidism. Hiatal hernia. GERD SURGICAL HISTORY : None. ENCOUNTER: Initial ACUITY: 1 day PAIN SCORE: 10/10 LOCATION: Left ankle FINDINGS: Three view exam was performed of the left ankle. The bony structures are in normal alignment. No ev idence of fracture, dislocation. There extensive soft tissue swelling. The ankle mortise is intact. No radiopaque foreign bodies are seen. Bony mineralization is under mineralized. CONCLUSION: Soft tissue swelling without fracture. Carlos Covarrubias MD on July 06, 2017 at 23:48 Board Certified Radiologist. This report was verified electronically.
[2017-07-07 03:49] VITALS: BP 111/65; PULSE 75; RESP 18; O2SAT 94
--- NOTE | 2017-07-07 04:19 | PD ---
HPI Chief Complaint: Injury Time Seen by Provider: 04:12 Travel History International Travel<30 days: No Contact w/Intl Traveler<30days: No Traveled to known affect area: No History of Present Illness HPI 52-year-old male presents to the emergency department complaint of ankle injury. According the patient earlier on Tuesday he misstepped while going down one step and twisted his ankle. Patient reports since that time he has had ankle swelling. Patient has chronic ankle and pedal edema. Patient states that the swelling is more than his normal. Patient rates his discomfort as 9/ 10 intensity. Patient denies other injury no head injury neck injury back injury chest injury abdominal injury pelvic injury or other extremity injury. Patient is taken no pain medication for his symptoms and has not elevated the ankle. PFSH Past Medical History Narrative Medical Anemia anxiety depression chronic recurrent chest pain cirrhosis diminished hearing pedal edema migraines hypothyroidism left femur surgery; alcohol use tobacco use; nursing notes reviewed Anemia: Yes Arthritis: No Asthma: No Autoimmune Disease: No Blood Disorders: No Anxiety: Yes Depression: Yes Heart Rhythm Problems: Yes Cancer: No Cardiovascular Problems: No High Cholesterol: No Chemotherapy: No Chest Pain: Yes Congestive Heart Failure: No Cirrhosis: Yes COPD: No Cerebrovascular Accident: No Diabetes: No Diminished Hearing: Yes (Diminished hearing left side due to water/infection per pt.) Endocrine: Yes Gastrointestinal Disorders: Yes (Celiac disease) GERD: Yes Genitourinary: No Headaches: No Hiatal Hernia: Yes Heparin Induced Thrombocytopen: No Hypertension: Yes Immune Disorder: No Implanted Vascular Access Dvce: Yes Kidney Stones: No Musculoskeletal: Yes (Back, Neck, and Left Femur) Neurologic: No Psychiatric: Yes (Major Depressive Disorder ) Reproductive: No Respiratory: Yes Immunizations Current: Yes Migraines: Yes Radiation Therapy: No Renal Failure: No Seizures: No Sickle Cell Disease: No Sleep Apnea: No Thyroid Disease: Yes (HYPO, HAVEN'T TAKEN SYNTHROID FOR 20 YRS.) Ulcer: No Tetanus Vaccination: < 5 Years Influenza Vaccination: No Past Surgical History Abdominal Surgery: No AICD: No Arteriovenous Shunt: No Body Medical Devices: angel left leg Cardiac Surgery: Yes (pericardiocentesis) Ear Surgery: No Endocrine Surgery: No Eye Surgery: Yes (BOTH EYES CATARACT) Genitourinary Surgery: No Gynecologic Surgery: No Insulin Pump: No Joint Replacement: Yes (LEFT FEMUR) Pacemaker: No Thoracic Surgery: No Other Surgery: Yes (LEFT FEMUR FX) Social History Alcohol Use: Yes (every couple days) Tobacco Use: Yes (3 CIGARETTES/DAY) Substance Use: No ("Quit everything three years ago, cold turkey. Almost killed me.") Allergies-Medications (Allergen,Severity, Reaction): Coded Allergies: No Known Allergies (Unverified Allergy, Unknown, 07/06/17) Reported Meds & Prescriptions Reported Meds & Active Scripts Active Trazodone (Trazodone HCl) 150 Mg Tablet 150 Mg PO HS 30 Days Synthroid (Levothyroxine Sodium) 100 Mcg Tab 100 Mcg PO DAILY@0600 30 Days Review of Systems Except as stated in HPI: all other systems reviewed are Neg General / Constitutional: No: Fever, Chills Eyes: No: Visual changes HENT: No: Headaches, Neck Stiffness Cardiovascular: No: Chest Pain or Discomfort, Diaphoresis, Syncope Gastrointestinal: No: Nausea, Vomiting, Abdominal Pain Genitourinary: No: Decreased Urinary Output, Flank Pain Musculoskeletal: Positive: Edema (chronicBLE), Pain (left ankle) Skin: Positive Rash (chronic bipedal rash/dermatitis), Positive Dryness Neurologic: No: Weakness, Dizziness, Syncope Psychiatric: No: Anxiety Hematologic/Lymphatic: No: Easy Bruising Physical Exam Narrative GENERAL: Well-developed well-nourished male no acute distress no respiratory distress SKIN: Warm and dry. HEAD: Normocephalic. EYES: No scleral icterus. No injection or drainage. NECK: Supple, trachea midline. No JVD or lymphadenopathy. CARDIOVASCULAR: Regular rate and rhythm without murmurs, gallops, or rubs. RESPIRATORY: Breath sounds equal bilaterally. No accessory muscle use. GASTROINTESTINAL: Abdomen soft, non-tender, nondistended. MUSCULOSKELETAL: No cyanosis, bilateral lower leg and pedal edema with left ankle edema greater than right ankle edema. Mild decreased range of motion of the left ankle secondary to reported pain but no deformity no ecchymosis no abrasion. Bilateral dorsalis pedis pulses 2+ to palpation. Patient with markedly dry skin and flaking of skin. Capillary refill brisk and less than 2 seconds. BACK: Nontender without obvious deformity. No CVA tenderness. Data Data Last Documented VS Vital Signs Date Time Temp Pulse Resp B/P (MAP) Pulse Ox O2 Delivery O2 Flow Rate FiO2 07/07/17 03:49 75 18 111/65 (80) 94 07/06/17 23:17 97.8 Orders Orders Ice/Cold Pack (07/06/17 23:22) Ankle, Complete ([id number]) (07/06/17 23:22) Splint Or Brace Apply/Monitor (07/07/17 04:10) Ed Discharge Order (07/07/17 04:10) MDM Medical Decision Making Medical Screen Exam Complete: Yes Emergency Medical Condition: Yes Medical Record Reviewed: Yes Interpretation(s) Last Impressions Ankle X-Ray 07/06/17 [id number] Signed Impressions: Service Date/Time: Thursday, July 06, 2017 23:37 - CONCLUSION: Soft tissue swelling without fracture. Carlos Covarrubias MD Differential Diagnosis Ankle sprain fracture subluxation dislocation xerostomia dermatitis lymphedema hypoproteinemia Narrative Course 52-year-old male with injury to left ankle complaining of isolated left ankle injury imaging study ordered Imaging study reviewed by me and read by radiologist no fracture subluxation or dislocation identified positive soft tissue swelling Patient informed of imaging results and is desirous of being discharged to home but is willing to accept Jossue wrap for support with recommendation to follow-up with his managing provider Diagnosis Primary Impression: Left ankle sprain Referrals: Primary Care Physician 2 days Patient Instructions: General Instructions Additional Instructions: Elevate left lower extremity Follow-up with your primary care provider Apply ice pack intermittently to the ankle Use Jossue wrap for joint support Return to the emergency department for any concerns or change in condition Med/Other Pt SpecificInfo: Prescription(s) given, No Change to Meds Scripts Ibuprofen (Ibuprofen) 600 Mg Tab 600 MG PO Q6H Y for Pain/Inflammation, #7 TAB 0 Refills Prov: Janet Gregory MD 07/07/17 Disposition: 01 DISCHARGE HOME Condition: Stable Janet Gregory MD Jul 07, 2017 04:19
[2017-07-07] MEDS ORDERED: IBUP-232 PO (05:03)
== END 2017-07-07 05:19 | disposition home or self-care (01) ==
LOC: NEPC 21:57
DX: S93.402A Sprain of unspecified ligament of left ankle, initial encounter (principal); F17.210 Nicotine dependence, cigarettes, uncomplicated; X50.1XXA Overexertion from prolonged static or awkward postures, initial encounter
CPT/HCPCS: 73610; 99283

== ENCOUNTER 2017-10-13 18:10 | Inpatient (IN) ==
--- NOTE | 2017-10-13 19:30 | ED ---
HPI General Chief complaint: Chest Pain Stated complaint: Chest Pain/Evac Time Seen by Provider: 10/13/17 19:15 Source: patient Mode of arrival: wheelchair Limitations: no limitations History of Present Illness HPI narrative: Patient is a 52-year-old male presents to the emergency department complaining of chronic chest pain and leg swelling which is new. He states his legs are so swollen up to the thighs that he is unable to walk. He has had edema in the past. Patient states that it gradually worsened over the last few days. The pain he reports is chronic and unchanged from previous, he adds that he is really here for the leg swelling and not the chest pain. MD complaint: "My legs are swelling" Onset (ago): day(s) (3-4) Radiation: non-radiation Severity: mild Severity scale (1-10): 2 Quality: aching Pain Consistency: constant Relieving factors: none Exacerbating factors: none Associated symptoms: denies other symptoms Related Data Allergies Allergy/AdvReac Type Severity Reaction Status Date / Time No Known Allergies Allergy Unknown Uncoded 07/06/17 23:17 Review of Systems Constitutional Reports as per HPI and Denies fever(s) Eyes Denies change in vision ENT Denies headache(s) and Denies nasal congestion Cardiovascular Reports pedal edema, Reports edema and Reports dyspnea Respiratory Denies chest congestion, Denies cough, Denies excessive phlegm production and Reports dyspnea Gastrointestinal Denies abdominal pain Genitourinary Denies difficulty urinating Musculoskeletal Denies myalgias Integumentary/Breasts Denies rash Neurologic Denies headache(s) Psychiatric Denies depression Endocrine Denies polyuria Hematologic/Lymphatic Denies easy bruising PMF Medical History Medical History Alcohol abuse (Acute) Insomnia (Acute) Substance abuse (Acute) Social History Social History Substance History: Active Abuse and Past History Second Hand Smoke Exposure: Yes Smoking Status: Former smoker Tobacco Type: Cigarettes How Often Do You Have a Drink Containing Alcohol: 4 or more times a week Recent Travel in [facility] within the Last 8 Weeks: No Recent Out of Country Travel within the Last 8 Weeks: No Substance Abuse Detail Crack/Cocaine: Substance Use Status: Active Route Used Substance Abuse: Inhalation Substance Frequency: 2-3 TIMES A WEEK Last Used: 3 WEEKS AGO Reason for Use: Get High and Sleep Marijuana: Substance Use Status: Active Route Used Substance Abuse: Inhalation Immunization History Tetanus Immunization: Unsure Hx Influenza Vaccine This Season: Yes Exam Narrative Exam Narrative: GENERAL: Chronically ill-appearing 52-year-old male in no distress SKIN: Focused skin assessment warm/dry. HEAD: Atraumatic. Normocephalic. EYES: Pupils equal and round. No scleral icterus. No injection or drainage. ENT: No nasal bleeding or discharge. Mucous membranes pink and moist. NECK: Trachea midline. No JVD. CARDIOVASCULAR: Regular rate and rhythm. No murmur appreciated. RESPIRATORY: Bilateral rales noted poor inspiration GASTROINTESTINAL: Abdomen soft, non-tender, nondistended. Hepatic and splenic margins not palpable. MUSCULOSKELETAL: Bilateral edema to the knee NEUROLOGICAL: Awake and alert. No obvious cranial nerve deficits. Motor grossly within normal limits. Normal speech. PSYCHIATRIC: Appropriate mood and affect; insight and judgment normal. HENMT Head: normocephalic and atraumatic Nose: no nasal discharge and no epistaxis Mouth: moist mucous membranes Eyes Sclera: normal sclerae Pupils: PERRL Neck Neck: trachea midline and no JVD Resp Effort & Inspection: no use of accessory muscles Auscultation: clear to auscultation bilaterally Cardio Rate: regular rate Rhythm: regular rhythm Heart Sounds: no murmurs GI Inspection: non-distended Palpation: soft, no hepatosplenomegaly and nontender Skin General: dry skin (warm) Neuro General: alert and awake Cranial Nerves: other Speech: speech normal Motor: no movement abnormalities noted Extrem General: normal to inspection, no clubbing, no cyanosis and no edema Psych Mood: congruent mood Affect: normal affect Judgment: judgment good Course Initial Documented Vital Signs Temperature 98.9 F 10/13/17 19:06 Pulse Rate 85 10/13/17 19:06 Respiratory Rate 18 10/13/17 19:06 Blood Pressure 104/75 10/13/17 19:06 Pulse Oximetry 97 10/13/17 19:06 Last Documented Vital Signs Temperature 98.9 F 10/13/17 19:06 Pulse Rate 85 10/13/17 19:06 Respiratory Rate 18 10/13/17 19:06 Blood Pressure 104/75 10/13/17 19:06 Pulse Oximetry 97 10/13/17 19:06 Medical Decision Making MDM Narrative Medical decision making narrative: Patient was seen and evaluated in the emergency department. He was found to be hypocalcemic and hyponatremic and was subsequently admitted for further observation and treatment. Differential Diagnosis Differential Diagnosis: CHF, Drug abuse, Alcohol abuse, [facility] Lab Data Result diagrams: 10/13/17 20:03 10/13/17 20:03 Lab Results 10/13/17 10/13/17 10/13/17 Range/Units 20:03 20:03 20:03 WBC 2.6 L (4.0-11.0) th/mm3 RBC 3.33 L (4.50-5.90) mil/mm3 Hgb 8.1 L (13.0-17.0) gm/dL Hct 26.1 L (39.0-51.0) % MCV 78.3 L (80.0-100.0) fL MCH 24.2 L (27.0-34.0) pg MCHC 30.9 L (32.0-36.0) % RDW 18.6 H (11.6-17.2) % Plt Count 167 (150-450) th/mm3 MPV 7.6 (7.0-11.0) fL Neut % (Auto) 64.1 (16.0-70.0) % Lymph % (Auto) 22.4 (9.0-44.0) % [place] % (Auto) 9.5 H (0.0-8.0) % Eos % (Auto) 3.5 (0.0-4.0) % Baso % (Auto) 0.5 (0.0-2.0) % Neut # (Auto) 1.7 L (1.8-7.7) th/mm3 Lymph # (Auto) 0.6 L (1.0-4.8) th/mm3 [place] # (Auto) 0.2 (0.0-0.9) th/mm3 Eos # (Auto) 0.1 (0.0-0.4) th/mm3 Baso # (Auto) 0.0 (0.0-0.2) th/mm3 WBC Differential . Differential Comment Auto diff final Sodium 129 L (136-145) meq/L Potassium 4.7 (3.5-5.1) meq/L Chloride 93 L (98-107) meq/L Carbon Dioxide 27.3 (21.0-32.0) meq/L Anion Gap 9 (5-15) meq/L BUN 12 (7-18) mg/dL Creatinine 0.86 (0.60-1.30) mg/dL Estimated GFR Greater than 89 (>89) mL/min Random Glucose 79 (74-106) mg/dL Calcium 6.7 L* (8.5-10.1) mg/dL Prot Corrected Calcium 7.2 L* (8.5-10.1) mg/dL Total Bilirubin 0.6 (0.2-1.0) mg/dL AST 145 H (15-37) U/L ALT 59 (12-78) U/L Alkaline Phosphatase 88 (45-117) U/L Total Creatine Kinase 5295 H (39-308) U/L CK-MB (CK-2) 28.6 H (0.5-3.6) ng/mL CK-MB (CK-2) % 0.5 (0.0-4.0) % Troponin I Less than 0.02 L (0.02-0.05) ng/mL B-Natriuretic Peptide 28 (0-100) pg/mL Total Protein 6.1 L (6.4-8.2) g/dL Albumin 3.0 L (3.4-5.0) g/dL Vitamin D 25-Hydroxy Urine Color (Yellw/Straw) Urine Clarity (Clear) Urine pH (5.0-8.5) Ur Specific [place] (1.002-1.035) Urine Protein (Neg-Trace) mg/dL Urine Glucose (UA) (Negative) mg/dL Urine Ketones (Negative) mg/dL Urine Occult Blood (Negative) Urine Nitrate (Negative) Urine Bilirubin (Negative) Urine Urobilinogen (Less than 2) mg/dL Ur Leukocyte Esterase (Negative) Urine RBC (0-3) /hpf Amorphous Sediment (None) /hpf Urine Mucus (Occasional) /lpf Urine Opiates Screen (Neg) Ur Barbiturates Screen (Neg) Ur Amphetamines Screen (Neg) U Benzodiazepines Scrn (Neg) Urine Cocaine Screen (Neg) U Cannabinoids Screen (Neg) Serum Alcohol 10/13/17 10/13/17 10/13/17 Range/Units 20:03 20:20 20:20 WBC (4.0-11.0) th/mm3 RBC (4.50-5.90) mil/mm3 Hgb (13.0-17.0) gm/dL Hct (39.0-51.0) % MCV (80.0-100.0) fL MCH (27.0-34.0) pg MCHC (32.0-36.0) % RDW (11.6-17.2) % Plt Count (150-450) th/mm3 MPV (7.0-11.0) fL Neut % (Auto) (16.0-70.0) % Lymph % (Auto) (9.0-44.0) % [place] % (Auto) (0.0-8.0) % Eos % (Auto) (0.0-4.0) % Baso % (Auto) (0.0-2.0) % Neut # (Auto) (1.8-7.7) th/mm3 Lymph # (Auto) (1.0-4.8) th/mm3 [place] # (Auto) (0.0-0.9) th/mm3 Eos # (Auto) (0.0-0.4) th/mm3 Baso # (Auto) (0.0-0.2) th/mm3 WBC Differential Differential Comment Sodium (136-145) meq/L Potassium (3.5-5.1) meq/L Chloride (98-107) meq/L Carbon Dioxide (21.0-32.0) meq/L Anion Gap (5-15) meq/L BUN (7-18) mg/dL Creatinine (0.60-1.30) mg/dL Estimated GFR (>89) mL/min Random Glucose (74-106) mg/dL Calcium (8.5-10.1) mg/dL Prot Corrected Calcium (8.5-10.1) mg/dL Total Bilirubin (0.2-1.0) mg/dL AST (15-37) U/L ALT (12-78) U/L Alkaline Phosphatase (45-117) U/L Total Creatine Kinase (39-308) U/L CK-MB (CK-2) (0.5-3.6) ng/mL CK-MB (CK-2) % (0.0-4.0) % Troponin I (0.02-0.05) ng/mL B-Natriuretic Peptide (0-100) pg/mL Total Protein (6.4-8.2) g/dL Albumin (3.4-5.0) g/dL Vitamin D 25-Hydroxy Cancelled Urine Color Yellow (Yellw/Straw) Urine Clarity Hazy H (Clear) Urine pH 5.0 (5.0-8.5) Ur Specific [place] 1.024 (1.002-1.035) Urine Protein Negative (Neg-Trace) mg/dL Urine Glucose (UA) Negative (Negative) mg/dL Urine Ketones Negative (Negative) mg/dL Urine Occult Blood Negative (Negative) Urine Nitrate Negative (Negative) Urine Bilirubin Negative (Negative) Urine Urobilinogen 2.0 H (Less than 2) mg/dL Ur Leukocyte Esterase Negative (Negative) Urine RBC 1 (0-3) /hpf Amorphous Sediment Occasional H (None) /hpf Urine Mucus Few H (Occasional) /lpf Urine Opiates Screen Neg (Neg) Ur Barbiturates Screen Neg (Neg) Ur Amphetamines Screen Neg (Neg) U Benzodiazepines Scrn Neg (Neg) Urine Cocaine Screen Neg (Neg) U Cannabinoids Screen Neg (Neg) Serum Alcohol Cancelled Imaging Data Radiologist's impression: ITS Impressions Chest X-Ray 10/13/17 19:24 CONCLUSION: Bibasilar infiltrates. Discharge Plan Discharge Disposition Patient Disposition: 30 Still Patient Physicians Team ED Provider: Fide Chambers Primary Care Provider: Jose Raul Cassidy Attending Provider: Jean Whitney ED Status: Admitted Patient
--- NOTE | 2017-10-13 19:58 | XR ---
EXAM DATE: 10/13/2017 7:39 PM EDT AGE/SEX: 52 years / Male INDICATIONS: Chest pain CLINICAL DATA: This is the patient's initial encounter. Patient reports that signs and symptoms have been present for 1 day and indicates a pain score of 3/10. MEDICAL/SURGICAL HISTORY: . Hypertension. Hypothyroidism. Hiatal hernia. GERD None. COMPARISON: [facility], CHEST SINGLE AP, 05/31/2017. . FINDINGS: Bibasilar infiltrates. Cardiac contours are grossly stable accounting for differences in technique an d projection. Healed rib fractures. CONCLUSION: Bibasilar infiltrates. Electronically signed by: Jaya Ceron MD 10/13/2017 7:57 PM EDT
[2017-10-13 20:39] LABS: Baso % (Auto) 0.5 % (0.0-2.0); Eos # (Auto) 0.1 th/mm3 (0.0-0.4); Eos % (Auto) 3.5 % (0.0-4.0); Hematocrit 26.1 % (39.0-51.0); Hemoglobin 8.1 gm/dL (13.0-17.0); Lymph # (Auto) 0.6 th/mm3 (1.0-4.8); Lymph % (Auto) 22.4 % (9.0-44.0); Mean Corpuscular Hemoglobin 24.2 pg (27.0-34.0); Mean Corpuscular Volume 78.3 fL (80.0-100.0); Mean Platelet Volume 7.6 fL (7.0-11.0); Mono # (Auto) 0.2 th/mm3 (0.0-0.9); Mono % (Auto) 9.5 % (0.0-8.0); Neut # (Auto) 1.7 th/mm3 (1.8-7.7); Neut % (Auto) 64.1 % (16.0-70.0); Platelet Count 167 th/mm3 (150-450); Red Blood Count 3.33 mil/mm3 (4.50-5.90); Red Cell Distribution Width 18.6 % (11.6-17.2); White Blood Count 2.6 th/mm3 (4.0-11.0)
[2017-10-13 20:46] LABS: Amphetamine Screen,Urine Neg (Neg); Barbiturate Screen,Urine Neg (Neg); Cannabinoid Screen,Urine Neg (Neg); Cocaine Screen,Urine Neg (Neg); Opiate Screen,Urine Neg (Neg)
[2017-10-13 20:47] LABS: Amorphous Sediment,Urine Occasional /hpf; Bilirubin,Urine Negative (Negative); Clarity,Urine Hazy (Clear); Color,Urine Yellow (Yellw/Straw); Glucose,Urine (UA) Negative (Negative); Leukocyte Esterase,Urine Negative (Negative); Mucus,Urine Few /lpf (Occasional); Nitrite,Urine Negative (Negative); Specific Gravity,Urine 1.024 (1.002-1.035)
[2017-10-13 20:52] LABS: Mean Corpuscular HGB Conc 30.9 % (32.0-36.0)
[2017-10-13 21:12] LABS: Alanine Aminotransferase 59 U/L (12-78); Alkaline Phosphatase 88 U/L (45-117); Anion Gap 9 meq/L (5-15); Aspartate Aminotransferase 145 U/L (15-37); Blood Urea Nitrogen 12 mg/dL (7-18); Calcium 6.7 mg/dL (8.5-10.1); Carbon Dioxide 27.3 meq/L (21.0-32.0); Chloride 93 meq/L (98-107); Creatine Kinase 5295 U/L (39-308); Glomerular Filtration Rate Greater Than 89 mL/min (>89); Glucose,Random 79 mg/dL (74-106); Sodium 129 meq/L (136-145); Total Protein 6.1 g/dL (6.4-8.2)
[2017-10-13 21:13] LABS: Potassium 4.7 meq/L (3.5-5.1)
[2017-10-13] MEDS ORDERED: Magnesium Oxide 400 MG Tablet PO ONE (21:31)
[2017-10-13 21:32] LABS: CKMB Percent 0.5 % (0.0-4.0); Creatine Kinase MB 28.6 ng/mL (0.5-3.6)
--- NOTE | 2017-10-13 21:50 | ECG ---
Date Performed: 10/13/2017 Time Performed: 18:47:28 PTAGE: 52 years EKG: Marked baseline artifact PROBABLE Sinus rhythm WITH FIRST DEGREE AV BLOCK LOW QRS VOLTAGE ABNORMAL ECG No significant change from prior electrocard iogram. DOCTOR: See Leo Interpretating Date/Time 10/13/2017 21:49:05
[2017-10-13] MEDS ORDERED: LORazepam 1 MG Tablet PO PRN (22:47)
[2017-10-13] MEDS ORDERED: Haloperidol Inj 5 MG/ML Ampul IV.PUSH PRN (22:47)
[2017-10-13] MEDS ORDERED: Bisacodyl 10 MG Supp RECTAL PRN (22:48)
[2017-10-13] MEDS ORDERED: Temazepam 15 MG Capsule PO PRN (22:48)
[2017-10-13] MEDS ORDERED: Calcium Gluconate Inj 1 GM in Sodium Chlor 0.9% Inj 100 ML IV.SIG ONE (23:00)
[2017-10-13] MEDS ORDERED: Calcium Chloride Inj 1 GM/10 ML Syringe IV.PUSH ONE (23:17)
[2017-10-14 01:26] LABS: CKMB Percent 0.5 % (0.0-4.0); Creatine Kinase MB 22.6 ng/mL (0.5-3.6)
[2017-10-14] MEDS: Sodium Bicarbonate 8.4% Inj 150 MEQ in Water for Inj, Sterile 850 ML IV.CONT SCH ×3 (02:32→12:19)
[2017-10-14] MEDS: Heparin - SQ 10,000 UNITS/ML Vial SQ SCH ×3 (02:35→22:10)
[2017-10-14 08:03] LABS: Baso % (Auto) 0.7 % (0.0-2.0); Eos # (Auto) 0.1 th/mm3 (0.0-0.4); Eos % (Auto) 6.2 % (0.0-4.0); Lymph # (Auto) 0.5 th/mm3 (1.0-4.8); Lymph % (Auto) 25.3 % (9.0-44.0); Mean Corpuscular HGB Conc 31.6 % (32.0-36.0); Mean Corpuscular Hemoglobin 24.6 pg (27.0-34.0); Mean Corpuscular Volume 78.1 fL (80.0-100.0); Mean Platelet Volume 6.9 fL (7.0-11.0); Mono # (Auto) 0.2 th/mm3 (0.0-0.9); Mono % (Auto) 9.7 % (0.0-8.0); Neut # (Auto) 1.2 th/mm3 (1.8-7.7); Neut % (Auto) 58.1 % (16.0-70.0); Platelet Count 144 th/mm3 (150-450); Red Blood Count 2.81 mil/mm3 (4.50-5.90); Red Cell Distribution Width 18.6 % (11.6-17.2)
[2017-10-14 08:17] LABS: Anion Gap 7 meq/L (5-15)
[2017-10-14 08:21] LABS: Alanine Aminotransferase 48 U/L (12-78); Albumin 2.7 g/dL (3.4-5.0); Alkaline Phosphatase 72 U/L (45-117); Aspartate Aminotransferase 118 U/L (15-37); Blood Urea Nitrogen 12 mg/dL (7-18); Calcium 6.9 mg/dL (8.5-10.1); Carbon Dioxide 33.5 meq/L (21.0-32.0); Chloride 92 meq/L (98-107); Glomerular Filtration Rate Greater Than 89 mL/min (>89); Glucose,Random 88 mg/dL (74-106); Phosphorus 3.1 mg/dL (2.5-4.9); Potassium 3.9 meq/L (3.5-5.1); Sodium 132 meq/L (136-145); Total Protein 5.2 g/dL (6.4-8.2)
[2017-10-14 08:43] LABS: Hemoglobin 6.9 gm/dL (13.0-17.0)
[2017-10-14 08:47] LABS: CKMB Percent 0.6 % (0.0-4.0); Creatine Kinase MB 23.2 ng/mL (0.5-3.6)
[2017-10-14 09:16] LABS: ABG Base Excess 8.9 mmol/L (-2-2); ABG PCO2 49 mmHg (38-42); ABG PO2 50 mmHg (61-120)
--- NOTE | 2017-10-14 09:42 | XR ---
EXAM DATE: 10/14/2017 9:33 AM EDT AGE/SEX: 52 years / Male INDICATIONS: Shortness of breath. CLINICAL DATA: This is the patient's subsequent encounter. Patient reports that signs and symptoms h ave been present for 2 days and indicates a pain score of 0/10. MEDICAL/SURGICAL HISTORY: Hypertension. None. COMPARISON: C, CHEST 1V SINGLE AP, 10/13/2017. . FINDINGS: Compared to the prior study there appears to be an increasing infiltrate in the left lower lung. Ther e continues to be some mild atelectasis in the right lung base. The heart size is stable. There are o ld bilateral rib fractures. No evidence of pneumothorax. CONCLUSION: Increasing parenchymal infiltrate in the left lower lung compared to the prior study. Electronically signed by: Eb Quispe MD 10/14/2017 9:41 AM EDT
[2017-10-14] MEDS ORDERED: Acetaminophen 325 MG Tablet PO PRN (09:54)
[2017-10-14] MEDS ORDERED: Sodium Chlor 0.9% Inj 250 ML IV.SIG SCH (10:00)
[2017-10-14 10:33] LABS: ABG Base Excess 9.9 mmol/L (-2-2); ABG PCO2 48 mmHg (38-42); ABG PO2 76 mmHg (61-120)
--- NOTE | 2017-10-14 10:43 | P.HPIM ---
History of Present Illness Primary Care Physician: Jose Raul Cassidy History of Present Illness: Patient is a 52-year-old male presents to the emergency department complaining of chronic chest pain and leg swelling which is new. He states his legs are so swollen up to the thighs that he is unable to walk. He has had edema in the past. Patient states that it gradually worsened over the last few days. The pain he reports is chronic and unchanged from previous, he adds that he is really here for the leg swelling and not the chest pain. Inpatient Certification: I certify that the inpatient services were ordered in accordance with Medicare regulations governing the order. This includes certification that hospital inpatient services are reasonable and necessary and in the case of services not specified as inpatient-only under 42 CFR 419.22(n), that they are appropriately provided as inpatient services in accordance to with the 2-midnight benchmark under 43 CFR 412.3(e) Estimated Total Length of Stay (Days): 2 Plans for Post Hospital Care: SNF Review of Systems ROS reviewed and negative except as mentioned in HPI PMFSH - History History Provided By: Patient - Medical History Medical History: Medical History (Last Updated 10/14/17 @ 19:00 by Alena Rubi MD) Alcohol abuse Insomnia Substance abuse - Surgical History Surgical History: Surgical History (Last Updated 10/14/17 @ 19:00 by Alena Rubi MD) Hernia (Acute) Cataract (Acute) - Family History Family History: Family History (Last Updated 10/14/17 @ 19:01 by Alena Rubi MD) Other Cardiac defibrillator in situ Family history of hypertension - Tobacco History Second Hand Smoke Exposure: No Tobacco Use In Past 30 Days: No Smoking Status: Former smoker Tobacco Type: Cigarettes - Alcohol History How Often Do You Have a Drink Containing Alcohol: Monthly or less - Substance Use History Substance History: Active Abuse, Past History - Substance Use Type Crack/Cocaine Status: Active Route Used: Inhalation Frequency: 2-3 TIMES A WEEK Last Used: 3 WEEKS AGO Reason for Use: Get High, Sleep Marijuana Status: Active Route Used: By Mouth Reason for Use: Calm Down, Feels Good - Travel History Recent Travel in the [place] Within the Last 8 Weeks: No Recent Travel Out of the Country Within the Last 8 Weeks: No - Immunization History Tetanus Immunization: Unsure Hx Influenza Vaccine This Season: Yes Medications and Allergies Active Medications: Active Medications Acetaminophen (Tylenol) 650 mg PO Q4H PRN PRN Reason: SEE LABEL COMMENTS Al Hydroxide/Mg Hydroxide (Milk Of Magnesia Liq) 30 ml PO Q12H PRN PRN Reason: Mild Constipation Bisacodyl (Dulcolax Supp) 10 mg RECTAL DAILY PRN PRN Reason: SEVERE CONSITIPATION Diphenhydramine HCl (Benadryl) 25 mg PO Q4H PRN PRN Reason: SEE LABEL COMMENTS Flumazenil (Romazecon Inj) 0.2 mg IV.PUSH Q1M PRN PRN Reason: OVERSEDATION Furosemide (Lasix Inj) 20 mg IV.PUSH ONCE ONE Stop: 10/14/17 09:55 Haloperidol Lactate (Haldol Inj) 1 mg IV.PUSH Q15M PRN PRN Reason: for severe agitation Heparin Sodium (Porcine) (Heparin Inj) 5,000 units SQ Q12H [facility] Last Admin: 10/14/17 02:35 Dose: Not Given Sodium Bicarbonate 150 meq/ (Sterile Water) 1,000 mls @ 150 mls/hr IV.CONT .Q6H40M [facility] Last Admin: 10/14/17 10:37 Dose: 150 mls/hr, 150 mls/hr Calcium Gluconate 2 gm/ (Dextrose) 120 mls @ 120 mls/hr IV.SIG ONCE ONE Stop: 10/14/17 10:53 Sodium Chloride (Ns Inj) 250 mls @ 15 mls/hr IV.SIG ONCE LUPE Stop: 10/15/17 02:39 Ceftriaxone Sodium 1,000 mg/ (Sodium Chloride) 100 mls @ 200 mls/hr IV.SIG Q24H LUPE Azithromycin 500 mg/ Sodium (Chloride) 250 mls @ 250 mls/hr IV.SIG Q24H LUPE Lactulose (Lactulose Liq) 30 ml PO DAILY PRN PRN Reason: SEVERE CONSITIPATION Lorazepam (Ativan) 1 mg PO Q4H PRN PRN Reason: for CIWA 8-10 Lorazepam (Ativan) 2 mg PO Q2H PRN PRN Reason: for CIWA 11-14 Lorazepam (Ativan Inj) 2 mg IV.PUSH Q2H PRN PRN Reason: for CIWA 11-14 Lorazepam (Ativan Inj) 2 mg IV.PUSH Q1H PRN PRN Reason: for CIWA 15-20 Lorazepam (Ativan Inj) 2 mg IV.PUSH Q15M PRN PRN Reason: for CIWA > 20 Lorazepam (Ativan Inj) 1 mg IV.PUSH Q4H PRN PRN Reason: for CIWA 8-10 Sennosides (Senokot) 17.2 mg PO Q12H PRN PRN Reason: Moderate Constipation Temazepam (Restoril) 15 mg PO HS PRN PRN Reason: INSOMNIA Allergies Allergy/AdvReac Type Severity Reaction Status Date / Time No Known Allergies Allergy Unknown Uncoded 07/06/17 23:17 Exam Vital signs: Vital Signs 10/13/17 19:06 10/14/17 00:00 10/14/17 04:00 Temperature 98.9 F 97.0 F L 97.4 F L Pulse Rate 85 69 64 Respiratory Rate 18 19 19 Blood Pressure 104/75 86/61 L 135/75 Pulse Oximetry 97 92 L 94 L 10/14/17 08:00 Temperature 97.4 F L Pulse Rate 69 Respiratory Rate 20 Blood Pressure 91/51 L Pulse Oximetry 89 L Intake & Output 10/13/17 10/14/17 10/14/17 18:59 06:59 18:59 Intake Total 50 / 50 1000 / 1000 Balance 50 / 50 1000 / 1000 Weight 67.58 kg Intake: IV 1000 / 1000 Sodium Bicarbonate 8.4% Inj 150 1000 / 1000 MEQ In Sterile Water for Inj 850 ML @ 150 mls/hr IV.CONT . Q6H40M [facility] Rx#:[id number] Oral 50 / 50 Other: # Voids 1 Narrative: GENERAL: 52 yo male appearing older than the stated age, chronically ill. SKIN: Pale, Warm and dry. EYES: Pupils equal and round. No scleral icterus. No injection or drainage. ENT: No nasal bleeding or discharge. Mucous membranes pink and moist. NECK: Trachea midline. No JVD. CARDIOVASCULAR: Regular rate and rhythm. RESPIRATORY: No accessory muscle use. Clear to auscultation. Breath sounds equal bilaterally. GASTROINTESTINAL: Abdomen soft, non-tender, nondistended. Hepatic and splenic margins not palpable. MUSCULOSKELETAL: Extremities without clubbing, cyanosis. 3+ bilateral LE edema. No obvious deformities. NEUROLOGICAL: Awake and alert. No obvious cranial nerve deficits. Motor grossly within normal limits. Slow speech. PSYCHIATRIC: Appropriate mood and affect; insight and judgment normal. Results - Labs CBC & Chem 7: 10/14/17 07:36 10/14/17 07:36 Labs: Short CBC 10/13/17 10/14/17 Range/Units 20:03 07:36 WBC 2.6 L 2.0 L (4.0-11.0) th/mm3 Hgb 8.1 L 6.9 L* (13.0-17.0) gm/dL Hct 26.1 L 22.0 L (39.0-51.0) % Plt Count 167 144 L (150-450) th/mm3 BMP 10/13/17 10/14/17 20:03 07:36 Sodium 129 L 132 L Potassium 4.7 3.9 D Chloride 93 L 92 L Carbon Dioxide 27.3 33.5 H BUN 12 12 Creatinine 0.86 0.73 Calcium 6.7 L* 6.9 L* Cardiac Enzymes 10/13/17 10/13/17 10/14/17 Range/Units 20:03 23:55 07:36 Total Creatine Kinase 5295 H 4122 H 4062 H (39-308) U/L CK-MB (CK-2) 28.6 H 22.6 H 23.2 H (0.5-3.6) ng/mL Troponin I Less than 0.02 L (0.02-0.05) ng/mL Liver Function 10/13/17 10/14/17 Range/Units 20:03 07:36 Total Bilirubin 0.6 0.5 (0.2-1.0) mg/dL AST 145 H 118 H (15-37) U/L ALT 59 48 (12-78) U/L Alkaline Phosphatase 88 72 (45-117) U/L Albumin 3.0 L 2.7 L (3.4-5.0) g/dL Urine 10/13/17 Range/Units 20:20 Urine Color Yellow (Yellw/Straw) Urine Clarity Hazy H (Clear) Urine pH 5.0 (5.0-8.5) Ur Specific [place] 1.024 (1.002-1.035) Urine Protein Negative (Neg-Trace) mg/dL Urine Glucose (UA) Negative (Negative) mg/dL - Imaging Impressions Chest X-Ray 10/13/17 19:24 CONCLUSION: Bibasilar infiltrates. Chest X-Ray 10/14/17 00:00 CONCLUSION: Increasing parenchymal infiltrate in the left lower lung compared to the prior study. Caprini VTE Risk Assessment Caprini VTE Risk Assessment: Moderate/High Risk (score >= 2) VTE Pharmacological Exception Reason: High risk for bleeding Caprini Risk Assessment Model: Point Value = 1 Point Value = 2 Point Value = 3 Point Value = 5 Age 41-60 Minor surgery BMI > 25 kg/m2 Swollen legs Varicose veins or History of unexplained or recurrent spontaneous Oral contraceptives or hormone replacement Sepsis (< 1 month) Serious lung disease, including pneumonia (< 1 month) Abnormal pulmonary function Acute myocardial infarction Congestive heart failure (< 1 month) History of inflammatory bowel disease Medical patient at bed rest Age 61-74 Arthroscopic surgery Major open surgery (> 45 min) Laparoscopic surgery (> 45 min) Malignancy Confined to bed (> 72 hours) Immobilizing plaster cast Central venous access Age >= 75 History of VTE Family history of VTE Factor V Leiden Prothrombin [id number] Lupus anticoagulant Anticardiolipin antibodies Elevated serum homocysteine Heparin-induced thrombocytopenia Other congenital or acquired thrombophilia Stroke (< 1 month) Elective arthroplasty Hip, pelvis, or leg fracture Acute spinal cord injury (< 1 month) Prophylaxis Regimen: Total Risk Factor Score Risk Level Prophylaxis Regimen 0-1 Low Early ambulation 2 Moderate Order ONE of the following: *Sequential Compression Device (SCD) *Heparin 5000 units SQ BID 3-4 Higher Order ONE of the following medications: *Heparin 5000 units SQ TID *Enoxaparin/Lovenox 40 mg SQ daily (WT < 150 kg, CrCl > 30 mL/min) *Enoxaparin/Lovenox 30 mg SQ daily (WT < 150 kg, CrCl > 10-29 mL/min) *Enoxaparin/Lovenox 30 mg SQ BID (WT < 150 kg, CrCl > 30 mL/min) AND/OR *Sequential Compression Device (SCD) 5 or more Highest Order ONE of the following medications: *Heparin 5000 units SQ TID (Preferred with Epidurals) *Enoxaparin/Lovenox 40 mg SQ daily (WT < 150 kg, CrCl > 30 mL/min) *Enoxaparin/Lovenox 30 mg SQ daily (WT < 150 kg, CrCl > 10-29 mL/min) *Enoxaparin/Lovenox 30 mg SQ BID (WT < 150 kg, CrCl > 30 mL/min) AND *Sequential Compression Device (SCD) Assessment and Plan - Plan Hyponatremia LE edema SOB. Acute respiratory failure Severe anemia with HGB at 6.9 Polysubstance abuse. Counselled. On ciwa protocol ABG reviewed. O2 supplement as need keep O2 sat > 94% Transfuse 3U PRBC. Monitor H/H. Check iron studies, b12, folate, FOBT Check BNP CXR with bilateral infiltrates suggesting PNA or fluid overload Check blood cx Start IV abx Rocephin and azithromycin Check sputum cx if obtainable ] Check urinary pneumococcal and legionella ag Duonebs as need Restart home meds as appropriate DVT ppx scd/teds/ lovenox H&P: Quality - VTE Deep Vein Thrombosis/Pulmonary Embolism Present on Admission: No
[2017-10-14] MEDS ORDERED: WATER IV.SIG ONE ×2 (11:30)
[2017-10-14] MEDS ORDERED: DEXTROSE 5% IV.SIG ONE ×2 (11:30)
[2017-10-14] MEDS ORDERED: CALCIUM CHLORIDE IV.SIG ONE ×2 (11:30)
[2017-10-14 13:07] LABS: % Iron Saturation 11.6 % (20-50)
[2017-10-14] MEDS: Azithromycin Inj 500 MG in Sodium Chlor 0.9% Inj 250 ML IV.SIG SCH (13:14)
[2017-10-15 07:22] LABS: Alanine Aminotransferase 47 U/L (12-78); Albumin 2.8 g/dL (3.4-5.0); Alkaline Phosphatase 71 U/L (45-117); Anion Gap 9 meq/L (5-15); Aspartate Aminotransferase 112 U/L (15-37); Blood Urea Nitrogen 12 mg/dL (7-18); Calcium 6.3 mg/dL (8.5-10.1); Carbon Dioxide 32.4 meq/L (21.0-32.0); Chloride 89 meq/L (98-107); Glomerular Filtration Rate Greater Than 89 mL/min (>89); Glucose,Random 83 mg/dL (74-106); Potassium 3.9 meq/L (3.5-5.1); Total Protein 5.3 g/dL (6.4-8.2)
[2017-10-15 07:33] LABS: Sodium 130 meq/L (136-145)
[2017-10-15] MEDS: Sodium Bicarbonate 8.4% Inj 150 MEQ in Water for Inj, Sterile 850 ML IV.CONT SCH ×5 (07:50→17:07)
[2017-10-15] MEDS ORDERED: Calcium Carbonate 500 MG Tablet PO ONE (08:26)
--- NOTE | 2017-10-15 08:31 | P.PN ---
Subjective Interval history: With sob on 5L NC. He is noncompliant with oxygen. He is still very pale. Still with significant lower extremity edema. Not coughing. Says he feels lightheaded sometimes. Advised to use the oxygen. No nausea vomiting. No chest pain. No abdominal pain. No signs of bleeding. Physical Exam Vital signs: Vital Signs 10/14/17 12:00 10/14/17 14:55 10/14/17 15:07 Temperature 97.1 F L 97.3 F L 97.3 F L Pulse Rate 72 98 H 78 Respiratory Rate 20 18 Blood Pressure 107/72 90/60 L 90/50 L Pulse Oximetry 93 L 92 L 92 L 10/14/17 16:00 10/14/17 18:14 10/14/17 19:39 Temperature 97.3 F L 97.2 F L Pulse Rate 78 78 Respiratory Rate 18 20 17 Blood Pressure 96/60 L 114/68 Pulse Oximetry 94 L 92 L 10/14/17 20:00 10/15/17 00:00 10/15/17 01:03 Temperature 97.2 F L 98.1 F 97.8 F Pulse Rate 78 75 80 Respiratory Rate 17 18 22 Blood Pressure 114/68 104/70 112/64 Pulse Oximetry 91 L 90 L 10/15/17 03:42 10/15/17 04:53 Temperature 97.1 F L Pulse Rate 79 Respiratory Rate 17 Blood Pressure 106/77 Pulse Oximetry 91 L 92 L Intake & Output 10/14/17 10/15/17 10/15/17 18:59 06:59 18:59 Intake Total 1620 / 1620 2300 / 2300 1707 / 1707 Output Total 1300 / 1300 Balance 1620 / 1620 1000 / 1000 1707 / 1707 Weight 67.58 kg Intake: IV 1000 / 1000 1707 / 1707 Sodium Bicarbonate 8.4% Inj 150 1000 / 1000 1000 / 1000 MEQ In Sterile Water for Inj 850 ML @ 150 mls/hr IV.CONT . Q6H40M [facility] Rx#:[id number] Azithromycin Inj 500 MG In NS 250 / 250 Inj 250 ML @ 250 mls/hr IV.SIG Q24H [facility] Rx#:[id number] NS Inj 250 ML @ 15 mls/hr IV. 250 / 250 SIG ONCE [facility] Rx#:[id number] Rocephin Inj 1,000 MG In NS Inj 100 / 100 100 ML @ 200 mls/hr IV.SIG Q24H [facility] Rx#:[id number] Oral 620 / 620 1500 / 1500 Intake (Blood Product) Amt 0 / 0 800 / 800 Rbc As-3 Leukoreduced Unit 0 / 0 400 / 400 [id number] Rbc As-3 Leukoreduced Unit 400 / 400 [id number] Rbc As-5 Leukoreduced Unit 0 / 0 [id number] Output: Urine 1300 / 1300 Other: # Voids 0 # Bowel Movements 0 Narrative: GENERAL: Pale chronically ill patient with sob, he is not wearing oxygen appears short of breath. CARDIOVASCULAR: Regular rate and rhythm without murmurs, gallops, or rubs. RESPIRATORY: With shortness of breath, decreased breath sounds, no accessory muscle use. GASTROINTESTINAL: Abdomen soft, non-tender, nondistended. MUSCULOSKELETAL: No cyanosis. 3+ bilateral LE edema. BACK: Nontender without obvious deformity. No CVA tenderness. Results - Labs CBC & Chem 7: 10/15/17 09:05 10/15/17 04:58 Laboratory Results - last 24 hr 10/14/17 10/14/17 10/14/17 07:36 07:36 07:36 WBC 2.0 L RBC 2.81 L Hgb 6.9 L* Hct 22.0 L MCV 78.1 L MCH 24.6 L MCHC 31.6 L RDW 18.6 H Plt Count 144 L MPV 6.9 L Neut % (Auto) 58.1 Lymph % (Auto) 25.3 Heard % (Auto) 9.7 H Eos % (Auto) 6.2 H Baso % (Auto) 0.7 Neut # (Auto) 1.2 L Lymph # (Auto) 0.5 L Heard # (Auto) 0.2 Eos # (Auto) 0.1 Baso # (Auto) 0.0 WBC Differential . Differential Comment Auto diff final Puncture Site Patient Temperature O2 Saturation ABG pH ABG pCO2 ABG pO2 ABG HCO3 ABG O2 Content ABG Base Excess ABG Methemoglobin Jori Test Hemoglobin Carboxyhemoglobin O2 Delivery Device Liter Flow Critical Value Sodium Potassium Chloride Carbon Dioxide Anion Gap BUN Creatinine Estimated GFR Random Glucose Calcium Prot Corrected Calcium Iron 54 L TIBC 465 H % Saturation 11.6 L Ferritin 7 L Total Bilirubin AST ALT Alkaline Phosphatase CK-MB (CK-2) 23.2 H CK-MB (CK-2) % 0.6 B-Natriuretic Peptide Total Protein Albumin Vitamin B12 233 Folate 3.0 L Blood Type Blood Type Confirm Blood Type Recheck Antibody Screen MTS Gel Crossmatch 10/14/17 10/14/17 10/14/17 07:36 09:05 10:17 WBC RBC Hgb Hct MCV MCH MCHC RDW Plt Count MPV Neut % (Auto) Lymph % (Auto) Heard % (Auto) Eos % (Auto) Baso % (Auto) Neut # (Auto) Lymph # (Auto) Heard # (Auto) Eos # (Auto) Baso # (Auto) WBC Differential Differential Comment Puncture Site Left radial Patient Temperature 98.6 98.6 O2 Saturation 82 L* 93 ABG pH 7.45 H 7.46 H ABG pCO2 49 H 48 H ABG pO2 50 L* 76 ABG HCO3 33 H 34 H ABG O2 Content 8.2 L 9.3 L ABG Base Excess 8.9 H 9.9 H ABG Methemoglobin 1.0 1.1 Jori Test Present Hemoglobin 7.1 L 7.0 L Carboxyhemoglobin 1.7 1.6 O2 Delivery Device Nasal cannula Liter Flow 6.00 Critical Value Yes No Sodium Potassium Chloride Carbon Dioxide Anion Gap BUN Creatinine Estimated GFR Random Glucose Calcium Prot Corrected Calcium Iron TIBC % Saturation Ferritin Total Bilirubin AST ALT Alkaline Phosphatase CK-MB (CK-2) CK-MB (CK-2) % B-Natriuretic Peptide 35 Total Protein Albumin Vitamin B12 Folate Blood Type Blood Type Confirm Blood Type Recheck Antibody Screen MTS Gel Crossmatch 10/14/17 10/14/17 10/14/17 12:12 12:12 12:46 WBC RBC Hgb Hct MCV MCH MCHC RDW Plt Count MPV Neut % (Auto) Lymph % (Auto) Heard % (Auto) Eos % (Auto) Baso % (Auto) Neut # (Auto) Lymph # (Auto) Heard # (Auto) Eos # (Auto) Baso # (Auto) WBC Differential Differential Comment Puncture Site Patient Temperature O2 Saturation ABG pH ABG pCO2 ABG pO2 ABG HCO3 ABG O2 Content ABG Base Excess ABG Methemoglobin Jori Test Hemoglobin Carboxyhemoglobin O2 Delivery Device Liter Flow Critical Value Sodium Potassium Chloride Carbon Dioxide Anion Gap BUN Creatinine Estimated GFR Random Glucose Calcium Prot Corrected Calcium Iron TIBC % Saturation Ferritin Total Bilirubin AST ALT Alkaline Phosphatase CK-MB (CK-2) CK-MB (CK-2) % B-Natriuretic Peptide Total Protein Albumin Vitamin B12 Folate Blood Type A Positive Cancelled Blood Type Confirm A Positive Blood Type Recheck Cancelled Antibody Screen Negative Cancelled MTS Gel Crossmatch See Detail 10/15/17 04:58 WBC RBC Hgb Hct MCV MCH MCHC RDW Plt Count MPV Neut % (Auto) Lymph % (Auto) Heard % (Auto) Eos % (Auto) Baso % (Auto) Neut # (Auto) Lymph # (Auto) Heard # (Auto) Eos # (Auto) Baso # (Auto) WBC Differential Differential Comment Puncture Site Patient Temperature O2 Saturation ABG pH ABG pCO2 ABG pO2 ABG HCO3 ABG O2 Content ABG Base Excess ABG Methemoglobin Jori Test Hemoglobin Carboxyhemoglobin O2 Delivery Device Liter Flow Critical Value Sodium 130 L Potassium 3.9 Chloride 89 L Carbon Dioxide 32.4 H Anion Gap 9 BUN 12 Creatinine 0.77 Estimated GFR Greater than 89 Random Glucose 83 Calcium 6.3 L* Prot Corrected Calcium 7.1 L* D Iron TIBC % Saturation Ferritin Total Bilirubin 1.0 AST 112 H ALT 47 Alkaline Phosphatase 71 CK-MB (CK-2) CK-MB (CK-2) % B-Natriuretic Peptide Total Protein 5.3 L Albumin 2.8 L Vitamin B12 Folate Blood Type Blood Type Confirm Blood Type Recheck Antibody Screen MTS Gel Crossmatch - Imaging Impressions Chest X-Ray 10/14/17 00:00 CONCLUSION: Increasing parenchymal infiltrate in the left lower lung compared to the prior study. Assessment and Plan - Plan Hyponatremia LE edema SOB. Acute respiratory failure Severe anemia with HGB at 6.9 Polysubstance abuse. Counselled. On ciwa protocol Vit D deficiency. Severe hypocalcemia Iron deficiency ABG reviewed. O2 supplement as need keep O2 sat > 94% Transfuse 3U PRBC. Monitor H/H. Check iron studies, b12, folate, FOBT Check BNP Check Vit D is low started ergocalciferiol Replace Ca ,Start Ca carbonate Start iron supplement and give Venofer IV x 3 days as with severe iron deficiency Give one dose of lasix. Check 2D ECHO CXR with bilateral infiltrates suggesting PNA or fluid overload Check blood cx Start IV abx Rocephin and azithromycin Check sputum cx if obtainable ] Check urinary pneumococcal and legionella ag Duonebs as need Restart home meds as appropriate DVT ppx scd/teds/ lovenox
[2017-10-15] MEDS ORDERED: Calcium Chloride Inj 2 GM in Dextrose 5% in Water Inj 100 ML IV.SIG ONE ×2 (09:30)
[2017-10-15 11:14] LABS: Baso % (Auto) 0.4 % (0.0-2.0); Eos # (Auto) 0.2 th/mm3 (0.0-0.4); Eos % (Auto) 5.6 % (0.0-4.0); Hematocrit 35.6 % (39.0-51.0); Hemoglobin 11.7 gm/dL (13.0-17.0); Lymph # (Auto) 0.7 th/mm3 (1.0-4.8); Lymph % (Auto) 23.9 % (9.0-44.0); Mean Corpuscular Hemoglobin 26.8 pg (27.0-34.0); Mean Corpuscular Volume 81.2 fL (80.0-100.0); Mean Platelet Volume 7.4 fL (7.0-11.0); Mono # (Auto) 0.3 th/mm3 (0.0-0.9); Mono % (Auto) 12.6 % (0.0-8.0); Neut # (Auto) 1.6 th/mm3 (1.8-7.7); Neut % (Auto) 57.5 % (16.0-70.0); Platelet Count 131 th/mm3 (150-450); Red Blood Count 4.38 mil/mm3 (4.50-5.90); White Blood Count 2.8 th/mm3 (4.0-11.0)
[2017-10-15] MEDS: Heparin - SQ 10,000 UNITS/ML Vial SQ SCH ×2 (12:03→22:00)
[2017-10-15] MEDS: Azithromycin Inj 500 MG in Sodium Chlor 0.9% Inj 250 ML IV.SIG SCH (13:08)
--- NOTE | 2017-10-15 17:30 | XR ---
EXAM DATE: 10/15/2017 5:21 PM EDT AGE/SEX: 52 years / Male INDICATIONS: Cough. CLINICAL DATA: This is the patient's subsequent encounter. Patient reports that signs and symptoms h ave been present for 3 days and indicates a pain score of 0/10. MEDICAL/SURGICAL HISTORY: Hypertension. None. [place] [facility] [place]. . FINDINGS: There is bilateral mostly basilar airspace disease and small effusions. Heart size mildly enlarged. R emote bilateral rib fractures. No pneumothorax. CONCLUSION: Cardiomegaly with bilateral mostly basilar airspace disease and small effusions. Electronically signed by: Leonidas Mcclure MD 10/15/2017 5:29 PM EDT
[2017-10-15 17:50] LABS: ABG Base Excess 10.2 mmol/L (-2-2); ABG PCO2 54 mmHg (38-42); ABG PO2 69 mmHg (61-120)
[2017-10-15] MEDS: Iron Sucrose Inj 200 MG in Sodium Chlor 0.9% Inj 100 ML IV.SIG SCH (18:42)
--- NOTE | 2017-10-15 21:20 | MB ---
cc: Tom Rich MD, Daniel V MD DATE: 10/15/2017 REASON FOR CONSULTATION: Hyponatremia and volume overload management. HISTORY OF PRESENT ILLNESS: This is a 52-year-old male with a history of cocaine use and heavy alcohol abuse. The patient presented to the emergency room on 10/13 with presentations of lower extremity swelling and chest pains. The patient was seen and admitted with the primary team. He was also found to have significant anemia with a hemoglobin of 6.9 as well as hyponatremia with a sodium of 132 at the time of his presentation here. The patient was transfused 3 units of blood with red blood cells and started on IV iron. Additionally, a chest x-ray was suggestive of pneumonia and he was started on treatment with Rocephin as well as azithromycin. The patient was also found to have elevated CK level of 5200 and he was started with IV fluids with D5W at 150 mL per hour with 150 mEq of sodium bicarbonate. Throughout the last 2 days, the patient has had ongoing hyponatremia with a serum sodium at 130. His renal function has been stable with a creatinine of 0.77. However, he has also had findings of hypochloremia with a serum chloride of 89 and alkalosis with a bicarbonate level of 32.4. The patient has been continued on IV fluids and has had ongoing lower extremity edema. He has also been supplemented with calcium and vitamin D for a calcium level of 7.1 corrected. His albumin levels was also only 2.7. His urinalysis showed no signs of any proteinuria. Given the electrolyte abnormalities, nephrology was consulted for further evaluation. At time of the evaluation, the patient was resting in bed comfortably with no acute distress. REVIEW OF SYSTEMS: The patient denies any chest pains at this time. No shortness of breath, no diarrhea, no constipation, no dysuria. He reports having good urine output. The patient reports having ongoing lower extremity edema, which he reports has been stable. PAST MEDICAL HISTORY: Includes alcohol abuse and substance abuse with cocaine. PAST SURGICAL HISTORY: Includes hernia and cataract surgeries. FAMILY HISTORY: Cardiac disease and hypertension. SOCIAL HISTORY: The patient has lived in a assisted living facility. The patient smokes cigarettes as well as does crack cocaine, last was done several days ago as well as has a heavy abuse of alcohol, which he reports was last several days ago as well as marijuana use. ALLERGIES: NO KNOWN DRUG ALLERGIES. PHYSICAL EXAMINATION: VITAL SIGNS: At the time of evaluation, temperature 97, pulse 65, respiratory rate 17, blood pressure 103/70, pulse oximetry 87%. GENERAL: The patient appears generally ill with pallor. NECK: Soft, supple. CARDIAC: Regular rate and rhythm. PULMONARY: Clear to auscultation. Decreased breath sounds at bases. ABDOMEN: Soft, nontender, nondistended. EXTREMITIES: 2-3+ lower extremity edema. LABORATORY DATA: Sodium 130, potassium 3.9, chloride 89, bicarbonate 32.4, BUN 12, creatinine 0.77, glucose of 83, calcium 7.1 corrected, albumin level of 2.7, AST 112, ALT 47, alkaline phosphatase 71, total protein 5.3. White count 2.8, hemoglobin 11.7, hematocrit 35.6 with a platelet count of 131. Urinalysis negative for protein. Tox screen showed findings of alcohol. The patient had initial CK level of 5200, which is improved to 4000. ASSESSMENT AND PLAN: 1. Hyponatremia. The patient with serum sodium of 130. At this time, he presents with a relative volume overload with lower extremity edema. The patient has been running on IV fluids with D5W with 150 mEq of sodium bicarbonate at 150 mL per hour for approximately 3 days. I suspect he has ongoing volume overload in the setting of IV fluids. at this point, I will stop IV fluids and give a dose of Lasix with albumin to help mobilize fluids. Of note, there are no significant findings of any renal etiology for nephrotic syndrome otherwise with no findings of any proteinuria. This edema may be secondary to possible low albumin with poor nutrition versus possible cardiac etiology versus possible cirrhosis with a history of alcohol abuse. We will attempt Lasix with albumin at this time and continue to monitor symptoms. 2. Alkalosis. The patient with a bicarbonate level of 33.5. He has been receiving bicarbonate in the IV fluids for the last 3 days. I will go ahead and stop the bicarbonate and IV fluids at this point. We should see some improvement at this time with diuresis as well. Continue to monitor at this point. 3. Rhabdomyolysis. The patient had a total CK level of 5200 at the time of his presentation: This is improved slightly to a level of 4000 with administration of his IV fluids; however, given the ongoing peripheral edema and hyponatremia, we will go ahead and start some diuresis at this point. Continue to follow CK levels. Should he have issues with worsening CK levels, may consider to restart fluids with isotonic normal saline. However, we will try some diuresis and continue to monitor at this point. I suspect he may have some rhabdomyolysis from cocaine use prior to his arrival here. We will continue to monitor with primary team. 4. Peripheral edema. Possible edema secondary to cirrhosis in the setting of history of alcohol abuse as well as possible congestive heart failure with cardiomegaly on chest x-ray. We will check a cardiac echo to further assess cardiac function. Of note, at this point No signs of any proteinuria or renal etiology for any edema. Of note, his creatinine is 0.7 with good renal function otherwise 5. Anemia. The patient was transfused here with iron deficiency. Suspect this is part of his poor nutrition. Continue to follow with the primary team. 6. Hypocalcemia with vitamin D deficiency. The patient has been started on vitamin D. He also has low albumin levels and I will start an albumin infusion. Continue with support of nutrition as tolerated. 7. Malnutrition. Continue supplemental nutrition care. May need nutritional supplements if not tolerating adequate p.o. intake. Continue to follow with the primary team. 8. Substance abuse. Counseled on cessation. Suspect his previous crack cocaine use as well as heavy alcohol abuse has contributed to some of his malnutrition. Continue support and may need supplemental nutritional shakes as needed based on p.o. intake. 9. Pneumonia. The patient is on Rocephin and azithromycin. Continue to follow with primary team. MD REBECCA Lee/ , 08:41 PM , 09:19 PM MARGARITA
[2017-10-15] MEDS: Albumin Human 5% Inj 500 ML IV.SIG SCH (21:50)
[2017-10-16 04:05] LABS: Baso % (Auto) 0.3 % (0.0-2.0); Eos # (Auto) 0.1 th/mm3 (0.0-0.4); Eos % (Auto) 3.6 % (0.0-4.0); Hematocrit 39.4 % (39.0-51.0); Hemoglobin 12.9 gm/dL (13.0-17.0); Lymph # (Auto) 0.5 th/mm3 (1.0-4.8); Lymph % (Auto) 15.5 % (9.0-44.0); Mean Corpuscular HGB Conc 32.8 % (32.0-36.0); Mean Corpuscular Hemoglobin 26.4 pg (27.0-34.0); Mean Corpuscular Volume 80.4 fL (80.0-100.0); Mono # (Auto) 0.3 th/mm3 (0.0-0.9); Mono % (Auto) 9.3 % (0.0-8.0); Neut # (Auto) 2.5 th/mm3 (1.8-7.7); Neut % (Auto) 71.3 % (16.0-70.0); Platelet Count 143 th/mm3 (150-450); Red Blood Count 4.89 mil/mm3 (4.50-5.90); Red Cell Distribution Width 18.6 % (11.6-17.2); White Blood Count 3.5 th/mm3 (4.0-11.0)
[2017-10-16 04:41] LABS: Alanine Aminotransferase 60 U/L (12-78); Albumin 3.8 g/dL (3.4-5.0); Alkaline Phosphatase 87 U/L (45-117); Anion Gap 10 meq/L (5-15); Aspartate Aminotransferase 145 U/L (15-37); Blood Urea Nitrogen 13 mg/dL (7-18); Calcium 8.3 mg/dL (8.5-10.1); Carbon Dioxide 35.9 meq/L (21.0-32.0); Chloride 82 meq/L (98-107); Creatine Kinase 4937 U/L (39-308); Glomerular Filtration Rate 87 mL/min (>89); Glucose,Random 104 mg/dL (74-106); Phosphorus 3.2 mg/dL (2.5-4.9); Potassium 3.6 meq/L (3.5-5.1); Sodium 128 meq/L (136-145); Total Protein 6.9 g/dL (6.4-8.2)
[2017-10-16 04:59] LABS: CKMB Percent 0.9 % (0.0-4.0); Creatine Kinase MB 43.3 ng/mL (0.5-3.6)
[2017-10-16] MEDS: Albumin Human 5% Inj 500 ML IV.SIG SCH ×2 (10:00→22:16)
[2017-10-16] MEDS: Calcium Carbonate 500 MG Tablet PO SCH ×2 (10:02→22:18)
[2017-10-16] MEDS: Iron Sucrose Inj 200 MG in Sodium Chlor 0.9% Inj 100 ML IV.SIG SCH (10:02)
[2017-10-16] MEDS: Azithromycin Inj 500 MG in Sodium Chlor 0.9% Inj 250 ML IV.SIG SCH (12:38)
[2017-10-16] MEDS: Heparin - SQ 10,000 UNITS/ML Vial SQ SCH ×2 (12:41→22:18)
--- NOTE | 2017-10-16 13:27 | MB ---
cc: Harshad Alejandre MD DATE: 10/16/2017 HISTORY OF PRESENT ILLNESS: Mr. Bryant is a 52-year-old white male smoker, cocaine abuser, both smoking cocaine and snorting cocaine and a heavy alcohol abuser, who presents with chest pressure. He came in on 10/13/2017. Also, had significant edema in his legs, so has been seen by nephrology. The patient admits to smoking on a daily basis, although he says he is only smoking a few a day. However, he also snorts and inhales cocaine periodically and has begun to drink heavily again, although he said he had quit for a few years. On presentation, he required blood transfusion and diuresis. He says he is feeling better. He has no purulent sputum or hemoptysis. He had a chest x-ray on admission, which revealed some minimal basilar infiltrates, small effusions, so he was started on antibiotics for possible pneumonia. Followup film on 10/15/2017, essentially unchanged. He does have an enlarged heart. He has also had arterial blood gases and on 6 liters, his pO2 was 50 with a pH of 7.4 and a pCO2 of 49. Subsequently, on a simple facemask, his pO2 was 69 with a pH of 7.4 and a pCO2 of 54. When I asked the patient whether he had any insight into what was wrong with his lungs, he said no. He says he has never been given a specific diagnosis. I asked him if it could be related to his cocaine use and tobacco smoking of over 50 pack years and he acknowledged that it may be related. He actually seems to have little insight into this. The only home medication that he was using was trazodone. PAST MEDICAL HISTORY: He has had recurrent admissions to the ER and the hospital, frequently associated with elevated CPKs, thought to be due to his cocaine use. Also, may have underlying cirrhosis. He is chronically anemic and of course has the above-mentioned substance abuse problems. SOCIAL HISTORY: Lives with his mom. Smoking, drinking, drug use as noted above. FAMILY HISTORY: Unrelated. PHYSICAL EXAMINATION: GENERAL: He is awake, alert, very comfortable at rest, afebrile, in no distress. VITAL SIGNS: Pulse is 66, respirations are 16-18. O2 saturation currently 96% on 4 liters. HEENT: Sclerae pale, anicteric. Mucous membranes are moist. CHEST: Diminished, but actually clear. No wheezes. No rales or congestion. HEART: No harsh murmur. No audible S3. ABDOMEN: Soft. EXTREMITIES: He has 2+ peripheral edema and he says that is better than when he presented. No clubbing. DISCUSSION: Mr. Bryant presents with alcoholism, tobaccoism and cocaine use, all probably contributing to the current problems he has with his chest. He is also complaining of some sinus congestion and frontal headache, possibly related to snorting cocaine. I have ordered a sinus scan. He is on aerosol therapy, as well as oxygen and antibiotics have been ordered in light of the basilar infiltrates. At this point, he actually seems fairly stable. Blood gases are compensated. Most of this time with the patient today was helping him to recognize the importance of stopping the alcohol, tobacco and cocaine, all of which are contributing to his health problems including his lung problems. Further diagnostic and/or therapeutic intervention during this hospitalization will depend on his ongoing clinical course. R. Mustapha Alejandre MD RSW/BELLO , 01:06 PM , 01:24 PM
--- NOTE | 2017-10-16 14:30 | P.PNNP ---
Subjective Interval history: feeling better today Physical Exam Vital signs: Vital Signs 10/15/17 15:57 10/15/17 16:00 10/15/17 20:00 Temperature 97.0 F L 98.2 F Pulse Rate 65 72 Respiratory Rate 17 20 Blood Pressure 103/70 117/79 Pulse Oximetry 98 87 L 90 L 10/15/17 20:57 10/16/17 00:00 10/16/17 00:05 Temperature 98 F Pulse Rate 70 72 65 Respiratory Rate 22 18 Blood Pressure 126/79 Pulse Oximetry 90 L 10/16/17 02:30 10/16/17 04:00 10/16/17 08:00 Temperature 97.9 F 97.3 F L Pulse Rate 57 L 65 54 L Respiratory Rate 24 18 17 Blood Pressure 116/77 109/80 Pulse Oximetry 89 L 81 L 10/16/17 09:36 10/16/17 11:55 Temperature 97.2 F L Pulse Rate 66 Respiratory Rate 19 Blood Pressure 109/71 Pulse Oximetry 89 L 96 Intake & Output 10/15/17 10/16/17 10/16/17 18:59 06:59 18:59 Intake Total 2377 / 2377 850 / 850 Output Total 1100 / 1100 3500 / 3500 Balance 1277 / 1277 -2650 / -2650 Weight 68 kg Intake: IV 2077 / 2077 610 / 610 Sodium Bicarbonate 8.4% Inj 150 1000 / 1000 MEQ In Sterile Water for Inj 850 ML @ 150 mls/hr IV.CONT . Q6H40M [facility] Rx#:[id number] Alburx 5% Inj 500 ML @ 250 mls/ 500 / 500 hr IV.SIG Q12H [facility] Rx#:[id number] Azithromycin Inj 500 MG In NS 500 / 500 Inj 250 ML @ 250 mls/hr IV.SIG Q24H [facility] Rx#:[id number] Calcium Chloride Inj 2 GM In 120 / 120 D5W Inj 100 ML @ 120 mls/hr IV. SIG ONCE ONE Rx#:[id number] Venofer Inj 200 MG In NS Inj 110 / 110 100 ML @ 110 mls/hr IV.SIG DAILY [facility] Rx#:[id number] NS Inj 250 ML @ 15 mls/hr IV. 250 / 250 SIG ONCE [facility] Rx#:[id number] Rocephin Inj 1,000 MG In NS Inj 100 / 100 100 ML @ 200 mls/hr IV.SIG Q24H [facility] Rx#:[id number] Oral 300 / 300 240 / 240 Output: Urine 1100 / 1100 3500 / 3500 Other: # Bowel Movements 0 0 - Constitutional no acute distress - Routine HEENT Exam Head: Present: normocephalic Eye: Present: EOMI ENT: Present: mucous membranes moist - Routine Neck Exam Present: supple - Routine Respiratory Exam Present: diminished air movement - Routine Cardiovascular Exam Present: RRR - Routine Abdominal Exam Present: soft - Routine Extremities Exam Present: edema - Routine Skin Exam Present: intact - Routine Neurological Exam Present: alert, oriented X3 - Detailed Neurological Exam: Coma Scale Eye Opening: Spontaneous - Routine Psychiatric Exam Present: normal affect Assessment and Plan - Assessment (1) Electrolyte abnormality Code(s): E87.8 - Other disorders of electrolyte and fluid balance, not elsewhere classified Status: Acute Plan: 1. Hyponatremia with peripheral edema . Volume overload with initial IVF infusion. Possible underlying cirrhosis and CHF. 2D echo ordered No renal proteinuria on U/A. Renal function normal. IVFs stopped yesterday. 4L UOP with lasix and albumin, will repeat lasix 40mg IV again today and continue albumin. Continue IV lasix and albumin as needed. 2. Alkalosis. Was receiving HCO3 in IVFs - stopped now. Continue to monitor. May consider acetazolamide if ongoing issues. 3. Rhabdomyolysis. The patient had a total CK level of 5200 at the time of his presentation due to cocaine. Off IVFs now, continue to monitor. Renal function stable. 4. Anemia. The patient was transfused here with iron deficiency. Suspect this is part of his poor nutrition. Continue to follow with the primary team. 5. Hypocalcemia with vitamin D deficiency. The patient has been started on vitamin D. 6. Malnutrition. Continue supplemental nutrition care. May need nutritional supplements if not tolerating adequate p.o. intake. Continue to follow with the primary team. 7. Substance abuse. Counseled on cessation. Suspect his previous crack cocaine use as well as heavy alcohol abuse has contributed to some of his malnutrition. Continue support and may need supplemental nutritional shakes as needed based on p.o. intake.
--- NOTE | 2017-10-16 15:03 | P.PN ---
Subjective Interval history: Patient in nad, he is pale and appears chronically ill. Refusing iron supplement , venofer dispite discussing with the patient at length regarding need and benefits. No n/v/d/c. Less sob. Physical Exam Vital signs: Vital Signs 10/15/17 15:57 10/15/17 16:00 10/15/17 20:00 Temperature 97.0 F L 98.2 F Pulse Rate 65 72 Respiratory Rate 17 20 Blood Pressure 103/70 117/79 Pulse Oximetry 98 87 L 90 L 10/15/17 20:57 10/16/17 00:00 10/16/17 00:05 Temperature 98 F Pulse Rate 70 72 65 Respiratory Rate 22 18 Blood Pressure 126/79 Pulse Oximetry 90 L 10/16/17 02:30 10/16/17 04:00 10/16/17 08:00 Temperature 97.9 F 97.3 F L Pulse Rate 57 L 65 54 L Respiratory Rate 24 18 17 Blood Pressure 116/77 109/80 Pulse Oximetry 89 L 81 L 10/16/17 09:36 10/16/17 11:55 Temperature 97.2 F L Pulse Rate 66 Respiratory Rate 19 Blood Pressure 109/71 Pulse Oximetry 89 L 96 Intake & Output 10/15/17 10/16/17 10/16/17 18:59 06:59 18:59 Intake Total 2377 / 2377 850 / 850 Output Total 1100 / 1100 3500 / 3500 Balance 1277 / 1277 -2650 / -2650 Weight 68 kg Intake: IV 7 / 7 610 / 610 Sodium Bicarbonate 8.4% Inj 150 1000 / 1000 MEQ In Sterile Water for Inj 850 ML @ 150 mls/hr IV.CONT . Q6H40M [facility] Rx#:[id number] Alburx 5% Inj 500 ML @ 250 mls/ 500 / 500 hr IV.SIG Q12H [facility] Rx#:[id number] Azithromycin Inj 500 MG In NS 500 / 500 Inj 250 ML @ 250 mls/hr IV.SIG Q24H [facility] Rx#:[id number] Calcium Chloride Inj 2 GM In 120 / 120 D5W Inj 100 ML @ 120 mls/hr IV. SIG ONCE ONE Rx#:[id number] Venofer Inj 200 MG In NS Inj 110 / 110 100 ML @ 110 mls/hr IV.SIG DAILY [facility] Rx#:[id number] NS Inj 250 ML @ 15 mls/hr IV. 250 / 250 SIG ONCE [facility] Rx#:[id number] Rocephin Inj 1,000 MG In NS Inj 100 / 100 100 ML @ 200 mls/hr IV.SIG Q24H [facility] Rx#:[id number] Oral 300 / 300 240 / 240 Output: Urine 1100 / 1100 3500 / 3500 Other: # Bowel Movements 0 0 Narrative: GENERAL: Pale chronically ill patient with sob, he is not wearing oxygen appears short of breath. CARDIOVASCULAR: Regular rate and rhythm without murmurs, gallops, or rubs. RESPIRATORY: With shortness of breath, decreased breath sounds, no accessory muscle use. GASTROINTESTINAL: Abdomen soft, non-tender, nondistended. MUSCULOSKELETAL: No cyanosis. 3+ bilateral LE edema. BACK: Nontender without obvious deformity. No CVA tenderness. Results - Labs CBC & Chem 7: 10/16/17 03:43 10/15/17 04:58 Laboratory Results - last 24 hr 10/15/17 10/15/17 10/15/17 03:43 04:58 17:40 WBC Corrected WBC RBC Hgb Hct MCV MCH MCHC RDW Plt Count MPV Neut % (Auto) Lymph % (Auto) [place] % (Auto) Eos % (Auto) Baso % (Auto) Neut # (Auto) Lymph # (Auto) [place] # (Auto) Eos # (Auto) Baso # (Auto) WBC Differential Differential Comment Hematology Comments Puncture Site Right radial Patient Temperature 98.6 O2 Saturation 91 ABG pH 7.43 H ABG pCO2 54 H* ABG pO2 69 ABG HCO3 35 H ABG O2 Content 15.1 ABG Base Excess 10.2 H ABG Methemoglobin 1.1 Jori Test Present Hemoglobin 11.8 L Carboxyhemoglobin 2.0 O2 Delivery Device Simple mask Liter Flow 10.00 Inspired O2 0 Critical Value Yes Sodium 128 L 130 L Potassium 3.6 3.9 Chloride 82 L D 89 L Carbon Dioxide 35.9 H 32.4 H Anion Gap 10 9 BUN 13 12 Creatinine 0.92 0.77 Estimated GFR 87 L Greater than 89 Random Glucose 104 83 Calcium 8.3 L D 6.3 L* D Prot Corrected Calcium 7.1 L* D Phosphorus 3.2 Magnesium 2.0 Total Bilirubin 0.9 1.0 AST 145 H 112 H ALT 60 47 Alkaline Phosphatase 87 71 Total Creatine Kinase 4937 H CK-MB (CK-2) 43.3 H CK-MB (CK-2) % 0.9 Total Protein 6.9 D 5.3 L D Albumin 3.8 D 2.8 L D 10/15/17 10/16/17 23:18 03:43 WBC Cancelled 3.5 L Corrected WBC Cancelled RBC Cancelled 4.89 Hgb Cancelled 12.9 L Hct Cancelled 39.4 MCV Cancelled 80.4 MCH Cancelled 26.4 L MCHC Cancelled 32.8 RDW Cancelled 18.6 H Plt Count Cancelled 143 L MPV Cancelled 7.0 Neut % (Auto) 71.3 H Lymph % (Auto) 15.5 [place] % (Auto) 9.3 H Eos % (Auto) 3.6 Baso % (Auto) 0.3 Neut # (Auto) 2.5 Lymph # (Auto) 0.5 L [place] # (Auto) 0.3 Eos # (Auto) 0.1 Baso # (Auto) 0.0 WBC Differential . Differential Comment Auto diff final Hematology Comments Cancelled Puncture Site Patient Temperature O2 Saturation ABG pH ABG pCO2 ABG pO2 ABG HCO3 ABG O2 Content ABG Base Excess ABG Methemoglobin Jori Test Hemoglobin Carboxyhemoglobin O2 Delivery Device Liter Flow Inspired O2 Critical Value Sodium Potassium Chloride Carbon Dioxide Anion Gap BUN Creatinine Estimated GFR Random Glucose Calcium Prot Corrected Calcium Phosphorus Magnesium Total Bilirubin AST ALT Alkaline Phosphatase Total Creatine Kinase CK-MB (CK-2) CK-MB (CK-2) % Total Protein Albumin Microbiology 10/14/17 12:07 Blood - Peripheral Aerobic Blood Culture - Preliminary No growth in 2 days 10/14/17 12:07 Blood - Peripheral Anaerobic Blood Culture - Preliminary No growth in 2 days 10/14/17 12:12 Blood - Peripheral Aerobic Blood Culture - Preliminary No growth in 2 days 10/14/17 12:12 Blood - Peripheral Anaerobic Blood Culture - Preliminary No growth in 2 days - Imaging Impressions Chest X-Ray 10/15/17 00:00 CONCLUSION: Cardiomegaly with bilateral mostly basilar airspace disease and small effusions. Assessment and Plan - Plan Hyponatremia LE edema SOB. Acute respiratory failure Severe anemia with HGB at 6.9 Polysubstance abuse. Counselled. On ciwa protocol Vit D deficiency. Severe hypocalcemia Iron deficiency . Patient is refusing iron supplement ABG reviewed. O2 supplement as need keep O2 sat > 94% Transfused 3U PRBC. Monitor H/H. Reviewed iron studies, b12, folate. FOBT pending Check BNP Check Vit D is low started ergocalciferiol Replace Ca ,Start Ca carbonate Start iron supplement and give Venofer IV x 3 days as with severe iron deficiency Give one dose of lasix. Check 2D ECHO CXR with bilateral infiltrates suggesting PNA or fluid overload Check blood cx Start IV abx Rocephin and azithromycin Check sputum cx if obtainable ] Check urinary pneumococcal and legionella ag Duonebs as need Consult nephrology, appreciate recs discussed with Dr Rich nephrology. Start lasix and albumin. Restart home meds as appropriate DVT ppx scd/teds/ lovenox Discussed with the patient, nurse, Dr Rich nephrology
[2017-10-16 17:06] LABS: Hematocrit 36.1 % (39.0-51.0); Hemoglobin 11.9 gm/dL (13.0-17.0); Mean Corpuscular HGB Conc 32.9 % (32.0-36.0); Mean Corpuscular Hemoglobin 26.8 pg (27.0-34.0); Mean Corpuscular Volume 81.5 fL (80.0-100.0); Mean Platelet Volume 7.3 fL (7.0-11.0); Platelet Count 127 th/mm3 (150-450); Red Blood Count 4.43 mil/mm3 (4.50-5.90); Red Cell Distribution Width 18.7 % (11.6-17.2)
[2017-10-16 17:21] LABS: Albumin 3.6 g/dL (3.4-5.0); Anion Gap 10 meq/L (5-15); Aspartate Aminotransferase 118 U/L (15-37); Blood Urea Nitrogen 12 mg/dL (7-18); Calcium 7.7 mg/dL (8.5-10.1); Carbon Dioxide 34.7 meq/L (21.0-32.0); Chloride 84 meq/L (98-107); Glomerular Filtration Rate 85 mL/min (>89); Glucose,Random 87 mg/dL (74-106); Potassium 3.3 meq/L (3.5-5.1); Sodium 129 meq/L (136-145)
[2017-10-16 17:22] LABS: Alanine Aminotransferase 52 U/L (12-78); Phosphorus 3.3 mg/dL (2.5-4.9)
[2017-10-16 17:24] LABS: Alkaline Phosphatase 75 U/L (45-117); Total Protein 6.3 g/dL (6.4-8.2)
--- NOTE | 2017-10-16 18:00 | CT ---
EXAM DATE: 10/16/2017 5:42 PM EDT AGE/SEX: 52 years / Male INDICATIONS: Sinus congestion. CLINICAL DATA: This is the patient's initial encounter. Patient reports that signs and symptoms have been present for 2 days and indicates a pain score of 0/10. MEDICAL/SURGICAL HISTORY: . Substance abuse. None. RADIATION DOSE: 9.97 CTDI (mGy) COMPARISON: [facility], CT BRAIN W/O CONTRAST, 05/31/2017. . TECHNIQUE: Contiguous axial thin-section CT images of the paranasal sinuses were performed. Using au tomated exposure control and adjustment of the mA and/or kV according to patient size, radiation dose was kept as low as reasonably achievable to obtain optimal diagnostic quality images. DICOM format image data is available electronically for review and comparison. FINDINGS: There is mucosal thickening and partial opacification of the left frontal sinus and left ethmoid air cells. Sphenoid sinus and maxillary sinus are unremarkable except for small retention cyst in the isabel or of the left maxillary sinus. Mastoid air cells demonstrate some mild mucosal thickening inferiorly . CONCLUSION: 1. Left frontal sinus and ethmoid sinus disease. Trace fluid in the mastoid air cells. Electronically signed by: Leonidas Mcclure MD 10/16/2017 5:58 PM EDT
[2017-10-16] MEDS: Ferrous Sulfate 325 MG Tablet PO SCH (22:17)
[2017-10-17 07:24] LABS: Hematocrit 37.6 % (39.0-51.0); Hemoglobin 12.3 gm/dL (13.0-17.0); Mean Corpuscular HGB Conc 32.8 % (32.0-36.0); Mean Corpuscular Hemoglobin 26.7 pg (27.0-34.0); Mean Corpuscular Volume 81.4 fL (80.0-100.0); Mean Platelet Volume 7.2 fL (7.0-11.0); Platelet Count 132 th/mm3 (150-450); Red Blood Count 4.62 mil/mm3 (4.50-5.90); Red Cell Distribution Width 19.3 % (11.6-17.2); White Blood Count 3.4 th/mm3 (4.0-11.0)
[2017-10-17 07:28] LABS: Alanine Aminotransferase 55 U/L (12-78); Albumin 3.6 g/dL (3.4-5.0); Anion Gap 10 meq/L (5-15); Aspartate Aminotransferase 137 U/L (15-37); Blood Urea Nitrogen 12 mg/dL (7-18); Calcium 7.6 mg/dL (8.5-10.1); Carbon Dioxide 32.1 meq/L (21.0-32.0); Chloride 88 meq/L (98-107); Glomerular Filtration Rate Greater Than 89 mL/min (>89); Glucose,Random 87 mg/dL (74-106); Magnesium 2.1 mg/dL (1.5-2.5); Phosphorus 3.5 mg/dL (2.5-4.9); Potassium 3.4 meq/L (3.5-5.1); Sodium 130 meq/L (136-145)
[2017-10-17 07:42] LABS: Alkaline Phosphatase 73 U/L (45-117); Creatine Kinase 4380 U/L (39-308); Total Protein 6.3 g/dL (6.4-8.2)
[2017-10-17 07:56] LABS: CKMB Percent 0.8 % (0.0-4.0); Creatine Kinase MB 34.1 ng/mL (0.5-3.6)
[2017-10-17] MEDS: Iron Sucrose Inj 200 MG in Sodium Chlor 0.9% Inj 100 ML IV.SIG SCH (08:12)
[2017-10-17] MEDS: Calcium Carbonate 500 MG Tablet PO SCH ×2 (08:12→21:02)
[2017-10-17] MEDS: Ferrous Sulfate 325 MG Tablet PO SCH ×2 (08:12→21:02)
--- NOTE | 2017-10-17 08:40 | P.PNNP ---
Subjective Interval history: Renal function is stable. UA no proteinuria. Hyponatremia is stable. I will sign off at this time. Thanks. Physical Exam Vital signs: Vital Signs 10/16/17 09:36 10/16/17 11:55 10/16/17 16:00 Temperature 97.2 F L 98.2 F Pulse Rate 66 71 Respiratory Rate 19 17 Blood Pressure 109/71 108/78 Pulse Oximetry 89 L 96 91 L 10/16/17 19:17 10/16/17 19:55 10/16/17 20:00 Temperature 98.1 F Pulse Rate 65 Respiratory Rate 18 Blood Pressure 120/82 Pulse Oximetry 89 L 89 L 90 L 10/17/17 00:00 10/17/17 04:00 Temperature 98.3 F Pulse Rate 70 58 L Respiratory Rate 18 Blood Pressure 120/78 Pulse Oximetry 92 L Intake & Output 10/16/17 10/17/17 10/17/17 18:59 06:59 18:59 Intake Total 1135 / 1135 240 / 240 Output Total 1575 / 1575 1200 / 1200 Balance -440 / -440 -960 / -960 Weight 67 kg Intake: IV 610 / 610 Alburx 5% Inj 500 ML @ 250 mls/ 500 / 500 hr IV.SIG Q12H [facility] Rx#:[id number] Venofer Inj 200 MG In NS Inj 110 / 110 100 ML @ 110 mls/hr IV.SIG DAILY [facility] Rx#:[id number] Oral 525 / 525 240 / 240 Output: Urine 1575 / 1575 1200 / 1200 Other: # Bowel Movements 0 Assessment and Plan - Assessment (1) Electrolyte abnormality Code(s): E87.8 - Other disorders of electrolyte and fluid balance, not elsewhere classified Status: Acute Plan: 1. Hyponatremia with peripheral edema . Volume overload with initial IVF infusion. Possible underlying cirrhosis and CHF. 2D echo ordered No renal proteinuria on U/A. Renal function normal. IVFs stopped yesterday. 4L UOP with lasix and albumin, will repeat lasix 40mg IV again today and continue albumin. Continue IV lasix and albumin as needed. 2. Alkalosis. Was receiving HCO3 in IVFs - stopped now. Continue to monitor. May consider acetazolamide if ongoing issues. 3. Rhabdomyolysis. The patient had a total CK level of 5200 at the time of his presentation due to cocaine. Off IVFs now, continue to monitor. Renal function stable. 4. Anemia. The patient was transfused here with iron deficiency. Suspect this is part of his poor nutrition. Continue to follow with the primary team. 5. Hypocalcemia with vitamin D deficiency. The patient has been started on vitamin D. 6. Malnutrition. Continue supplemental nutrition care. May need nutritional supplements if not tolerating adequate p.o. intake. Continue to follow with the primary team. 7. Substance abuse. Counseled on cessation. Suspect his previous crack cocaine use as well as heavy alcohol abuse has contributed to some of his malnutrition. Continue support and may need supplemental nutritional shakes as needed based on p.o. intake.
[2017-10-17] MEDS: Albumin Human 5% Inj 500 ML IV.SIG SCH ×2 (09:30→21:03)
[2017-10-17] MEDS: Heparin - SQ 10,000 UNITS/ML Vial SQ SCH ×2 (13:20→22:44)
[2017-10-17 15:48] LABS: Hematocrit 36.1 % (39.0-51.0); Hemoglobin 11.7 gm/dL (13.0-17.0); Mean Corpuscular HGB Conc 32.5 % (32.0-36.0); Mean Corpuscular Hemoglobin 26.9 pg (27.0-34.0); Mean Corpuscular Volume 82.7 fL (80.0-100.0); Mean Platelet Volume 7.4 fL (7.0-11.0); Platelet Count 142 th/mm3 (150-450); Red Blood Count 4.36 mil/mm3 (4.50-5.90); Red Cell Distribution Width 19.5 % (11.6-17.2); White Blood Count 4.4 th/mm3 (4.0-11.0)
--- NOTE | 2017-10-17 16:07 | ECHRPT ---
Indication: HEART FAILURE CONCLUSIONS The left ventricular systolic function is low normal with an estimated ejection fraction in the rang e of 50- 55%. Mildly dilated proximal ascending aorta (aortic root 4.0 cm). Trace mitral valve regurgitation. There is trace tricuspid valve regurgitation. A small left sided pleural effusion is noted. BP: / HR: Rhythm: Technical Quality: FINDINGS LEFT VENTRICLE Normal left ventricular size. Wall thickness is normal. The left ventricular systolic function is low normal with an estimated ejection fraction in the rang e of 50- 55%. RIGHT VENTRICLE Normal right ventricular size and systolic function. LEFT ATRIUM The left atrial size is normal. RIGHT ATRIUM The right atrial size is normal. ATRIAL SEPTUM Normal atrial septal thickness AORTA Mildly dilated proximal ascending aorta (aortic root 4.0 cm) MITRAL VALVE Structurally normal mitral valve. Trace mitral valve regurgitation. No mitral valve stenosis. AORTIC VALVE No aortic valve stenosis or regurgitation. TRICUSPID VALVE Structurally normal tricuspid valve. There is trace tricuspid valve regurgitation. The estimated pulmonary arterial pressure is 19 mmHg. PULMONARY VALVE The pulmonary valve is not well visualized. VESSELS The inferior vena cava is normal in size. PERICARDIUM A small left sided pleural effusion is noted. Quang Waterman DO (Electronically Signed) Final Date:17 October 2017 16:06
--- NOTE | 2017-10-17 16:11 | P.PN ---
Subjective Interval history: The margin of the bed. Since he feels a little bit improved today. Breathing better. Still with shortness of breath however. Lower extremity edema improving some. No cough. Denies any pain in his belly. No chest pain. No fever or chills. He is not coughing. Still refusing iron things thyroid is poisonous. Physical Exam Vital signs: Vital Signs 10/16/17 19:17 10/16/17 19:55 10/16/17 20:00 Temperature 98.1 F Pulse Rate 65 Respiratory Rate 18 Blood Pressure 120/82 Pulse Oximetry 89 L 89 L 90 L 10/17/17 00:00 10/17/17 04:00 10/17/17 08:00 Temperature 98.3 F 97.8 F Pulse Rate 70 58 L 62 Respiratory Rate 18 18 Blood Pressure 120/78 110/55 L Pulse Oximetry 92 L 91 L 10/17/17 10:41 10/17/17 12:00 Temperature 97.3 F L Pulse Rate 71 Respiratory Rate 18 Blood Pressure 109/71 Pulse Oximetry 90 L 94 L Intake & Output 10/16/17 10/17/17 10/17/17 18:59 06:59 18:59 Intake Total 1485 / 1485 739 / 739 500 / 500 Output Total 1575 / 1575 1200 / 1200 750 / 750 Balance -90 / -90 -461 / -461 -250 / -250 Weight 67 kg Intake: IV 960 / 960 499 / 499 500 / 500 Alburx 5% Inj 500 ML @ 250 mls/ 500 / 500 499 / 499 500 / 500 hr IV.SIG Q12H [facility] Rx#:[id number] Azithromycin Inj 500 MG In NS 250 / 250 Inj 250 ML @ 250 mls/hr IV.SIG Q24H [facility] Rx#:[id number] Venofer Inj 200 MG In NS Inj 110 / 110 100 ML @ 110 mls/hr IV.SIG DAILY [facility] Rx#:[id number] Rocephin Inj 1,000 MG In NS Inj 100 / 100 100 ML @ 200 mls/hr IV.SIG Q24H [facility] Rx#:[id number] Oral 525 / 525 240 / 240 Output: Urine 1575 / 1575 1200 / 1200 750 / 750 Other: # Bowel Movements 0 Narrative: GENERAL: Pale chronically ill patient with sob, he is more compliant with O2 appears in nad. CARDIOVASCULAR: Regular rate and rhythm without murmurs, gallops, or rubs. RESPIRATORY: No shortness of breath, decreased breath sounds, no accessory muscle use. GASTROINTESTINAL: Abdomen soft, non-tender, nondistended. MUSCULOSKELETAL: No cyanosis. 2+ bilateral LE edema improving some. BACK: Nontender without obvious deformity. No CVA tenderness. Results - Labs CBC & Chem 7: 10/17/17 15:30 10/17/17 07:00 Laboratory Results - last 24 hr 10/14/17 10/16/17 10/16/17 09:05 16:24 16:24 WBC 3.0 L RBC 4.43 L Hgb 11.9 L Hct 36.1 L MCV 81.5 MCH 26.8 L MCHC 32.9 RDW 18.7 H Plt Count 127 L MPV 7.3 Puncture Site Not Reportable Sodium 129 L Potassium 3.3 L Chloride 84 L Carbon Dioxide 34.7 H Anion Gap 10 BUN 12 Creatinine 0.94 Estimated GFR 85 L Random Glucose 87 Calcium 7.7 L D Phosphorus 3.3 Magnesium 2.0 Total Bilirubin 0.6 AST 118 H ALT 52 Alkaline Phosphatase 75 Total Creatine Kinase CK-MB (CK-2) CK-MB (CK-2) % Total Protein 6.3 L D Albumin 3.6 D 10/17/17 10/17/17 10/17/17 07:00 07:00 15:30 WBC 3.4 L 4.4 RBC 4.62 4.36 L Hgb 12.3 L 11.7 L Hct 37.6 L 36.1 L MCV 81.4 82.7 MCH 26.7 L 26.9 L MCHC 32.8 32.5 RDW 19.3 H 19.5 H Plt Count 132 L 142 L MPV 7.2 7.4 Puncture Site Sodium 130 L Potassium 3.4 L Chloride 88 L Carbon Dioxide 32.1 H Anion Gap 10 BUN 12 Creatinine 0.82 Estimated GFR Greater than 89 Random Glucose 87 Calcium 7.6 L Phosphorus 3.5 Magnesium 2.1 Total Bilirubin 0.5 AST 137 H ALT 55 Alkaline Phosphatase 73 Total Creatine Kinase 4380 H CK-MB (CK-2) 34.1 H CK-MB (CK-2) % 0.8 Total Protein 6.3 L Albumin 3.6 Microbiology 10/14/17 12:07 Blood - Peripheral Aerobic Blood Culture - Preliminary No growth in 3 days 10/14/17 12:07 Blood - Peripheral Anaerobic Blood Culture - Preliminary No growth in 3 days 10/14/17 12:12 Blood - Peripheral Aerobic Blood Culture - Preliminary No growth in 3 days 10/14/17 12:12 Blood - Peripheral Anaerobic Blood Culture - Preliminary No growth in 3 days - Imaging Impressions Sinuses CT 10/16/17 00:00 CONCLUSION: 1. Left frontal sinus and ethmoid sinus disease. Trace fluid in the mastoid air cells. Assessment and Plan - Plan Hyponatremia LE edema SOB. Acute respiratory failure Severe anemia with HGB at 6.9 Polysubstance abuse. Counselled. On ciwa protocol Vit D deficiency. Severe hypocalcemia Iron deficiency . Patient is refusing iron supplement Rhabdomyolysis. MonitorCPK trending down slowly ABG reviewed. O2 supplement as need keep O2 sat > 94% Transfused 3U PRBC. Monitor H/H. Reviewed iron studies, b12, folate. FOBT pending Check BNP Check Vit D is low started ergocalciferiol Replace Ca ,Start Ca carbonate Start iron supplement and give Venofer IV x 3 days as with severe iron deficiency Give one dose of lasix. Check 2D ECHO CXR with bilateral infiltrates suggesting PNA or fluid overload Check blood cx Continue IV abx Rocephin and azithromycin Check sputum cx if obtainable Check urinary pneumococcal and legionella ag neg Duonebs as need Consult nephrology, appreciate recs Dr Rich nephrology. Start lasix and albumin. Restart home meds as appropriate DVT ppx scd/teds/ lovenox Discussed with the patient, nurse
[2017-10-17 16:12] LABS: Albumin 3.7 g/dL (3.4-5.0); Anion Gap 8 meq/L (5-15); Aspartate Aminotransferase 120 U/L (15-37); Blood Urea Nitrogen 12 mg/dL (7-18); Chloride 87 meq/L (98-107); Glomerular Filtration Rate Greater Than 89 mL/min (>89); Glucose,Random 101 mg/dL (74-106); Magnesium 2.2 mg/dL (1.5-2.5); Potassium 3.3 meq/L (3.5-5.1); Sodium 132 meq/L (136-145)
[2017-10-17 16:13] LABS: Alanine Aminotransferase 53 U/L (12-78); Phosphorus 3.3 mg/dL (2.5-4.9)
[2017-10-17 16:15] LABS: Alkaline Phosphatase 72 U/L (45-117); Total Protein 6.2 g/dL (6.4-8.2)
[2017-10-17 17:08] LABS: CKMB Percent 0.7 % (0.0-4.0); Creatine Kinase MB 29.6 ng/mL (0.5-3.6)
[2017-10-17] MEDS: Azithromycin Inj 500 MG in Sodium Chlor 0.9% Inj 250 ML IV.SIG SCH (17:45)
[2017-10-18] MEDS: Calcium Carbonate 500 MG Tablet PO SCH ×2 (08:15→20:40)
[2017-10-18] MEDS: Albumin Human 5% Inj 500 ML IV.SIG SCH ×2 (08:15→20:40)
[2017-10-18] MEDS: Ferrous Sulfate 325 MG Tablet PO SCH ×2 (08:15→20:40)
[2017-10-18 09:16] LABS: Hematocrit 32.6 % (39.0-51.0); Hemoglobin 10.7 gm/dL (13.0-17.0); Mean Corpuscular HGB Conc 32.8 % (32.0-36.0); Mean Corpuscular Hemoglobin 26.9 pg (27.0-34.0); Mean Corpuscular Volume 81.8 fL (80.0-100.0); Mean Platelet Volume 7.3 fL (7.0-11.0); Platelet Count 139 th/mm3 (150-450); Red Blood Count 3.99 mil/mm3 (4.50-5.90); Red Cell Distribution Width 19.2 % (11.6-17.2); White Blood Count 3.1 th/mm3 (4.0-11.0)
[2017-10-18 09:34] LABS: Albumin 3.5 g/dL (3.4-5.0); Anion Gap 10 meq/L (5-15); Aspartate Aminotransferase 142 U/L (15-37); Blood Urea Nitrogen 12 mg/dL (7-18); Calcium 7.9 mg/dL (8.5-10.1); Carbon Dioxide 34.1 meq/L (21.0-32.0); Chloride 88 meq/L (98-107); Glomerular Filtration Rate Greater Than 89 mL/min (>89); Glucose,Random 87 mg/dL (74-106); Magnesium 2.2 mg/dL (1.5-2.5); Potassium 3.3 meq/L (3.5-5.1); Sodium 132 meq/L (136-145)
[2017-10-18 09:35] LABS: Alanine Aminotransferase 60 U/L (12-78); Phosphorus 2.7 mg/dL (2.5-4.9)
[2017-10-18 09:48] LABS: Alkaline Phosphatase 72 U/L (45-117); Creatine Kinase 3745 U/L (39-308)
[2017-10-18 10:08] LABS: CKMB Percent 0.6 % (0.0-4.0); Creatine Kinase MB 23.4 ng/mL (0.5-3.6)
[2017-10-18] MEDS: Heparin - SQ 10,000 UNITS/ML Vial SQ SCH ×2 (12:23→23:27)
[2017-10-18] MEDS: Azithromycin Inj 500 MG in Sodium Chlor 0.9% Inj 250 ML IV.SIG SCH (12:24)
--- NOTE | 2017-10-18 15:10 | P.PN ---
Subjective Interval history: Patient in nad. No fever or chills. No n/v/d/c. Less LE edema. Feels tired. Says not much appetite but eatign fairly well. Physical Exam Vital signs: Vital Signs 10/17/17 20:00 10/18/17 00:00 10/18/17 04:00 Temperature 97.6 F 97.9 F 97.7 F Pulse Rate 74 67 70 Respiratory Rate 18 16 18 Blood Pressure 126/68 123/84 113/75 Pulse Oximetry 92 L 92 L 92 L 10/18/17 04:47 10/18/17 08:00 10/18/17 11:57 Temperature 98.0 F 97.9 F Pulse Rate 66 64 74 Respiratory Rate 18 18 Blood Pressure 122/68 133/83 Pulse Oximetry 90 L 90 L Intake & Output 10/17/17 10/18/17 10/18/17 18:59 06:59 18:59 Intake Total 500 / 500 850 / 850 750 / 750 Output Total 1000 / 1000 400 / 400 Balance -500 / -500 450 / 450 750 / 750 Intake: IV 500 / 500 850 / 850 750 / 750 Alburx 5% Inj 500 ML @ 250 mls/ 500 / 500 500 / 500 500 / 500 hr IV.SIG Q12H [facility] Rx#:[id number] Azithromycin Inj 500 MG In NS 250 / 250 250 / 250 Inj 250 ML @ 250 mls/hr IV.SIG Q24H [facility] Rx#:[id number] Rocephin Inj 1,000 MG In NS Inj 100 / 100 100 ML @ 200 mls/hr IV.SIG Q24H [facility] Rx#:[id number] Output: Urine 1000 / 1000 400 / 400 Narrative: GENERAL: Pale chronically ill patient with sob, he is more compliant with O2 appears in nad. CARDIOVASCULAR: Regular rate and rhythm without murmurs, gallops, or rubs. RESPIRATORY: No shortness of breath, decreased breath sounds, no accessory muscle use. GASTROINTESTINAL: Abdomen soft, non-tender, nondistended. MUSCULOSKELETAL: No cyanosis. 2+ bilateral LE edema improving some. BACK: Nontender without obvious deformity. No CVA tenderness. Results - Labs CBC & Chem 7: 10/18/17 08:30 10/18/17 08:30 Laboratory Results - last 24 hr 07/05/18 07/09/18 07/09/18 23:55 15:30 15:30 WBC 4.4 RBC 4.36 L Hgb 11.7 L Hct 36.1 L MCV 82.7 MCH 26.9 L MCHC 32.5 RDW 19.5 H Plt Count 142 L MPV 7.4 Sodium 132 L Potassium 3.3 L Chloride 87 L Carbon Dioxide 37.0 H Anion Gap 8 BUN 12 Creatinine 0.87 Estimated GFR Greater than 89 Random Glucose 101 Calcium 8.0 L Phosphorus 3.3 Magnesium 2.2 Total Bilirubin 0.4 AST 120 H ALT 53 Alkaline Phosphatase 72 Total Creatine Kinase CK-MB (CK-2) CK-MB (CK-2) % Total Protein 6.2 L Albumin 3.7 Vit D 1,25-Dihydroxy 67 H 10/17/17 10/18/17 10/18/17 15:30 08:30 08:30 WBC 3.1 L RBC 3.99 L Hgb 10.7 L Hct 32.6 L MCV 81.8 MCH 26.9 L MCHC 32.8 RDW 19.2 H Plt Count 139 L MPV 7.3 Sodium 132 L Potassium 3.3 L Chloride 88 L Carbon Dioxide 34.1 H Anion Gap 10 BUN 12 Creatinine 0.74 Estimated GFR Greater than 89 Random Glucose 87 Calcium 7.9 L Phosphorus 2.7 Magnesium 2.2 Total Bilirubin 0.5 AST 142 H ALT 60 Alkaline Phosphatase 72 Total Creatine Kinase 4152 H 3745 H CK-MB (CK-2) 29.6 H 23.4 H CK-MB (CK-2) % 0.7 0.6 Total Protein 6.0 L Albumin 3.5 Vit D 1,25-Dihydroxy Microbiology 10/14/17 12:07 Blood - Peripheral Aerobic Blood Culture - Preliminary No growth in 4 days 10/14/17 12:07 Blood - Peripheral Anaerobic Blood Culture - Preliminary No growth in 4 days 10/14/17 12:12 Blood - Peripheral Aerobic Blood Culture - Preliminary No growth in 4 days 10/14/17 12:12 Blood - Peripheral Anaerobic Blood Culture - Preliminary No growth in 4 days - Imaging Impressions Sinuses CT 10/16/17 00:00 CONCLUSION: 1. Left frontal sinus and ethmoid sinus disease. Trace fluid in the mastoid air cells. Assessment and Plan - Plan Hyponatremia LE edema SOB. Acute respiratory failure Severe anemia with HGB at 6.9 Polysubstance abuse. Counselled. On ciwa protocol Vit D deficiency. Severe hypocalcemia Iron deficiency . Patient is refusing iron supplement Rhabdomyolysis. Monitor CPK trending down slowly ABG reviewed. O2 supplement as need keep O2 sat > 94% Transfused 3U PRBC. Monitor H/H. Reviewed iron studies, b12, folate. FOBT pending Check BNP Check Vit D is low started ergocalciferiol Replace Ca ,Start Ca carbonate Start iron supplement and give Venofer IV x 3 days as with severe iron deficiency Give one dose of lasix. Check 2D ECHO CXR with bilateral infiltrates suggesting PNA or fluid overload Check blood cx Continue IV abx Rocephin and azithromycin Check sputum cx if obtainable Check urinary pneumococcal and legionella ag neg Duonebs as need Consult nephrology, appreciate recs Dr Rich nephrology. Start lasix and albumin. Restart home meds as appropriate DVT ppx scd/teds/ lovenox Discussed with the patient, nurse
[2017-10-19 02:28] LABS: Amphetamine Screen,Urine Neg (Neg); Barbiturate Screen,Urine Neg (Neg); Cannabinoid Screen,Urine Neg (Neg); Cocaine Screen,Urine Neg (Neg)
[2017-10-19 02:31] LABS: Opiate Screen,Urine Neg (Neg)
[2017-10-19] MEDS: Albumin Human 5% Inj 500 ML IV.SIG SCH ×2 (09:21→21:00)
[2017-10-19] MEDS: Ferrous Sulfate 325 MG Tablet PO SCH ×2 (09:22→21:00)
[2017-10-19] MEDS: Calcium Carbonate 500 MG Tablet PO SCH ×2 (09:22→21:00)
[2017-10-19 09:56] LABS: Hematocrit 32.9 % (39.0-51.0); Hemoglobin 10.7 gm/dL (13.0-17.0); Mean Corpuscular HGB Conc 32.4 % (32.0-36.0); Mean Corpuscular Hemoglobin 26.8 pg (27.0-34.0); Mean Corpuscular Volume 82.9 fL (80.0-100.0); Mean Platelet Volume 7.4 fL (7.0-11.0); Platelet Count 145 th/mm3 (150-450); Red Blood Count 3.97 mil/mm3 (4.50-5.90); White Blood Count 3.4 th/mm3 (4.0-11.0)
[2017-10-19 10:21] LABS: Alanine Aminotransferase 84 U/L (12-78); Albumin 3.6 g/dL (3.4-5.0); Anion Gap 9 meq/L (5-15); Aspartate Aminotransferase 191 U/L (15-37); Blood Urea Nitrogen 11 mg/dL (7-18); Calcium 7.9 mg/dL (8.5-10.1); Carbon Dioxide 31.8 meq/L (21.0-32.0); Chloride 90 meq/L (98-107); Glomerular Filtration Rate Greater Than 89 mL/min (>89); Glucose,Random 104 mg/dL (74-106); Magnesium 2.2 mg/dL (1.5-2.5); Phosphorus 2.4 mg/dL (2.5-4.9); Potassium 3.4 meq/L (3.5-5.1); Sodium 131 meq/L (136-145)
[2017-10-19 10:35] LABS: Alkaline Phosphatase 84 U/L (45-117); Creatine Kinase 3231 U/L (39-308); Total Protein 6.1 g/dL (6.4-8.2)
[2017-10-19 10:56] LABS: CKMB Percent 0.5 % (0.0-4.0); Creatine Kinase MB 17.7 ng/mL (0.5-3.6)
[2017-10-19] MEDS: Azithromycin Inj 500 MG in Sodium Chlor 0.9% Inj 250 ML IV.SIG SCH (11:00)
[2017-10-19] MEDS: Heparin - SQ 10,000 UNITS/ML Vial SQ SCH ×2 (11:39→23:36)
--- NOTE | 2017-10-19 17:11 | P.PN ---
Subjective Interval history: He is in bed still with lower extremity edema. No nausea or vomiting. He is still short of breath however shortness of breath is improving some. No cough. Feels very tired. Has a fairly good urine output. No fever chills no suprapubic pain. Physical Exam Vital signs: Vital Signs 10/18/17 20:38 10/18/17 21:57 10/19/17 00:00 Temperature 98.2 F 98.0 F Pulse Rate 76 62 Respiratory Rate 18 18 Blood Pressure 129/80 121/81 Pulse Oximetry 95 95 92 L 10/19/17 04:00 10/19/17 06:03 10/19/17 08:00 Temperature 97 F L 97.9 F Pulse Rate 78 72 63 Respiratory Rate 18 18 Blood Pressure 128/88 105/63 Pulse Oximetry 92 L 93 L 10/19/17 09:50 10/19/17 12:00 10/19/17 16:00 Temperature 97.8 F 98.4 F Pulse Rate 70 72 Respiratory Rate 18 18 Blood Pressure 129/80 126/73 Pulse Oximetry 93 L 91 L 90 L Intake & Output 10/18/17 10/19/17 10/19/17 18:59 06:59 18:59 Intake Total 1470 / 1470 500 / 500 Output Total 1200 / 1200 650 / 650 Balance 270 / 270 -150 / -150 Intake: IV 750 / 750 500 / 500 Alburx 5% Inj 500 ML @ 250 mls/ 500 / 500 500 / 500 hr IV.SIG Q12H LUPE Rx#:[id number] Azithromycin Inj 500 MG In NS 250 / 250 Inj 250 ML @ 250 mls/hr IV.SIG Q24H LUPE Rx#:[id number] Oral 720 / 720 Output: Urine 1200 / 1200 650 / 650 Other: Date of Last Bowel Movement 10/19/17 Narrative: GENERAL: Pale chronically ill patient with sob, he is more compliant with O2 appears in nad. CARDIOVASCULAR: Regular rate and rhythm without murmurs, gallops, or rubs. RESPIRATORY: No shortness of breath, decreased breath sounds, no accessory muscle use. GASTROINTESTINAL: Abdomen soft, non-tender, nondistended. MUSCULOSKELETAL: No cyanosis. 2+ bilateral LE edema improving but not significantly. BACK: Nontender without obvious deformity. No CVA tenderness. Results - Labs CBC & Chem 7: 10/19/17 09:05 10/19/17 09:15 Laboratory Results - last 24 hr 10/19/17 10/19/17 10/19/17 01:55 09:05 09:15 WBC 3.4 L RBC 3.97 L Hgb 10.7 L Hct 32.9 L MCV 82.9 MCH 26.8 L MCHC 32.4 RDW 20.0 H Plt Count 145 L MPV 7.4 Sodium 131 L Potassium 3.4 L Chloride 90 L Carbon Dioxide 31.8 Anion Gap 9 BUN 11 Creatinine 0.74 Estimated GFR Greater than 89 Random Glucose 104 Calcium 7.9 L Phosphorus 2.4 L Magnesium 2.2 Total Bilirubin 0.5 AST 191 H ALT 84 H Alkaline Phosphatase 84 Total Creatine Kinase 3231 H CK-MB (CK-2) 17.7 H CK-MB (CK-2) % 0.5 Total Protein 6.1 L Albumin 3.6 Urine Opiates Screen Neg Ur Barbiturates Screen Neg Ur Amphetamines Screen Neg U Benzodiazepines Scrn Neg Urine Cocaine Screen Neg U Cannabinoids Screen Neg Microbiology 10/14/17 12:07 Blood - Peripheral Aerobic Blood Culture - Final No growth in 5 days 10/14/17 12:07 Blood - Peripheral Anaerobic Blood Culture - Final No growth in 5 days 10/14/17 12:12 Blood - Peripheral Aerobic Blood Culture - Final No growth in 5 days 10/14/17 12:12 Blood - Peripheral Anaerobic Blood Culture - Final No growth in 5 days 10/19/17 01:55 Urine - Clean Catch Urine Streptococcus pneumoniae Antigen ( M - Final Presumptive negative for streptococcus pneumoniae antigen, suggesting no current or recent infection. Infection due to Streptococcus pneumoniae cannot be ruled out since the antigen present in the sample may be below the detection limit of the test. 10/19/17 01:55 Urine - Clean Catch Urine Legionella Antigen - Final Presumptive negative for Legionella pneumophila serogroup 1 antigen in urine, suggesting no recent or recurrent infection. Infection due to Legionella cannot be ruled out since other serogroups and species may cause disease, antigen may not be present in urine in early infection, and the level of antigen present in the urine may be below the detection limit of the test. Assessment and Plan - Plan Hyponatremia, improving LE edema, improving SOB. Acute respiratory failure, resolving Severe anemia with HGB at 6.9 Polysubstance abuse. Counselled. On ciwa protocol Vit D deficiency. Severe hypocalcemia Iron deficiency . Patient is refusing iron supplement Rhabdomyolysis. Monitor CPK trending down slowly ABG reviewed. O2 supplement as need keep O2 sat > 94% Transfused 3U PRBC. Monitor H/H. Reviewed iron studies, b12, folate. FOBT pending Check BNP Check Vit D is low started ergocalciferiol Replace Ca ,Start Ca carbonate Start iron supplement and give Venofer IV x 3 days as with severe iron deficiency Give one dose of lasix. Check 2D ECHO CXR with bilateral infiltrates suggesting PNA or fluid overload Check blood cx Continue IV abx Rocephin and azithromycin Check sputum cx if obtainable Check urinary pneumococcal and legionella ag neg Duonebs as need Consult nephrology, appreciate recs Dr Rich nephrology. Start lasix and albumin. Restart home meds as appropriate DVT ppx scd/teds/ lovenox Discussed with the patient, nurse
--- NOTE | 2017-10-19 19:29 | XR ---
EXAM DATE: 10/19/2017 7:08 PM EDT AGE/SEX: 52 years / Male INDICATIONS: Chest pain with shortness of breath and lower extremity swelling. CLINICAL DATA: This is the patient's initial encounter. Patient reports that signs and symptoms have been present for 1 month and indicates a pain score of 7/10. MEDICAL/SURGICAL HISTORY: . none given None. [place] [facility] [place]. [facility] [place], 01/04/2016. . FINDINGS: The heart size appears to be within normal limits. There is increased density at the bases bilaterall y. There is blunting of the costophrenic angle suggesting at least some of this is secondary to effus ions. The interstitial markings are mildly prominent. There appear to be deformities from prior right rib fractures. CONCLUSION: Increased density at the bases bilaterally related to some degree of atelectasis, consolidation and l ikely effusions. Prominent interstitium. This may represent some degree of pulmonary venous hypertension versus mild e yessica. Electronically signed by: Jaya Abreu MD 10/19/2017 7:28 PM EDT
[2017-10-19 22:49] LABS: ABG Base Excess 8.7 mmol/L (-2-2); ABG PCO2 47 mmHg (38-42); ABG PO2 76 mmHg (61-120)
[2017-10-20] MEDS: Budesonide-Formoterol 160/4.5 MCG 6 GM Inhaler INH SCH ×3 (01:35→20:53)
[2017-10-20 08:26] LABS: Hemoglobin 10.7 gm/dL (13.0-17.0); Mean Corpuscular HGB Conc 32.4 % (32.0-36.0); Mean Corpuscular Volume 83.3 fL (80.0-100.0); Mean Platelet Volume 7.9 fL (7.0-11.0); Platelet Count 174 th/mm3 (150-450); Red Blood Count 3.96 mil/mm3 (4.50-5.90); Red Cell Distribution Width 19.7 % (11.6-17.2); White Blood Count 3.7 th/mm3 (4.0-11.0)
[2017-10-20 08:49] LABS: Albumin 3.6 g/dL (3.4-5.0); Anion Gap 12 meq/L (5-15); Aspartate Aminotransferase 187 U/L (15-37); Blood Urea Nitrogen 14 mg/dL (7-18); Chloride 92 meq/L (98-107); Glomerular Filtration Rate Greater Than 89 mL/min (>89); Glucose,Random 80 mg/dL (74-106); Magnesium 2.2 mg/dL (1.5-2.5); Potassium 3.3 meq/L (3.5-5.1); Sodium 135 meq/L (136-145)
[2017-10-20 08:56] LABS: Alanine Aminotransferase 84 U/L (12-78); Alkaline Phosphatase 78 U/L (45-117); Total Protein 5.9 g/dL (6.4-8.2)
[2017-10-20] MEDS: Azithromycin 250 MG Tablet PO SCH (09:24)
[2017-10-20] MEDS: Calcium Carbonate 500 MG Tablet PO SCH ×2 (09:24→20:53)
[2017-10-20] MEDS: Ferrous Sulfate 325 MG Tablet PO SCH ×2 (09:24→20:53)
[2017-10-20] MEDS: Albumin Human 5% Inj 500 ML IV.SIG SCH (09:29)
--- NOTE | 2017-10-20 09:46 | P.PN ---
Subjective Interval history: In bed appears very tired. No fever or chills .LE edema improving some. Spoke with Dr Watson, patient agreeing to take iron supplement. No cough, no n/v/d/c. Physical Exam Vital signs: Vital Signs 10/19/17 09:50 10/19/17 12:00 10/19/17 16:00 Temperature 97.8 F 98.4 F Pulse Rate 70 72 Respiratory Rate 18 18 Blood Pressure 129/80 126/73 Pulse Oximetry 93 L 91 L 90 L 10/19/17 20:00 10/20/17 00:00 Temperature 97.7 F 98.3 F Pulse Rate 71 68 Respiratory Rate 18 18 Blood Pressure 116/73 128/73 Pulse Oximetry 95 95 Intake & Output 10/19/17 10/20/17 10/20/17 18:59 06:59 18:59 Intake Total 500 / 500 Output Total 1100 / 1100 Balance -1100 / -1100 500 / 500 Intake: IV 500 / 500 Alburx 5% Inj 500 ML @ 250 mls/ 500 / 500 hr IV.SIG Q12H [facility]PE Rx#:[id number] Output: Urine 1100 / 1100 Other: Date of Last Bowel Movement 10/19/17 10/19/17 Narrative: GENERAL: Pale chronically ill patient with sob, he is more compliant with O2 appears in nad. CARDIOVASCULAR: Regular rate and rhythm without murmurs, gallops, or rubs. RESPIRATORY: No shortness of breath, decreased breath sounds, no accessory muscle use. GASTROINTESTINAL: Abdomen soft, non-tender, nondistended. MUSCULOSKELETAL: No cyanosis. 2+ bilateral LE edema improving but not significantly. BACK: Nontender without obvious deformity. No CVA tenderness. Results - Labs CBC & Chem 7: 10/20/17 04:20 10/20/17 04:20 Laboratory Results - last 24 hr 10/19/17 10/19/17 10/19/17 09:05 09:15 22:33 WBC 3.4 L RBC 3.97 L Hgb 10.7 L Hct 32.9 L MCV 82.9 MCH 26.8 L MCHC 32.4 RDW 20.0 H Plt Count 145 L MPV 7.4 Puncture Site Right radial Patient Temperature 98.6 O2 Saturation 93 ABG pH 7.46 H ABG pCO2 47 H ABG pO2 76 ABG HCO3 33 H ABG O2 Content 13.0 ABG Base Excess 8.7 H ABG Methemoglobin 1.0 Jori Test Present Hemoglobin 9.9 L Carboxyhemoglobin 1.6 O2 Delivery Device Nasal cannula Liter Flow 6.00 Inspired O2 21 Critical Value No Sodium 131 L Potassium 3.4 L Chloride 90 L Carbon Dioxide 31.8 Anion Gap 9 BUN 11 Creatinine 0.74 Estimated GFR Greater than 89 Random Glucose 104 Calcium 7.9 L Phosphorus 2.4 L Magnesium 2.2 Total Bilirubin 0.5 AST 191 H ALT 84 H Alkaline Phosphatase 84 Total Creatine Kinase 3231 H CK-MB (CK-2) 17.7 H CK-MB (CK-2) % 0.5 Total Protein 6.1 L Albumin 3.6 10/20/17 10/20/17 04:20 04:20 WBC 3.7 L RBC 3.96 L Hgb 10.7 L Hct 33.0 L MCV 83.3 MCH 27.0 MCHC 32.4 RDW 19.7 H Plt Count 174 MPV 7.9 Puncture Site Patient Temperature O2 Saturation ABG pH ABG pCO2 ABG pO2 ABG HCO3 ABG O2 Content ABG Base Excess ABG Methemoglobin Jori Test Hemoglobin Carboxyhemoglobin O2 Delivery Device Liter Flow Inspired O2 Critical Value Sodium 135 L Potassium 3.3 L Chloride 92 L Carbon Dioxide 31.0 Anion Gap 12 BUN 14 Creatinine 0.76 Estimated GFR Greater than 89 Random Glucose 80 Calcium 8.0 L Phosphorus 2.0 L Magnesium 2.2 Total Bilirubin 0.5 AST 187 H ALT 84 H Alkaline Phosphatase 78 Total Creatine Kinase CK-MB (CK-2) CK-MB (CK-2) % Total Protein 5.9 L Albumin 3.6 Microbiology 10/14/17 12:07 Blood - Peripheral Aerobic Blood Culture - Final No growth in 5 days 10/14/17 12:07 Blood - Peripheral Anaerobic Blood Culture - Final No growth in 5 days 10/14/17 12:12 Blood - Peripheral Aerobic Blood Culture - Final No growth in 5 days 10/14/17 12:12 Blood - Peripheral Anaerobic Blood Culture - Final No growth in 5 days 10/19/17 01:55 Urine - Clean Catch Urine Streptococcus pneumoniae Antigen ( M - Final Presumptive negative for streptococcus pneumoniae antigen, suggesting no current or recent infection. Infection due to Streptococcus pneumoniae cannot be ruled out since the antigen present in the sample may be below the detection limit of the test. 10/19/17 01:55 Urine - Clean Catch Urine Legionella Antigen - Final Presumptive negative for Legionella pneumophila serogroup 1 antigen in urine, suggesting no recent or recurrent infection. Infection due to Legionella cannot be ruled out since other serogroups and species may cause disease, antigen may not be present in urine in early infection, and the level of antigen present in the urine may be below the detection limit of the test. - Imaging Impressions Chest X-Ray 10/19/17 00:00 CONCLUSION: Increased density at the bases bilaterally related to some degree of atelectasis , consolidation and likely effusions. Prominent interstitium. This may represent some degree of pulmonary venous hypertension versus mild edema. Assessment and Plan - Plan Hyponatremia, improving LE edema, improving SOB. Acute respiratory failure, resolving Severe anemia with HGB at 6.9 Polysubstance abuse. Counselled. On ciwa protocol Vit D deficiency. Severe hypocalcemia Iron deficiency . Patient is refusing iron supplement Rhabdomyolysis. Monitor CPK trending down slowly ABG reviewed. O2 supplement as need keep O2 sat > 94% Transfused 3U PRBC. Monitor H/H. Reviewed iron studies, b12, folate. FOBT pending Check BNP Check Vit D is low started ergocalciferiol Replace Ca ,Start Ca carbonate Start iron supplement and give Venofer IV x 3 days as with severe iron deficiency Give one dose of lasix. Check 2D ECHO CXR with bilateral infiltrates suggesting PNA or fluid overload Check blood cx Continue IV abx Rocephin and azithromycin Check sputum cx if obtainable Check urinary pneumococcal and legionella ag neg Duonebs as need Consult nephrology, appreciate recs Dr Rich nephrology. Start lasix and albumin. Restart home meds as appropriate DVT ppx scd/teds/ lovenox Discussed with the patient, nurse
[2017-10-20] MEDS ORDERED: Potassium Chloride 10 MEQ ER Capsule PO ONE (09:47)
[2017-10-20] MEDS: Heparin - SQ 10,000 UNITS/ML Vial SQ SCH ×2 (11:13→23:00)
--- NOTE | 2017-10-20 13:22 | P.NPEVAL ---
Patient History - Record/History Review Reason for Referral: The patient is a 52 year old right handed male admitted to [facility] on 10/13 for hyponautremia, chest pain and leg swelling. The patient has a history of EtOH , crack cocaine and THC abuse, and had been living at a SNF. Since his admission, he has been refusing medications. He is referred for baseline neurobehavioral status examination to assess cognitive, behavioral and emotional aspects of the injury and to provide treatment recommendations. [facility] - History History Provided By: Patient - Medical History Medical History: Medical History (Last Reviewed 10/19/17 @ 19:02 by Rita Grewal) Alcohol abuse Insomnia Substance abuse - Surgical History Surgical History: Surgical History (Last Reviewed 10/19/17 @ 19:02 by Rita Grewal) Hernia (Acute) Cataract (Acute) - Family History Family History: Family History (Last Updated 10/14/17 @ 19:01 by Alena Rubi MD) Other Cardiac defibrillator in situ Family history of hypertension - Tobacco History Second Hand Smoke Exposure: No Tobacco Use In Past 30 Days: No Smoking Status: Former smoker Tobacco Type: Cigarettes - Alcohol History How Often Do You Have a Drink Containing Alcohol: Monthly or less - Substance Use History Substance History: Active Abuse, Past History - Substance Use Type Crack/Cocaine Status: Active Route Used: Inhalation Frequency: 2-3 TIMES A WEEK Last Used: 3 WEEKS AGO Reason for Use: Get High, Sleep Marijuana Status: Active Route Used: By Mouth Reason for Use: Calm Down, Feels Good - Travel History Recent Travel in the [place] Within the Last 8 Weeks: No Recent Travel Out of the Country Within the Last 8 Weeks: No - Immunization History Tetanus Immunization: Unsure Hx Influenza Vaccine This Season: Yes Medications Active Medications Acetaminophen (Tylenol) 650 mg PO Q4H PRN PRN Reason: SEE LABEL COMMENTS Al Hydroxide/Mg Hydroxide (Milk Of Sushma Rendon) 30 ml PO Q12H PRN PRN Reason: Mild Constipation Albuterol (Duoneb Neb (Prn)) 1 ampul NEB Q6HR NEB PRN PRN Reason: SHORTNESS OF BREATH/WHEEZING Azithromycin (Zithromax) 500 mg PO DAILY [facility] Last Admin: 10/20/17 09:24 Dose: 500 mg Bisacodyl (Dulcolax Supp) 10 mg RECTAL DAILY PRN PRN Reason: SEVERE CONSITIPATION Budesonide/Formoterol Fumarate (Symbicort 160/4.5 Mcg Inh) 1 puff INH BID [facility] Last Admin: 10/20/17 09:23 Dose: 1 puff Cefuroxime Axetil (Ceftin) 500 mg PO Q12HR [facility] Last Admin: 10/20/17 09:23 Dose: 500 mg Diphenhydramine HCl (Benadryl) 25 mg PO Q4H PRN PRN Reason: SEE LABEL COMMENTS Last Admin: 10/14/17 22:11 Dose: 25 mg Ergocalciferol (Vitamind2) 50,000 unit PO Q7D [facility] Last Admin: 10/15/17 13:12 Dose: 50,000 unit Ferrous Sulfate (Ferosul) 325 mg PO BID [facility] Last Admin: 10/20/17 09:24 Dose: 325 mg Flumazenil (Romazecon Inj) 0.2 mg IV.PUSH Q1M PRN PRN Reason: OVERSEDATION Furosemide (Lasix Inj) 40 mg IV.PUSH DAILY [facility] Last Admin: 10/20/17 09:24 Dose: 40 mg Haloperidol Lactate (Haldol Inj) 1 mg IV.PUSH Q15M PRN PRN Reason: for severe agitation Heparin Sodium (Porcine) (Heparin Inj) 5,000 units SQ Q12H [facility] Last Admin: 10/20/17 11:13 Dose: Not Given Albumin Human (Alburx 5% Inj) 500 mls @ 250 mls/hr IV.SIG Q12H [facility] Last Infusion: 10/20/17 12:08 Dose: Infused Lactulose (Lactulose Liq) 30 ml PO DAILY PRN PRN Reason: SEVERE CONSITIPATION Lorazepam (Ativan) 1 mg PO Q4H PRN PRN Reason: for CIWA 8-10 Lorazepam (Ativan) 2 mg PO Q2H PRN PRN Reason: for CIWA 11-14 Lorazepam (Ativan Inj) 2 mg IV.PUSH Q2H PRN PRN Reason: for CIWA 11-14 Lorazepam (Ativan Inj) 2 mg IV.PUSH Q1H PRN PRN Reason: for CIWA 15-20 Lorazepam (Ativan Inj) 2 mg IV.PUSH Q15M PRN PRN Reason: for CIWA > 20 Lorazepam (Ativan Inj) 1 mg IV.PUSH Q4H PRN PRN Reason: for CIWA 8-10 Oxycodone/Acetaminophen (Percocet 5/325 Mg) 1 tab PO Q6H PRN PRN Reason: pain 2-10 Last Admin: 10/20/17 09:25 Dose: 1 tab Potassium Chloride (K-Dur) 20 meq PO DAILY LUPE Sennosides (Senokot) 17.2 mg PO Q12H PRN PRN Reason: Moderate Constipation Zolpidem Tartrate (Ambien) 10 mg PO HS PRN PRN Reason: INSOMNIA Last Admin: 10/20/17 01:36 Dose: 10 mg Mental Status Assessment - Mental Status Orientation: oriented to: Self, Place, Time, Situation Mental Status: WFL: Language/interactions, Variable: Attention, Learning/memory , Problem-solving, Impaired: Thought processing Absent: Hallucinations, Delusions Adjustment/Coping Assessment - Adjustment/Coping Adjustment/Coping: None: Depression, Anxiety, Mild: Awareness, Insight - Observation In terms of emotional functioning, the patient demonstrated challenges. This patient demonstrated no signs of agitation, impulsivity or disinhibition, nor was there remarkable evidence of a formal thought disorder or psychosis. There was no evidence of depression or anxiety. Thought content was free from suicidal, homicidal or paranoid ideation, and thought processes were bradyphrenic. The patients mood was guarded, and his affect was flat. The patient appears to possess some insight and awareness into their situation and within the limits of this brief evaluation, diminished judgment. - Goals/Team Members LTG Status: Deferred STG Status: Deferred Team Members: Neuropsychologist Behavior - Behavior Treatment Engagement: Minimal - Observation Behaviorally, the patient demonstrated no signs of agitation, impulsivity or disinhibition. There was no remarkable evidence of a formal thought disorder or psychosis. - Goals LTG Status: Deferred STG Status: Deferred - Team Members Team Members: Neuropsychologist Diagnosis/Discharge Plan - Diagnosis (1) Mild neurocognitive disorder Status: Acute Impression: This 52 year old male recently admitted for hyponautremia, chest pain and leg swelling presents with bradyphrenia, diminished insight, awareness and judgment , related to his metabolic state. He is diagnosed with mild neurocognitive disorder to reflect these neuropsychological deficits. Maximizing Acute Care Outcome: It was discussed with this patient his need to accept medication designed to facilitate his optimal therapeutic outcome, and he agreed to do so. At this point in the recovery process, the patient does have cognitive capacity as the patient is able to understand a situation and its likely consequences, and he able to manipulate most information rationally. Cognitive capacity will be assessed throughout the recovery process. - Discharge Planning Anticipated Problems: Ongoing areas of concern will include lack of insight and judgment, which is expected to improve with time and treatment. Presently, the patient is following commands and is compliant. Treatment Plan: This clinician will continue to follow with you throughout the course of this patients acute care treatment, and I will be available to meet with the patient s family/support system to facilitate their understanding and the ongoing care of their family member. The goals of neuropsychological intervention shall be both educational and supportive to the family/support system as is deemed clinically appropriate. Thank you for the opportunity to assist in this patients care. Chandrakant Watson, Ph.D., ABPP Board Certified in Clinical Neuropsychology [place] [employer] [place] Licensed Psychologist #[id number]
[2017-10-21] MEDS: Albumin Human 5% Inj 500 ML IV.SIG SCH ×3 (00:38→21:26)
--- NOTE | 2017-10-21 08:27 | P.PNNPSY ---
- Cognitive Intact: Confused/orientation, Mild: Attention/concentration, Judgment/problem solving, Memory, Moderate: Insight/awareness - Psychosocial Severe: Psychosocial, Family/other adjustment, Realistic expectation - Progress Notes/Response to Treatment Contents of Sessions: Adjustment, Level of consciousness Time with Patient: 15 minutes Premorbid Psychological Status: Premorbid Cognitive, Emotional and Behavioral Status: Unstable. The patient has high school years of education and a sporadic work history prior to this injury. The patient has prior psychiatric difficulties, as described above. Substance abuse history is significant. Behavioral Reactions of Patient and Family/Support System: Unstable. The patients family is experiencing ongoing issues of adjustment given the nature of the injury, and this aspect of recovery will require ongoing monitoring. Emotional/Behavioral Status of Patient and Family/Support System: Unstable. Pertinent issues, if appropriate to this patients clinical care, are described in detail above. Maximizing Acute Care Outcome: It was discussed with this patient his need to accept medication designed to facilitate his optimal therapeutic outcome, and he agreed to do so. At this point in the recovery process, the patient does have cognitive capacity as the patient is able to understand a situation and its likely consequences, and he able to manipulate most information rationally. Cognitive capacity will be assessed throughout the recovery process. Anticipated Problems: Ongoing areas of concern will include lack of insight and judgment, which is expected to improve with time and treatment. Presently, the patient is following commands and is compliant. Treatment Plan: This clinician will continue to follow with you throughout the course of this patients acute care treatment, and I will be available to meet with the patient s family/support system to facilitate their understanding and the ongoing care of their family member. The goals of neuropsychological intervention shall be both educational and supportive to the family/support system as is deemed clinically appropriate. Impression: This 52 year old male recently admitted for hyponautremia, chest pain and leg swelling presents with bradyphrenia, diminished insight, awareness and judgment , related to his metabolic state. He is diagnosed with mild neurocognitive disorder to reflect these neuropsychological deficits. Progress Note Narrative: Day 8 of hospitalization. Discussion with patient yesterday included his agreement to take his iron supplement, which it appears he refused last night after this discussion. I had another discussion with him explaining to him that whatever eccentricities or limited knowledge he has, he is impeding his clinical care by continuing to refuse this supplement. The patient did report to me that he is taking his medications, and his RN corroborated his self- report. I will follow. - Diagnosis (1) Mild neurocognitive disorder Status: Acute
[2017-10-21] MEDS: Ferrous Sulfate 325 MG Tablet PO SCH ×2 (09:22→21:26)
[2017-10-21] MEDS: Azithromycin 250 MG Tablet PO SCH (09:22)
[2017-10-21] MEDS: Calcium Carbonate 500 MG Tablet PO SCH ×2 (09:22→21:26)
[2017-10-21] MEDS: Budesonide-Formoterol 160/4.5 MCG 6 GM Inhaler INH SCH ×2 (09:22→21:26)
--- NOTE | 2017-10-21 09:23 | P.PN ---
Subjective Interval history: Follow-up for hyponatremia, lower extremity edema, severe anemia. Patient is currently doing well. Resting in bed no acute concerns. No fever or chills. Physical Exam Vital signs: Vital Signs 10/20/17 12:00 10/20/17 16:00 10/20/17 20:00 Temperature 98.0 F 97.8 F 97.2 F L Pulse Rate 80 97 H 86 Respiratory Rate 19 17 18 Blood Pressure 130/68 137/74 132/62 Pulse Oximetry 84 L 80 L 86 L 10/21/17 00:00 10/21/17 04:00 10/21/17 04:26 Temperature 97.9 F 97.8 F Pulse Rate 72 83 79 Respiratory Rate 18 18 Blood Pressure 126/74 114/74 Pulse Oximetry 86 L 87 L Intake & Output 10/20/17 10/21/17 10/21/17 18:59 06:59 18:59 Intake Total 1600 / 1600 240 / 240 500 / 500 Output Total 450 / 450 300 / 300 Balance 1150 / 1150 -60 / -60 500 / 500 Intake: IV 1000 / 1000 500 / 500 Alburx 5% Inj 500 ML @ 250 mls/ 1000 / 1000 500 / 500 hr IV.SIG Q12H [facility] Rx#:[id number] Oral 600 / 600 240 / 240 Output: Urine 450 / 450 300 / 300 Other: # Voids 1 Date of Last Bowel Movement 10/20/17 # Bowel Movements 1 Narrative: GENERAL: Alert, NAD. SKIN: Warm and dry. HEAD: Normocephalic. EYES: No scleral icterus. No injection or drainage. NECK: Supple, trachea midline. No JVD or lymphadenopathy. CARDIOVASCULAR: Regular rate and rhythm without murmurs, gallops, or rubs. RESPIRATORY: Breath sounds equal bilaterally. No accessory muscle use. GASTROINTESTINAL: Abdomen soft, non-tender, nondistended. MUSCULOSKELETAL: No cyanosis. LE edema 1+ BACK: Nontender without obvious deformity. No CVA tenderness. Results - Labs CBC & Chem 7: 10/21/17 14:53 10/20/17 04:20 Assessment and Plan - Plan Mr. Bryant is a 52-year-old male with a history of cocaine use and alcohol abuse who presented to the emergency department on 10/13/2017 due to lower extremity swelling and chest pain. He was found to have hemoglobin 6.9 and sodium 132. He received 3 units of PRBCs. Chest x-ray shows pneumonia and he was subsequently started on Rocephin and azithromycin. He was also found to have total CPK 5200 for which he received IV fluid. Hyponatremia Rhabdomyolysis Mild hypokalemia -Sodium improved from 129 to 135 -Nephrology followed this patient and signed off. -No sign of kidney injury from rhabdomyolysis. Total CPK trended down in the 3000 range. -Patient is on daily furosemide. Continue daily potassium chloride 20 mEq. -We will switch patient to torsemide 10 mg twice a day. Polysubstance abuse -patient received counseling. Continue CIWA protocol. Possible pneumonia -patient is currently on cefuroxime 500 mg every 12 hours, azithromycin 500 mg daily. Iron deficiency anemia -continue iron supplements Full code. Heparin SQ.
[2017-10-21] MEDS: Heparin - SQ 10,000 UNITS/ML Vial SQ SCH ×2 (11:35→22:33)
[2017-10-21 15:41] LABS: Hematocrit 37.8 % (39.0-51.0); Hemoglobin 11.9 gm/dL (13.0-17.0); Mean Corpuscular HGB Conc 31.4 % (32.0-36.0); Mean Corpuscular Hemoglobin 26.5 pg (27.0-34.0); Mean Corpuscular Volume 84.6 fL (80.0-100.0); Mean Platelet Volume 7.6 fL (7.0-11.0); Platelet Count 174 th/mm3 (150-450); Red Blood Count 4.47 mil/mm3 (4.50-5.90); Red Cell Distribution Width 20.6 % (11.6-17.2); White Blood Count 3.3 th/mm3 (4.0-11.0)
[2017-10-21 16:15] LABS: Alanine Aminotransferase 145 U/L (12-78); Albumin 4.1 g/dL (3.4-5.0); Alkaline Phosphatase 123 U/L (45-117); Anion Gap 9 meq/L (5-15); Aspartate Aminotransferase 241 U/L (15-37); Blood Urea Nitrogen 16 mg/dL (7-18); Calcium 7.1 mg/dL (8.5-10.1); Carbon Dioxide 27.6 meq/L (21.0-32.0); Chloride 93 meq/L (98-107); Glomerular Filtration Rate Greater Than 89 mL/min (>89); Glucose,Random 73 mg/dL (74-106); Potassium 3.9 meq/L (3.5-5.1); Sodium 130 meq/L (136-145); Total Protein 6.9 g/dL (6.4-8.2)
[2017-10-21] MEDS ORDERED: Calcium Chloride Inj 1 GM/10 ML Syringe IV.PUSH ONE (18:00)
[2017-10-21] MEDS ORDERED: Calcium Gluconate Inj 2 GM in Sodium Chlor 0.9% Inj 100 ML IV.SIG ONE (18:00)
[2017-10-21] MEDS ORDERED: Calcium Chloride Inj 1 GM in Sodium Chlor 0.9% Inj 100 ML IV.SIG ONE (18:30)
[2017-10-22] MEDS: Albumin Human 5% Inj 500 ML IV.SIG SCH ×2 (09:06→21:22)
[2017-10-22] MEDS: Ferrous Sulfate 325 MG Tablet PO SCH ×2 (09:08→21:23)
[2017-10-22] MEDS: Azithromycin 250 MG Tablet PO SCH (09:08)
[2017-10-22] MEDS: Calcium Carbonate 500 MG Tablet PO SCH ×2 (09:08→21:23)
[2017-10-22] MEDS: Budesonide-Formoterol 160/4.5 MCG 6 GM Inhaler INH SCH ×2 (09:10→21:24)
[2017-10-22] MEDS: Heparin - SQ 10,000 UNITS/ML Vial SQ SCH ×2 (11:53→23:28)
[2017-10-22 12:39] LABS: Anion Gap 13 meq/L (5-15); Blood Urea Nitrogen 19 mg/dL (7-18); Calcium 7.5 mg/dL (8.5-10.1); Carbon Dioxide 29.4 meq/L (21.0-32.0); Chloride 93 meq/L (98-107); Glomerular Filtration Rate Greater Than 89 mL/min (>89); Glucose,Random 80 mg/dL (74-106); Potassium 3.4 meq/L (3.5-5.1); Sodium 135 meq/L (136-145)
[2017-10-22 16:39] LABS: Alanine Aminotransferase 87 U/L (12-78); Albumin 4.1 g/dL (3.4-5.0); Alkaline Phosphatase 102 U/L (45-117); Total Protein 6.8 g/dL (6.4-8.2)
[2017-10-22 16:40] LABS: Aspartate Aminotransferase 130 U/L (15-37)
--- NOTE | 2017-10-22 16:40 | P.PN ---
Subjective Interval history: Nursing denies any deterioration since last night. Nursing reports that the patient's sats at best reach 88% on room air while the patient is sitting up. Patient himself denies any chest pain today or shortness of breath. Reports having some right proximal thigh pain. Says he does not want to go back to the [facility] where he was at most recently. Physical Exam Vital signs: Vital Signs 10/21/17 20:00 10/22/17 00:00 10/22/17 04:00 Temperature 97.5 F L 97.6 F 97.6 F Pulse Rate 80 69 80 Respiratory Rate 17 16 16 Blood Pressure 118/74 104/58 L 117/72 Pulse Oximetry 82 L 81 L 87 L 10/22/17 08:00 10/22/17 11:09 10/22/17 12:00 Temperature 98.1 F 97.7 F Pulse Rate 74 78 Respiratory Rate 17 17 Blood Pressure 100/63 122/73 Pulse Oximetry 90 L 93 L 10/22/17 15:09 Temperature Pulse Rate Respiratory Rate Blood Pressure Pulse Oximetry 92 L Intake & Output 10/21/17 10/22/17 10/22/17 18:59 06:59 18:59 Intake Total 1500 / 1500 850 / 850 750 / 750 Output Total 1400 / 1400 1600 / 1600 Balance 100 / 100 -750 / -750 750 / 750 Intake: IV 1000 / 1000 610 / 610 750 / 750 Alburx 5% Inj 500 ML @ 250 mls/ 1000 / 1000 500 / 500 500 / 500 hr IV.SIG Q12H [facility] Rx#:[id number] Calcium Chloride Inj 1 GM In NS 110 / 110 Inj 100 ML @ 110 mls/hr IV.SIG ONCE ONE Rx#:[id number] Oral 500 / 500 240 / 240 Output: Urine 1400 / 1400 1600 / 1600 Other: Date of Last Bowel Movement 10/20/17 10/21/17 # Bowel Movements 0 Narrative: On exam the patient has clear lungs bilaterally, unlabored breathing No lower extremity edema There is no deformity visualized on either lower extremity, especially where the patient is pointing to his pain on his medial right thigh which appears to have normal color and no palpable mass. His right medial thigh is simply tender to palpation to moderate extent Results - Labs CBC & Chem 7: 10/21/17 14:53 10/22/17 10:40 Laboratory Results - last 24 hr 10/22/17 10:40 Sodium 135 L Potassium 3.4 L Chloride 93 L Carbon Dioxide 29.4 Anion Gap 13 BUN 19 H Creatinine 0.78 Estimated GFR Greater than 89 Random Glucose 80 Calcium 7.5 L Assessment and Plan - Plan Mr. Bryant is a 52-year-old male with a history of cocaine use and alcohol abuse who presented to the emergency department on 10/13/2017 due to lower extremity swelling and chest pain. He was found to have hemoglobin 6.9 and sodium 132. He received 3 units of PRBCs. Chest x-ray shows pneumonia and he was subsequently started on Rocephin and azithromycin. He was also found to have total CPK 5200 for which he received IV fluid. Hyponatremia Rhabdomyolysis - likely 2/2 cocaine use Mild hypokalemia -Sodium stabilized, stopping IVFs -Nephrology followed this patient and signed off. -No sign of kidney injury from rhabdomyolysis. Awaiting repeat CPK today -Patient is on daily furosemide. Continue daily potassium chloride 20 mEq. -We will switch patient to torsemide 10 mg twice a day. hypoxia - possibly 2/2 PNA, will order home oxygen walk test. Will order ddimer as well. Elevated AST and ALT -Despite a lowering CPK these enzymes appear to have been elevating over the past few days, ordering repeat today, if worsening we will obtain a hepatic viral function panel as well as a hepatic ultrasound Polysubstance abuse -patient received counseling. Continue CIWA protocol. Possible pneumonia -patient is currently on cefuroxime 500 mg every 12 hours, azithromycin 500 mg daily. Iron deficiency anemia -continue iron supplements Full code. Heparin SQ.
[2017-10-22 17:06] LABS: CKMB Percent 0.6 % (0.0-4.0); Creatine Kinase MB 9.8 ng/mL (0.5-3.6)
[2017-10-23] MEDS: Albumin Human 5% Inj 500 ML IV.SIG SCH ×2 (08:44→22:10)
[2017-10-23] MEDS: Calcium Carbonate 500 MG Tablet PO SCH ×2 (08:45→22:10)
[2017-10-23] MEDS: Azithromycin 250 MG Tablet PO SCH (08:45)
[2017-10-23] MEDS: Ferrous Sulfate 325 MG Tablet PO SCH ×2 (08:45→22:10)
[2017-10-23] MEDS: Budesonide-Formoterol 160/4.5 MCG 6 GM Inhaler INH SCH ×2 (08:46→22:11)
[2017-10-23] MEDS: Heparin - SQ 10,000 UNITS/ML Vial SQ SCH ×2 (11:55→22:11)
--- NOTE | 2017-10-23 12:46 | CT ---
EXAM DATE: 10/23/2017 12:31 PM EDT AGE/SEX: 52 years / Male INDICATIONS: Hypoxia. CLINICAL DATA: This is the patient's initial encounter. Patient reports that signs and symptoms have been present for 1 day and indicates a pain score of 0/10. MEDICAL/SURGICAL HISTORY: None. None. RADIATION DOSE: 16.04 CTDI (mGy) COMPARISON: No prior exams available for comparison. TECHNIQUE: Volumetric scanning was performed using a multi-row detector CT scanner during bolus infu niharika of 71 ml Omnipaque 350 (iohexol) nonionic water-soluble contrast as a single exam dose. The toribio a was post processed with a variety of visualization algorithms including full volume maximum intensi ty projection and sliding thin slab reformation. Using automated exposure control and adjustment of the mA and/or kV according to patient size, radiation dose was kept as low as reasonably achievable t o obtain optimal diagnostic quality images. DICOM format image data is available electronically for review and comparison. FINDINGS: Examination of the pulmonary vasculature demonstrates good filling of the main, lobar and segmental b ranches. There are no filling defects to suggest pulmonary embolism. Multiplanar reconstructions are also unremarkable. Moderate size bilateral pleural effusions are identified. There is bilateral lower lobe atelectasis v ersus pneumonia. There is an aneurysm of the ascending aorta without dissection sparing the coronary arteries measuring 4.8 cm. A small hiatal hernia is present. The adrenal glands are unremarkable. CONCLUSION: No evidence of pulmonary embolism. Aneurysm of ascending aorta measuring 4.8 cm Bilateral effusions and bilateral lower lobe atelectasis Electronically signed by: Yeison Mckeon MD 10/23/2017 12:44 PM EDT
--- NOTE | 2017-10-23 16:24 | P.PN ---
Subjective Interval history: RN denies any setbacks since last night. Pt says he will "kill myself" before going back to the [facility]. Initially he reluctantly agreed to return to his designated [facility]. however he changed his mind and says he wants to go to [place] which is not feasible upon this anticipated hospital discharge. when told this pt says he will go live with his mom, but CM has verified that his mom is refusing to take him in. In response to this pt has reiterated that he wants to "kill myself." Apart from this pt thinks he's improving medically speaking, thinks that the inhaler is helping him alot. Physical Exam Vital signs: Vital Signs 10/22/17 19:25 10/22/17 20:00 10/23/17 00:00 Temperature 97.7 F 97.7 F Pulse Rate 85 83 83 Respiratory Rate 18 18 Blood Pressure 134/78 122/64 Pulse Oximetry 85 L 86 L Pulse Oximetry [Resting on Room Air] Pulse Oximetry [Resting with Oxygen] 10/23/17 04:00 10/23/17 08:00 10/23/17 11:07 Temperature 97.5 F L Pulse Rate 93 H Respiratory Rate 18 Blood Pressure 123/78 Pulse Oximetry 88 L 88 L Pulse Oximetry [Resting on Room Air] 82 L Pulse Oximetry [Resting with Oxygen] 92 L 10/23/17 11:09 10/23/17 12:00 Temperature 97.4 F L Pulse Rate 84 Respiratory Rate 19 Blood Pressure 122/61 Pulse Oximetry 82 L 87 L Pulse Oximetry [Resting on Room Air] Pulse Oximetry [Resting with Oxygen] Intake & Output 10/22/17 10/23/17 10/23/17 18:59 06:59 18:59 Intake Total 1470 / 1470 980 / 980 1710 / 1710 Output Total 2500 / 2500 600 / 600 Balance -1030 / -1030 380 / 380 1710 / 1710 Intake: IV 750 / 750 500 / 500 1710 / 1710 Alburx 5% Inj 500 ML @ 250 mls/ 500 / 500 500 / 500 500 / 500 hr IV.SIG Q12H [facility] Rx#:[id number] Oral 720 / 720 480 / 480 Output: Urine 2500 / 2500 600 / 600 Other: Date of Last Bowel Movement 10/21/17 10/22/17 Narrative: No lower extremity edema diminished lung sounds at the bases, unlabored breathing, no dyspnea noted Results - Labs CBC & Chem 7: 10/21/17 14:53 10/22/17 10:40 Laboratory Results - last 24 hr 10/22/17 10/22/17 10/22/17 14:44 14:45 19:10 D-Dimer Quant (PE/DVT) 0.98 H Total Bilirubin 0.8 Direct Bilirubin Less than 0.1 Indirect Bilirubin 0.7 AST 130 H ALT 87 H Alkaline Phosphatase 102 Total Creatine Kinase 1712 H CK-MB (CK-2) 9.8 H CK-MB (CK-2) % 0.6 Total Protein 6.8 Albumin 4.1 10/23/17 14:56 D-Dimer Quant (PE/DVT) Total Bilirubin Direct Bilirubin Indirect Bilirubin AST ALT Alkaline Phosphatase Total Creatine Kinase 1661 H CK-MB (CK-2) CK-MB (CK-2) % Total Protein Albumin - Imaging Impressions Chest CTA 10/23/17 00:00 CONCLUSION: No evidence of pulmonary embolism. Aneurysm of ascending aorta measuring 4.8 cm Bilateral effusions and bilateral lower lobe atelectasis Assessment and Plan - Plan Mr. Bryant is a 52-year-old male with a history of cocaine use and alcohol abuse who presented to the emergency department on 10/13/2017 due to lower extremity swelling and chest pain. He was found to have hemoglobin 6.9 and sodium 132. He received 3 units of PRBCs. Chest x-ray shows pneumonia and he was subsequently started on Rocephin and azithromycin. He was also found to have total CPK 5200 for which he received IV fluid. Hyponatremia Rhabdomyolysis - likely 2/2 cocaine use Mild hypokalemia -Nephrology followed this patient and signed off. -No sign of kidney injury from rhabdomyolysis. CPK still elevated, but trending down, restarting IVFs -Na stable now -KCL -torsemide 10 mg twice a day. hypoxia - possibly 2/2 PNA - ddimer up, CTA neg for PE, only infiltrates and effusions - home O2 requested based upon walk test Suicidal ideation - unclear if pt is malingering vs sincere, consulting psychiatry Elevated AST and ALT -improving Polysubstance abuse -patient received counseling. Continue CIWA protocol. Possible pneumonia -patient is currently on cefuroxime 500 mg every 12 hours, azithromycin 500 mg daily. Iron deficiency anemia -continue iron supplements Full code. Heparin SQ.
[2017-10-23 16:26] LABS: CKMB Percent 0.6 % (0.0-4.0); Creatine Kinase MB 10.6 ng/mL (0.5-3.6)
[2017-10-23] MEDS: Sod Chloride 0.9% Inj 1,000 ML IV.CONT SCH (16:36)
[2017-10-24] MEDS: Albumin Human 5% Inj 500 ML IV.SIG SCH ×2 (01:40→10:21)
[2017-10-24] MEDS: Sod Chloride 0.9% Inj 1,000 ML IV.CONT SCH (03:31)
[2017-10-24] MEDS: Azithromycin 250 MG Tablet PO SCH (10:14)
[2017-10-24] MEDS: Ferrous Sulfate 325 MG Tablet PO SCH (10:17)
[2017-10-24] MEDS: Budesonide-Formoterol 160/4.5 MCG 6 GM Inhaler INH SCH (10:17)
[2017-10-24] MEDS: Calcium Carbonate 500 MG Tablet PO SCH (10:17)
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
--- NOTE | 2017-10-24 11:09 | P.DS ---
Date of admission: 10/13/17 22:19 Primary care physician: Jose Raul Cassidy Brief History from admission: Patient is a 52-year-old male presents to the emergency department complaining of chronic chest pain and leg swelling which is new. He states his legs are so swollen up to the thighs that he is unable to walk. He has had edema in the past. Patient states that it gradually worsened over the last few days. The pain he reports is chronic and unchanged from previous, he adds that he is really here for the leg swelling and not the chest pain. DS: Medications - Discharge Medications Prescriptions: albuterol sulfate [Ventolin HFA] 1 puff INHALATION Q4-6H PRN #1 inhaler PRN Reason: Shortness Of Breath azithromycin 500 mg PO DAILY #2 tab budesonide-formoterol [Symbicort] 1 puff INH BID #1 inhaler calcium carbonate [Oyster Shell Calcium 500] 500 mg PO BID #60 tab cefuroxime axetil 500 mg PO Q12HR #12 tab ergocalciferol (vitamin D2) 50,000 unit PO Q7D #10 cap potassium chloride 20 meq PO DAILY #30 tab torsemide 10 mg PO DAILY #30 tab tramadol 50 mg PO Q8HR PRN #21 tab PRN Reason: Acute Pain zolpidem 5 mg PO HS PRN #3 tab PRN Reason: Insomnia DS: Summary Hospital Course: Patient was admitted, started antibiotics for pneumonia. Nephrology was consulted for hyponatremia with peripheral edema, patient was started on Lasix with albumin. His electrolytes stabilized. He was additionally started on IV fluids for rhabdomyolysis but the patient eventually became uncooperative and refused IV fluids as well, did not want to participate with physical therapy multiple times. Patient had a CTA done which was negative for PE, qualify for home oxygen. When patient was informed that he was being discharged back to his [facility], he claimed that he did not want to go back there and that he is becoming suicidal. Psychiatry evaluated the patient and suspected malingering and concluded that the patient did not warrant any further hospitalization from psychiatric standpoint. - Time Spent with Patient Total time spent providing and/or coordinating discharge services: Greater than 30 minutes - Quality: VTE Deep Vein Thrombosis/Pulmonary Embolism Present on Admission: No Exam Vital signs: Vital Signs 10/23/17 12:00 10/23/17 16:00 10/23/17 20:00 Temperature 97.4 F L 97.2 F L 97.6 F Pulse Rate 84 80 86 Respiratory Rate 19 19 18 Blood Pressure 122/61 114/75 111/67 Pulse Oximetry 87 L 87 L 87 L 10/24/17 00:00 10/24/17 04:00 Temperature 97.3 F L 98.2 F Pulse Rate 84 82 Respiratory Rate 18 18 Blood Pressure 101/59 L 109/55 L Pulse Oximetry 80 L 86 L Intake & Output 10/23/17 10/24/17 10/24/17 18:59 06:59 18:59 Intake Total 2430 / 2430 480 / 480 Output Total 1500 / 1500 1200 / 1200 Balance 930 / 930 -720 / -720 Intake: IV 1710 / 1710 Alburx 5% Inj 500 ML @ 250 mls/ 500 / 500 hr IV.SIG Q12H LUPE Rx#:[id number] Oral 720 / 720 480 / 480 Output: Urine 1500 / 1500 1200 / 1200 Other: Date of Last Bowel Movement 10/22/17 Narrative: Able to stand without difficulty, ambulating well with walker Unlabored breathing, clear lungs bilaterally Results Procedures completed during hospitalization: none Labs on day of discharge: Labs from last 24 hours 10/23/17 14:56 Total Creatine Kinase 1661 H CK-MB (CK-2) 10.6 H CK-MB (CK-2) % 0.6 - Impressions ITS Impressions Sinuses CT 10/16/17 00:00 CONCLUSION: 1. Left frontal sinus and ethmoid sinus disease. Trace fluid in the mastoid air cells. Chest X-Ray 10/19/17 00:00 CONCLUSION: Increased density at the bases bilaterally related to some degree of atelectasis , consolidation and likely effusions. Prominent interstitium. This may represent some degree of pulmonary venous hypertension versus mild edema. Chest CTA 10/23/17 00:00 CONCLUSION: No evidence of pulmonary embolism. Aneurysm of ascending aorta measuring 4.8 cm Bilateral effusions and bilateral lower lobe atelectasis Discharge Plan - Discharge Disposition Patient Disposition: 04 [facility] - Discharge Condition Condition: Stable - Discharge Order Discharge Orders: Discharge Order (Routine); Ordered 10/24/17 Ordered By: Estiven Lock - Physicians Team Primary Care Provider: Jose Raul Cassidy Attending Provider: Masoodi,Estiven Other Providers: Tom Rich MD ; Mustapha Alejandre MD ; Chandrakant Watson, PhD ; Carlos Chou MD
[2017-10-24] MEDS: Heparin - SQ 10,000 UNITS/ML Vial SQ SCH (11:14)
--- NOTE | 2017-10-24 12:06 | P.PNNPSY ---
- Behavior Intact: Coping/acceptance, Cooperative with treatment, Motivation, Frustration tolerance/oppositional, Impulsive/agitated - Cognitive Mild: Cognitive, Attention/concentration, Confused/orientation, Insight/ awareness, Judgment/problem solving, Memory - Psychosocial Moderate: Psychosocial, Family/other adjustment, Realistic expectation, Self- esteem/confidence - Progress Notes/Response to Treatment Contents of Sessions: Adjustment Time with Patient: 15 minutes Premorbid Psychological Status: Premorbid Cognitive, Emotional and Behavioral Status: Unstable. The patient has high school years of education and a sporadic work history prior to this injury. The patient has prior psychiatric difficulties, as described above. Substance abuse history is significant. Behavioral Reactions of Patient and Family/Support System: Unstable. The patients family is experiencing ongoing issues of adjustment given the nature of the injury, and this aspect of recovery will require ongoing monitoring. Emotional/Behavioral Status of Patient and Family/Support System: Unstable. Pertinent issues, if appropriate to this patients clinical care, are described in detail above. Maximizing Acute Care Outcome: It was discussed with this patient his need to accept medication designed to facilitate his optimal therapeutic outcome, and he agreed to do so. At this point in the recovery process, the patient does have cognitive capacity as the patient is able to understand a situation and its likely consequences, and he able to manipulate most information rationally. Cognitive capacity will be assessed throughout the recovery process. Anticipated Problems: Ongoing areas of concern will include lack of insight and judgment, which is expected to improve with time and treatment. Presently, the patient is following commands and is compliant. Treatment Plan: This clinician will continue to follow with you throughout the course of this patients acute care treatment, and I will be available to meet with the patient s family/support system to facilitate their understanding and the ongoing care of their family member. The goals of neuropsychological intervention shall be both educational and supportive to the family/support system as is deemed clinically appropriate. Impression: This 52 year old male recently admitted for hyponautremia, chest pain and leg swelling presents with bradyphrenia, diminished insight, awareness and judgment , related to his metabolic state. He is diagnosed with mild neurocognitive disorder to reflect these neuropsychological deficits. Progress Note Narrative: Day 11 of his present hospitalization. Apparently, he stated that he would kill himself if he were to return to the SNF and he generally does not want to leave the hospital. He has been marginally compliant with his care since his admission, refusing certain medications, but now he is more compliant. He denied suicidal ideation during today's brief exam. I will follow until his discharge. - Diagnosis (1) Mild neurocognitive disorder Status: Acute
[2017-10-24 14:40] LABS: CKMB Percent 0.6 % (0.0-4.0); Creatine Kinase MB 9.8 ng/mL (0.5-3.6)
[2017-10-24] MEDS ORDERED: Sod Chloride 0.9% Inj 1,000 ML IV.SIG ONE (14:59)
--- NOTE | 2017-10-24 15:11 | P.DCO ---
- Home Health Nursing Order: Medical education, Oxygen administration education - Certification I have seen patient Venkata Bryant on 10/24/17. My clinical findings support the need for the requested home health care services because: Need for psychosocial assistance I certify that my clinical findings support that this patient is homebound because: Need for psychosocial assistance
== END 2017-10-24 18:15 ==
LOC: NEPC 18:10 → NEDA 22:19 → N07 10-14 00:54
PROVIDERS: ADMIT Hospitalist; ATTEND Hospitalist

== ENCOUNTER 2017-10-30 18:46 | Inpatient (IN) ==
--- NOTE | 2017-10-30 20:26 | ED ---
HPI General Chief complaint: Shortness of Breath/Dyspnea Stated complaint: SOB/chest pain Time Seen by Provider: 10/30/17 20:14 Source: patient Mode of arrival: ambulatory Limitations: no limitations History of Present Illness HPI narrative: 52-year-old male presents emergency department for evaluation of shortness of breath and chest pain that started today after exposure to a bleach. Patient says he is having midsternal, stabbing chest pain, moderate in severity, and nonradiating. Says it is intermittent and denies palliative factors. Says the pain is occasionally worsened by taking a breath. Says he uses oxygen at night and as needed. Says he ran out of his inhalers a few days ago. His other complaints as well. Says that his bilateral lower extremities have been swelling and this is been persistent for several weeks. Says this is why he was in the emergency department previously. Also states he had diarrhea that started yesterday that seemed to have resolved today. Related Data Home Medications Medication Instructions Recorded Confirmed trazodone 150 mg PO DAILY 10/15/17 10/30/17 Previous Rx's Medication Instructions Recorded albuterol sulfate [Ventolin HFA] 1 puff INHALATION Q4-6H PRN #1 10/23/17 inhaler azithromycin 500 mg PO DAILY #2 tab 10/23/17 budesonide-formoterol [Symbicort] 1 puff INH BID #1 inhaler 10/23/17 calcium carbonate [Oyster Shell 500 mg PO BID #60 tab 10/23/17 Calcium 500] cefuroxime axetil 500 mg PO Q12HR #12 tab 10/23/17 ergocalciferol (vitamin D2) 50,000 unit PO Q7D #10 cap 10/23/17 potassium chloride 20 meq PO DAILY #30 tab 10/23/17 torsemide 10 mg PO DAILY #30 tab 10/23/17 tramadol 50 mg PO Q8HR PRN #21 tab 10/24/17 zolpidem 5 mg PO HS PRN #3 tab 10/24/17 Allergies Allergy/AdvReac Type Severity Reaction Status Date / Time Bleach (Sodium Hypochlorite) Allergy Hives Verified 10/30/17 20:00 oxycodone Allergy Anaphylaxis Verified 10/30/17 20:00 Review of Systems Except as stated in HPI: all other systems reviewed are negative [facility] Family History Family History Other Cardiac defibrillator in situ Family history of hypertension Social History Social History Substance History: Past History Second Hand Smoke Exposure: No Smoking Status: Former smoker Tobacco Type: Cigarettes How Often Do You Have a Drink Containing Alcohol: 4 or more times a week Recent Travel in [facility] within the Last 8 Weeks: No Recent Out of Country Travel within the Last 8 Weeks: No Substance Abuse Detail Alcohol: Substance Use Status: Early Remission Route Used Substance Abuse: By Mouth Substance Abuse Comment: hx of abuse Reason for Use: Calm Down Immunization History Tetanus Immunization: Unsure Hx Influenza Vaccine This Season: No Exam Narrative Exam Narrative: GENERAL: WD, WN in NAD SKIN: Focused skin assessment warm/dry. HEAD: Atraumatic. Normocephalic. EYES: Pupils equal and round. No scleral icterus. No injection or drainage. ENT: No nasal bleeding or discharge. Mucous membranes pale and moist. NECK: Trachea midline. No JVD. No lymphadenopathy CARDIOVASCULAR: Regular rate and rhythm. No murmur appreciated. RESPIRATORY: No accessory muscle use. Clear to auscultation. Breath sounds equal bilaterally. GASTROINTESTINAL: Abdomen soft, non-tender, nondistended. Hepatic and splenic margins not palpable. No CVA tenderness MUSCULOSKELETAL: No obvious deformities. No clubbing. No cyanosis. No edema. NEUROLOGICAL: Awake and alert. No obvious cranial nerve deficits. Motor grossly within normal limits. Normal speech. PSYCHIATRIC: Appropriate mood and affect; insight and judgment normal. Course Initial Documented Vital Signs Temperature 98 F 10/30/17 20:00 Pulse Rate 91 H 10/30/17 20:00 Respiratory Rate 26 H 10/30/17 20:00 Blood Pressure 116/70 10/30/17 20:00 Pulse Oximetry 88 L 10/30/17 20:00 Last Documented Vital Signs Temperature 98.1 F 11/01/17 16:00 Pulse Rate 74 11/01/17 16:00 Respiratory Rate 18 11/01/17 16:00 Blood Pressure 130/90 11/01/17 16:00 Pulse Oximetry 98 11/01/17 16:00 Medical Decision Making BAYLEE Attestation BAYLEE supervised visit: Yes Attestation: I, Dr. Roman, have reviewed the advance practice practitioner's documentation and am in agreement, met with the patient face to face, made the diagnosis, and the medical decision making was done by me. The patient was initially evaluated by Debra Tomas. Please see their complete history and physical. *My assessment and Findings: The patient presents with chest pain and shortness of breath that began earlier today. Patient reports an exposure to bleach which may be related to the symptoms. The patient on arrival is noted to have O2 saturations on room air of 88%. The patient was placed on 3 L nasal cannula O2 and is now saturating up to 92%. During the course of the patient's emergency department visit, the patient's history, examination, and differential diagnosis were reviewed with the patient. The patient was placed on a monitoring specialist with oximetry and frequent blood pressure monitoring. The patient had IV access obtained and blood work sent for analysis. The patient had a EKG done on arrival. The patient's EKG shows a sinus rhythm with a heart rate of 78, QRS duration 96 ms, QTC [address] segment elevation. The patient was initially provided a DuoNeb. The patient started on broad- spectrum antibiotic after blood cultures were drawn. The patient's laboratory studies were reviewed and remarkable for a white count of 4.7, hemoglobin 10.2, platelets 336 with 9.4 monocytes. PT 12.2, PTT 33.4, INR 1.2 chemistries remarkable for troponin I of less than 0.02, total protein 6.1, glucose 73, protein corrected calcium 7.8, potassium 2.9 which was supplemented orally and IV, AST 46. Review of the record reveals that the patient commonly has elevated CPKs, the last time he was here on October 24 he had a CPK that was 1551. This was not checked previously by [facility], therefore CPK CK-MB profile has been added to the patient's workup. Radiology studies were reviewed and remarkable for bilateral lower lobe consolidative infiltrates left greater than the right increase in severity from October 19, 2017. The patient's CPK is 889. The patient's results were discussed with the patient, including the plan of care. I explained that further testing and/ or monitoring is indicated based on the patient's history, examination, and/ or laboratory findings. Therefore, I recommended admission for additional evaluation. The patient expressed under the [facility] service. MDM Narrative Medical decision making narrative: 52y male presents to the ED for SOB and chest pain. Pt is in [facility] for general weakness rehab. Denies alcohol use since the beginning of October. Denies illicit drug use. I reviewed the EMR. Patient presented to the emergency department October 13 complaining of chronic chest pain and leg swelling. He was admitted for hyponatremia, hypocalcemia. He was found to be severely anemic. He is placed on CIWA protocol for polysubstance use. He was treated for pneumonia. As noted that he is was noncompliant with oxygen which is consistent with patient's history today. Says that he was given the 'wrong size oxygen tank' and therefore has not been using this regularly. 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 Potassium replacement initiated. I spoke with Dr. Benavides who agreed to the admission. ABG ordered at the request of Dr. Benavides but patient refused. Lab Data Result diagrams: 11/01/17 03:16 11/01/17 03:16 Lab Results 10/30/17 10/30/17 10/30/17 Range/Units 20:33 20:33 20:33 WBC 4.7 (4.0-11.0) th/mm3 RBC 3.67 L (4.50-5.90) mil/mm3 Hgb 10.2 L (13.0-17.0) gm/dL Hct 30.9 L (39.0-51.0) % MCV 84.1 (80.0-100.0) fL MCH 27.7 (27.0-34.0) pg MCHC 33.0 (32.0-36.0) % RDW 22.9 H (11.6-17.2) % Plt Count 336 D (150-450) th/mm3 MPV 7.2 (7.0-11.0) fL Neut % (Auto) 67.1 (16.0-70.0) % Lymph % (Auto) 15.8 (9.0-44.0) % [place] % (Auto) 9.4 H (0.0-8.0) % Eos % (Auto) 6.9 H (0.0-4.0) % Baso % (Auto) 0.8 (0.0-2.0) % Neut # (Auto) 3.1 (1.8-7.7) th/mm3 Lymph # (Auto) 0.7 L (1.0-4.8) th/mm3 [place] # (Auto) 0.4 (0.0-0.9) th/mm3 Eos # (Auto) 0.3 (0.0-0.4) th/mm3 Baso # (Auto) 0.0 (0.0-0.2) th/mm3 WBC Differential . Differential Comment Auto diff final PT 12.2 H (9.8-11.6) sec INR 1.2 Ratio APTT 33.4 H (24.3-30.1) sec Puncture Site Patient Temperature O2 Saturation (90-100) % ABG pH (7.380-7.420) ABG pCO2 (38-42) mmHg ABG pO2 (61-120) mmHg ABG HCO3 (22-26) mmol/L ABG O2 Content (12.0-20.0) Vol % ABG Base Excess (-2-2) mmol/L ABG Methemoglobin (0-2) % Jori Test Hemoglobin (12.0-16.0) G/DL Carboxyhemoglobin (0-4) % O2 Delivery Device Liter Flow L/M Vent Setting Inspired O2 % Critical Value Sodium 138 (136-145) meq/L Potassium 2.9 L* (3.5-5.1) meq/L Chloride 102 (98-107) meq/L Carbon Dioxide 26.0 (21.0-32.0) meq/L Anion Gap 10 (5-15) meq/L BUN 16 (7-18) mg/dL Creatinine 0.64 (0.60-1.30) mg/dL Estimated GFR Greater than 89 (>89) mL/min Random Glucose 73 L (74-106) mg/dL Calcium 7.3 L* (8.5-10.1) mg/dL Prot Corrected Calcium 7.8 L (8.5-10.1) mg/dL Magnesium (1.5-2.5) mg/dL Total Bilirubin 0.5 (0.2-1.0) mg/dL AST 46 H (15-37) U/L ALT 48 (12-78) U/L Alkaline Phosphatase 56 (45-117) U/L Total Creatine Kinase (39-308) U/L CK-MB (CK-2) (0.5-3.6) ng/mL CK-MB (CK-2) % (0.0-4.0) % Troponin I Less than 0.02 L (0.02-0.05) ng/mL Total Protein 6.1 L (6.4-8.2) g/dL Albumin 3.7 (3.4-5.0) g/dL Urine Color (Yellw/Straw) Urine Clarity (Clear) Urine pH (5.0-8.5) Ur Specific [place] (1.002-1.035) Urine Protein (Neg-Trace) mg/dL Urine Glucose (UA) (Negative) mg/dL Urine Ketones (Negative) mg/dL Urine Occult Blood (Negative) Urine Nitrate (Negative) Urine Bilirubin (Negative) Urine Urobilinogen (Less than 2) mg/dL Ur Leukocyte Esterase (Negative) Urine RBC (0-3) /hpf Urine WBC (0-5) /hpf Micro UA Comment Urine Culture Comments Vancomycin Trough (5.0-10.0) mcg/mL 10/30/17 10/30/17 10/31/17 Range/Units 20:33 23:16 11:25 WBC (4.0-11.0) th/mm3 RBC (4.50-5.90) mil/mm3 Hgb (13.0-17.0) gm/dL Hct (39.0-51.0) % MCV (80.0-100.0) fL MCH (27.0-34.0) pg MCHC (32.0-36.0) % RDW (11.6-17.2) % Plt Count (150-450) th/mm3 MPV (7.0-11.0) fL Neut % (Auto) (16.0-70.0) % Lymph % (Auto) (9.0-44.0) % [place] % (Auto) (0.0-8.0) % Eos % (Auto) (0.0-4.0) % Baso % (Auto) (0.0-2.0) % Neut # (Auto) (1.8-7.7) th/mm3 Lymph # (Auto) (1.0-4.8) th/mm3 [place] # (Auto) (0.0-0.9) th/mm3 Eos # (Auto) (0.0-0.4) th/mm3 Baso # (Auto) (0.0-0.2) th/mm3 WBC Differential Differential Comment PT (9.8-11.6) sec INR Ratio APTT (24.3-30.1) sec Puncture Site Right radial Right radial Patient Temperature 98.6 98.6 O2 Saturation 88 L* 92 (90-100) % ABG pH 7.47 H 7.28 L* (7.380-7.420) ABG pCO2 39 63 H* (38-42) mmHg ABG pO2 59 L* 79 (61-120) mmHg ABG HCO3 28 H 29 H (22-26) mmol/L ABG O2 Content 12.8 12.6 (12.0-20.0) Vol % ABG Base Excess 4.8 H 2.6 H (-2-2) mmol/L ABG Methemoglobin 0.6 1.5 (0-2) % Jori Test + Hemoglobin 10.3 L 9.7 L (12.0-16.0) G/DL Carboxyhemoglobin 1.5 0.7 (0-4) % O2 Delivery Device Nasal cannula Nonrebreather Liter Flow 6.00 15.00 L/M Vent Setting Inspired O2 21 100 % Critical Value Yes Yes Sodium (136-145) meq/L Potassium (3.5-5.1) meq/L Chloride (98-107) meq/L Carbon Dioxide (21.0-32.0) meq/L Anion Gap (5-15) meq/L BUN (7-18) mg/dL Creatinine (0.60-1.30) mg/dL Estimated GFR (>89) mL/min Random Glucose (74-106) mg/dL Calcium (8.5-10.1) mg/dL Prot Corrected Calcium (8.5-10.1) mg/dL Magnesium (1.5-2.5) mg/dL Total Bilirubin (0.2-1.0) mg/dL AST (15-37) U/L ALT (12-78) U/L Alkaline Phosphatase (45-117) U/L Total Creatine Kinase 889 H (39-308) U/L CK-MB (CK-2) 9.4 H (0.5-3.6) ng/mL CK-MB (CK-2) % 1.1 (0.0-4.0) % Troponin I (0.02-0.05) ng/mL Total Protein (6.4-8.2) g/dL Albumin (3.4-5.0) g/dL Urine Color (Yellw/Straw) Urine Clarity (Clear) Urine pH (5.0-8.5) Ur Specific [place] (1.002-1.035) Urine Protein (Neg-Trace) mg/dL Urine Glucose (UA) (Negative) mg/dL Urine Ketones (Negative) mg/dL Urine Occult Blood (Negative) Urine Nitrate (Negative) Urine Bilirubin (Negative) Urine Urobilinogen (Less than 2) mg/dL Ur Leukocyte Esterase (Negative) Urine RBC (0-3) /hpf Urine WBC (0-5) /hpf Micro UA Comment Urine Culture Comments Vancomycin Trough (5.0-10.0) mcg/mL 10/31/17 11/01/17 11/01/17 Range/Units 15:36 03:16 03:16 WBC 6.7 (4.0-11.0) th/mm3 RBC 3.86 L (4.50-5.90) mil/mm3 Hgb 10.7 L (13.0-17.0) gm/dL Hct 32.8 L (39.0-51.0) % MCV 85.0 (80.0-100.0) fL MCH 27.6 (27.0-34.0) pg MCHC 32.5 (32.0-36.0) % RDW 22.2 H (11.6-17.2) % Plt Count 364 (150-450) th/mm3 MPV 7.5 (7.0-11.0) fL Neut % (Auto) 93.6 H (16.0-70.0) % Lymph % (Auto) 4.2 L (9.0-44.0) % [place] % (Auto) 1.4 (0.0-8.0) % Eos % (Auto) 0.1 (0.0-4.0) % Baso % (Auto) 0.7 (0.0-2.0) % Neut # (Auto) 6.2 (1.8-7.7) th/mm3 Lymph # (Auto) 0.3 L (1.0-4.8) th/mm3 [place] # (Auto) 0.1 (0.0-0.9) th/mm3 Eos # (Auto) 0.0 (0.0-0.4) th/mm3 Baso # (Auto) 0.0 (0.0-0.2) th/mm3 WBC Differential . Differential Comment Auto diff final PT (9.8-11.6) sec INR Ratio APTT (24.3-30.1) sec Puncture Site Right brachial Patient Temperature 98.6 O2 Saturation 90 (90-100) % ABG pH 7.44 H (7.380-7.420) ABG pCO2 44 H (38-42) mmHg ABG pO2 61 (61-120) mmHg ABG HCO3 29 H (22-26) mmol/L ABG O2 Content 13.0 (12.0-20.0) Vol % ABG Base Excess 4.7 H (-2-2) mmol/L ABG Methemoglobin 1.5 (0-2) % Jori Test Hemoglobin 10.3 L (12.0-16.0) G/DL Carboxyhemoglobin 1.1 (0-4) % O2 Delivery Device Bipap Liter Flow L/M Vent Setting Ipap 15/ epap 5 Inspired O2 50 % Critical Value No Sodium 139 (136-145) meq/L Potassium 4.1 D (3.5-5.1) meq/L Chloride 103 (98-107) meq/L Carbon Dioxide 28.1 (21.0-32.0) meq/L Anion Gap 8 (5-15) meq/L BUN 14 (7-18) mg/dL Creatinine 0.97 (0.60-1.30) mg/dL Estimated GFR 82 L (>89) mL/min Random Glucose 161 H (74-106) mg/dL Calcium 7.5 L (8.5-10.1) mg/dL Prot Corrected Calcium (8.5-10.1) mg/dL Magnesium 1.7 (1.5-2.5) mg/dL Total Bilirubin (0.2-1.0) mg/dL AST (15-37) U/L ALT (12-78) U/L Alkaline Phosphatase (45-117) U/L Total Creatine Kinase 664 H (39-308) U/L CK-MB (CK-2) 7.6 H (0.5-3.6) ng/mL CK-MB (CK-2) % 1.1 (0.0-4.0) % Troponin I (0.02-0.05) ng/mL Total Protein (6.4-8.2) g/dL Albumin (3.4-5.0) g/dL Urine Color (Yellw/Straw) Urine Clarity (Clear) Urine pH (5.0-8.5) Ur Specific [place] (1.002-1.035) Urine Protein (Neg-Trace) mg/dL Urine Glucose (UA) (Negative) mg/dL Urine Ketones (Negative) mg/dL Urine Occult Blood (Negative) Urine Nitrate (Negative) Urine Bilirubin (Negative) Urine Urobilinogen (Less than 2) mg/dL Ur Leukocyte Esterase (Negative) Urine RBC (0-3) /hpf Urine WBC (0-5) /hpf Micro UA Comment Urine Culture Comments Vancomycin Trough (5.0-10.0) mcg/mL 11/01/17 11/01/17 Range/Units 12:00 14:35 WBC (4.0-11.0) th/mm3 RBC (4.50-5.90) mil/mm3 Hgb (13.0-17.0) gm/dL Hct (39.0-51.0) % MCV (80.0-100.0) fL MCH (27.0-34.0) pg MCHC (32.0-36.0) % RDW (11.6-17.2) % Plt Count (150-450) th/mm3 MPV (7.0-11.0) fL Neut % (Auto) (16.0-70.0) % Lymph % (Auto) (9.0-44.0) % [place] % (Auto) (0.0-8.0) % Eos % (Auto) (0.0-4.0) % Baso % (Auto) (0.0-2.0) % Neut # (Auto) (1.8-7.7) th/mm3 Lymph # (Auto) (1.0-4.8) th/mm3 [place] # (Auto) (0.0-0.9) th/mm3 Eos # (Auto) (0.0-0.4) th/mm3 Baso # (Auto) (0.0-0.2) th/mm3 WBC Differential Differential Comment PT (9.8-11.6) sec INR Ratio APTT (24.3-30.1) sec Puncture Site Patient Temperature O2 Saturation (90-100) % ABG pH (7.380-7.420) ABG pCO2 (38-42) mmHg ABG pO2 (61-120) mmHg ABG HCO3 (22-26) mmol/L ABG O2 Content (12.0-20.0) Vol % ABG Base Excess (-2-2) mmol/L ABG Methemoglobin (0-2) % Jori Test Hemoglobin (12.0-16.0) G/DL Carboxyhemoglobin (0-4) % O2 Delivery Device Liter Flow L/M Vent Setting Inspired O2 % Critical Value Sodium (136-145) meq/L Potassium (3.5-5.1) meq/L Chloride (98-107) meq/L Carbon Dioxide (21.0-32.0) meq/L Anion Gap (5-15) meq/L BUN (7-18) mg/dL Creatinine (0.60-1.30) mg/dL Estimated GFR (>89) mL/min Random Glucose (74-106) mg/dL Calcium (8.5-10.1) mg/dL Prot Corrected Calcium (8.5-10.1) mg/dL Magnesium (1.5-2.5) mg/dL Total Bilirubin (0.2-1.0) mg/dL AST (15-37) U/L ALT (12-78) U/L Alkaline Phosphatase (45-117) U/L Total Creatine Kinase (39-308) U/L CK-MB (CK-2) (0.5-3.6) ng/mL CK-MB (CK-2) % (0.0-4.0) % Troponin I (0.02-0.05) ng/mL Total Protein (6.4-8.2) g/dL Albumin (3.4-5.0) g/dL Urine Color Yellow (Yellw/Straw) Urine Clarity Clear (Clear) Urine pH 5.0 (5.0-8.5) Ur Specific [place] 1.044 H (1.002-1.035) Urine Protein Negative (Neg-Trace) mg/dL Urine Glucose (UA) Negative (Negative) mg/dL Urine Ketones Negative (Negative) mg/dL Urine Occult Blood Negative (Negative) Urine Nitrate Negative (Negative) Urine Bilirubin Negative (Negative) Urine Urobilinogen Less than 2 (Less than 2) mg/dL Ur Leukocyte Esterase Negative (Negative) Urine RBC 1 (0-3) /hpf Urine WBC 1 (0-5) /hpf Micro UA Comment Culture not ind Urine Culture Comments Culture not ind Vancomycin Trough 24.5 H (5.0-10.0) mcg/mL Imaging Data Radiologist's impression: Chest X-Ray 10/30/17 20:15 CONCLUSION: Bilateral lower lobe consolidative infiltrates, left greater than right, increased in severity from 10/19/2017. Chest X-Ray 10/31/17 00:00 CONCLUSION: Deterioration in the appearance of the chest with increasing bibasilar consolidative changes worse on the left. Chest CTA 11/01/17 00:00 CONCLUSION: 1. No acute pulmonary emboli. 2. Worsening bibasilar consolidation with new consolidation involving the medial left upper lobe. 3. Stable to slightly smaller tiny bilateral pleural effusions. Discharge Plan Discharge Disposition Patient Disposition: 30 Still Patient Discharge Condition Condition: Stable Discharge Details Diagnosis: Pneumonia, Acute hypokalemia, Hypocalcemia Physicians Team ED Provider: Juliana Roman ED Midlevel Provider: Kezia Borrero Primary Care Provider: Jose Raul Cassidy Attending Provider: Gera Carlos Other Providers: Jaya Harris V ; Gera Carlos ; Juan Back Status ED Status: Left Department Discharge Information Discharge Date/Time: 10/31/17 03:21
--- NOTE | 2017-10-30 20:51 | XR ---
EXAM DATE: 10/30/2017 8:34 PM EDT AGE/SEX: 52 years / Male INDICATIONS: Chest pain. CLINICAL DATA: This is the patient's initial encounter. Patient reports that signs and symptoms have been present for 1 day and indicates a pain score of 6/10. MEDICAL/SURGICAL HISTORY: None. None. [place] [facility] [place]19/[place]. . FINDINGS: There is bibasilar infiltrates, left greater than right, with some air bronchograms and with loss of delineation of portions of both hemidiaphragms. The size of the infiltrates is larger than on prior e xamination. The heart is upper limits normal size. Multiple healed right rib fractures and lateral le ft clavicle fracture stable from prior. CONCLUSION: Bilateral lower lobe consolidative infiltrates, left greater than right, increased in severity from . Electronically signed by: Alok Bae MD 10/30/2017 8:50 PM EDT
[2017-10-30 20:56] LABS: Baso % (Auto) 0.8 % (0.0-2.0); Eos # (Auto) 0.3 th/mm3 (0.0-0.4); Eos % (Auto) 6.9 % (0.0-4.0); Hematocrit 30.9 % (39.0-51.0); Hemoglobin 10.2 gm/dL (13.0-17.0); Lymph # (Auto) 0.7 th/mm3 (1.0-4.8); Lymph % (Auto) 15.8 % (9.0-44.0); Mean Corpuscular Hemoglobin 27.7 pg (27.0-34.0); Mean Corpuscular Volume 84.1 fL (80.0-100.0); Mean Platelet Volume 7.2 fL (7.0-11.0); Mono # (Auto) 0.4 th/mm3 (0.0-0.9); Mono % (Auto) 9.4 % (0.0-8.0); Neut # (Auto) 3.1 th/mm3 (1.8-7.7); Neut % (Auto) 67.1 % (16.0-70.0); Platelet Count 336 th/mm3 (150-450); Red Blood Count 3.67 mil/mm3 (4.50-5.90); Red Cell Distribution Width 22.9 % (11.6-17.2); White Blood Count 4.7 th/mm3 (4.0-11.0)
[2017-10-30 21:09] LABS: Activated Partial Thrombo Time 33.4 sec (24.3-30.1); INR 1.2 Ratio; Prothrombin Time 12.2 sec (9.8-11.6)
[2017-10-30 21:10] LABS: Anion Gap 10 meq/L (5-15)
[2017-10-30 21:18] LABS: Alanine Aminotransferase 48 U/L (12-78); Albumin 3.7 g/dL (3.4-5.0); Alkaline Phosphatase 56 U/L (45-117); Aspartate Aminotransferase 46 U/L (15-37); Blood Urea Nitrogen 16 mg/dL (7-18); Calcium 7.3 mg/dL (8.5-10.1); Chloride 102 meq/L (98-107); Glomerular Filtration Rate Greater Than 89 mL/min (>89); Glucose,Random 73 mg/dL (74-106); Sodium 138 meq/L (136-145); Total Protein 6.1 g/dL (6.4-8.2)
[2017-10-30 21:19] LABS: Potassium 2.9 meq/L (3.5-5.1)
[2017-10-30] MEDS ORDERED: Potassium Chloride 10 MEQ ER Capsule PO ONE (21:21)
[2017-10-30] MEDS ORDERED: Potassium Chlor 20 mEq Premix 20 MEQ/100 ML PIGGYBACK IV.SIG ONE (21:26)
[2017-10-30] MEDS ORDERED: Vancomycin Inj 1,500 MG in Sodium Chlor 0.9% Inj 500 ML IV.SIG ONE (21:26)
[2017-10-30] MEDS ORDERED: Piperacil/Tazo 4.5 GM Premix 4.5 GM/100 ML BAG IV.SIG ONE (21:26)
[2017-10-30 22:34] LABS: CKMB Percent 1.1 % (0.0-4.0); Creatine Kinase MB 9.4 ng/mL (0.5-3.6)
[2017-10-30 23:30] LABS: ABG Base Excess 4.8 mmol/L (-2-2); ABG PCO2 39 mmHg (38-42); ABG PO2 59 mmHg (61-120)
[2017-10-31] MEDS ORDERED: Vancomycin Consult Pharmacy 1 EACH OTHER SCH (00:44)
[2017-10-31] MEDS ORDERED: Haloperidol Inj 5 MG/ML Ampul IV.PUSH PRN (00:45)
[2017-10-31] MEDS ORDERED: Bisacodyl 10 MG Supp RECTAL PRN (00:47)
--- NOTE | 2017-10-31 01:02 | P.HP ---
History of Present Illness Service: [facility] Primary Care Physician: Jose Raul Cassidy Chief Complaint: SOB History of Present Illness: 52-year-old male presents to the emergency department for the evaluation of shortness of breath. Patient states some home shortness of breath for the past 2 days. He was recently discharged from [facility] on 10/24/17 where he was treated for pneumonia. He was discharged on home oxygen which he reports he has not been taking and as well as antibiotics. CTA done during that admission was negative for PE. Patient denies any chest pain or current shortness of breath. Is concerned about a "shiny object" in his right forearm where his IV was on previous admission. Denies any abdominal pain. No nausea/ vomiting/diarrhea. No fevers/chills. Inpatient Certification: I certify that the inpatient services were ordered in accordance with Medicare regulations governing the order. This includes certification that hospital inpatient services are reasonable and necessary and in the case of services not specified as inpatient-only under 42 CFR 419.22(n), that they are appropriately provided as inpatient services in accordance to with the 2-midnight benchmark under 43 CFR 412.3(e) Estimated Total Length of Stay (Days): 2 Plans for Post Hospital Care: Not yet determined Review of Systems All other systems reviewed negative except as stated in HPI [facility] - History History Provided By: Patient - Medical History Medical History: Medical History (Last Reviewed 10/21/17 @ 08:59 by Vida Oneill) Alcohol abuse Insomnia Substance abuse - Surgical History Surgical History: Surgical History (Last Reviewed 10/21/17 @ 08:59 by Vida Oneill) Hernia (Acute) Cataract (Acute) - Family History Family History: Family History (Last Updated 10/14/17 @ 19:01 by Alena Rubi MD) Other Cardiac defibrillator in situ Family history of hypertension - Tobacco History Second Hand Smoke Exposure: No Tobacco Use In Past 30 Days: No Smoking Status: Former smoker Tobacco Type: Cigarettes - Alcohol History How Often Do You Have a Drink Containing Alcohol: Never - Substance Use History Substance History: Past History - Substance Use Type Alcohol Status: Early Remission Route Used: By Mouth Reason for Use: Calm Down Comment: hx of abuse - Travel History Recent Travel in the USA Within the Last 8 Weeks: No Recent Travel Out of the Country Within the Last 8 Weeks: No - Immunization History Tetanus Immunization: Unsure Hx Influenza Vaccine This Season: No Medications and Allergies Active Medications: Active Medications Acetaminophen (Tylenol) 650 mg PO Q4H PRN PRN Reason: Temp > 100.4 Al Hydroxide/Mg Hydroxide (Milk Of Magnesia Liq) 30 ml PO Q12H PRN PRN Reason: Mild Constipation Bisacodyl (Dulcolax Supp) 10 mg RECTAL DAILY PRN PRN Reason: SEVERE CONSITIPATION Flumazenil (Romazecon Inj) 0.2 mg IV.PUSH Q1M PRN PRN Reason: OVERSEDATION Folic Acid (Folic Acid) 1 mg PO DAILY [facility] Stop: 11/05/17 08:59 Haloperidol Lactate (Haldol Inj) 1 mg IV.PUSH Q15M PRN PRN Reason: for severe agitation Pharmacy Profile Note (Vancomycin Consult Pharmacy) 0 mls @ 0 mls/hr OTHER UNSCH [facility] Vancomycin HCl 1,000 mg/ (Sodium Chloride) 250 mls @ 250 mls/hr IV.SIG Q12H [facility] Piperacillin/Tazobactam/Dextrose (Zosyn 4.5 Gm Premix) 4.5 gm in 100 mls @ 200 mls/hr IV.SIG Q6H [facility] Lactulose (Lactulose Liq) 30 ml PO DAILY PRN PRN Reason: SEVERE CONSITIPATION Lorazepam (Ativan) 2 mg PO Q2H PRN PRN Reason: for CIWA 11-14 Lorazepam (Ativan Inj) 2 mg IV.PUSH Q2H PRN PRN Reason: for CIWA 11-14 Lorazepam (Ativan Inj) 2 mg IV.PUSH Q1H PRN PRN Reason: for CIWA 15-20 Lorazepam (Ativan Inj) 2 mg IV.PUSH Q15M PRN PRN Reason: for CIWA > 20 Lorazepam (Ativan Inj) 1 mg IV.PUSH Q4H PRN PRN Reason: for CIWA 8-10 Lorazepam (Ativan) 1 mg PO Q4H PRN PRN Reason: for CIWA 8-10 Multivitamins/Minerals (Theragran-M) 1 tab PO DAILY [facility] Stop: 11/05/17 08:59 Ondansetron HCl (Zofran Inj) 4 mg IV.PUSH Q6H PRN PRN Reason: NAUSEA OR VOMITING Senna/Docusate Sodium (Dominga-Colace) 1 tab PO BID [facility] Sennosides (Senokot) 17.2 mg PO Q12H PRN PRN Reason: Moderate Constipation Sodium Chloride (Ns Flush) 2 ml IV.FLUSH UNSCH PRN PRN Reason: FLUSH AFTER USING IV ACCESS Temazepam (Restoril) 15 mg PO HS PRN PRN Reason: INSOMNIA Thiamine HCl (Vitamin B1) 100 mg PO DAILY [facility] Allergies Allergy/AdvReac Type Severity Reaction Status Date / Time Bleach (Sodium Hypochlorite) Allergy Hives Verified 10/30/17 20:00 oxycodone Allergy Anaphylaxis Verified 10/30/17 20:00 Home Medications Medication Instructions Recorded Confirmed Type trazodone 150 mg PO DAILY 10/15/17 10/30/17 History Exam Vital signs: Vital Signs 10/30/17 20:00 10/30/17 20:05 10/30/17 20:47 Temperature 98 F Pulse Rate 91 H 89 Respiratory Rate 26 H Blood Pressure 116/70 Pulse Oximetry 88 L 92 L 92 L 10/30/17 21:20 10/30/17 22:04 10/30/17 22:33 Temperature Pulse Rate 85 78 Respiratory Rate 18 18 Blood Pressure 127/67 Pulse Oximetry 98 92 L 10/31/17 00:20 Temperature Pulse Rate 79 Respiratory Rate 20 Blood Pressure 112/77 Pulse Oximetry 93 L Intake & Output 10/30/17 10/30/17 10/31/17 06:59 18:59 06:59 Weight 68.039 kg Narrative: Gen.: No acute distress Head: Normocephalic. Atraumatic. EENT: Pupils equal round and reactive to light. Nose without drainage. Airway intact. Throat without injection. Cardiovascular: Regular rate and rhythm. No murmurs, rubs or gallops. Respiratory: Lungs clear to auscultation bilaterally. No wheezes or rhonchi. Abdomen: Soft, nontender, nondistended. No peritoneal signs. Musculoskeletal: No gross deformities. No edema. Skin: No obvious rashes or erythema. Neuro: Sensory and motor grossly intact. Cranial nerves II through XII grossly intact. Results - Labs CBC & Chem 7: 10/30/17 20:33 10/30/17 20:33 Labs: Laboratory Results - last 24 hr 07/22/18 07/22/18 07/22/18 20:33 20:33 20:33 WBC 4.7 RBC 3.67 L Hgb 10.2 L Hct 30.9 L MCV 84.1 MCH 27.7 MCHC 33.0 RDW 22.9 H Plt Count 336 D MPV 7.2 Neut % (Auto) 67.1 Lymph % (Auto) 15.8 [place] % (Auto) 9.4 H Eos % (Auto) 6.9 H Baso % (Auto) 0.8 Neut # (Auto) 3.1 Lymph # (Auto) 0.7 L [place] # (Auto) 0.4 Eos # (Auto) 0.3 Baso # (Auto) 0.0 WBC Differential . Differential Comment Auto diff final PT 12.2 H INR 1.2 APTT 33.4 H Puncture Site Patient Temperature O2 Saturation ABG pH ABG pCO2 ABG pO2 ABG HCO3 ABG O2 Content ABG Base Excess ABG Methemoglobin Hemoglobin Carboxyhemoglobin O2 Delivery Device Liter Flow Inspired O2 Critical Value Sodium 138 Potassium 2.9 L* Chloride 102 Carbon Dioxide 26.0 Anion Gap 10 BUN 16 Creatinine 0.64 Estimated GFR Greater than 89 Random Glucose 73 L Calcium 7.3 L* Prot Corrected Calcium 7.8 L Total Bilirubin 0.5 AST 46 H ALT 48 Alkaline Phosphatase 56 Total Creatine Kinase CK-MB (CK-2) CK-MB (CK-2) % Troponin I Less than 0.02 L Total Protein 6.1 L Albumin 3.7 18 10/30/17 20:33 23:16 WBC RBC Hgb Hct MCV MCH MCHC RDW Plt Count MPV Neut % (Auto) Lymph % (Auto) [place] % (Auto) Eos % (Auto) Baso % (Auto) Neut # (Auto) Lymph # (Auto) [place] # (Auto) Eos # (Auto) Baso # (Auto) WBC Differential Differential Comment PT INR APTT Puncture Site Right radial Patient Temperature 98.6 O2 Saturation 88 L* ABG pH 7.47 H ABG pCO2 39 ABG pO2 59 L* ABG HCO3 28 H ABG O2 Content 12.8 ABG Base Excess 4.8 H ABG Methemoglobin 0.6 Hemoglobin 10.3 L Carboxyhemoglobin 1.5 O2 Delivery Device Nasal cannula Liter Flow 6.00 Inspired O2 21 Critical Value Yes Sodium Potassium Chloride Carbon Dioxide Anion Gap BUN Creatinine Estimated GFR Random Glucose Calcium Prot Corrected Calcium Total Bilirubin AST ALT Alkaline Phosphatase Total Creatine Kinase 889 H CK-MB (CK-2) 9.4 H CK-MB (CK-2) % 1.1 Troponin I Total Protein Albumin - Imaging Impressions Chest X-Ray 10/30/17 20:15 CONCLUSION: Bilateral lower lobe consolidative infiltrates, left greater than right, increased in severity from 10/19/2017. Caprini VTE Risk Assessment Caprini VTE Risk Assessment: No/Low Risk (score <= 1) Caprini Risk Assessment Model: Point Value = 1 Point Value = 2 Point Value = 3 Point Value = 5 Age 41-60 Minor surgery BMI > 25 kg/m2 Swollen legs Varicose veins or History of unexplained or recurrent spontaneous Oral contraceptives or hormone replacement Sepsis (< 1 month) Serious lung disease, including pneumonia (< 1 month) Abnormal pulmonary function Acute myocardial infarction Congestive heart failure (< 1 month) History of inflammatory bowel disease Medical patient at bed rest Age 61-74 Arthroscopic surgery Major open surgery (> 45 min) Laparoscopic surgery (> 45 min) Malignancy Confined to bed (> 72 hours) Immobilizing plaster cast Central venous access Age >= 75 History of VTE Family history of VTE Factor V Leiden Prothrombin [id number] Lupus anticoagulant Anticardiolipin antibodies Elevated serum homocysteine Heparin-induced thrombocytopenia Other congenital or acquired thrombophilia Stroke (< 1 month) Elective arthroplasty Hip, pelvis, or leg fracture Acute spinal cord injury (< 1 month) Prophylaxis Regimen: Total Risk Factor Score Risk Level Prophylaxis Regimen 0-1 Low Early ambulation 2 Moderate Order ONE of the following: *Sequential Compression Device (SCD) *Heparin 5000 units SQ BID 3-4 Higher Order ONE of the following medications: *Heparin 5000 units SQ TID *Enoxaparin/Lovenox 40 mg SQ daily (WT < 150 kg, CrCl > 30 mL/min) *Enoxaparin/Lovenox 30 mg SQ daily (WT < 150 kg, CrCl > 10-29 mL/min) *Enoxaparin/Lovenox 30 mg SQ BID (WT < 150 kg, CrCl > 30 mL/min) AND/OR *Sequential Compression Device (SCD) 5 or more Highest Order ONE of the following medications: *Heparin 5000 units SQ TID (Preferred with Epidurals) *Enoxaparin/Lovenox 40 mg SQ daily (WT < 150 kg, CrCl > 30 mL/min) *Enoxaparin/Lovenox 30 mg SQ daily (WT < 150 kg, CrCl > 10-29 mL/min) *Enoxaparin/Lovenox 30 mg SQ BID (WT < 150 kg, CrCl > 30 mL/min) AND *Sequential Compression Device (SCD) Assessment and Plan - Plan Assessment/plan: 1. Bilateral pneumonia Chest x-ray significant for bilateral lower lobe consolidative infiltrates left greater than right increased in severity from 10/19/17 Vancomycin and Zosyn Patient reports compliance with all of his medications including all discharge medications from previous hospitalization. He was discharged on azithromycin and cefuroxime. Pulmonary consulted, appreciate recommendations Patient hypoxic on 6 L nasal cannula ABG significant for hypoxia Patient refusing nonrebreather mask If oxygen saturation stays low, [place] [facility] [place] start on high flow nasal cannula 2. Hypokalemia Patient started on torsemide for edema and effusion at last hospitalization Status post IV/p.o. repletion Monitor BMP 3. Alcohol abuse Thiamine/folate/multivitamin CIWA protocol FEN Heart healthy diet Electrolytes: As above
[2017-10-31] MEDS: Temazepam 15 MG Capsule PO PRN (04:46)
[2017-10-31] MEDS: Piperacil/Tazo 4.5 GM Premix 4.5 GM/100 ML BAG IV.SIG SCH ×3 (04:50→17:43)
[2017-10-31] MEDS: Multivitamin/Minerals Therapeutic Tablet PO SCH (09:22)
[2017-10-31] MEDS: Folic Acid 1 MG Tablet PO SCH (09:22)
[2017-10-31] MEDS: Senna/Docusate Sodium 8.6/50 MG Tablet PO SCH (09:22)
[2017-10-31] MEDS ORDERED: Vancomycin Inj 1,000 MG in Sodium Chlor 0.9% Inj 250 ML IV.SIG SCH (10:00)
[2017-10-31 11:39] LABS: ABG Base Excess 2.6 mmol/L (-2-2); ABG PCO2 63 mmHg (38-42); ABG PO2 79 mmHG (61-120)
[2017-10-31] MEDS ORDERED: Calcium Chloride Inj 1 GM/10 ML Syringe IV.PUSH ONE (11:48)
--- NOTE | 2017-10-31 13:00 | XR ---
EXAM DATE: 10/31/2017 12:55 PM EDT AGE/SEX: 52 years / Male INDICATIONS: Short of breath. CLINICAL DATA: This is the patient's subsequent encounter. Patient reports that signs and symptoms h ave been present for 4 - 6 days and indicates a pain score of 4/10. MEDICAL/SURGICAL HISTORY: None. None. COMPARISON: [facility] [place], CHEST 1V SINGLE AP, 10/30/2017. . FINDINGS: Cardiomegaly with moderate bibasilar parental changes progressed in the interval. Developing consolid ation left base. Heart is enlarged. CONCLUSION: Deterioration in the appearance of the chest with increasing bibasilar consolidative changes worse on the left. Electronically signed by: Mustapha Live MD 10/31/2017 12:59 PM EDT
[2017-10-31] MEDS ORDERED: Etomidate Inj 20 MG/10 ML Ampul IV.PUSH ONE (13:37)
--- NOTE | 2017-10-31 13:50 | MB ---
cc: Travon Watson MD DATE: 10/31/2017 REASON FOR CONSULTATION: Pneumonia and respiratory distress. HISTORY OF PRESENT ILLNESS: This is a 52-year-old white male with a prior history of smoking and history of chronic bronchitis and recent history of pneumonia, was in the hospital just about a week ago and was treated for pneumonia, a history of alcoholism and history of cocaine use. The patient had bibasilar atelectasis on previous CAT scans that was done a week ago, as well as small effusions and was on antibiotic therapy. He did have blood gases at that time, which appeared to be compensated and he was discharged. The patient now returns to the hospital with shortness of breath for 2 days and for a recurrent pneumonia. He was hypoxic and his sats were in the low 80s in spite of being on oxygen, and he was initially on a nonrebreather mask, but due to low sats and hypercapnia, he has now been placed on BiPAP. The patient is awake and conversing. Denies chest pains, but does have a cough and brings up thick mucus. He denied hemoptysis and there was no fevers or chills. PAST MEDICAL HISTORY: Past history has included recurrent pneumonia, history of ethanolism, history of tobaccoism and cocaine use. He has no significant history of surgery. He has anxiety and depression. PAST SURGICAL HISTORY: Includes hernia repair and cataract. FAMILY HISTORY: Significant for heart disease in his father. SOCIAL HISTORY: The patient smoked 1 pack per day for over 20 years. Has used cocaine. The patient apparently has been using alcohol in the past, but not recently. REVIEW OF SYSTEMS: The patient is on a BiPAP mask, unable to answer questions. Seems to be in some respiratory distress, but awake and responds appropriately. PHYSICAL EXAMINATION: GENERAL: This is an averagely built, middle-aged, man who is pale and dyspneic. He has mild peripheral cyanosis. No leg edema. VITAL SIGNS: Blood pressure 128/70, pulse 100, respirations 22, temperature 98.2. HEENT: Head is normocephalic. Pupils are reactive. Tongue is moist. Throat is injected. Ears: No inflammation. NECK: Supple without lymphadenopathy or venous distention. No thyromegaly. CHEST: Equal movements with wheezes in the upper lung harris with occasional bibasilar crackles. HEART: Sounds were regular. S1 and S2 with no murmur. No S3. ABDOMEN: Soft, scaphoid, without masses. No organomegaly or tenderness. Bowel sounds are active. EXTREMITIES: Decreased peripheral pulses. Reflexes are 1+ with no gross motor deficits. He does move all his extremities well. RECTAL: Exam deferred. SKIN: Dry and cool. ASSESSMENT: 1. Bibasilar pneumonia with hypoxemia. 2. Hypercapnic, hypoxemic respiratory failure, acute. 3. Chronic obstructive pulmonary disease. 4. History of ethanolism. 5. Pleural effusions. PLAN: The patient has been already started on antibiotic coverage including Zosyn and vancomycin. We will also start him on Solu-Medrol 40 mg IV every 8 hours. He was placed on BiPAP 15/5 and 50% FiO2 and blood gas study repeated. The patient will be placed on DuoNeb solution with a nebulizer every 6 hours and p.r.n., lorazepam 2 mg p.o. q.6 hours p.r.n. 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 Thank you for this consultation. Travon Watson MD VJD/FRANKLYN , 01:13 PM , 01:49 PM
[2017-10-31] MEDS ORDERED: Calcium Chloride Inj 0.5 GM in Sodium Chlor 0.9% Inj 100 ML IV.SIG ONE (14:00)
[2017-10-31] MEDS ORDERED: Magnesium Oxide 400 MG Tablet PO ONE (14:00)
[2017-10-31] MEDS ORDERED: Potassium Chloride 10 MEQ ER Capsule PO ONE (14:00)
[2017-10-31] MEDS: MethylPREDNISolone Sod Succinate Inj 40 MG/ML Vial IV.PUSH SCH (15:25)
[2017-10-31] MEDS: Vancomycin Inj 1,750 MG in Sodium Chlor 0.9% Inj 500 ML IV.SIG SCH (15:44)
[2017-10-31 15:59] LABS: ABG Base Excess 4.7 mmol/L (-2-2); ABG PCO2 44 mmHg (38-42); ABG PO2 61 mmHG (61-120)
--- NOTE | 2017-10-31 19:07 | P.CONCC ---
History of Present Illness Service: Critical Care Medicine Consult date: 10/31/17 Requesting Physician: Jaya Harris Reason for Consult: hypoxia Primary Care Provider: Jose Raul Cassidy Family Provider: Jose Raul Cassidy Chief Complaint: SOB History of Present Illness: This is a 52-year-old male who was recently admitted earlier in October with community-acquired pneumonia and COPD exacerbation who was treated successfully with antibiotics and discharged on home oxygen. He readmits yesterday for worsening hypoxia. Per the admission H&P, it states he was not wearing his oxygen or taking his antibiotics. Patient continued to worsen and was seen by Dr. Harris with the pulmonary service today. He is transferred emergently to the CVICU for noninvasive positive pressure ventilation. Patient is dyspneic and cannot speak in full sentences. The remainder of the history is quite limited and taken from the medical record due to the patient's dyspnea. Of note , he does deny chest pain. Endorses shortness of breath. Endorses cough. Endorses fever. Recent CTA from prior admission is negative for acute PE. Recent echo demonstrates preserved biventricular function. Review of Systems other Comments: Unobtainable due to dyspnea. PMFSH - History History Provided By: Patient - Medical / Surgical Hx Neg / Unobtainable Medical Problems Denied: Unable to Obtain Surgical History: Unable to Obtain - Medical History Medical History: Medical History (Last Reviewed 10/21/17 @ 08:59 by Viad Oneill) Alcohol abuse Insomnia Substance abuse - Surgical History Surgical History: Surgical History (Last Reviewed 10/21/17 @ 08:59 by Vida Oneill) Hernia (Acute) Cataract (Acute) - Family History Family History: Family History (Last Updated 10/14/17 @ 19:01 by Alena Rubi MD) Other Cardiac defibrillator in situ Family history of hypertension - Tobacco History Second Hand Smoke Exposure: No Tobacco Use In Past 30 Days: No Smoking Status: Former smoker Tobacco Type: Cigarettes - Alcohol History How Often Do You Have a Drink Containing Alcohol: 4 or more times a week - Substance Use History Substance History: Past History - Substance Use Type Alcohol Status: Early Remission Route Used: Inhalation Reason for Use: Feels Good Comment: hx of abuse Crack/Cocaine Status: Early Remission Route Used: Inhalation Reason for Use: Feels Good, Get High Marijuana Status: Early Remission Route Used: Inhalation Reason for Use: Feels Good, Get High - Travel History Recent Travel in the [place] Within the Last 8 Weeks: No Recent Travel Out of the Country Within the Last 8 Weeks: No - Immunization History Tetanus Immunization: Unsure Hx Influenza Vaccine This Season: No Medications and Allergies Active Medications: Active Medications Acetaminophen (Tylenol) 650 mg PO Q4H PRN PRN Reason: Temp > 100.4 Al Hydroxide/Mg Hydroxide (Milk Of Magnesia Liq) 30 ml PO Q12H PRN PRN Reason: Mild Constipation Albuterol (Duoneb Neb (Mohini)) 1 ampul NEB Q6HR NEB MOHINI Last Admin: 10/31/17 17:13 Dose: 1 ampul Bisacodyl (Dulcolax Supp) 10 mg RECTAL DAILY PRN PRN Reason: SEVERE CONSITIPATION Flumazenil (Romazecon Inj) 0.2 mg IV.PUSH Q1M PRN PRN Reason: OVERSEDATION Folic Acid (Folic Acid) 1 mg PO DAILY [facility] Stop: 11/05/17 08:59 Last Admin: 10/31/17 09:22 Dose: 1 mg Haloperidol Lactate (Haldol Inj) 1 mg IV.PUSH Q15M PRN PRN Reason: for severe agitation Pharmacy Profile Note (Vancomycin Consult Pharmacy) 0 mls @ 0 mls/hr OTHER UNSCH [facility] Piperacillin/Tazobactam/Dextrose (Zosyn 4.5 Gm Premix) 4.5 gm in 100 mls @ 200 mls/hr IV.SIG Q6H [facility] Last Admin: 10/31/17 17:43 Dose: 200 mls/hr Vancomycin HCl 1,750 mg/ (Sodium Chloride) 517.5 mls @ 250 mls/hr IV.SIG Q12H [facility] Last Infusion: 10/31/17 17:19 Dose: 0 mls/hr Lactulose (Lactulose Liq) 30 ml PO DAILY PRN PRN Reason: SEVERE CONSITIPATION Lorazepam (Ativan) 2 mg PO Q2H PRN PRN Reason: for CIWA 11-14 Lorazepam (Ativan Inj) 2 mg IV.PUSH Q2H PRN PRN Reason: for CIWA 11-14 Lorazepam (Ativan Inj) 2 mg IV.PUSH Q1H PRN PRN Reason: for CIWA 15-20 Lorazepam (Ativan Inj) 2 mg IV.PUSH Q15M PRN PRN Reason: for CIWA > 20 Lorazepam (Ativan Inj) 1 mg IV.PUSH Q4H PRN PRN Reason: for CIWA 8-10 Lorazepam (Ativan) 1 mg PO Q4H PRN PRN Reason: for CIWA 8-10 Methylprednisolone Sodium Succinate (Solumedrol Inj) 40 mg IV.PUSH Q8HR [facility] Last Admin: 10/31/17 15:25 Dose: 40 mg Miscellaneous Information ([facility] Ordered Lab Info) 0 each OTHER ONCE ONE Stop: 11/01/17 12:46 Multivitamins/Minerals (Theragran-M) 1 tab PO DAILY [facility] Stop: 11/05/17 08:59 Last Admin: 10/31/17 09:22 Dose: 1 tab Ondansetron HCl (Zofran Odt) 4 mg PO Q6H PRN PRN Reason: NAUSEA OR VOMITING Senna/Docusate Sodium (Dominga-Colace) 1 tab PO BID [facility] Last Admin: 10/31/17 09:22 Dose: Not Given Sennosides (Senokot) 17.2 mg PO Q12H PRN PRN Reason: Moderate Constipation Sodium Chloride (Ns Flush) 2 ml IV.FLUSH UNSCH PRN PRN Reason: FLUSH AFTER USING IV ACCESS Temazepam (Restoril) 15 mg PO HS PRN PRN Reason: INSOMNIA Last Admin: 10/31/17 04:46 Dose: 15 mg Thiamine HCl (Vitamin B1) 100 mg PO DAILY [facility] Last Admin: 10/31/17 09:21 Dose: 100 mg Allergies Allergy/AdvReac Type Severity Reaction Status Date / Time Bleach (Sodium Hypochlorite) Allergy Hives Verified 10/30/17 20:00 oxycodone Allergy Anaphylaxis Verified 10/30/17 20:00 Home Medications Medication Instructions Recorded Confirmed Type trazodone 150 mg PO DAILY 10/15/17 10/30/17 History Physical Exam Vital signs: Vital Signs 10/30/17 20:00 10/30/17 20:05 10/30/17 20:47 Temperature 36.6 C Pulse Rate 91 H 89 Respiratory Rate 26 H Blood Pressure 116/70 Pulse Oximetry 88 L 92 L 92 L 10/30/17 21:20 10/30/17 22:04 10/30/17 22:33 Temperature Pulse Rate 85 78 Respiratory Rate 18 18 Blood Pressure 127/67 Pulse Oximetry 98 92 L 10/31/17 00:20 10/31/17 01:41 10/31/17 03:00 Temperature 36.7 C Pulse Rate 79 71 67 Respiratory Rate 20 18 Blood Pressure 112/77 127/60 Pulse Oximetry 93 L 95 10/31/17 04:00 10/31/17 05:00 10/31/17 06:00 Temperature 36.3 C L Pulse Rate 82 96 H 80 Respiratory Rate 20 Blood Pressure 115/77 Pulse Oximetry 92 L 10/31/17 07:00 10/31/17 08:00 10/31/17 08:05 Temperature 36.6 C Pulse Rate 76 78 Respiratory Rate 16 Blood Pressure 94/53 L Pulse Oximetry 92 L 94 L 10/31/17 09:00 10/31/17 10:00 10/31/17 11:55 Temperature Pulse Rate 72 68 Respiratory Rate Blood Pressure Pulse Oximetry 93 L 10/31/17 11:57 10/31/17 12:00 10/31/17 13:12 Temperature 36.8 C Pulse Rate 77 66 Respiratory Rate 16 Blood Pressure 95/55 L Pulse Oximetry 94 L 99 10/31/17 14:06 10/31/17 16:00 10/31/17 17:00 Temperature 36.4 C L Pulse Rate 72 88 88 Respiratory Rate 20 Blood Pressure 106/73 Pulse Oximetry 88 L 89 L 10/31/17 17:13 10/31/17 17:39 Temperature Pulse Rate 72 72 Respiratory Rate 21 Blood Pressure Pulse Oximetry Intake & Output 10/31/17 10/31/17 11/01/17 06:59 18:59 06:59 Intake Total 340 / 340 600 / 600 Output Total 250 / 250 2300 / 2300 Balance 90 / 90 -1700 / -1700 Weight 79.4 kg Intake: IV 100 / 100 600 / 600 Zosyn 4.5 GM Premix 4.5 gm In 100 / 100 100 / 100 100 ml @ 200 mls/hr IV.SIG Q6H [facility]OH[facility] Rx#:[id number] Vancomycin Inj 1,750 MG In NS 500 / 500 Inj 500 ML @ 250 mls/hr IV.SIG Q12H [facility] Rx#:[id number] Oral 240 / 240 Output: Urine 250 / 250 2300 / 2300 Other: Date of Last Bowel Movement 10/30/17 10/30/17 Narrative: GENERAL: Middle-age male lying in bed, distress due to dyspnea HEENT: Normocephalic. Atraumatic. Pupils equal, round, reactive, conjugate. Mucous membranes are moist NECK: Trachea is midline. There is no JVD. CHEST: BiPAP in place. 15/5/40 percent. Labored. Tachypneic. Equal chest rise. CARDIOVASCULAR: Normal rate, regular rhythm. Sinus. ABDOMEN: Soft, nontender, nondistended. No guarding. MUSCULOSKELETAL: Pulses 2+. No peripheral edema. NEUROLOGICAL: RASS 0. CAM -. Follows commands. Assessment and Plan - Assessment and Plan Plan: Assessment: 52-year-old male with COPD and recent diagnosis of pneumonia presents with worsening acute hypoxic respiratory failure requiring noninvasive positive pressure ventilation. Agree with admission to the ICU for noninvasive positive pressure ventilation. May require emergent intubation. Agree with antibiotics, nebs, steroids. Active Problems: Acute hypoxic respiratory failure Recent Community Acquired pneumonia Healthcare associated pneumonia COPD exacerbation- acute, severe Recommendations: - agree with broadening to cover healthcare associated pathogens - steroids - nebs - wean fio2 for goal spo2 > 90% - BiPAP as needed. Critical care will continue to follow. Critically ill.
[2017-10-31] MEDS: Acetaminophen 325 MG Tablet PO PRN (19:46)
--- NOTE | 2017-11-01 00:18 | ECG ---
Date Performed: 10/30/2017 Time Performed: 20:34:37 PTAGE: 52 years EKG: Sinus rhythm WITH FIRST DEGREE AV BLOCK SEPTAL MYOCARDIAL INFARCTION ABNORMAL ECG PREVIOUS TRACING : 10/13/2017 18.47 Since the previous tracing, no significant change noted DOCTOR: Quang Waterman Interpretating Date/Time 11/01/2017 00:17:26
[2017-11-01] MEDS: Piperacil/Tazo 4.5 GM Premix 4.5 GM/100 ML BAG IV.SIG SCH ×5 (00:46→22:11)
[2017-11-01] MEDS: MethylPREDNISolone Sod Succinate Inj 40 MG/ML Vial IV.PUSH SCH ×4 (00:46→22:11)
[2017-11-01] MEDS: Senna/Docusate Sodium 8.6/50 MG Tablet PO SCH ×3 (00:46→22:07)
[2017-11-01] MEDS: Calcium Carbonate 500 MG Tablet PO SCH ×3 (00:46→22:07)
[2017-11-01] MEDS: Vancomycin Inj 1,750 MG in Sodium Chlor 0.9% Inj 500 ML IV.SIG SCH ×2 (00:47→13:38)
[2017-11-01 04:07] LABS: Baso % (Auto) 0.7 % (0.0-2.0); Eos % (Auto) 0.1 % (0.0-4.0); Hematocrit 32.8 % (39.0-51.0); Hemoglobin 10.7 gm/dL (13.0-17.0); Lymph # (Auto) 0.3 th/mm3 (1.0-4.8); Lymph % (Auto) 4.2 % (9.0-44.0); Mean Corpuscular HGB Conc 32.5 % (32.0-36.0); Mean Corpuscular Hemoglobin 27.6 pg (27.0-34.0); Mean Platelet Volume 7.5 fL (7.0-11.0); Mono # (Auto) 0.1 th/mm3 (0.0-0.9); Mono % (Auto) 1.4 % (0.0-8.0); Neut # (Auto) 6.2 th/mm3 (1.8-7.7); Neut % (Auto) 93.6 % (16.0-70.0); Platelet Count 364 th/mm3 (150-450); Red Blood Count 3.86 mil/mm3 (4.50-5.90); Red Cell Distribution Width 22.2 % (11.6-17.2); White Blood Count 6.7 th/mm3 (4.0-11.0)
[2017-11-01 04:29] LABS: Calcium 7.5 mg/dL (8.5-10.1); Carbon Dioxide 28.1 meq/L (21.0-32.0); Magnesium 1.7 mg/dL (1.5-2.5); Potassium 4.1 meq/L (3.5-5.1)
[2017-11-01 04:49] LABS: CKMB Percent 1.1 % (0.0-4.0); Creatine Kinase MB 7.6 ng/mL (0.5-3.6)
[2017-11-01] MEDS: Multivitamin/Minerals Therapeutic Tablet PO SCH (08:47)
[2017-11-01] MEDS: Folic Acid 1 MG Tablet PO SCH (08:47)
--- NOTE | 2017-11-01 10:43 | P.PNCC ---
Subjective Subjective Remarks/Hospital Course: This is a 52-year-old male who was recently admitted earlier in October with community-acquired pneumonia and COPD exacerbation who was treated successfully with antibiotics and discharged on home oxygen. He readmits yesterday for worsening hypoxia. Per the admission H&P, it states he was not wearing his oxygen or taking his antibiotics. Patient continued to worsen and was seen by Dr. Harris with the pulmonary service today. He is transferred emergently to the CVICU for noninvasive positive pressure ventilation. Patient is dyspneic and cannot speak in full sentences. The remainder of the history is quite limited and taken from the medical record due to the patient's dyspnea. Of note , he does deny chest pain. Endorses shortness of breath. Endorses cough. Endorses fever. Recent CTA from prior admission is negative for acute PE. Recent echo demonstrates preserved biventricular function. SUBJ 11/01: Lying in bed and remains quite hypoxemic. On 50% Ventimask oxygen saturation is an elderly 81%. I have ordered a CT PE protocol to rule out a PE which is unlikely and also to rule out parapneumonic effusion. If effusion present he may need drainage of the effusion. At this time remains critical Objective Vital Signs / I&O: Vital Signs 10/31/17 11:55 10/31/17 11:57 10/31/17 12:00 Temperature 98.3 F Pulse Rate 77 66 Respiratory Rate 16 Blood Pressure 95/55 L Pulse Oximetry 93 L 94 L 10/31/17 13:12 10/31/17 14:06 10/31/17 16:00 Temperature 97.5 F L Pulse Rate 72 88 Respiratory Rate 20 Blood Pressure 106/73 Pulse Oximetry 99 88 L 89 L 10/31/17 17:00 10/31/17 17:13 10/31/17 17:20 Temperature Pulse Rate 88 72 Respiratory Rate 21 Blood Pressure Pulse Oximetry 93 L 10/31/17 17:39 10/31/17 19:00 10/31/17 20:00 Temperature 97.9 F Pulse Rate 72 85 76 Respiratory Rate 22 Blood Pressure 124/77 Pulse Oximetry 97 10/31/17 21:00 10/31/17 22:00 10/31/17 22:25 Temperature Pulse Rate 81 86 Respiratory Rate Blood Pressure Pulse Oximetry 96 10/31/17 23:00 11/01/17 00:00 11/01/17 00:44 Temperature 97.4 F L Pulse Rate 104 H 104 H Respiratory Rate 21 18 Blood Pressure 112/77 Pulse Oximetry 95 95 11/01/17 01:00 11/01/17 02:00 11/01/17 03:00 Temperature Pulse Rate 87 89 79 Respiratory Rate Blood Pressure Pulse Oximetry 98 11/01/17 03:08 11/01/17 04:00 11/01/17 05:00 Temperature 97.9 F Pulse Rate 79 71 Respiratory Rate 18 Blood Pressure 123/80 Pulse Oximetry 98 98 11/01/17 06:00 11/01/17 07:00 11/01/17 07:42 Temperature Pulse Rate 71 71 Respiratory Rate Blood Pressure Pulse Oximetry 98 98 11/01/17 07:44 11/01/17 07:45 11/01/17 08:35 Temperature 98.1 F Pulse Rate 66 Respiratory Rate 18 18 Blood Pressure 102/66 Pulse Oximetry 98 93 L Intake & Output 10/31/17 11/01/17 11/01/17 18:59 06:59 18:59 Intake Total 700 / 700 1320 / 1320 1442.5 / 1442.5 Output Total 2300 / 2300 1400 / 1400 Balance -1600 / -1600 -80 / -80 1442.5 / 1442.5 Weight 79 kg Intake: IV 700 / 700 600 / 600 1442.5 / 1442.5 Zosyn 4.5 GM Premix 4.5 gm In 200 / 200 100 / 100 100 / 100 100 ml @ 200 mls/hr IV.SIG Q6H [facility] Rx#:[id number] Vancomycin Inj 1,750 MG In NS 500 / 500 500 / 500 517.5 / 517.5 Inj 500 ML @ 250 mls/hr IV.SIG Q12H [facility] Rx#:[id number] Oral 720 / 720 Output: Urine 2300 / 2300 1400 / 1400 Other: Date of Last Bowel Movement 10/30/17 10/31/17 10/31/17 # Bowel Movements 1 Result Diagrams: 11/01/17 03:16 11/01/17 03:16 Objective Remarks: GENERAL: Middle-age male lying in bed, in moderate distress due to dyspnea, remains hypoxemic on Ventimask HEENT: Normocephalic. Atraumatic. Pupils equal, round, reactive, conjugate. Mucous membranes are moist NECK: Trachea is midline. There is no JVD. CHEST: Currently on Ventimask 50% but oxygen saturation initially 81%, RT to initiate 100% nonrebreather. Tachypneic. Equal chest rise. Diminished air entry left base CARDIOVASCULAR: Normal rate, regular rhythm. Sinus. ABDOMEN: Soft, nontender, nondistended. No guarding. MUSCULOSKELETAL: Pulses 2+. No peripheral edema. NEUROLOGICAL: Awake alert oriented no focal deficits. Follows commands. Assessment and Plan - Assessment and Plan Plan: Assessment: 52-year-old male with COPD and recent diagnosis of pneumonia presents with worsening acute hypoxic respiratory failure requiring noninvasive positive pressure ventilation. Agree with admission to the ICU for noninvasive positive pressure ventilation. May require emergent intubation. Agree with antibiotics, nebs, steroids. Active Problems: Acute hypoxic respiratory failure Recent Community Acquired pneumonia Healthcare associated pneumonia COPD exacerbation- acute, severe Recommendations: NEURO: -Minimize any sedation RESP: -Patient did not tolerate BiPAP, placed on 100% nonrebreather -DuoNeb every 4 hours scheduled and as needed -CT pulmonary angiogram to rule out PE, to rule out parapneumonic effusion -If effusion present may need thoracentesis -Continue IV steroids, add Symbicort and Spiriva CV: -Normal saline IV fluids, previous 2D echo showed preserved LV function GI: -Keep n.p.o. until CT scan is completed., IV famotidine : -Monitor renal function closely. ID: -Antibiotics vancomycin and Zosyn. Add Levaquin for atypical coverage -Blood urine and sputum cultures. Check urine for Legionella and pneumococcal antigen HEME: -Monitor CBC, coags ENDO: -Electrolyte replacement per protocol PROPH: -Bilateral lower extremity SCDs. Lovenox/famotidine LINES: -Utilize peripheral IVs, central line if needed Critical care with severe hypoxemic respiratory failure and pneumonia, will continue to follow. Continue ICU
--- NOTE | 2017-11-01 10:58 | CT ---
EXAM DATE: 11/01/2017 10:51 AM EDT AGE/SEX: 52 years / Male INDICATIONS: Shortness of breath. CLINICAL DATA: This is the patient's initial encounter. Patient reports that signs and symptoms have been present for 1 day and indicates a pain score of 5/10. MEDICAL/SURGICAL HISTORY: None. IV drug user. None. RADIATION DOSE: 9.56 CTDI (mGy) COMPARISON: CTA pulmonary angiogram 10/23/2017. TECHNIQUE: Volumetric scanning was performed using a multi-row detector CT scanner during bolus infu niharika of 74 ml Omnipaque 350 (iohexol) nonionic water-soluble contrast as a single exam dose. The toribio a was post processed with a variety of visualization algorithms including full volume maximum intensi ty projection and sliding thin slab reformation. Using automated exposure control and adjustment of t he mA and/or kV according to patient size, radiation dose was kept as low as reasonably achievable to obtain optimal diagnostic quality images. DICOM format image data is available electronically for r eview and comparison. FINDINGS: Pulmonary Arteries: No filling defects are seen in the pulmonary arteries out to the subsegmental ve ssels. The left and right pulmonary arteries are normal in diameter. Lung: Bibasilar consolidation has progressed from the prior exam. Air bronchograms are noted. A new area consolidation is seen involving the medial aspects of the left upper lobe.. Effusion: Tiny posterior layering bilateral pleural effusions are stable to slightly smaller from th e prior study.. Mediastinum: The heart is mildly enlarged but stable. Small pericardial effusion which is stable. An eurysmal change of the ascending aorta with the mid tubular measuring 4.4 cm. This is stable. Pulmona ry arteries are normal in caliber. No adenopathy.. Other: The axilla is unremarkable. Old bilateral rib fractures CONCLUSION: 1. No acute pulmonary emboli. 2. Worsening bibasilar consolidation with new consolidation involving the medial left upper lobe. 3. Stable to slightly smaller tiny bilateral pleural effusions. Electronically signed by: Alok Vang MD 11/01/2017 10:57 AM EDT
[2017-11-01] MEDS ORDERED: Pharmacy Ordered Lab Info OTHER ONE (12:45)
[2017-11-01 15:55] LABS: Bilirubin,Urine Negative (Negative); Clarity,Urine Clear (Clear); Color,Urine Yellow (Yellw/Straw); Glucose,Urine (UA) Negative (Negative); Leukocyte Esterase,Urine Negative (Negative); Nitrite,Urine Negative (Negative); Specific Gravity,Urine 1.044 (1.002-1.035)
--- NOTE | 2017-11-01 19:31 | P.PN ---
Subjective Interval history: On a NRB mask today . FIo2 70 %.Refused BiPAP. No fever. Cough and wheezing still Physical Exam Vital signs: Vital Signs 10/31/17 20:00 10/31/17 21:00 10/31/17 22:00 Temperature 97.9 F Pulse Rate 76 81 86 Respiratory Rate 22 Blood Pressure 124/77 Pulse Oximetry 97 10/31/17 22:25 10/31/17 23:00 11/01/17 00:00 Temperature 97.4 F L Pulse Rate 104 H 104 H Respiratory Rate 21 Blood Pressure 112/77 Pulse Oximetry 96 95 95 11/01/17 00:44 11/01/17 01:00 11/01/17 02:00 Temperature Pulse Rate 87 89 Respiratory Rate 18 Blood Pressure Pulse Oximetry 11/01/17 03:00 11/01/17 03:08 11/01/17 04:00 Temperature 97.9 F Pulse Rate 79 79 Respiratory Rate 18 Blood Pressure 123/80 Pulse Oximetry 98 98 98 11/01/17 05:00 11/01/17 06:00 11/01/17 07:00 Temperature Pulse Rate 71 71 71 Respiratory Rate Blood Pressure Pulse Oximetry 98 11/01/17 07:42 11/01/17 07:44 11/01/17 07:45 Temperature 98.1 F Pulse Rate 66 Respiratory Rate 18 18 Blood Pressure 102/66 Pulse Oximetry 98 98 11/01/17 08:35 11/01/17 11:00 11/01/17 12:00 Temperature 98.2 F Pulse Rate 67 67 Respiratory Rate 18 Blood Pressure 130/83 Pulse Oximetry 93 L 97 94 L 11/01/17 15:00 11/01/17 16:00 Temperature 98.1 F Pulse Rate 77 74 Respiratory Rate 18 Blood Pressure 130/90 Pulse Oximetry 99 98 Intake & Output 11/01/17 11/01/17 11/02/17 06:59 18:59 06:59 Intake Total 1320 / 1320 2810.0 / 2810.0 Output Total 1400 / 1400 400 / 400 Balance -80 / -80 2410.0 / 2410.0 Weight 79 kg Intake: IV 600 / 600 2210.0 / 2210.0 Levaquin 750 mg Premix Inj 150 150 / 150 ML @ 100 mls/hr IV.SIG Q24H [facility] Rx#:[id number] Zosyn 4.5 GM Premix 4.5 gm In 100 / 100 200 / 200 100 ml @ 200 mls/hr IV.SIG Q6H [facility] Rx#:[id number] Vancomycin Inj 1,750 MG In NS 500 / 500 1035.0 / 1035.0 Inj 500 ML @ 250 mls/hr IV.SIG Q12H [facility] Rx#:[id number] Oral 720 / 720 600 / 600 Output: Urine 1400 / 1400 400 / 400 Stool 0 / 0 Other: Date of Last Bowel Movement 10/31/17 10/31/17 # Bowel Movements 1 Narrative: GENERAL: Middle-age male lying in bed, in mild distress . On a NRB mask HEENT: Normocephalic. Atraumatic. Pupils equal, round, reactive, conjugate. Mucous membranes are moist NECK: Trachea is midline. There is no JVD. CHEST: BiPAP in place. 15/5/40 percent. Labored. Tachypneic. Occ Wheeze heard CARDIOVASCULAR: Normal rate, regular rhythm. Sinus. ABDOMEN: Soft, nontender, nondistended. No guarding. MUSCULOSKELETAL: Pulses felt . No peripheral edema. NEUROLOGICAL: RASS 0. CAM -. Follows commands. Results - Labs CBC & Chem 7: 11/01/17 03:16 11/01/17 03:16 Laboratory Results - last 24 hr 11/01/17 11/01/17 11/01/17 03:16 03:16 12:00 WBC 6.7 RBC 3.86 L Hgb 10.7 L Hct 32.8 L MCV 85.0 MCH 27.6 MCHC 32.5 RDW 22.2 H Plt Count 364 MPV 7.5 Neut % (Auto) 93.6 H Lymph % (Auto) 4.2 L Howell % (Auto) 1.4 Eos % (Auto) 0.1 Baso % (Auto) 0.7 Neut # (Auto) 6.2 Lymph # (Auto) 0.3 L Howell # (Auto) 0.1 Eos # (Auto) 0.0 Baso # (Auto) 0.0 WBC Differential . Differential Comment Auto diff final Sodium 139 Potassium 4.1 D Chloride 103 Carbon Dioxide 28.1 Anion Gap 8 BUN 14 Creatinine 0.97 Estimated GFR 82 L Random Glucose 161 H Calcium 7.5 L Magnesium 1.7 Total Creatine Kinase 664 H CK-MB (CK-2) 7.6 H CK-MB (CK-2) % 1.1 Urine Color Urine Clarity Urine pH Ur Specific [place] Urine Protein Urine Glucose (UA) Urine Ketones Urine Occult Blood Urine Nitrate Urine Bilirubin Urine Urobilinogen Ur Leukocyte Esterase Urine RBC Urine WBC Micro UA Comment Urine Culture Comments Vancomycin Trough 24.5 H 11/01/17 14:35 WBC RBC Hgb Hct MCV MCH MCHC RDW Plt Count MPV Neut % (Auto) Lymph % (Auto) Howell % (Auto) Eos % (Auto) Baso % (Auto) Neut # (Auto) Lymph # (Auto) Howell # (Auto) Eos # (Auto) Baso # (Auto) WBC Differential Differential Comment Sodium Potassium Chloride Carbon Dioxide Anion Gap BUN Creatinine Estimated GFR Random Glucose Calcium Magnesium Total Creatine Kinase CK-MB (CK-2) CK-MB (CK-2) % Urine Color Yellow Urine Clarity Clear Urine pH 5.0 Ur Specific [place] 1.044 H Urine Protein Negative Urine Glucose (UA) Negative Urine Ketones Negative Urine Occult Blood Negative Urine Nitrate Negative Urine Bilirubin Negative Urine Urobilinogen Less than 2 Ur Leukocyte Esterase Negative Urine RBC 1 Urine WBC 1 Micro UA Comment Culture not ind Urine Culture Comments Culture not ind Vancomycin Trough Microbiology 11/01/17 14:35 Urine - Clean Catch Urine Legionella Antigen - Final Presumptive negative for Legionella pneumophila serogroup 1 antigen in urine, suggesting no recent or recurrent infection. Infection due to Legionella cannot be ruled out since other serogroups and species may cause disease, antigen may not be present in urine in early infection, and the level of antigen present in the urine may be below the detection limit of the test. 11/01/17 14:35 Urine - Clean Catch Urine Streptococcus pneumoniae Antigen ( M - Final Presumptive negative for streptococcus pneumoniae antigen, suggesting no current or recent infection. Infection due to Streptococcus pneumoniae cannot be ruled out since the antigen present in the sample may be below the detection limit of the test. - Imaging Impressions Chest CTA 11/01/17 00:00 CONCLUSION: 1. No acute pulmonary emboli. 2. Worsening bibasilar consolidation with new consolidation involving the medial left upper lobe. 3. Stable to slightly smaller tiny bilateral pleural effusions. Assessment and Plan - Assessment (1) Electrolyte abnormality Code(s): E87.8 - Other disorders of electrolyte and fluid balance, not elsewhere classified Status: Acute (2) Mild neurocognitive disorder Code(s): G31.84 - Mild cognitive impairment, so stated Status: Acute (3) Respiratory failure with hypoxia Code(s): J96.91 - Respiratory failure, unspecified with hypoxia Status: Acute (4) Pneumonia Code(s): J18.9 - Pneumonia, unspecified organism Status: Acute (5) Acute hypokalemia Code(s): E87.6 - Hypokalemia Status: Acute (6) Hypocalcemia Code(s): E83.51 - Hypocalcemia Status: Acute (7) Hernia Code(s): K46.9 - Unspecified abdominal hernia without obstruction or gangrene Status: Acute - Plan 1. Wean O2 to ventimask at 50 %. 2. BipAP at HS12/5 CM Fio2 40 % 3. Cont Zosyn/ Vancomycin. 4. Duonebs qid. 5. Solumedrol 40 mg IV Q8H 6. CXR ,CBC,BMP in am (4) Pneumonia Qualifiers: Pneumonia type: due to unspecified organism Laterality: bilateral Lung location: lower lobe of lung Qualified Code(s): J18.1 - Lobar pneumonia, unspecified organism
--- NOTE | 2017-11-01 20:23 | MB ---
cc: Travon Watson MD DATE: 11/01/2017 REASON FOR CONSULTATION: Respiratory distress and pneumonia. HISTORY OF PRESENT ILLNESS: This is a 52-year-old man with a history of pneumonia that was treated recently and discharged from [facility] on 10/24/2017, on home oxygen at 2 liters. The patient apparently was on antibiotics upon discharge, but started to have increasing shortness of breath, wheezing and could not catch his breath and, thus, was brought back to the emergency room. Following admission, the patient did have a chest x-ray, which demonstrated bibasilar pulmonary infiltrates, but the patient recently had a CTA of the chest which showed no evidence of PE, but had bibasilar atelectasis, as well as small effusions. Presently, he is on a BiPAP mask and is unable to give any proper details of his history, but he denies chest pains and he does have a cough and brings up a little thick mucus. He is not running any fevers or chills and had no hemoptysis. No nausea, vomiting or aspiration. PAST MEDICAL HISTORY: Includes a history of ethanolism, history of substance abuse, history of hernia surgery and history for cataract repair. The patient has been treated for pneumonia on previous occasions. No history of diabetes or hypertension. He has a history for depression and anxiety. HABITS: The patient was a smoker, 1 pack per day for over 20 years and alcohol use in the past as well. REVIEW OF SYSTEMS: The patient is unable to provide any significant details. He is in distress and on BiPAP mask at FiO2 of 60%. ALLERGIES: NO DRUG ALLERGIES ARE LISTED. FAMILY HISTORY: Noncontributory, history of hypertension. PHYSICAL EXAMINATION: GENERAL: This is averagely built, middle-aged man is pale and dyspneic at rest and on BiPAP mask. He has mild peripheral cyanosis. VITAL SIGNS: Blood pressure 138/80, pulse is 112, respirations , temperature 97.8. HEENT: Head normocephalic. Pupils reactive. Sclerae were injected. Throat was clear. NECK: Supple, with no venous distention. Trachea midline. No thyroid enlargement. CHEST: Equal movements with decreased breath sounds at the bases, with coarse wheezes bilaterally. HEART: Regular S1 and S2. No murmur. No S3. ABDOMEN: Protuberant and soft, without masses. No organomegaly or tenderness. EXTREMITIES: Mild peripheral edema, with diminished pulses. Reflexes are 1+, with no gross motor deficits. RECTAL: Deferred. SKIN: No lesions. IMPRESSION: 1. Bibasilar pneumonia with hypoxemia. 2. Acute on chronic respiratory failure. 3. Probable underlying chronic obstructive pulmonary disease. 4. History of ethanolism. 5. Probable sepsis. PLAN: The patient will be continued on BiPAP mask 15/5 cm FiO2 of 50%. Blood gas studies to be repeated. We will continue with antibiotic coverage, including vancomycin 1 gram IV q. 12 hours and Zosyn 4.5 grams IV q. 6 hours. Sputum sent for culture. Blood cultures and urine cultures to be done. Nebulized DuoNeb solution added q.i.d. and p.r.n. Solu-Medrol 40 mg IV every 8 hours as well and repeat chest x-ray. The patient will be transferred to the intensive care unit for further management. Thank you for this consultation. MD GEOFF Fuentes/JESUS , 07:27 PM , 08:21 PM
[2017-11-01] MEDS: Budesonide-Formoterol 160/4.5 MCG 6 GM Inhaler INH SCH (22:08)
[2017-11-01] MEDS: Acetaminophen 325 MG Tablet PO PRN (22:12)
[2017-11-02] MEDS: Temazepam 15 MG Capsule PO PRN (01:47)
[2017-11-02] MEDS: Piperacil/Tazo 4.5 GM Premix 4.5 GM/100 ML BAG IV.SIG SCH ×4 (03:49→21:22)
[2017-11-02 05:05] LABS: Calcium 7.8 mg/dL (8.5-10.1); Carbon Dioxide 28.2 meq/L (21.0-32.0)
[2017-11-02] MEDS: MethylPREDNISolone Sod Succinate Inj 40 MG/ML Vial IV.PUSH SCH ×3 (05:12→21:22)
[2017-11-02 05:27] LABS: CKMB Percent 1.1 % (0.0-4.0); Creatine Kinase MB 5.3 ng/mL (0.5-3.6)
--- NOTE | 2017-11-02 07:07 | XR ---
EXAM DATE: 11/02/2017 6:49 AM EDT AGE/SEX: 52 years / Male INDICATIONS: Shortness of breath. CLINICAL DATA: This is the patient's subsequent encounter. Patient reports that signs and symptoms h ave been present for 4 - 6 days and indicates a pain score of 0/10. MEDICAL/SURGICAL HISTORY: None. None. COMPARISON: [facility] [place], CHEST 1V SINGLE AP, 10/31/2017. . FINDINGS: Left lung base opacity is present may be due to a combination of consolidation and or pleural effusio n. Overall there is improvement in aeration of the left lung since the prior exam. Perihilar haziness may represent pulmonary edema and slight cardiomegaly seen. Right lung base consolidation and/or ple ural effusion is also suspected. CONCLUSION: Overall improvement in aeration of the left lung, otherwise not significantly changed. Electronically signed by: Cassandra Smith MD 11/02/2017 7:05 AM EDT
--- NOTE | 2017-11-02 07:24 | P.PNCC ---
Subjective Subjective Remarks/Hospital Course: This is a 52-year-old male who was recently admitted earlier in October with community-acquired pneumonia and COPD exacerbation who was treated successfully with antibiotics and discharged on home oxygen. He readmits yesterday for worsening hypoxia. Per the admission H&P, it states he was not wearing his oxygen or taking his antibiotics. Patient continued to worsen and was seen by Dr. Harris with the pulmonary service today. He is transferred emergently to the CVICU for noninvasive positive pressure ventilation. Patient is dyspneic and cannot speak in full sentences. The remainder of the history is quite limited and taken from the medical record due to the patient's dyspnea. Of note , he does deny chest pain. Endorses shortness of breath. Endorses cough. Endorses fever. Recent CTA from prior admission is negative for acute PE. Recent echo demonstrates preserved biventricular function. SUBJ 11/01: Lying in bed and remains quite hypoxemic. On 50% Ventimask oxygen saturation is an elderly 81%. I have ordered a CT PE protocol to rule out a PE which is unlikely and also to rule out parapneumonic effusion. If effusion present he may need drainage of the effusion. At this time remains critical 11/02: Breathing subjectively improved. Oxygen saturation is maintained about 88 % on 6 L nasal cannula. Patient is noncompliant with BiPAP and Ventimask. CT angiogram yesterday showed no PE, bilateral infiltrates indicating multilobar pneumonia. Objective Vital Signs / I&O: Vital Signs 11/01/17 07:42 11/01/17 07:44 11/01/17 07:45 Temperature 98.1 F Pulse Rate 66 Respiratory Rate 18 18 Blood Pressure 102/66 Pulse Oximetry 98 98 11/01/17 08:35 11/01/17 11:00 11/01/17 12:00 Temperature 98.2 F Pulse Rate 67 67 Respiratory Rate 18 Blood Pressure 130/83 Pulse Oximetry 93 L 97 94 L 11/01/17 15:00 11/01/17 16:00 11/01/17 19:00 Temperature 98.1 F Pulse Rate 77 74 91 H Respiratory Rate 18 Blood Pressure 130/90 Pulse Oximetry 99 98 95 11/01/17 20:00 11/01/17 21:49 11/01/17 22:00 Temperature 97.9 F Pulse Rate 80 Respiratory Rate 20 20 Blood Pressure 143/92 H Pulse Oximetry 94 L 94 L 11/01/17 23:00 11/02/17 00:00 11/02/17 03:00 Temperature 98.4 F Pulse Rate 80 80 Respiratory Rate 20 Blood Pressure 134/96 H Pulse Oximetry 94 L 92 L 11/02/17 04:00 Temperature 98.0 F Pulse Rate Respiratory Rate 20 Blood Pressure 107/68 Pulse Oximetry Intake & Output 11/01/17 11/02/17 11/02/17 18:59 06:59 18:59 Intake Total 2910.0 / 2910.0 560 / 560 Output Total 400 / 400 300 / 300 Balance 2510.0 / 2510.0 260 / 260 Weight 77.1 kg Intake: IV 2310.0 / 2310.0 200 / 200 Levaquin 750 mg Premix Inj 150 150 / 150 ML @ 100 mls/hr IV.SIG Q24H [facility] Rx#:[id number] Zosyn 4.5 GM Premix 4.5 gm In 300 / 300 200 / 200 100 ml @ 200 mls/hr IV.SIG Q6H [facility] Rx#:[id number] Vancomycin Inj 1,750 MG In NS 1035.0 / 1035.0 Inj 500 ML @ 250 mls/hr IV.SIG Q12H [facility] Rx#:[id number] Oral 600 / 600 360 / 360 Output: Urine 400 / 400 300 / 300 Stool 0 / 0 Other: Date of Last Bowel Movement 10/31/17 10/31/17 # Bowel Movements 0 Result Diagrams: 11/01/17 03:16 11/02/17 04:26 Objective Remarks: GENERAL: Middle-age male lying in bed, in no distress, O2 sats 88% on 6L NC HEENT: Normocephalic. Atraumatic. Pupils equal, round, reactive, conjugate. NECK: Trachea is midline. There is no JVD. CHEST: Currently on 6L NC Sat 88%. Equal chest rise. Diminished air entry left base CARDIOVASCULAR: Normal rate, regular rhythm. Sinus. ABDOMEN: Soft, nontender, nondistended. No guarding. MUSCULOSKELETAL: Pulses 2+. No peripheral edema. NEUROLOGICAL: Awake alert oriented no focal deficits. Follows commands. Assessment and Plan - Assessment and Plan Plan: Assessment: 52-year-old male with COPD and recent diagnosis of pneumonia presents with worsening acute hypoxic respiratory failure. Continue antibiotics , nebs, steroids. Active Problems: Acute hypoxic respiratory failure Recent Community Acquired pneumonia Healthcare associated pneumonia COPD exacerbation- acute, severe Recommendations: NEURO: -Minimize sedation RESP: -Patient did not tolerate BiPAP, noncompliant with Ventimask currently acceptable oxygen saturation on nasal cannula -Titrate FiO2 to keep saturation above 88% given COPD -DuoNeb every 6 hours scheduled and as needed. EzPAP, Acapella q 6 -CT pulmonary angiogram to rule out PE, to rule out parapneumonic effusion -If effusion present may need thoracentesis -Continue IV steroids, Symbicort and Spiriva CV: -Normal saline IV fluids, previous 2D echo showed preserved LV function GI: -Heart healthy diet, IV famotidine : -Monitor renal function closely. ID: -Antibiotics vancomycin and Zosyn. Added Levaquin 11/01 for atypical coverage -Blood urine and sputum cultures. urine for Legionella and pneumococcal antigen negative HEME: -Monitor CBC, coags ENDO: -Electrolyte replacement per protocol PROPH: -Bilateral lower extremity SCDs. Lovenox/famotidine LINES: -Utilize peripheral IVs, central line if needed Level 3 Continues to be hypoxemic but steadily improving COPD exacerbation and multilobar pneumonia. Okay to transfer to stepdown. Consult [facility] to assume care at 11/03/2017
[2017-11-02] MEDS: Folic Acid 1 MG Tablet PO SCH (08:43)
[2017-11-02] MEDS: Multivitamin/Minerals Therapeutic Tablet PO SCH (08:44)
[2017-11-02] MEDS: Acetaminophen 325 MG Tablet PO PRN ×2 (08:44→17:49)
[2017-11-02] MEDS: Tiotropium Bromide 18 MCG/ACT Inhaler INH SCH (08:45)
[2017-11-02] MEDS: Senna/Docusate Sodium 8.6/50 MG Tablet PO SCH ×2 (08:46→21:23)
[2017-11-02] MEDS: Budesonide-Formoterol 160/4.5 MCG 6 GM Inhaler INH SCH ×2 (08:46→21:21)
[2017-11-02] MEDS: Calcium Carbonate 500 MG Tablet PO SCH ×2 (08:46→21:23)
[2017-11-02] MEDS: Vancomycin Inj 1,250 MG in Sodium Chlor 0.9% Inj 250 ML IV.SIG SCH (13:49)
--- NOTE | 2017-11-02 18:40 | P.PN ---
Subjective Interval history: feels better today . On o2 5 L. Still has some cough and refused BIPAP. CT showed bilateral pneumonia Physical Exam Vital signs: Vital Signs 11/01/17 19:00 11/01/17 20:00 11/01/17 21:49 Temperature 97.9 F Pulse Rate 91 H 80 Respiratory Rate 20 20 Blood Pressure 143/92 H Pulse Oximetry 95 94 L 11/01/17 22:00 11/01/17 23:00 11/02/17 00:00 Temperature 98.4 F Pulse Rate 80 Respiratory Rate 20 Blood Pressure 134/96 H Pulse Oximetry 94 L 94 L 11/02/17 03:00 11/02/17 04:00 11/02/17 07:00 Temperature 98.0 F Pulse Rate 80 79 Respiratory Rate 20 Blood Pressure 107/68 Pulse Oximetry 92 L 92 L 11/02/17 08:00 11/02/17 09:30 11/02/17 11:00 Temperature 98.2 F Pulse Rate 84 70 Respiratory Rate 18 Blood Pressure 109/68 Pulse Oximetry 92 L 93 L 92 L 11/02/17 12:00 11/02/17 15:00 11/02/17 15:18 Temperature 98.1 F 97.9 F Pulse Rate 74 80 74 Respiratory Rate 18 18 18 Blood Pressure 110/69 132/88 Pulse Oximetry 90 L 92 L 11/02/17 16:00 11/02/17 17:00 11/02/17 18:00 Temperature Pulse Rate 86 77 80 Respiratory Rate Blood Pressure Pulse Oximetry Intake & Output 11/01/17 11/02/17 11/02/17 18:59 06:59 18:59 Intake Total 2910.0 / 2910.0 560 / 560 1812.5 / 1812.5 Output Total 400 / 400 300 / 300 750 / 750 Balance 2510.0 / 2510.0 260 / 260 1062.5 / 1062.5 Weight 77.1 kg Intake: IV 2310.0 / 2310.0 200 / 200 612.5 / 612.5 Levaquin 750 mg Premix Inj 150 150 / 150 150 / 150 ML @ 100 mls/hr IV.SIG Q24H [facility] Rx#:[id number] Zosyn 4.5 GM Premix 4.5 gm In 300 / 300 200 / 200 200 / 200 100 ml @ 200 mls/hr IV.SIG Q6H [facility] Rx#:[id number] Vancomycin Inj 1,250 MG In NS 262.5 / 262.5 Inj 250 ML @ 250 mls/hr IV.SIG Q12H [facility] Rx#:[id number] Vancomycin Inj 1,750 MG In NS 1035.0 / 1035.0 Inj 500 ML @ 250 mls/hr IV.SIG Q12H [facility] Rx#:[id number] Oral 600 / 600 360 / 360 1200 / 1200 Output: Urine 400 / 400 300 / 300 750 / 750 Stool 0 / 0 Other: Date of Last Bowel Movement 10/31/17 10/31/17 10/31/17 # Bowel Movements 0 Narrative: GENERAL: Middle-age male lying in bed, in no distress . On a N/C O2 HEENT: Normocephalic. Atraumatic. Pupils equal, round, reactive, conjugate. Mucous membranes are moist NECK: Trachea is midline. There is no JVD. CHEST: Few basal crackles Occ Wheeze heard CARDIOVASCULAR: Normal rate, regular rhythm. Sinus. ABDOMEN: Soft, nontender, nondistended. No guarding. MUSCULOSKELETAL: Pulses felt . No peripheral edema. NEUROLOGICAL: no deficits Results - Labs CBC & Chem 7: 11/01/17 03:16 11/02/17 04:26 Laboratory Results - last 24 hr 11/02/17 04:26 Sodium 139 Potassium 4.0 Chloride 101 Carbon Dioxide 28.2 Anion Gap 10 BUN 16 Creatinine 0.94 Estimated GFR 85 L Random Glucose 161 H Calcium 7.8 L Total Creatine Kinase 487 H CK-MB (CK-2) 5.3 H CK-MB (CK-2) % 1.1 Microbiology 11/01/17 13:00 Blood - Peripheral Aerobic Blood Culture - Preliminary No growth in 1 day 11/01/17 13:00 Blood - Peripheral Anaerobic Blood Culture - Preliminary No growth in 1 day 11/01/17 13:05 Blood - Peripheral Aerobic Blood Culture - Preliminary No growth in 1 day 11/01/17 13:05 Blood - Peripheral Anaerobic Blood Culture - Preliminary No growth in 1 day 11/01/17 14:35 Urine - Clean Catch Urine Legionella Antigen - Final Presumptive negative for Legionella pneumophila serogroup 1 antigen in urine, suggesting no recent or recurrent infection. Infection due to Legionella cannot be ruled out since other serogroups and species may cause disease, antigen may not be present in urine in early infection, and the level of antigen present in the urine may be below the detection limit of the test. 11/01/17 14:35 Urine - Clean Catch Urine Streptococcus pneumoniae Antigen ( M - Final Presumptive negative for streptococcus pneumoniae antigen, suggesting no current or recent infection. Infection due to Streptococcus pneumoniae cannot be ruled out since the antigen present in the sample may be below the detection limit of the test. - Imaging Impressions Chest X-Ray 11/02/17 00:00 CONCLUSION: Overall improvement in aeration of the left lung, otherwise not significantly changed. Assessment and Plan - Assessment (1) Electrolyte abnormality Code(s): E87.8 - Other disorders of electrolyte and fluid balance, not elsewhere classified Status: Acute (2) Mild neurocognitive disorder Code(s): G31.84 - Mild cognitive impairment, so stated Status: Acute (3) Respiratory failure with hypoxia Code(s): J96.91 - Respiratory failure, unspecified with hypoxia Status: Acute (4) Pneumonia Code(s): J18.9 - Pneumonia, unspecified organism Status: Acute (5) Acute hypokalemia Code(s): E87.6 - Hypokalemia Status: Acute (6) Hypocalcemia Code(s): E83.51 - Hypocalcemia Status: Acute (7) Hernia Code(s): K46.9 - Unspecified abdominal hernia without obstruction or gangrene Status: Acute - Plan 1. Wean O2 to 4 L N/C 2. BiPAP at HS 12/5 CM Fio2 35 % 3. Cont Zosyn/ Vancomycin. 4. Duonebs qid. 5. Solumedrol 40 mg IV BID 6. CXR ,CBC,BMP in am 7. Up with help and transfer to [facility]. (4) Pneumonia Qualifiers: Pneumonia type: due to unspecified organism Laterality: bilateral Lung location: lower lobe of lung Qualified Code(s): J18.1 - Lobar pneumonia, unspecified organism
[2017-11-03] MEDS: Vancomycin Inj 1,250 MG in Sodium Chlor 0.9% Inj 250 ML IV.SIG SCH ×2 (01:48→13:55)
[2017-11-03] MEDS: Temazepam 15 MG Capsule PO PRN ×2 (01:48→23:16)
--- NOTE | 2017-11-03 01:56 | XR ---
EXAM DATE: 11/03/2017 1:32 AM EDT AGE/SEX: 52 years / Male INDICATIONS: Short of breath. CLINICAL DATA: This is the patient's subsequent encounter. Patient reports that signs and symptoms h ave been present for 4 - 6 days and indicates a pain score of 0/10. MEDICAL/SURGICAL HISTORY: Diabetes mellitus type II. Hypertension. carcinoma of the prostate, peripheral vascular disease, coronary artery disease . Coronary artery stent. cardiac cauterization . COMPARISON: [facility] – [place], CHEST 1V SINGLE AP, 11/02/2017. . FINDINGS: A single AP view of the chest demonstrates the resistive bibasilar airspace disease, left greater thomas n right. Possible associated effusions. Haziness persists in the right hemithorax characteristic of s ome degree of vascular congestion or volume overload heart size is borderline prominent. Osseous stru ctures are intact CONCLUSION: Stable chest with bibasilar airspace disease possible associated effusions, left greater than right. Electronically signed by: Venkata Harrison MD 11/03/2017 1:54 AM EDT
[2017-11-03 04:27] LABS: Hematocrit 31.9 % (39.0-51.0); Hemoglobin 10.3 gm/dL (13.0-17.0); Mean Corpuscular HGB Conc 32.4 % (32.0-36.0); Mean Corpuscular Hemoglobin 27.5 pg (27.0-34.0); Mean Platelet Volume 7.7 fL (7.0-11.0); Platelet Count 356 th/mm3 (150-450); Red Blood Count 3.76 mil/mm3 (4.50-5.90); Red Cell Distribution Width 22.3 % (11.6-17.2); White Blood Count 8.8 th/mm3 (4.0-11.0)
[2017-11-03 05:01] LABS: Alanine Aminotransferase 141 U/L (12-78); Albumin 3.5 g/dL (3.4-5.0); Anion Gap 8 meq/L (5-15); Aspartate Aminotransferase 160 U/L (15-37); Blood Urea Nitrogen 20 mg/dL (7-18); Calcium 7.8 mg/dL (8.5-10.1); Carbon Dioxide 28.6 meq/L (21.0-32.0); Chloride 99 meq/L (98-107); Glomerular Filtration Rate 89 mL/min (>89); Glucose,Random 202 mg/dL (74-106); Potassium 3.5 meq/L (3.5-5.1); Sodium 136 meq/L (136-145)
[2017-11-03 05:03] LABS: Alkaline Phosphatase 55 U/L (45-117); Creatine Kinase 399 U/L (39-308); Total Protein 5.7 g/dL (6.4-8.2)
[2017-11-03 05:19] LABS: CKMB Percent 1.1 % (0.0-4.0); Creatine Kinase MB 4.3 ng/mL (0.5-3.6)
[2017-11-03] MEDS: Tiotropium Bromide 18 MCG/ACT Inhaler INH SCH (09:15)
[2017-11-03] MEDS: Budesonide-Formoterol 160/4.5 MCG 6 GM Inhaler INH SCH ×2 (09:16→21:14)
[2017-11-03] MEDS: Calcium Carbonate 500 MG Tablet PO SCH ×2 (09:17→21:14)
[2017-11-03] MEDS: MethylPREDNISolone Sod Succinate Inj 40 MG/ML Vial IV.PUSH SCH ×2 (09:17→21:13)
[2017-11-03] MEDS: Folic Acid 1 MG Tablet PO SCH (09:17)
[2017-11-03] MEDS: Multivitamin/Minerals Therapeutic Tablet PO SCH (09:17)
[2017-11-03] MEDS: Piperacil/Tazo 4.5 GM Premix 4.5 GM/100 ML BAG IV.SIG SCH ×4 (09:18→21:13)
[2017-11-03] MEDS: Senna/Docusate Sodium 8.6/50 MG Tablet PO SCH (09:45)
--- NOTE | 2017-11-03 15:05 | P.PN ---
Physical Exam Vital signs: Vital Signs 11/02/17 15:18 11/02/17 16:00 11/02/17 17:00 Temperature Pulse Rate 74 86 77 Respiratory Rate 18 Blood Pressure Pulse Oximetry 92 L 11/02/17 18:00 11/02/17 19:15 11/02/17 19:50 Temperature 98.3 F Pulse Rate 80 81 Respiratory Rate 20 Blood Pressure 119/78 Pulse Oximetry 91 L 91 L 11/02/17 20:00 11/02/17 21:00 11/02/17 22:00 Temperature Pulse Rate 79 74 80 Respiratory Rate Blood Pressure Pulse Oximetry 90 L 11/02/17 23:00 11/02/17 23:10 11/03/17 00:56 Temperature 97.9 F Pulse Rate 74 76 79 Respiratory Rate 21 Blood Pressure 135/88 Pulse Oximetry 90 L 11/03/17 01:24 11/03/17 02:10 11/03/17 03:24 Temperature 98.7 F Pulse Rate 73 73 70 Respiratory Rate 20 Blood Pressure 123/82 Pulse Oximetry 90 L 90 L 11/03/17 04:42 11/03/17 05:30 11/03/17 06:30 Temperature Pulse Rate 63 67 71 Respiratory Rate Blood Pressure Pulse Oximetry 90 L 11/03/17 07:00 11/03/17 08:00 11/03/17 09:00 Temperature 98.0 F Pulse Rate 70 76 71 Respiratory Rate 20 Blood Pressure 113/71 Pulse Oximetry 90 L 90 L 11/03/17 10:00 11/03/17 10:59 11/03/17 12:00 Temperature 98.6 F Pulse Rate 66 62 68 Respiratory Rate 20 Blood Pressure 131/81 Pulse Oximetry 90 L Intake & Output 11/02/17 11/03/17 11/03/17 18:59 06:59 18:59 Intake Total 1812.5 / 1812.5 522 / 522 0 / 0 Output Total 750 / 750 350 / 350 Balance 1062.5 / 1062.5 172 / 172 0 / 0 Weight 78.6 kg Intake: IV 612.5 / 612.5 262 / 262 0 / 0 Levaquin 750 mg Premix Inj 150 150 / 150 ML @ 100 mls/hr IV.SIG Q24H [facility] Rx#:[id number] Zosyn 4.5 GM Premix 4.5 gm In 200 / 200 0 / 0 100 ml @ 200 mls/hr IV.SIG Q6H [facility] Rx#:[id number] Vancomycin Inj 1,250 MG In NS 262.5 / 262.5 262 / 262 Inj 250 ML @ 250 mls/hr IV.SIG Q12H [facility] Rx#:[id number] Oral 1200 / 1200 260 / 260 Output: Urine 750 / 750 350 / 350 Other: Date of Last Bowel Movement 10/31/17 11/02/17 Narrative: Subjective Subjective Remarks/Hospital Course: This is a 52-year-old male who was recently admitted earlier in October with community-acquired pneumonia and COPD exacerbation who was treated successfully with antibiotics and discharged on home oxygen. He readmits yesterday for worsening hypoxia. Per the admission H&P, it states he was not wearing his oxygen or taking his antibiotics. Patient continued to worsen and was seen by Dr. Harris with the pulmonary service today. He is transferred emergently to the CVICU for noninvasive positive pressure ventilation. Patient is dyspneic and cannot speak in full sentences. The remainder of the history is quite limited and taken from the medical record due to the patient's dyspnea. Of note , he does deny chest pain. Endorses shortness of breath. Endorses cough. Endorses fever. Recent CTA from prior admission is negative for acute PE. Recent echo demonstrates preserved biventricular function. SUBJ 11/01: Lying in bed and remains quite hypoxemic. On 50% Ventimask oxygen saturation is an elderly 81%. I have ordered a CT PE protocol to rule out a PE which is unlikely and also to rule out parapneumonic effusion. If effusion present he may need drainage of the effusion. At this time remains critical 11/02: Breathing subjectively improved. Oxygen saturation is maintained about 88 % on 6 L nasal cannula. Patient is noncompliant with BiPAP and Ventimask. CT angiogram yesterday showed no PE, bilateral infiltrates indicating multilobar pneumonia. 11/03/17. Ambulating to the bathroom with the nurse. With sob No v/n/d/c. Physical exam: GENERAL: Middle-age male lying in bed, in no distress, O2 sats 88% on 6L NC CHEST: Currently on 6L NC Sat 88%. Equal chest rise. Diminished air entry left base CARDIOVASCULAR: Normal rate, regular rhythm. Sinus. ABDOMEN: Soft, nontender, nondistended. No guarding. MUSCULOSKELETAL: Pulses 2+. No peripheral edema. NEUROLOGICAL: Awake alert oriented no focal deficits. Follows commands. Assessment and Plan 52-year-old male with COPD and recent diagnosis of pneumonia presents with worsening acute hypoxic respiratory failure. Continue antibiotics, nebs, steroids. Active Problems: Acute hypoxic respiratory failure Recent Community Acquired pneumonia Healthcare associated pneumonia COPD exacerbation- acute, severe Recommendations: NEURO: -Minimize sedation RESP: -Patient did not tolerate BiPAP, noncompliant with Ventimask currently acceptable oxygen saturation on nasal cannula -Titrate FiO2 to keep saturation above 88% given COPD -DuoNeb every 6 hours scheduled and as needed. EzPAP, Acapella q 6 -CT pulmonary angiogram to rule out PE, to rule out parapneumonic effusion -If effusion present may need thoracentesis -Continue IV steroids, Symbicort and Spiriva CV: -Normal saline IV fluids, previous 2D echo showed preserved LV function GI: -Heart healthy diet, IV famotidine : -Monitor renal function closely. ID: -Antibiotics vancomycin and Zosyn. Added Levaquin 11/01 for atypical coverage -Blood urine and sputum cultures. urine for Legionella and pneumococcal antigen negative HEME: -Monitor CBC, coags ENDO: -Electrolyte replacement per protocol PROPH: -Bilateral lower extremity SCDs. Lovenox/famotidine LINES: -Utilize peripheral IVs, central line if needed Continues to be hypoxemic but steadily improving COPD exacerbation and multilobar pneumonia. Results - Labs CBC & Chem 7: 11/03/17 03:23 11/03/17 03:23 Laboratory Results - last 24 hr 11/03/17 11/03/17 03:23 03:23 WBC 8.8 RBC 3.76 L Hgb 10.3 L Hct 31.9 L MCV 85.0 MCH 27.5 MCHC 32.4 RDW 22.3 H Plt Count 356 MPV 7.7 Sodium 136 Potassium 3.5 Chloride 99 Carbon Dioxide 28.6 Anion Gap 8 BUN 20 H Creatinine 0.90 Estimated GFR 89 Random Glucose 202 H Calcium 7.8 L Total Bilirubin 0.4 AST 160 H ALT 141 H Alkaline Phosphatase 55 Total Creatine Kinase 399 H CK-MB (CK-2) 4.3 H CK-MB (CK-2) % 1.1 Total Protein 5.7 L Albumin 3.5 Microbiology 11/01/17 13:00 Blood - Peripheral Aerobic Blood Culture - Preliminary No growth in 2 days 11/01/17 13:00 Blood - Peripheral Anaerobic Blood Culture - Preliminary No growth in 2 days 11/01/17 13:05 Blood - Peripheral Aerobic Blood Culture - Preliminary No growth in 2 days 11/01/17 13:05 Blood - Peripheral Anaerobic Blood Culture - Preliminary No growth in 2 days - Imaging Impressions Chest X-Ray 11/03/17 06:00 CONCLUSION:
[2017-11-03] MEDS: Acetaminophen 325 MG Tablet PO PRN ×2 (17:38→23:15)
[2017-11-03 17:49] LABS: Amphetamine Urine With Conf Neg (Neg); Barbiturate Urine With Conf Neg (Neg); Benzodiazepine Urine With Conf Neg (Neg)
--- NOTE | 2017-11-03 19:15 | P.PN ---
Subjective Interval history: Feels better . Keeps O 2 off. Refused BiPAP. Less cough and wheezing. Physical Exam Vital signs: Vital Signs 11/02/17 19:15 11/02/17 19:50 11/02/17 20:00 Temperature 98.3 F Pulse Rate 81 79 Respiratory Rate 20 Blood Pressure 119/78 Pulse Oximetry 91 L 91 L 90 L 11/02/17 21:00 11/02/17 22:00 11/02/17 23:00 Temperature Pulse Rate 74 80 74 Respiratory Rate Blood Pressure Pulse Oximetry 11/02/17 23:10 11/03/17 00:56 11/03/17 01:24 Temperature 97.9 F Pulse Rate 76 79 73 Respiratory Rate 21 Blood Pressure 135/88 Pulse Oximetry 90 L 90 L 11/03/17 02:10 11/03/17 03:24 11/03/17 04:42 Temperature 98.7 F Pulse Rate 73 70 63 Respiratory Rate 20 Blood Pressure 123/82 Pulse Oximetry 90 L 11/03/17 05:30 11/03/17 06:30 11/03/17 07:00 Temperature 98.0 F Pulse Rate 67 71 70 Respiratory Rate 20 Blood Pressure 113/71 Pulse Oximetry 90 L 90 L 11/03/17 08:00 11/03/17 09:00 11/03/17 10:00 Temperature Pulse Rate 76 71 66 Respiratory Rate Blood Pressure Pulse Oximetry 90 L 11/03/17 10:59 11/03/17 12:00 11/03/17 13:00 Temperature 98.6 F Pulse Rate 62 68 90 Respiratory Rate 20 Blood Pressure 131/81 Pulse Oximetry 90 L 89 L 11/03/17 14:00 11/03/17 15:00 11/03/17 15:42 Temperature 97.9 F Pulse Rate 84 73 80 Respiratory Rate 18 Blood Pressure 123/87 Pulse Oximetry 90 L 11/03/17 16:00 11/03/17 16:05 11/03/17 17:00 Temperature Pulse Rate 74 70 Respiratory Rate Blood Pressure Pulse Oximetry 88 L 88 L 11/03/17 18:00 Temperature Pulse Rate 68 Respiratory Rate Blood Pressure Pulse Oximetry Intake & Output 11/03/17 11/03/17 11/04/17 06:59 18:59 06:59 Intake Total 522 / 522 1400 / 1400 Output Total 350 / 350 850 / 850 Balance 172 / 172 550 / 550 Weight 78.6 kg Intake: IV 262 / 262 200 / 200 Zosyn 4.5 GM Premix 4.5 gm In 200 / 200 100 ml @ 200 mls/hr IV.SIG Q6H [facility] Rx#:[id number] Vancomycin Inj 1,250 MG In NS 262 / 262 Inj 250 ML @ 250 mls/hr IV.SIG Q12H [facility] Rx#:[id number] Oral 260 / 260 1200 / 1200 Output: Urine 350 / 350 850 / 850 Other: Date of Last Bowel Movement 11/03/17 # Bowel Movements 2 Narrative: GENERAL: Middle-age male alert in no distress . On a N/C O2, 3 L HEENT: Normocephalic. Atraumatic. Pupils equal, round, reactive, conjugate. Mucous membranes are moist NECK: Trachea is midline. There is no JVD. CHEST: Few basal crackles Occ Wheeze heard upper chest. CARDIOVASCULAR: Normal rate, regular rhythm. Sinus. ABDOMEN: Soft, nontender, nondistended. No guarding. MUSCULOSKELETAL: Pulses felt . No peripheral edema. NEUROLOGICAL: no deficits Results - Labs CBC & Chem 7: 11/03/17 03:23 11/03/17 03:23 Laboratory Results - last 24 hr 11/03/17 11/03/17 11/03/17 03:23 03:23 Unknown WBC 8.8 RBC 3.76 L Hgb 10.3 L Hct 31.9 L MCV 85.0 MCH 27.5 MCHC 32.4 RDW 22.3 H Plt Count 356 MPV 7.7 Sodium 136 Potassium 3.5 Chloride 99 Carbon Dioxide 28.6 Anion Gap 8 BUN 20 H Creatinine 0.90 Estimated GFR 89 Random Glucose 202 H Calcium 7.8 L Total Bilirubin 0.4 AST 160 H ALT 141 H Alkaline Phosphatase 55 Total Creatine Kinase 399 H CK-MB (CK-2) 4.3 H CK-MB (CK-2) % 1.1 Total Protein 5.7 L Albumin 3.5 Urine Opiates Screen Neg Ur Barbiturates Screen Neg Ur Amphetamine Screen Neg U Benzodiazepines Scrn Neg Urine Cocaine Screen Neg U Cannabinoids Screen Neg Microbiology 11/01/17 13:00 Blood - Peripheral Aerobic Blood Culture - Preliminary No growth in 2 days 11/01/17 13:00 Blood - Peripheral Anaerobic Blood Culture - Preliminary No growth in 2 days 11/01/17 13:05 Blood - Peripheral Aerobic Blood Culture - Preliminary No growth in 2 days 11/01/17 13:05 Blood - Peripheral Anaerobic Blood Culture - Preliminary No growth in 2 days - Imaging Impressions Chest X-Ray 11/03/17 06:00 CONCLUSION: Assessment and Plan - Assessment (1) Electrolyte abnormality Code(s): E87.8 - Other disorders of electrolyte and fluid balance, not elsewhere classified Status: Acute (2) Mild neurocognitive disorder Code(s): G31.84 - Mild cognitive impairment, so stated Status: Acute (3) Respiratory failure with hypoxia Code(s): J96.91 - Respiratory failure, unspecified with hypoxia Status: Acute (4) Pneumonia Code(s): J18.9 - Pneumonia, unspecified organism Status: Acute (5) Acute hypokalemia Code(s): E87.6 - Hypokalemia Status: Acute (6) Hypocalcemia Code(s): E83.51 - Hypocalcemia Status: Acute (7) Hernia Code(s): K46.9 - Unspecified abdominal hernia without obstruction or gangrene Status: Acute - Plan 1. Wean O2 to 3 L N/C 2. D/C BiPAP since he refused 3. Cont Zosyn/ Vancomycin. 4. Duonebs qid. 5. Cont Solumedrol 40 mg IV BID 6. CXR ,CBC,BMP in am 7. PFT at Bedside (4) Pneumonia Qualifiers: Pneumonia type: due to unspecified organism Laterality: bilateral Lung location: lower lobe of lung Qualified Code(s): J18.1 - Lobar pneumonia, unspecified organism
[2017-11-04] MEDS ORDERED: Pharmacy Ordered Lab Info OTHER ONE (00:45)
[2017-11-04] MEDS: Piperacil/Tazo 4.5 GM Premix 4.5 GM/100 ML BAG IV.SIG SCH ×4 (03:16→21:00)
[2017-11-04] MEDS: Vancomycin Inj 1,250 MG in Sodium Chlor 0.9% Inj 250 ML IV.SIG SCH (03:17)
[2017-11-04] MEDS: Senna/Docusate Sodium 8.6/50 MG Tablet PO SCH ×3 (03:28→20:50)
[2017-11-04 03:47] LABS: Anion Gap 12 meq/L (5-15); Blood Urea Nitrogen 21 mg/dL (7-18); Calcium 8.3 mg/dL (8.5-10.1); Carbon Dioxide 27.1 meq/L (21.0-32.0); Chloride 96 meq/L (98-107); Glomerular Filtration Rate Greater Than 89 mL/min (>89); Glucose,Random 149 mg/dL (74-106); Potassium 3.8 meq/L (3.5-5.1); Sodium 135 meq/L (136-145)
[2017-11-04 03:50] LABS: Creatine Kinase 349 U/L (39-308)
[2017-11-04 04:06] LABS: CKMB Percent 1.4 % (0.0-4.0); Creatine Kinase MB 4.9 ng/mL (0.5-3.6)
[2017-11-04] MEDS: Calcium Carbonate 500 MG Tablet PO SCH ×2 (09:59→20:50)
[2017-11-04] MEDS: Multivitamin/Minerals Therapeutic Tablet PO SCH (09:59)
[2017-11-04] MEDS: Folic Acid 1 MG Tablet PO SCH (09:59)
[2017-11-04] MEDS: MethylPREDNISolone Sod Succinate Inj 40 MG/ML Vial IV.PUSH SCH (09:59)
[2017-11-04] MEDS: Tiotropium Bromide 18 MCG/ACT Inhaler INH SCH (10:00)
[2017-11-04] MEDS: Budesonide-Formoterol 160/4.5 MCG 6 GM Inhaler INH SCH ×2 (10:00→20:50)
--- NOTE | 2017-11-04 15:29 | P.PN ---
Physical Exam Vital signs: Vital Signs 11/03/17 15:42 11/03/17 16:00 11/03/17 16:05 Temperature Pulse Rate 80 74 Respiratory Rate Blood Pressure Pulse Oximetry 88 L 11/03/17 17:00 11/03/17 18:00 11/03/17 19:00 Temperature 97.9 F Pulse Rate 70 68 90 Respiratory Rate 22 Blood Pressure 127/93 H Pulse Oximetry 88 L 93 L 11/03/17 20:00 11/03/17 21:00 11/03/17 23:00 Temperature 97.9 F Pulse Rate 78 82 73 Respiratory Rate 24 Blood Pressure 138/89 Pulse Oximetry 91 L 11/04/17 00:00 11/04/17 01:00 11/04/17 01:30 Temperature Pulse Rate 77 73 Respiratory Rate 18 Blood Pressure Pulse Oximetry 11/04/17 03:00 11/04/17 04:00 11/04/17 05:00 Temperature 98.2 F Pulse Rate 77 68 72 Respiratory Rate 18 Blood Pressure 116/77 Pulse Oximetry 89 L 11/04/17 06:00 11/04/17 07:41 11/04/17 08:00 Temperature Pulse Rate 70 70 70 Respiratory Rate Blood Pressure Pulse Oximetry 11/04/17 09:00 11/04/17 09:41 11/04/17 09:57 Temperature 98.3 F Pulse Rate 90 79 Respiratory Rate 20 Blood Pressure 126/75 Pulse Oximetry 82 L 88 L 11/04/17 10:00 11/04/17 12:57 11/04/17 13:31 Temperature 98.1 F Pulse Rate 72 80 71 Respiratory Rate 22 Blood Pressure 133/86 Pulse Oximetry 80 L 11/04/17 14:14 Temperature Pulse Rate 74 Respiratory Rate Blood Pressure Pulse Oximetry Intake & Output 11/03/17 11/04/17 11/04/17 18:59 06:59 18:59 Intake Total 1812.5 / 1812.5 820 / 820 350 / 350 Output Total 850 / 850 800 / 800 Balance 962.5 / 962.5 20 / 20 350 / 350 Weight 81.1 kg Intake: IV 612.5 / 612.5 100 / 100 350 / 350 Levaquin 750 mg Premix Inj 150 150 / 150 150 / 150 ML @ 100 mls/hr IV.SIG Q24H [facility] Rx#:[id number] Zosyn 4.5 GM Premix 4.5 gm In 200 / 200 100 / 100 200 / 200 100 ml @ 200 mls/hr IV.SIG Q6H [facility] Rx#:[id number] Vancomycin Inj 1,250 MG In NS 262.5 / 262.5 Inj 250 ML @ 250 mls/hr IV.SIG Q12H [facility] Rx#:[id number] Oral 1200 / 1200 720 / 720 Output: Urine 850 / 850 800 / 800 Stool 0 / 0 Other: # Voids 4 Date of Last Bowel Movement 11/03/17 11/04/17 11/04/17 # Bowel Movements 2 2 Narrative: Subjective Subjective Remarks/Hospital Course: This is a 52-year-old male who was recently admitted earlier in October with community-acquired pneumonia and COPD exacerbation who was treated successfully with antibiotics and discharged on home oxygen. He readmits yesterday for worsening hypoxia. Per the admission H&P, it states he was not wearing his oxygen or taking his antibiotics. Patient continued to worsen and was seen by Dr. Harris with the pulmonary service today. He is transferred emergently to the CVICU for noninvasive positive pressure ventilation. Patient is dyspneic and cannot speak in full sentences. The remainder of the history is quite limited and taken from the medical record due to the patient's dyspnea. Of note , he does deny chest pain. Endorses shortness of breath. Endorses cough. Endorses fever. Recent CTA from prior admission is negative for acute PE. Recent echo demonstrates preserved biventricular function. SUBJ 11/01: Lying in bed and remains quite hypoxemic. On 50% Ventimask oxygen saturation is an elderly 81%. I have ordered a CT PE protocol to rule out a PE which is unlikely and also to rule out parapneumonic effusion. If effusion present he may need drainage of the effusion. At this time remains critical 11/02: Breathing subjectively improved. Oxygen saturation is maintained about 88 % on 6 L nasal cannula. Patient is noncompliant with BiPAP and Ventimask. CT angiogram yesterday showed no PE, bilateral infiltrates indicating multilobar pneumonia. 11/03/17. Ambulating to the bathroom with the nurse. With sob No v/n/d/c. 11/04/17 the patient says he has multiple bouts of diarrhea today. Check for C. difficile is negative. Start Imodium and Lactinex. Patient's is now wearing oxygen at this time however she is desaturating. He is not compliant with medications without oxygen. No fever or chills. Says she takes Motrin at home and is helping better. Discussed with the patient is completing with Motrin she still wants to try it. Physical exam: GENERAL: Middle-age male lying in bed, in no distress, O2 sats 88% on 6L NC CHEST: Currently on 6L NC Sat 88%. Equal chest rise. Diminished air entry left base CARDIOVASCULAR: Normal rate, regular rhythm. Sinus. ABDOMEN: Soft, nontender, nondistended. No guarding. MUSCULOSKELETAL: Pulses 2+. No peripheral edema. NEUROLOGICAL: Awake alert oriented no focal deficits. Follows commands. Assessment and Plan 52-year-old male with COPD and recent diagnosis of pneumonia presents with worsening acute hypoxic respiratory failure. Continue antibiotics, nebs, steroids. Active Problems: Acute hypoxic respiratory failure Recent Community Acquired pneumonia Healthcare associated pneumonia COPD exacerbation- acute, severe Recommendations: NEURO: -Minimize sedation RESP: -Patient did not tolerate BiPAP, noncompliant with Ventimask currently acceptable oxygen saturation on nasal cannula -Titrate FiO2 to keep saturation above 88% given COPD -DuoNeb every 6 hours scheduled and as needed. EzPAP, Acapella q 6 -CT pulmonary angiogram to rule out PE, to rule out parapneumonic effusion -If effusion present may need thoracentesis -Continue IV steroids, Symbicort and Spiriva CV: -Normal saline IV fluids, previous 2D echo showed preserved LV function GI: -Heart healthy diet, IV famotidine : -Monitor renal function closely. ID: -Antibiotics vancomycin and Zosyn. Added Levaquin 11/01 for atypical coverage -Blood urine and sputum cultures. urine for Legionella and pneumococcal antigen negative - Diarrhea check for C diff neg. Start probiotics, imodium HEME: -Monitor CBC, coags ENDO: -Electrolyte replacement per protocol PROPH: -Bilateral lower extremity SCDs. Lovenox/famotidine LINES: -Utilize peripheral IVs, central line if needed Continues to be hypoxemic but steadily improving COPD exacerbation and multilobar pneumonia. He is noncompliant with meds Now with diarrhea Results - Labs CBC & Chem 7: 11/03/17 03:23 11/04/17 03:12 Laboratory Results - last 24 hr 11/03/17 11/04/17 11/04/17 Unknown 01:59 03:12 Sodium Potassium Chloride Carbon Dioxide Anion Gap BUN Creatinine Estimated GFR Random Glucose Calcium Total Creatine Kinase CK-MB (CK-2) CK-MB (CK-2) % Stl C.difficile Tox PCR Negative St C. diff Tox Epid 027 Negative Vancomycin Trough 18.7 H Urine Opiates Screen Neg Ur Barbiturates Screen Neg Ur Amphetamine Screen Neg U Benzodiazepines Scrn Neg Urine Cocaine Screen Neg U Cannabinoids Screen Neg 11/04/17 03:12 Sodium 135 L Potassium 3.8 Chloride 96 L Carbon Dioxide 27.1 Anion Gap 12 BUN 21 H Creatinine 0.88 Estimated GFR Greater than 89 Random Glucose 149 H Calcium 8.3 L Total Creatine Kinase 349 H CK-MB (CK-2) 4.9 H CK-MB (CK-2) % 1.4 Stl C.difficile Tox PCR St C. diff Tox Epid 027 Vancomycin Trough Urine Opiates Screen Ur Barbiturates Screen Ur Amphetamine Screen U Benzodiazepines Scrn Urine Cocaine Screen U Cannabinoids Screen Microbiology 11/01/17 13:00 Blood - Peripheral Aerobic Blood Culture - Preliminary No growth in 3 days 11/01/17 13:00 Blood - Peripheral Anaerobic Blood Culture - Preliminary No growth in 3 days 11/01/17 13:05 Blood - Peripheral Aerobic Blood Culture - Preliminary No growth in 3 days 11/01/17 13:05 Blood - Peripheral Anaerobic Blood Culture - Preliminary No growth in 3 days - Imaging Impressions Chest X-Ray 11/03/17 06:00 CONCLUSION: Stable chest with bibasilar airspace disease possible associated effusions, left greater than right.
[2017-11-04] MEDS: Acetaminophen 325 MG Tablet PO PRN (16:28)
[2017-11-04] MEDS: Vancomycin Inj 1,000 MG in Sodium Chlor 0.9% Inj 250 ML IV.SIG SCH (18:27)
--- NOTE | 2017-11-04 18:29 | P.PN ---
Subjective Interval history: Doing better. Keeps O2 off. No chest pain or fever. Good output. Physical Exam Vital signs: Vital Signs 11/03/17 19:00 11/03/17 20:00 11/03/17 21:00 Temperature 97.9 F Pulse Rate 90 78 82 Respiratory Rate 22 Blood Pressure 127/93 H Pulse Oximetry 93 L 11/03/17 23:00 11/04/17 00:00 11/04/17 01:00 Temperature 97.9 F Pulse Rate 73 77 73 Respiratory Rate 24 Blood Pressure 138/89 Pulse Oximetry 91 L 11/04/17 01:30 11/04/17 03:00 11/04/17 04:00 Temperature 98.2 F Pulse Rate 77 68 Respiratory Rate 18 18 Blood Pressure 116/77 Pulse Oximetry 89 L 11/04/17 05:00 11/04/17 06:00 11/04/17 07:41 Temperature Pulse Rate 72 70 70 Respiratory Rate Blood Pressure Pulse Oximetry 11/04/17 08:00 11/04/17 09:00 11/04/17 09:41 Temperature 98.3 F Pulse Rate 70 90 79 Respiratory Rate 20 Blood Pressure 126/75 Pulse Oximetry 82 L 11/04/17 09:57 11/04/17 10:00 11/04/17 12:57 Temperature Pulse Rate 72 80 Respiratory Rate Blood Pressure Pulse Oximetry 88 L 11/04/17 13:31 11/04/17 14:14 11/04/17 15:00 Temperature 98.1 F Pulse Rate 71 74 69 Respiratory Rate 22 Blood Pressure 133/86 Pulse Oximetry 80 L 11/04/17 16:33 11/04/17 17:16 11/04/17 18:00 Temperature 97.9 F Pulse Rate 75 83 65 Respiratory Rate 20 Blood Pressure 131/87 Pulse Oximetry 82 L Intake & Output 11/03/17 11/04/17 11/04/17 18:59 06:59 18:59 Intake Total 1812.5 / 1812.5 820 / 820 1310 / 1310 Output Total 850 / 850 800 / 800 550 / 550 Balance 962.5 / 962.5 20 / 20 760 / 760 Weight 81.1 kg Intake: IV 612.5 / 612.5 100 / 100 350 / 350 Levaquin 750 mg Premix Inj 150 150 / 150 150 / 150 ML @ 100 mls/hr IV.SIG Q24H [facility] Rx#:[id number] Zosyn 4.5 GM Premix 4.5 gm In 200 / 200 100 / 100 200 / 200 100 ml @ 200 mls/hr IV.SIG Q6H [facility] Rx#:[id number] Vancomycin Inj 1,250 MG In NS 262.5 / 262.5 Inj 250 ML @ 250 mls/hr IV.SIG Q12H [facility] Rx#:[id number] Oral 1200 / 1200 720 / 720 Oral Supplement 960 / 960 Output: Urine 850 / 850 800 / 800 550 / 550 Stool 0 / 0 Other: # Voids 4 3 Date of Last Bowel Movement 11/03/17 11/04/17 11/04/17 # Bowel Movements 2 2 5 Narrative: Physical exam: GENERAL: Middle-age male lying in bed, in no distress CHEST: Basal crackles ,and distant breath sounds. CARDIOVASCULAR: Normal rate, regular rhythm. Sinus. ABDOMEN: Soft, nontender, nondistended. No guarding. MUSCULOSKELETAL: Pulses 2+. No peripheral edema. NEUROLOGICAL: Awake alert oriented no focal deficits. Follows commands. Results - Labs CBC & Chem 7: 11/03/17 03:23 11/04/17 03:12 Laboratory Results - last 24 hr 11/04/17 11/04/17 11/04/17 01:59 03:12 03:12 Sodium 135 L Potassium 3.8 Chloride 96 L Carbon Dioxide 27.1 Anion Gap 12 BUN 21 H Creatinine 0.88 Estimated GFR Greater than 89 Random Glucose 149 H Calcium 8.3 L Total Creatine Kinase 349 H CK-MB (CK-2) 4.9 H CK-MB (CK-2) % 1.4 Stl C.difficile Tox PCR Negative St C. diff Tox Epid 027 Negative Vancomycin Trough 18.7 H Microbiology 11/01/17 13:00 Blood - Peripheral Aerobic Blood Culture - Preliminary No growth in 3 days 11/01/17 13:00 Blood - Peripheral Anaerobic Blood Culture - Preliminary No growth in 3 days 11/01/17 13:05 Blood - Peripheral Aerobic Blood Culture - Preliminary No growth in 3 days 11/01/17 13:05 Blood - Peripheral Anaerobic Blood Culture - Preliminary No growth in 3 days - Imaging Impressions Chest X-Ray 11/03/17 06:00 CONCLUSION: Stable chest with bibasilar airspace disease possible associated effusions, left greater than right. Assessment and Plan - Assessment (1) Electrolyte abnormality Code(s): E87.8 - Other disorders of electrolyte and fluid balance, not elsewhere classified Status: Acute (2) Mild neurocognitive disorder Code(s): G31.84 - Mild cognitive impairment, so stated Status: Acute (3) Respiratory failure with hypoxia Code(s): J96.91 - Respiratory failure, unspecified with hypoxia Status: Acute (4) Pneumonia Code(s): J18.9 - Pneumonia, unspecified organism Status: Acute (5) Acute hypokalemia Code(s): E87.6 - Hypokalemia Status: Acute (6) Hypocalcemia Code(s): E83.51 - Hypocalcemia Status: Acute (7) Hernia Code(s): K46.9 - Unspecified abdominal hernia without obstruction or gangrene Status: Acute - Plan 52-year-old male with COPD and recent diagnosis of pneumonia presents with worsening acute hypoxic respiratory failure. Continue antibiotics, nebs, steroids. Active Problems: Acute hypoxic respiratory failure Recent Community Acquired pneumonia Healthcare associated pneumonia COPD exacerbation- acute, severe 1. Wean O2 to 2 L N/C 2. D/C BiPAP since he refused 3. Cont Zosyn/ Vancomycin. 4. Duonebs qid. 5. D/C Solumedrol 6. Prednisone 20 mg BID and taper over 2 weeks 7. PT Evaluation (4) Pneumonia Qualifiers: Pneumonia type: due to unspecified organism Laterality: bilateral Lung location: lower lobe of lung Qualified Code(s): J18.1 - Lobar pneumonia, unspecified organism
[2017-11-04] MEDS ORDERED: Ibuprofen 400 MG Tablet PO ONE (19:15)
[2017-11-04] MEDS ORDERED: Loperamide 2 MG Capsule PO ONE (19:15)
[2017-11-04] MEDS ORDERED: Ibuprofen 200 MG Tablet PO ONE (20:45)
[2017-11-04] MEDS: predniSONE 20 MG Tablet PO SCH (20:47)
[2017-11-05] MEDS: Temazepam 15 MG Capsule PO PRN (00:47)
[2017-11-05] MEDS ORDERED: Loperamide 2 MG Capsule PO PRN (00:54)
[2017-11-05] MEDS: Piperacil/Tazo 4.5 GM Premix 4.5 GM/100 ML BAG IV.SIG SCH ×4 (04:17→22:23)
[2017-11-05] MEDS: Vancomycin Inj 1,000 MG in Sodium Chlor 0.9% Inj 250 ML IV.SIG SCH ×2 (05:12→17:43)
[2017-11-05 05:23] LABS: Carbon Dioxide 28.3 meq/L (21.0-32.0); Potassium 3.4 meq/L (3.5-5.1)
[2017-11-05 05:47] LABS: CKMB Percent 1.8 % (0.0-4.0)
[2017-11-05] MEDS: predniSONE 20 MG Tablet PO SCH (08:21)
[2017-11-05] MEDS: Ibuprofen 200 MG Tablet PO PRN ×2 (08:22→17:43)
[2017-11-05] MEDS: Calcium Carbonate 500 MG Tablet PO SCH ×2 (08:26→20:28)
[2017-11-05] MEDS: Tiotropium Bromide 18 MCG/ACT Inhaler INH SCH (08:27)
[2017-11-05] MEDS: Budesonide-Formoterol 160/4.5 MCG 6 GM Inhaler INH SCH ×3 (08:27→20:18)
[2017-11-05] MEDS: Senna/Docusate Sodium 8.6/50 MG Tablet PO SCH ×2 (08:27→20:28)
--- NOTE | 2017-11-05 10:48 | P.PN ---
Physical Exam Vital signs: Vital Signs 11/04/17 12:57 11/04/17 13:31 11/04/17 14:14 Temperature 98.1 F Pulse Rate 80 71 74 Respiratory Rate 22 Blood Pressure 133/86 Pulse Oximetry 80 L 11/04/17 15:00 11/04/17 16:33 11/04/17 17:16 Temperature 97.9 F Pulse Rate 69 75 83 Respiratory Rate 20 Blood Pressure 131/87 Pulse Oximetry 82 L 11/04/17 18:00 11/04/17 19:00 11/04/17 20:00 Temperature 97.6 F Pulse Rate 65 70 69 Respiratory Rate 16 Blood Pressure 131/85 Pulse Oximetry 82 L 11/04/17 21:00 11/04/17 21:25 11/04/17 22:00 Temperature Pulse Rate 74 78 Respiratory Rate Blood Pressure Pulse Oximetry 82 L 11/04/17 23:00 11/05/17 00:00 11/05/17 01:00 Temperature 98 F Pulse Rate 70 80 74 Respiratory Rate 20 Blood Pressure 136/84 Pulse Oximetry 84 L 11/05/17 02:00 11/05/17 03:00 11/05/17 06:20 Temperature 97.7 F Pulse Rate 81 59 L 58 L Respiratory Rate 18 Blood Pressure 111/66 Pulse Oximetry 82 L 11/05/17 07:00 11/05/17 07:05 11/05/17 08:00 Temperature 98.6 F Pulse Rate 63 66 Respiratory Rate 20 Blood Pressure 140/85 Pulse Oximetry 80 L 88 L 78 L 11/05/17 08:05 11/05/17 09:00 11/05/17 10:00 Temperature Pulse Rate 90 68 Respiratory Rate Blood Pressure Pulse Oximetry 88 L Intake & Output 11/04/17 11/05/17 11/05/17 18:59 06:59 18:59 Intake Total 1410 / 1410 1660 / 1660 100 / 100 Output Total 550 / 550 900 / 900 Balance 860 / 860 760 / 760 100 / 100 Weight 82.2 kg Intake: IV 450 / 450 700 / 700 100 / 100 Levaquin 750 mg Premix Inj 150 150 / 150 ML @ 100 mls/hr IV.SIG Q24H [facility] Rx#:[id number] Zosyn 4.5 GM Premix 4.5 gm In 300 / 300 200 / 200 100 / 100 100 ml @ 200 mls/hr IV.SIG Q6H [facility] Rx#:[id number] Vancomycin Inj 1,000 MG In NS 500 / 500 Inj 250 ML @ 250 mls/hr IV.SIG Q12H [facility] Rx#:[id number] Oral 960 / 960 Oral Supplement 960 / 960 Output: Urine 550 / 550 900 / 900 Other: # Voids 3 1 Date of Last Bowel Movement 11/04/17 11/04/17 11/05/17 # Bowel Movements 5 1 Narrative: Subjective Subjective Remarks/Hospital Course: This is a 52-year-old male who was recently admitted earlier in October with community-acquired pneumonia and COPD exacerbation who was treated successfully with antibiotics and discharged on home oxygen. He readmits yesterday for worsening hypoxia. Per the admission H&P, it states he was not wearing his oxygen or taking his antibiotics. Patient continued to worsen and was seen by Dr. Harris with the pulmonary service today. He is transferred emergently to the CVICU for noninvasive positive pressure ventilation. Patient is dyspneic and cannot speak in full sentences. The remainder of the history is quite limited and taken from the medical record due to the patient's dyspnea. Of note , he does deny chest pain. Endorses shortness of breath. Endorses cough. Endorses fever. Recent CTA from prior admission is negative for acute PE. Recent echo demonstrates preserved biventricular function. SUBJ 11/01: Lying in bed and remains quite hypoxemic. On 50% Ventimask oxygen saturation is an elderly 81%. I have ordered a CT PE protocol to rule out a PE which is unlikely and also to rule out parapneumonic effusion. If effusion present he may need drainage of the effusion. At this time remains critical 11/02: Breathing subjectively improved. Oxygen saturation is maintained about 88 % on 6 L nasal cannula. Patient is noncompliant with BiPAP and Ventimask. CT angiogram yesterday showed no PE, bilateral infiltrates indicating multilobar pneumonia. 11/03/17. Ambulating to the bathroom with the nurse. With sob No v/n/d/c. 11/04/17 the patient says he has multiple bouts of diarrhea today. Check for C. difficile is negative. Start Imodium and Lactinex. Patient's is now wearing oxygen at this time however she is desaturating. He is not compliant with medications without oxygen. No fever or chills. Says she takes Motrin at home and is helping better. Discussed with the patient is completing with Motrin she still wants to try it. 11/05/17 patient with suicidal ideation earlier today. Will consult psychiatry. Patient is also refusing oxygen he is desaturating, he is on 5 L by nasal nasal cannula however he is now wearing the oxygen. Is also refusing to nebs and other medications. We will also consult palliative care for goals of care as patient is refusing treatments and care. With lower extremity edema. He says he is short of breath. No nausea vomiting says he is eating fairly well. Diarrhea resolved no more diarrhea since yesterday. C. difficile is negative. He received Imodium and Lactinex was started. Physical exam: GENERAL: Middle-age male lying in bed, in no distress, dessating, noncompliant with O2 CHEST: Currently on 5L NC. Diminished breath sounds on left base CARDIOVASCULAR: Normal rate, regular rhythm. Sinus. ABDOMEN: Soft, nontender, nondistended. No guarding. MUSCULOSKELETAL: Pulses 2+. No peripheral edema. NEUROLOGICAL: Awake alert oriented no focal deficits. Follows commands. Assessment and Plan 52-year-old male with COPD and recent diagnosis of pneumonia presents with worsening acute hypoxic respiratory failure. Continue antibiotics, nebs, steroids. Active Problems: Acute hypoxic respiratory failure Recent Community Acquired pneumonia Healthcare associated pneumonia COPD exacerbation- acute, severe Recommendations: NEURO: -Minimize sedation RESP: -Patient did not tolerate BiPAP, noncompliant with Ventimask currently acceptable oxygen saturation on nasal cannula -Titrate FiO2 to keep saturation above 88% given COPD -DuoNeb every 6 hours scheduled and as needed. EzPAP, Acapella q 6 -CT pulmonary angiogram to rule out PE, to rule out parapneumonic effusion -If effusion present may need thoracentesis -Continue IV steroids, Symbicort and Spiriva CV: -Normal saline IV fluids, previous 2D echo showed preserved LV function GI: -Heart healthy diet, IV famotidine : -Monitor renal function closely. ID: -Antibiotics vancomycin and Zosyn. Added Levaquin 11/01 for atypical coverage -Blood urine and sputum cultures. urine for Legionella and pneumococcal antigen negative - Diarrhea C diff neg. Start probiotics, imodium . HEME: -Monitor CBC, coags ENDO: -Electrolyte replacement per protocol Psych Suicidal ideation, Consutl psych Noncompliance. Consult palliativecare for goals of care as patient is refusing meds, O2 supplement PROPH: -Bilateral lower extremity SCDs. Lovenox/famotidine LINES: -Utilize peripheral IVs, central line if needed Continues to be hypoxemic but steadily improving COPD exacerbation and multilobar pneumonia. He is noncompliant with meds Diarrhea resolved. On lactinex and imodium prn With SI consult psych Noncompliant consult palliative care Transfer to [facility] surg floor. Results - Labs CBC & Chem 7: 11/03/17 03:23 11/05/17 03:27 Laboratory Results - last 24 hr 11/04/17 11/05/17 01:59 03:27 Sodium 134 L Potassium 3.4 L Chloride 97 L Carbon Dioxide 28.3 Anion Gap 9 BUN 23 H Creatinine 0.93 Estimated GFR 86 L Random Glucose 148 H Calcium 8.0 L Total Creatine Kinase 331 H CK-MB (CK-2) 6.0 H CK-MB (CK-2) % 1.8 Stl C.difficile Tox PCR Negative St C. diff Tox Epid 027 Negative Microbiology 11/01/17 13:00 Blood - Peripheral Aerobic Blood Culture - Preliminary No growth in 3 days 11/01/17 13:00 Blood - Peripheral Anaerobic Blood Culture - Preliminary No growth in 3 days 11/01/17 13:05 Blood - Peripheral Aerobic Blood Culture - Preliminary No growth in 3 days 11/01/17 13:05 Blood - Peripheral Anaerobic Blood Culture - Preliminary No growth in 3 days - Imaging Impressions Chest X-Ray 11/03/17 06:00 CONCLUSION: Stable chest with bibasilar airspace disease possible associated effusions, left greater than right.
--- NOTE | 2017-11-05 11:55 | P.PNPL ---
Subjective Interval history: Patient is on 5Loxygen reports SOB. Afebrile. Desats easily when taking his oxygen off. Refusing Nebs treatment. Physical Exam Vital signs: Vital Signs 11/04/17 12:57 11/04/17 13:31 11/04/17 14:14 Temperature 98.1 F Pulse Rate 80 71 74 Respiratory Rate 22 Blood Pressure 133/86 Pulse Oximetry 80 L 11/04/17 15:00 11/04/17 16:33 11/04/17 17:16 Temperature 97.9 F Pulse Rate 69 75 83 Respiratory Rate 20 Blood Pressure 131/87 Pulse Oximetry 82 L 11/04/17 18:00 11/04/17 19:00 11/04/17 20:00 Temperature 97.6 F Pulse Rate 65 70 69 Respiratory Rate 16 Blood Pressure 131/85 Pulse Oximetry 82 L 11/04/17 21:00 11/04/17 21:25 11/04/17 22:00 Temperature Pulse Rate 74 78 Respiratory Rate Blood Pressure Pulse Oximetry 82 L 11/04/17 23:00 11/05/17 00:00 11/05/17 01:00 Temperature 98 F Pulse Rate 70 80 74 Respiratory Rate 20 Blood Pressure 136/84 Pulse Oximetry 84 L 11/05/17 02:00 11/05/17 03:00 11/05/17 06:20 Temperature 97.7 F Pulse Rate 81 59 L 58 L Respiratory Rate 18 Blood Pressure 111/66 Pulse Oximetry 82 L 11/05/17 07:00 11/05/17 07:05 11/05/17 08:00 Temperature 98.6 F Pulse Rate 63 66 Respiratory Rate 20 Blood Pressure 140/85 Pulse Oximetry 80 L 88 L 78 L 11/05/17 08:05 11/05/17 09:00 11/05/17 10:00 Temperature Pulse Rate 90 68 Respiratory Rate Blood Pressure Pulse Oximetry 88 L 11/05/17 10:52 11/05/17 10:54 Temperature 98.2 F Pulse Rate 74 Respiratory Rate 20 Blood Pressure 119/81 Pulse Oximetry 87 L 87 L Intake & Output 11/04/17 11/05/17 11/05/17 18:59 06:59 18:59 Intake Total 1410 / 1410 1660 / 1660 100 / 100 Output Total 550 / 550 900 / 900 Balance 860 / 860 760 / 760 100 / 100 Weight 82.2 kg Intake: IV 450 / 450 700 / 700 100 / 100 Levaquin 750 mg Premix Inj 150 150 / 150 ML @ 100 mls/hr IV.SIG Q24H [facility] Rx#:[id number] Zosyn 4.5 GM Premix 4.5 gm In 300 / 300 200 / 200 100 / 100 100 ml @ 200 mls/hr IV.SIG Q6H [facility] Rx#:[id number] Vancomycin Inj 1,000 MG In NS 500 / 500 Inj 250 ML @ 250 mls/hr IV.SIG Q12H [facility] Rx#:[id number] Oral 960 / 960 Oral Supplement 960 / 960 Output: Urine 550 / 550 900 / 900 Other: # Voids 3 1 Date of Last Bowel Movement 11/04/17 11/04/17 11/05/17 # Bowel Movements 5 1 - Constitutional mild distress - Routine HEENT Exam Head: Present: normocephalic, atraumatic Eye: Present: EOMI, PERRL, conjunctivae pink - Routine Neck Exam Present: supple, full ROM, trachea midline - Routine Respiratory Exam Present: decreased breath sounds, CTA bilaterally - Routine Cardiovascular Exam Present: RRR, S1, S2 - Routine Abdominal Exam Present: soft, normoactive bowel sounds - Routine Extremities Exam Present: edema, full ROM - Routine Skin Exam Present: intact - Routine Neurological Exam Present: alert, oriented X3, CN II-XII intact - Routine Psychiatric Exam Present: normal affect Assessment and Plan - Plan 1)Acute hypoxic respiratory failure 2)Recent Community Acquired pneumonia 3)COPD exacerbation 4)Anemia Plan Continue with oxygen keep sats >92% Bronchodilators (DuoNeb, Symbicort)- Refusing DuoNeb Change Prednisone to Solumedrol 60mg Q8 IV Check ABG, BIPAP PRN for resp distress Continue with abx ( Vanco, Zosyn, Levaquin) Monitor for signs of infections ( Fever, WBC) BC, strep pneumonia, Legionella urinary Ag negative on 11/01 Give Bumex 1mg x1 Asses for home oxygen prior to discharge GI/DVT prophylaxis per primary team.
[2017-11-05] MEDS: MethylPREDNISolone Sod Succinate Inj 125 MG/2 ML Vial IV.PUSH SCH ×2 (12:30→20:19)
[2017-11-05 12:57] LABS: ABG Base Excess 2.5 mmol/L (-2-2); ABG PCO2 38 mmHg (38-42); ABG PO2 46 mmHG (61-120)
[2017-11-05] MEDS: LORazepam 1 MG Tablet PO PRN ×2 (15:59→22:23)
[2017-11-05] MEDS ORDERED: Pharmacy Ordered Lab Info OTHER ONE (17:45)
[2017-11-06] MEDS: Temazepam 15 MG Capsule PO PRN (00:05)
[2017-11-06] MEDS: Piperacil/Tazo 4.5 GM Premix 4.5 GM/100 ML BAG IV.SIG SCH ×4 (04:42→23:35)
[2017-11-06] MEDS: LORazepam 1 MG Tablet PO PRN ×4 (04:42→20:33)
[2017-11-06] MEDS: MethylPREDNISolone Sod Succinate Inj 125 MG/2 ML Vial IV.PUSH SCH ×3 (04:42→20:33)
[2017-11-06 04:54] LABS: Potassium 3.7 meq/L (3.5-5.1)
[2017-11-06] MEDS ORDERED: Pharmacy Ordered Lab Info OTHER ONE (05:45)
[2017-11-06] MEDS: Vancomycin Inj 1,000 MG in Sodium Chlor 0.9% Inj 250 ML IV.SIG SCH ×2 (06:15→17:27)
[2017-11-06] MEDS: Ibuprofen 200 MG Tablet PO PRN ×2 (08:47→17:25)
[2017-11-06] MEDS: Calcium Carbonate 500 MG Tablet PO SCH ×2 (08:47→23:35)
[2017-11-06] MEDS: Tiotropium Bromide 18 MCG/ACT Inhaler INH SCH (09:06)
[2017-11-06] MEDS: Budesonide-Formoterol 160/4.5 MCG 6 GM Inhaler INH SCH ×2 (09:06→20:32)
[2017-11-06] MEDS: Senna/Docusate Sodium 8.6/50 MG Tablet PO SCH ×2 (09:06→23:35)
--- NOTE | 2017-11-06 09:11 | P.PNPL ---
Subjective Interval history: Patient is on 5L oxygen looks comfortable, denies any worsening SOB, desats easily when he takes off his oxygen. afebrile. Physical Exam Vital signs: Vital Signs 11/05/17 10:00 11/05/17 10:52 11/05/17 10:54 Temperature 98.2 F Pulse Rate 68 74 Respiratory Rate 20 Blood Pressure 119/81 Pulse Oximetry 87 L 87 L 11/05/17 11:00 11/05/17 12:00 11/05/17 13:00 Temperature Pulse Rate 77 69 73 Respiratory Rate Blood Pressure Pulse Oximetry 11/05/17 13:05 11/05/17 14:00 11/05/17 15:00 Temperature 98.6 F Pulse Rate 69 72 Respiratory Rate 20 Blood Pressure 138/88 Pulse Oximetry 92 L 91 L 11/05/17 15:44 11/05/17 16:00 11/05/17 17:00 Temperature Pulse Rate 66 78 72 Respiratory Rate 17 Blood Pressure Pulse Oximetry 11/05/17 17:55 11/05/17 19:00 11/05/17 21:00 Temperature 97.8 F Pulse Rate 86 80 73 Respiratory Rate 18 Blood Pressure 136/89 Pulse Oximetry 90 L 11/05/17 22:00 11/05/17 23:00 11/06/17 00:00 Temperature 97.5 F L Pulse Rate 81 91 H 90 Respiratory Rate Blood Pressure 142/87 H Pulse Oximetry 88 L 11/06/17 01:00 11/06/17 02:00 11/06/17 03:00 Temperature 98.4 F Pulse Rate 83 85 74 Respiratory Rate Blood Pressure Pulse Oximetry 86 L 11/06/17 04:00 11/06/17 05:00 11/06/17 06:00 Temperature Pulse Rate 68 75 67 Respiratory Rate Blood Pressure Pulse Oximetry 11/06/17 07:00 11/06/17 08:00 Temperature 98.1 F Pulse Rate 67 71 Respiratory Rate 20 Blood Pressure 138/80 Pulse Oximetry 88 L Intake & Output 11/05/17 11/06/17 11/06/17 18:59 06:59 18:59 Intake Total 1260 / 1260 930 / 930 Output Total 800 / 800 850 / 850 Balance 460 / 460 80 / 80 Weight 82 kg Intake: IV 300 / 300 450 / 450 Levaquin 750 mg Premix Inj 150 100 / 100 ML @ 100 mls/hr IV.SIG Q24H [facility] Rx#:[id number] Zosyn 4.5 GM Premix 4.5 gm In 200 / 200 200 / 200 100 ml @ 200 mls/hr IV.SIG Q6H [facility] Rx#:[id number] Vancomycin Inj 1,000 MG In NS 250 / 250 Inj 250 ML @ 250 mls/hr IV.SIG Q12H [facility] Rx#:[id number] Oral 960 / 960 480 / 480 Output: Urine 800 / 800 850 / 850 Other: Date of Last Bowel Movement 11/03/17 11/03/17 # Bowel Movements 0 - Constitutional no acute distress - Routine HEENT Exam Head: Present: normocephalic, atraumatic Eye: Present: EOMI, PERRL, normal accommodation, conjunctivae pink ENT: Present: mucous membranes moist - Routine Neck Exam Present: supple, full ROM, trachea midline - Routine Respiratory Exam Present: CTA bilaterally, distant breath sounds - Routine Cardiovascular Exam Present: RRR, S1, S2 - Routine Abdominal Exam Present: soft, normoactive bowel sounds - Routine Extremities Exam Present: full ROM, pulses intact - Routine Skin Exam Present: intact - Routine Neurological Exam Present: alert, oriented X3, CN II-XII intact - Routine Psychiatric Exam Present: normal affect Assessment and Plan - Plan 1)Acute hypoxic respiratory failure 2)Recent Community Acquired pneumonia 3)COPD exacerbation 4)Anemia Plan Continue with oxygen keep sats >92% Bronchodilators (DuoNeb, Symbicort)- Refusing DuoNeb Continue Solumedrol 60mg Q8 IV BIPAP PRN for resp distress Continue with abx ( Vanco, Zosyn, Levaquin) Monitor for signs of infections ( Fever, WBC) BC, strep pneumonia, Legionella urinary Ag negative on 11/01 Check sputum cx Asses for home oxygen prior to discharge GI/DVT prophylaxis per primary team. Palliative care consulted
--- NOTE | 2017-11-06 10:41 | P.PNIM ---
Subjective Interval history: This is a 52-year-old male who was recently admitted earlier in October with community-acquired pneumonia and COPD exacerbation who was treated successfully with antibiotics and discharged on home oxygen. He readmits yesterday for worsening hypoxia. Per the admission H&P, it states he was not wearing his oxygen or taking his antibiotics. Patient continued to worsen and was seen by Dr. Harris with the pulmonary service today. He is transferred emergently to the CVICU for noninvasive positive pressure ventilation. Patient is dyspneic and cannot speak in full sentences. The remainder of the history is quite limited and taken from the medical record due to the patient's dyspnea. Of note , he does deny chest pain. Endorses shortness of breath. Endorses cough. Endorses fever. Recent CTA from prior admission is negative for acute PE. Recent echo demonstrates preserved biventricular function. SUBJ 11/01: Lying in bed and remains quite hypoxemic. On 50% Ventimask oxygen saturation is an elderly 81%. I have ordered a CT PE protocol to rule out a PE which is unlikely and also to rule out parapneumonic effusion. If effusion present he may need drainage of the effusion. At this time remains critical 11/02: Breathing subjectively improved. Oxygen saturation is maintained about 88 % on 6 L nasal cannula. Patient is noncompliant with BiPAP and Ventimask. CT angiogram yesterday showed no PE, bilateral infiltrates indicating multilobar pneumonia. 11/03/17. Ambulating to the bathroom with the nurse. With sob No v/n/d/c. 11/04/17 the patient says he has multiple bouts of diarrhea today. Check for C. difficile is negative. Start Imodium and Lactinex. Patient's is now wearing oxygen at this time however she is desaturating. He is not compliant with medications without oxygen. No fever or chills. Says she takes Motrin at home and is helping better. Discussed with the patient is completing with Motrin she still wants to try it. 11/05/17 patient with suicidal ideation earlier today. Will consult psychiatry. Patient is also refusing oxygen he is desaturating, he is on 5 L by nasal nasal cannula however he is now wearing the oxygen. Is also refusing to nebs and other medications. We will also consult palliative care for goals of care as patient is refusing treatments and care. With lower extremity edema. He says he is short of breath. No nausea vomiting says he is eating fairly well. Diarrhea resolved no more diarrhea since yesterday. C. difficile is negative. He received Imodium and Lactinex was started. 11-06 patient is refusing to take duonebs seen by psychiatry NOT ALWAYS KEEPING HIS OXYGEN ON NEEDS TO DO IS NEEDS MUCINEX IS REFUSING MEDS AND TREATMENTS Physical Exam Vital signs: Vital Signs 11/05/17 10:52 11/05/17 10:54 11/05/17 11:00 Temperature 98.2 F Pulse Rate 74 77 Respiratory Rate 20 Blood Pressure 119/81 Pulse Oximetry 87 L 87 L 11/05/17 12:00 11/05/17 13:00 11/05/17 13:05 Temperature Pulse Rate 69 73 Respiratory Rate Blood Pressure Pulse Oximetry 92 L 11/05/17 14:00 11/05/17 15:00 11/05/17 15:44 Temperature 98.6 F Pulse Rate 69 72 66 Respiratory Rate 20 17 Blood Pressure 138/88 Pulse Oximetry 91 L 11/05/17 16:00 11/05/17 17:00 11/05/17 17:55 Temperature Pulse Rate 78 72 86 Respiratory Rate Blood Pressure Pulse Oximetry 11/05/17 19:00 11/05/17 21:00 11/05/17 22:00 Temperature 97.8 F Pulse Rate 80 73 81 Respiratory Rate 18 Blood Pressure 136/89 Pulse Oximetry 90 L 11/05/17 23:00 11/06/17 00:00 11/06/17 01:00 Temperature 97.5 F L Pulse Rate 91 H 90 83 Respiratory Rate Blood Pressure 142/87 H Pulse Oximetry 88 L 11/06/17 02:00 11/06/17 03:00 11/06/17 04:00 Temperature 98.4 F Pulse Rate 85 74 68 Respiratory Rate Blood Pressure Pulse Oximetry 86 L 11/06/17 05:00 11/06/17 06:00 11/06/17 07:00 Temperature 98.1 F Pulse Rate 75 67 67 Respiratory Rate 20 Blood Pressure 138/80 Pulse Oximetry 88 L 11/06/17 08:00 Temperature Pulse Rate 71 Respiratory Rate Blood Pressure Pulse Oximetry Intake & Output 11/05/17 11/06/17 11/06/17 18:59 06:59 18:59 Intake Total 1260 / 1260 930 / 930 350 / 350 Output Total 800 / 800 850 / 850 Balance 460 / 460 80 / 80 350 / 350 Weight 82 kg Intake: IV 300 / 300 450 / 450 350 / 350 Levaquin 750 mg Premix Inj 150 100 / 100 ML @ 100 mls/hr IV.SIG Q24H [facility] Rx#:[id number] Zosyn 4.5 GM Premix 4.5 gm In 200 / 200 200 / 200 100 / 100 100 ml @ 200 mls/hr IV.SIG Q6H [facility] Rx#:[id number] Vancomycin Inj 1,000 MG In NS 250 / 250 250 / 250 Inj 250 ML @ 250 mls/hr IV.SIG Q12H [facility] Rx#:[id number] Oral 960 / 960 480 / 480 Output: Urine 800 / 800 850 / 850 Other: Date of Last Bowel Movement 11/03/17 11/03/17 # Bowel Movements 0 Narrative: GENERAL: Awake and alert talkative not very cooperative --only does commands he wants to do SKIN: Warm and dry. HEAD: Atraumatic. Normocephalic. EYES: Pupils equal and round. No scleral icterus. No injection or drainage. ENT: No nasal bleeding or discharge. Mucous membranes pink and moist. NECK: Trachea midline. No JVD. CARDIOVASCULAR: Regular rate and rhythm. S1-S2 no S3 or S4 RESPIRATORY: No accessory muscle use. Breath sounds equal bilaterally. Coarse breath sounds bilaterally GASTROINTESTINAL: Abdomen soft, non-tender, nondistended. Hepatic and splenic margins not palpable. MUSCULOSKELETAL: Extremities without clubbing, or cyanosis. No obvious deformities. +1 TO 2 lower extremity edema NEUROLOGICAL: Awake and alert. No obvious cranial nerve deficits. Motor grossly within normal limits. Five out of 5 muscle strength in the arms and legs. Normal speech. PSYCHIATRIC: INAppropriate mood and affect; insight and judgment ABnormal. Results - Labs CBC & Chem 7: 11/03/17 03:23 11/06/17 03:13 Laboratory Results - last 24 hr 11/05/17 11/05/17 11/06/17 12:42 17:12 03:13 Puncture Site Right radial Patient Temperature 98.6 O2 Saturation 79 L* ABG pH 7.45 H ABG pCO2 38 ABG pO2 46 L* ABG HCO3 26 ABG O2 Content 13.1 ABG Base Excess 2.5 H ABG Methemoglobin 1.3 Jori Test Present Hemoglobin 11.8 L Carboxyhemoglobin 1.0 Inspired O2 21 Critical Value Yes Sodium 136 Potassium 3.7 Chloride 99 Carbon Dioxide 28.0 Anion Gap 9 BUN 22 H Creatinine 0.93 Estimated GFR 86 L Random Glucose 204 H Calcium 8.0 L Total Creatine Kinase 296 Vancomycin Trough 18.3 H Microbiology 11/01/17 13:00 Blood - Peripheral Aerobic Blood Culture - Preliminary No growth in 4 days 11/01/17 13:00 Blood - Peripheral Anaerobic Blood Culture - Preliminary No growth in 4 days 11/01/17 13:05 Blood - Peripheral Aerobic Blood Culture - Preliminary No growth in 4 days 11/01/17 13:05 Blood - Peripheral Anaerobic Blood Culture - Preliminary No growth in 4 days - Imaging Chest X-Ray 10/30/17 20:15 CONCLUSION: Bilateral lower lobe consolidative infiltrates, left greater than right, increased in severity from 10/19/2017. Chest X-Ray 10/31/17 00:00 CONCLUSION: Deterioration in the appearance of the chest with increasing bibasilar consolidative changes worse on the left. Chest CTA 11/01/17 00:00 CONCLUSION: 1. No acute pulmonary emboli. 2. Worsening bibasilar consolidation with new consolidation involving the medial left upper lobe. 3. Stable to slightly smaller tiny bilateral pleural effusions. Chest X-Ray 11/02/17 00:00 CONCLUSION: Overall improvement in aeration of the left lung, otherwise not significantly changed. Chest X-Ray 11/03/17 06:00 CONCLUSION: Stable chest with bibasilar airspace disease possible associated effusions, left greater than right. - Procedures None Assessment and Plan - Plan 52-year-old male with COPD and recent diagnosis of pneumonia presents with worsening acute hypoxic respiratory failure. Continue antibiotics, nebs, steroids. Active Problems: Acute hypoxic respiratory failure Recent Community Acquired pneumonia Healthcare associated pneumonia COPD exacerbation- acute, severe Recommendations: NEURO: -Minimize sedation RESP: -Patient did not tolerate BiPAP, noncompliant with Ventimask currently acceptable oxygen saturation on nasal cannula -Titrate FiO2 to keep saturation above 88% given COPD -DuoNeb every 6 hours scheduled and as needed. EzPAP, Acapella q 6 -CT pulmonary angiogram to rule out PE, to rule out parapneumonic effusion -If effusion present may need thoracentesis -Continue IV steroids, Symbicort and Spiriva Refusing to do duo nebs-which will slow down his progression to improvement CV: -Normal saline IV fluids, previous 2D echo showed preserved LV function GI: -Heart healthy diet, IV famotidine : -Monitor renal function closely. ID: -Antibiotics vancomycin and Zosyn. Added Levaquin 11/01 for atypical coverage -Blood urine and sputum cultures. urine for Legionella and pneumococcal antigen negative - Diarrhea C diff neg. Start probiotics, imodium . HEME: -Monitor CBC, coags ENDO: -Electrolyte replacement per protocol Psych Suicidal ideation, Consult psych -seen by them able to make his own wrong decisions Noncompliance. Consult palliative care for goals of care as patient is refusing meds, O2 supplement PROPH: -Bilateral lower extremity SCDs. Lovenox/famotidine LINES: -Utilize peripheral IVs, central line if needed Malignant noncompliance-continues to refuse treatment to medications Diarrhea improved Seen already by psychiatry Code Status: FULL CODE Discussed Condition With: RN AND PT Discharge Planning: ARMAND RN AND PT
--- NOTE | 2017-11-06 11:55 | P.CONPSY ---
Provisional Diagnosis Admission Date: October 30, 2017 21:51 Cisco I.: Adjustment disorder with disturbance of conduct, chronic delusional disorder, history of depression, poor impulse control disorder Cisco II.: Deferred Cisco III.: COPD History of Present Illness Service: Medicine Primary Care Provider: Jose Raul Cassidy Family Provider: Jose Raul Cassidy Chief Complaint: SOB History of Present Illness: The patient is a 52-year-old man, domiciled in an FPC in [place], single, unemployed, supported by [facility], well known by the service, with psychiatric history of poor impulse control, delusional disorder, depression, he has 3 previous psychiatric hospitalizations, last hospitalization was here in [place] in May 2017 under the care of Dr. Chou, he was also seen in consult by Dr. Malcolm at the beginning of October when he was hospitalized due to pneumonia and COPD exacerbation and psychiatrically cleared by him. He is now readmitted due to worsening hypoxia. Per the admission H&P, it states he was not wearing his oxygen or taking his antibiotics. Patient continued to worsen and was seen by Dr. Harris with the pulmonary service today. He is transferred emergently to the CVICU for noninvasive positive pressure ventilation. The patient has being consult to psychiatry due to episodic aggressive behavior and agitation in the medical floor. EMR was reviewed. Case discussed widely with nurse in charge. She says that the patient has been poorly compliant with recommendations in the floor, at times refusing to take medications, very difficult to deal with and irritable. On my psychiatric evaluation I find a patient that is calm, cooperative, pleasant, he was able to remember me from previous psychiatric encounters. The patient reports that he feels much better today. He is a speech is clear, I did note any shortness of breath at this moment. He reports being in a good mood today, but clarifies that at times he has been craving drugs, especially alcohol and he has been quite cranky. The patient reports that he wants to get better, he was to cooperate with recommendations and take his medications. He shared that his plan is to get better and go back to live with his mother. He denies depressive symptoms, denies anhedonia, denies hopelessness, denies helplessness , denies suicidal and homicidal ideation, he denies visual and auditory hallucinations. The patient is logical, coherent and relevant. Fully oriented 3, no attention deficit, no fluctuation of consciousness. He is able to clarify to me what is the reason of his hospitalization, able to verbalize a quite fair understanding and appreciation of underlying medical conditions. He says that he has living FPC, has not been using drugs and alcohol for some months now. During this evaluation I could not elicit any acute psychoses, cognitive impairment, depression, agitation or aggressive behavior. Past psychiatric history: The patient carries a diagnosis of delusional disorder , poor impulse control, adjustment disorder, alcohol and cocaine use disorder, multiple psychiatric hospitalizations, he has been hospitalized in [place] psychiatry in May 2017 under the care of Dr. Chou, many detox/rehab in [facility], not taking any psychotropic at the moment. Past medical history: COPD and hypertension Past family psychiatric history: The patient denies Substance history: The patient has alcohol and cocaine use disorder, but he is now a early full remission Social history: The patient was born and raised in [facility], his single, domiciled in a FPC in [place], he has a 26 year old daughter, unemployed, supported by [facility], his highest level of education is high school. Review of Systems Constitutional: Denies anorexia, Denies body ache(s), Denies chills, Denies daytime sleepiness, Denies excessive sweating, Denies fatigue, Denies fever(s), Denies headache(s), Denies increased appetite, Denies lack of energy, Denies malaise, Denies night sweats, Denies weakness, Denies weight gain, Denies weight loss, Denies other Eyes: Denies blind spots, Denies blurry vision, Denies bulging eyes, Denies change in vision, Denies double vision, Denies discharge, Denies dry eyes, Denies floaters, Denies irritation, Denies itchy eyes, Denies loss of vision, Denies pain, Denies requires corrective lenses, Denies sensitivity to light, Denies other Ears, Nose, Mouth, and Throat: Denies abnormal hearing, Denies bleeding gums, Denies bad breath, Denies change in voice, Denies dental pain, Denies difficulty swallowing, Denies dizziness, Denies dry mouth, Denies ear discharge , Denies ear pain, Denies facial pain, Denies headache(s), Denies hearing loss, Denies hoarseness, Denies lip swelling, Denies nosebleed, Denies mouth lesions, Denies mouth pain, Denies nasal congestion, Denies nasal discharge, Denies nasal obstruction, Denies nasal trauma, Denies neck lump, Denies neck pain, Denies nose pain, Denies pain with swallowing, Denies poor balance, Denies post nasal drip, Denies ringing in the ears, Denies sinus pain, Denies sinus pressure , Denies sore throat, Denies throat swelling, Denies tongue swelling, Denies other Cardiovascular: Denies chest pain, Denies chest pain at rest, Denies chest pain with activity, Denies excessive sweating, Denies fainting, Denies fast heart rate, Denies foot swelling, Denies generalized swelling, Denies irregular heart rhythm, Denies leg pain with activity, Denies leg sores, Denies leg swelling, Denies lightheadedness, Denies radiating jaw, neck or arm pain, Denies rapid, pounding, or irregular heartbeat, Denies shortness of breath, Denies shortness of breath with activity, Denies shortness of breath when lying down, Denies shortness of breath causing sudden awakening, Denies slow heart rate, Denies other Respiratory: Reports chest congestion, Reports cough, Reports shortness of breath Gastrointestinal: Denies abdominal pain, Denies belching, Denies black, tarry stools, Denies bloating, Denies bright, red blood in stools, Denies change in bowel habits, Denies constant urge to pass stool, Denies change in stools, Denies coffee ground vomit, Denies constipation, Denies cramping, Denies difficulty swallowing, Denies excessive passing of gas, Denies feeling full early, Denies heartburn, Denies incontinent of stools, Denies loose stools, Denies nausea, Denies pain with swallowing, Denies vomiting, Denies vomiting blood, Denies other Genitourinary: Denies blood in semen, Denies blood in urine, Denies decreased urination, Denies difficulty urinating, Denies difficulty with ejaculations, Denies erectile dysfunction, Denies genital lesions, Denies genital pain, Denies painful urination, Denies side pain, Denies frequent nighttime urination , Denies painful ejaculations, Denies penile discharge, Denies scrotal swelling , Denies testicle lump, Denies testicle pain, Denies urinary frequency, Denies urinary hesitancy, Denies urinary incontinence, Denies urinary urgency, Denies other Musculoskeletal: Denies abnormal walking, Denies back pain, Denies body aches, Denies decreased muscle mass, Denies deformity, Denies joint pain, Denies joint swelling, Denies limited joint movement, Denies loss of height, Denies muscle cramps, Denies muscle weakness, Denies neck pain, Denies numbness, Denies radiating pain into limb, Denies stiffness, Denies tingling, Denies other Skin/Breast: Denies acne, Denies bleeding lesions, Denies boil, Denies breast swelling, Denies breast skin changes, Denies breast pain, Denies breast lump, Denies change in breast shape, Denies change in hair, Denies change in skin color, Denies changing lesions, Denies dry skin, Denies excessive hair growth, Denies hair loss, Denies itching, Denies lesions, Denies nail changes, Denies new lesions, Denies nipple discharge, Denies non-healing lesions, Denies redness , Denies sensitivity to light, Denies rash, Denies skin pain, Denies skin ulcer , Denies sores, Denies stretch maldonado, Denies unusual bruising, Denies wounds, Denies yellowing of the skin, Denies other Neurologic: Denies abnormal hearing, Denies abnormal movements, Denies abnormal speech, Denies abnormal walking, Denies behavioral changes, Denies burning sensations, Denies confusion, Denies dizziness, Denies fainting, Denies frequent falls, Denies headache(s), Denies lack of coordination, Denies localized weakness, Denies loss of vision, Denies memory loss, Denies numbness, Denies other visual disturbances, Denies radiating pain, Denies restless legs, Denies convulsions, Denies seizure-like activity, Denies sensory deficit, Denies tingling, Denies tingling/numbness/burning sensations, Denies tremor(s), Denies unsteadiness, Denies weakness, Denies other Psychiatric: Denies abnormal sleep pattern, Denies anxiety, Denies behavioral changes, Denies change in appetite, Denies change in sex drive, Denies confusion , Denies depression, Denies difficulty concentrating, Denies hearing things others do not hear, Denies hopelessness, Denies irritability, Denies lack of enjoyment, Denies memory loss, Denies mood swings, Denies panic attacks, Denies paranoia, Denies seeing things others do not see, Denies sensing things others do not sense, Denies tactile hallucinations, Denies thoughts of hurting/killing others, Denies thoughts of hurting/killing yourself, Denies other PMFSH - History History Provided By: Patient - Medical / Surgical Hx Neg / Unobtainable Medical Problems Denied: Unable to Obtain - Medical History Medical History: Medical History (Last Reviewed 11/06/17 @ 07:45 by Be Joseph, PT) Alcohol abuse Insomnia Substance abuse - Surgical History Surgical History: Surgical History (Last Reviewed 11/03/17 @ 08:47 by Be Perry) Hernia (Acute) Cataract (Acute) - Family History Family History: Family History (Last Reviewed 11/02/17 @ 07:31 by Tamera Fitzpatrick) Other Cardiac defibrillator in situ Family history of hypertension - Tobacco History Second Hand Smoke Exposure: No Tobacco Use In Past 30 Days: No Smoking Status: Former smoker Tobacco Type: Cigarettes - Alcohol History How Often Do You Have a Drink Containing Alcohol: 4 or more times a week - Substance Use History Substance History: Past History - Substance Use Type Alcohol Status: Early Remission Route Used: By Mouth Reason for Use: Calm Down Comment: hx of abuse Crack/Cocaine Status: Early Remission Route Used: Inhalation Reason for Use: Feels Good, Get High Marijuana Status: Early Remission Route Used: Inhalation Reason for Use: Feels Good, Get High - Travel History Recent Travel in the [facility] Within the Last 8 Weeks: No Recent Travel Out of the Country Within the Last 8 Weeks: No - Immunization History Tetanus Immunization: Unsure Hx Influenza Vaccine This Season: No Medications and Allergies Active Medications: Active Medications Acetaminophen (Tylenol) 650 mg PO Q4H PRN PRN Reason: Temp > 100.4 Last Admin: 11/04/17 16:28 Dose: 650 mg Al Hydroxide/Mg Hydroxide (Milk Of Magnesia Liq) 30 ml PO Q12H PRN PRN Reason: Mild Constipation Albuterol (Duoneb Neb (Prn)) 1 ampul NEB Q2HR NEB PRN PRN Reason: DYSPNEA Albuterol (Duoneb Neb (Mohini)) 1 ampul NEB Q4HR NEB MOHINI Last Admin: 11/05/17 21:33 Dose: Not Given Bisacodyl (Dulcolax Supp) 10 mg RECTAL DAILY PRN PRN Reason: SEVERE CONSITIPATION Budesonide/Formoterol Fumarate (Symbicort 160/4.5 Mcg Inh) 2 puff INH BID MOHINI Last Admin: 11/06/17 09:06 Dose: Not Given Flumazenil (Romazecon Inj) 0.2 mg IV.PUSH Q1M PRN PRN Reason: OVERSEDATION Haloperidol Lactate (Haldol Inj) 1 mg IV.PUSH Q15M PRN PRN Reason: for severe agitation Levofloxacin/Dextrose (Levaquin 750 Mg Premix Inj) 150 mls @ 100 mls/hr IV.SIG Q24H [facility] Last Infusion: 11/05/17 12:50 Dose: 0 mls/hr Vancomycin HCl 1,000 mg/ (Sodium Chloride) 250 mls @ 250 mls/hr IV.SIG Q12H [facility] Last Infusion: 11/06/17 07:15 Dose: Infused Pharmacy Profile Note (Vancomycin Consult Pharmacy) 0 mls @ 0 mls/hr OTHER UNSCH MOHINI Piperacillin/Tazobactam/Dextrose (Zosyn 4.5 Gm Premix) 4.5 gm in 100 mls @ 200 mls/hr IV.SIG Q6H [facility] Last Infusion: 11/06/17 09:35 Dose: Infused Ibuprofen (Advil) 200 mg PO Q8H PRN PRN Reason: fever, mild pain Last Admin: 11/06/17 08:47 Dose: 200 mg Lactulose (Lactulose Liq) 30 ml PO DAILY PRN PRN Reason: SEVERE CONSITIPATION Loperamide HCl (Imodium) 2 mg PO UNSCH PRN PRN Reason: DIARRHEA Lorazepam (Ativan) 2 mg PO Q2H PRN PRN Reason: for CIWA 11-14 Lorazepam (Ativan Inj) 2 mg IV.PUSH Q2H PRN PRN Reason: for CIWA 11-14 Lorazepam (Ativan Inj) 2 mg IV.PUSH Q1H PRN PRN Reason: for CIWA 15-20 Lorazepam (Ativan Inj) 2 mg IV.PUSH Q15M PRN PRN Reason: for CIWA > 20 Lorazepam (Ativan Inj) 1 mg IV.PUSH Q4H PRN PRN Reason: for CIWA 8-10 Lorazepam (Ativan) 1 mg PO Q4H PRN PRN Reason: for CIWA 8-10 Last Admin: 11/06/17 08:47 Dose: 1 mg Methylprednisolone Sodium Succinate (Solumedrol Inj) 60 mg IV.PUSH Q8H [facility] Last Admin: 11/06/17 04:42 Dose: 60 mg Miscellaneous (Pill Splitter) 1 each OTHER PRN PRN PRN Reason: SEE LABEL COMMENTS Ondansetron HCl (Zofran Odt) 4 mg PO Q6H PRN PRN Reason: NAUSEA OR VOMITING Senna/Docusate Sodium (Dominga-Colace) 1 tab PO BID [facility] Last Admin: 11/06/17 09:06 Dose: Not Given Sennosides (Senokot) 17.2 mg PO Q12H PRN PRN Reason: Moderate Constipation Sodium Chloride (Ns Flush) 2 ml IV.FLUSH UNSCH PRN PRN Reason: FLUSH AFTER USING IV ACCESS Last Admin: 11/05/17 08:22 Dose: 2 ml Temazepam (Restoril) 15 mg PO HS PRN PRN Reason: INSOMNIA Last Admin: 11/06/17 00:05 Dose: 15 mg Thiamine HCl (Vitamin B1) 100 mg PO DAILY [facility] Last Admin: 11/06/17 08:46 Dose: 100 mg Tiotropium [place] (Spiriva 18 Mcg Inh) 18 mcg INH DAILY [facility] Last Admin: 11/06/17 09:06 Dose: Not Given Allergies Allergy/AdvReac Type Severity Reaction Status Date / Time Bleach (Sodium Hypochlorite) Allergy Hives Verified 10/30/17 20:00 oxycodone Allergy Anaphylaxis Verified 10/30/17 20:00 Home Medications Medication Instructions Recorded Confirmed Type trazodone 150 mg PO DAILY 10/15/17 10/30/17 History Exam Vital signs: Vital Signs 11/05/17 12:00 11/05/17 13:00 11/05/17 13:05 Temperature Pulse Rate 69 73 Respiratory Rate Blood Pressure Pulse Oximetry 92 L 11/05/17 14:00 11/05/17 15:00 11/05/17 15:44 Temperature 98.6 F Pulse Rate 69 72 66 Respiratory Rate 20 17 Blood Pressure 138/88 Pulse Oximetry 91 L 11/05/17 16:00 07/28/18 17:00 11/05/17 17:55 Temperature Pulse Rate 78 72 86 Respiratory Rate Blood Pressure Pulse Oximetry 11/05/17 19:00 11/05/17 21:00 11/05/17 22:00 Temperature 97.8 F Pulse Rate 80 73 81 Respiratory Rate 18 Blood Pressure 136/89 Pulse Oximetry 90 L 11/05/17 23:00 11/06/17 00:00 11/06/17 01:00 Temperature 97.5 F L Pulse Rate 91 H 90 83 Respiratory Rate Blood Pressure 142/87 H Pulse Oximetry 88 L 11/06/17 02:00 11/06/17 03:00 11/06/17 04:00 Temperature 98.4 F Pulse Rate 85 74 68 Respiratory Rate Blood Pressure Pulse Oximetry 86 L 11/06/17 05:00 11/06/17 06:00 11/06/17 07:00 Temperature 98.1 F Pulse Rate 75 67 67 Respiratory Rate 20 Blood Pressure 138/80 Pulse Oximetry 88 L 11/06/17 08:00 11/06/17 09:00 11/06/17 10:00 Temperature Pulse Rate 71 65 74 Respiratory Rate Blood Pressure Pulse Oximetry 11/06/17 11:00 Temperature 97.6 F Pulse Rate 80 Respiratory Rate 20 Blood Pressure 130/78 Pulse Oximetry 90 L Intake & Output 11/05/17 11/06/17 11/06/17 18:59 06:59 18:59 Intake Total 1260 / 1260 930 / 930 350 / 350 Output Total 800 / 800 850 / 850 Balance 460 / 460 80 / 80 350 / 350 Weight 82 kg Intake: IV 300 / 300 450 / 450 350 / 350 Levaquin 750 mg Premix Inj 150 100 / 100 ML @ 100 mls/hr IV.SIG Q24H MOHINI Rx#:[id number] Zosyn 4.5 GM Premix 4.5 gm In 200 / 200 200 / 200 100 / 100 100 ml @ 200 mls/hr IV.SIG Q6H MOHINI Rx#:[id number] Vancomycin Inj 1,000 MG In NS 250 / 250 250 / 250 Inj 250 ML @ 250 mls/hr IV.SIG Q12H [facility]OHINI Rx#:[id number] Oral 960 / 960 480 / 480 Output: Urine 800 / 800 850 / 850 Other: Date of Last Bowel Movement 11/03/17 11/03/17 # Bowel Movements 0 Narrative: No EPS, no psychomotor agitation retardation, no withdrawal symptoms, no stiffness, Mental Status Examination Appearance: Appropriate Consciousness: Alert Motor Activity: Normal gait Speech: Unremarkable Language: Adequate Fund of Knowledge: Adequate Attention and Concentration: Adequate Memory: Unremarkable Mood: Appropriate Affect: Appropriate Thought Process & Associations: Intact Thought Content: Appropriate Hallucination Type: None Delusion Type: None Suicidal Ideation: No Suicidal Plan: No Suicidal Intention: No Homicidal Ideation: No Homicidal Plan: No Homicidal Intention: No Insight: Fair Judgment: Impulsive Assessment and Plan - Assessment (1) Adjustment disorder with disturbance of conduct Code(s): F43.24 - Adjustment disorder with disturbance of conduct Status: Acute - Plan Plan: Estimated LOS: [] days On my psychiatric evaluation today I find a patient that is calm, cooperative and pleasant. He was able to recognize me from previous encounter in psychiatry. The moment of the evaluation the patient denies any symptomatology of depression, anxiety, fco and psychosis. He does report difficulty sleeping at night and crankiness and irritability during the day. He denies suicidal and homicidal ideation, he denies visual and auditory hallucinations. The patient is logical, coherent and relevant, no acute delusions, no loosening of associations, no ideas of reference, no blocking thought, fco are elicited. He is fully oriented 3, no attention deficit, no fluctuation of consciousness present. He is able to verbalize a good understanding and appreciation of acute medical problems, he also expressed the choice to continue medical treatment and recommendations for this reason the patient keeps his decision-making capacity to participate in medical decisions at the moment. There is not criteria for involuntary psychiatric admission. Since the patient has history of delusional disorder, poor impulse control, and he is also presenting difficulty sleeping at night, and go to start the patient in Seroquel 50 mg twice daily to help with impulse control and insomnia. I have provided patient with extensive psychoeducation and supportive psychotherapy. I will follow-up. Justification for Continued Inpatient Stay: No admission is indicated
[2017-11-06] MEDS: guaiFENesin 600 MG ER Tablet PO SCH ×2 (12:55→20:34)
[2017-11-06] MEDS: Acetaminophen 325 MG Tablet PO PRN (13:36)
[2017-11-06] MEDS: QUEtiapine 100 MG Tablet PO SCH (20:34)
[2017-11-07] MEDS: Piperacil/Tazo 4.5 GM Premix 4.5 GM/100 ML BAG IV.SIG SCH ×4 (04:24→22:47)
[2017-11-07] MEDS: MethylPREDNISolone Sod Succinate Inj 125 MG/2 ML Vial IV.PUSH SCH ×2 (04:24→12:09)
[2017-11-07] MEDS ORDERED: Pharmacy Ordered Lab Info OTHER ONE ×2 (05:45→17:45)
[2017-11-07] MEDS: Vancomycin Inj 1,000 MG in Sodium Chlor 0.9% Inj 250 ML IV.SIG SCH (06:20)
--- NOTE | 2017-11-07 09:43 | P.PNIM ---
Subjective Interval history: This is a 52-year-old male who was recently admitted earlier in October with community-acquired pneumonia and COPD exacerbation who was treated successfully with antibiotics and discharged on home oxygen. He readmits yesterday for worsening hypoxia. Per the admission H&P, it states he was not wearing his oxygen or taking his antibiotics. Patient continued to worsen and was seen by Dr. Harris with the pulmonary service today. He is transferred emergently to the CVICU for noninvasive positive pressure ventilation. Patient is dyspneic and cannot speak in full sentences. The remainder of the history is quite limited and taken from the medical record due to the patient's dyspnea. Of note , he does deny chest pain. Endorses shortness of breath. Endorses cough. Endorses fever. Recent CTA from prior admission is negative for acute PE. Recent echo demonstrates preserved biventricular function. SUBJ 11/01: Lying in bed and remains quite hypoxemic. On 50% Ventimask oxygen saturation is an elderly 81%. I have ordered a CT PE protocol to rule out a PE which is unlikely and also to rule out parapneumonic effusion. If effusion present he may need drainage of the effusion. At this time remains critical 11/02: Breathing subjectively improved. Oxygen saturation is maintained about 88 % on 6 L nasal cannula. Patient is noncompliant with BiPAP and Ventimask. CT angiogram yesterday showed no PE, bilateral infiltrates indicating multilobar pneumonia. 11/03/17. Ambulating to the bathroom with the nurse. With sob No v/n/d/c. 11/04/17 the patient says he has multiple bouts of diarrhea today. Check for C. difficile is negative. Start Imodium and Lactinex. Patient's is now wearing oxygen at this time however she is desaturating. He is not compliant with medications without oxygen. No fever or chills. Says she takes Motrin at home and is helping better. Discussed with the patient is completing with Motrin she still wants to try it. 11/05/17 patient with suicidal ideation earlier today. Will consult psychiatry. Patient is also refusing oxygen he is desaturating, he is on 5 L by nasal nasal cannula however he is now wearing the oxygen. Is also refusing to nebs and other medications. We will also consult palliative care for goals of care as patient is refusing treatments and care. With lower extremity edema. He says he is short of breath. No nausea vomiting says he is eating fairly well. Diarrhea resolved no more diarrhea since yesterday. C. difficile is negative. He received Imodium and Lactinex was started. 11-06 patient is refusing to take duonebs seen by psychiatry NOT ALWAYS KEEPING HIS OXYGEN ON NEEDS TO DO IS NEEDS MUCINEX IS REFUSING MEDS AND TREATMENTS 11-07 keeps taking oxygen off refusing breathing treatments NOT MUCH IMPROVEMENT CONTINUE ANTIBIOTICS AND STEROIDS MUCINEX IF HE WILL TAKE STILL NEEDING 5 LITERS OF OXYGEN LABS NOT AVAILABLE- Physical Exam Vital signs: Vital Signs 11/06/17 10:00 11/06/17 11:00 11/06/17 12:00 Temperature 97.6 F Pulse Rate 74 80 85 Respiratory Rate 20 Blood Pressure 130/78 Pulse Oximetry 90 L 11/06/17 12:20 11/06/17 12:56 11/06/17 13:00 Temperature Pulse Rate 85 Respiratory Rate Blood Pressure Pulse Oximetry 89 L 91 L 11/06/17 13:15 11/06/17 13:16 11/06/17 14:00 Temperature Pulse Rate 83 Respiratory Rate Blood Pressure Pulse Oximetry 80 L 89 L 11/06/17 14:30 11/06/17 15:00 11/06/17 15:22 Temperature 98.0 F Pulse Rate 98 H 89 Respiratory Rate 18 Blood Pressure 139/93 H Pulse Oximetry 91 L 91 L 11/06/17 16:00 11/06/17 16:15 11/06/17 17:00 Temperature Pulse Rate 93 H 89 Respiratory Rate Blood Pressure Pulse Oximetry 91 L 11/06/17 17:01 11/06/17 18:00 11/06/17 19:00 Temperature 97.7 F Pulse Rate 88 82 Respiratory Rate 20 Blood Pressure 135/91 H Pulse Oximetry 90 L 88 L 11/06/17 21:00 11/06/17 22:00 11/06/17 23:00 Temperature 97.5 F L Pulse Rate 78 76 76 Respiratory Rate 16 Blood Pressure 122/84 Pulse Oximetry 91 L 11/07/17 00:00 11/07/17 01:00 11/07/17 02:00 Temperature Pulse Rate 75 78 78 Respiratory Rate Blood Pressure Pulse Oximetry 11/07/17 03:00 11/07/17 04:00 11/07/17 05:00 Temperature 97.4 F L Pulse Rate 85 71 70 Respiratory Rate Blood Pressure 132/87 Pulse Oximetry 89 L 11/07/17 06:00 11/07/17 08:37 Temperature 97.4 F L Pulse Rate 74 81 Respiratory Rate 16 Blood Pressure 138/90 Pulse Oximetry 90 L Intake & Output 11/06/17 11/07/17 11/07/17 18:59 06:59 18:59 Intake Total 1550 / 1550 1070 / 1070 Output Total 800 / 800 850 / 850 Balance 750 / 750 220 / 220 Weight 81 kg Intake: IV 650 / 650 350 / 350 Levaquin 750 mg Premix Inj 150 200 / 200 ML @ 100 mls/hr IV.SIG Q24H [facility] Rx#:[id number] Zosyn 4.5 GM Premix 4.5 gm In 200 / 200 100 / 100 100 ml @ 200 mls/hr IV.SIG Q6H [facility] Rx#:[id number] Vancomycin Inj 1,000 MG In NS 250 / 250 250 / 250 Inj 250 ML @ 250 mls/hr IV.SIG Q12H [facility] Rx#:[id number] Oral 900 / 900 720 / 720 Output: Urine 800 / 800 850 / 850 Other: Date of Last Bowel Movement 11/03/17 11/03/17 # Bowel Movements 0 Narrative: GENERAL: Awake and alert talkative not very cooperative --only does commands he wants to do SKIN: Warm and dry. HEAD: Atraumatic. Normocephalic. EYES: Pupils equal and round. No scleral icterus. No injection or drainage. ENT: No nasal bleeding or discharge. Mucous membranes pink and moist. NECK: Trachea midline. No JVD. CARDIOVASCULAR: Regular rate and rhythm. S1-S2 no S3 or S4 RESPIRATORY: No accessory muscle use. Breath sounds equal bilaterally. Coarse breath sounds bilaterally GASTROINTESTINAL: Abdomen soft, non-tender, nondistended. Hepatic and splenic margins not palpable. MUSCULOSKELETAL: Extremities without clubbing, or cyanosis. No obvious deformities. +1 TO 2 lower extremity edema NEUROLOGICAL: Awake and alert. No obvious cranial nerve deficits. Motor grossly within normal limits. Five out of 5 muscle strength in the arms and legs. Normal speech. PSYCHIATRIC: INAppropriate mood and affect; insight and judgment ABnormal. Results - Labs CBC & Chem 7: 11/03/17 03:23 11/06/17 03:13 Microbiology 11/01/17 13:00 Blood - Peripheral Aerobic Blood Culture - Final No growth in 5 days 11/01/17 13:00 Blood - Peripheral Anaerobic Blood Culture - Final No growth in 5 days 11/01/17 13:05 Blood - Peripheral Aerobic Blood Culture - Final No growth in 5 days 11/01/17 13:05 Blood - Peripheral Anaerobic Blood Culture - Final No growth in 5 days - Imaging Chest X-Ray 10/30/17 20:15 CONCLUSION: Bilateral lower lobe consolidative infiltrates, left greater than right, increased in severity from 10/19/2017. Chest X-Ray 10/31/17 00:00 CONCLUSION: Deterioration in the appearance of the chest with increasing bibasilar consolidative changes worse on the left. Chest CTA 11/01/17 00:00 CONCLUSION: 1. No acute pulmonary emboli. 2. Worsening bibasilar consolidation with new consolidation involving the medial left upper lobe. 3. Stable to slightly smaller tiny bilateral pleural effusions. Chest X-Ray 11/02/17 00:00 CONCLUSION: Overall improvement in aeration of the left lung, otherwise not significantly changed. Chest X-Ray 11/03/17 06:00 CONCLUSION: Stable chest with bibasilar airspace disease possible associated effusions, left greater than right. - Procedures None Assessment and Plan - Plan 52-year-old male with COPD and recent diagnosis of pneumonia presents with worsening acute hypoxic respiratory failure. Continue antibiotics, nebs, steroids. Active Problems: Acute hypoxic respiratory failure Recent Community Acquired pneumonia Healthcare associated pneumonia COPD exacerbation- acute, severe MALIGNANT NONCOMPLIANCE Recommendations: NEURO: -Minimize sedation RESP: -Patient did not tolerate BiPAP, noncompliant with Ventimask currently acceptable oxygen saturation on nasal cannula -Titrate FiO2 to keep saturation above 88% given COPD -DuoNeb every 6 hours scheduled and as needed. EzPAP, Acapella q 6 -CT pulmonary angiogram to rule out PE, to rule out parapneumonic effusion -If effusion present may need thoracentesis -Continue IV steroids, Symbicort and Spiriva Refusing to do duo nebs-which will slow down his progression to improvement CV: -Normal saline IV fluids, previous 2D echo showed preserved LV function GI: -Heart healthy diet, IV famotidine : -Monitor renal function closely. ID: -Antibiotics vancomycin and Zosyn. Added Levaquin 7/24 for atypical coverage -Blood urine and sputum cultures. urine for Legionella and pneumococcal antigen negative - Diarrhea C diff neg. Start probiotics, imodium . HEME: -Monitor CBC, coags ENDO: -Electrolyte replacement per protocol Psych Suicidal ideation, Consult psych -seen by them able to make his own wrong decisions Noncompliance. Consult palliative care for goals of care as patient is refusing meds, O2 supplement PROPH: -Bilateral lower extremity SCDs. Lovenox/famotidine LINES: -Utilize peripheral IVs, central line if needed Malignant noncompliance-continues to refuse treatment to medications Diarrhea improved Seen already by psychiatry Code Status: FULL CODE Discussed Condition With: RN AND PT Discharge Planning: ONCE BREATHING BETTER AND OFF OXYGEN
[2017-11-07] MEDS: QUEtiapine 100 MG Tablet PO SCH ×2 (10:10→20:03)
[2017-11-07] MEDS: guaiFENesin 600 MG ER Tablet PO SCH ×2 (10:11→20:05)
[2017-11-07] MEDS: Budesonide-Formoterol 160/4.5 MCG 6 GM Inhaler INH SCH ×2 (10:11→20:07)
[2017-11-07] MEDS: LORazepam 1 MG Tablet PO PRN ×2 (10:11→13:52)
[2017-11-07] MEDS: Tiotropium Bromide 18 MCG/ACT Inhaler INH SCH (10:18)
[2017-11-07] MEDS: Calcium Carbonate 500 MG Tablet PO SCH ×2 (10:19→20:05)
[2017-11-07] MEDS: Senna/Docusate Sodium 8.6/50 MG Tablet PO SCH ×2 (10:19→20:06)
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
[2017-11-07 14:37] LABS: Baso % (Auto) 0.2 % (0.0-2.0); Hematocrit 39.1 % (39.0-51.0); Hemoglobin 12.7 gm/dL (13.0-17.0); Lymph # (Auto) 0.5 th/mm3 (1.0-4.8); Lymph % (Auto) 4.1 % (9.0-44.0); Mean Corpuscular HGB Conc 32.5 % (32.0-36.0); Mean Corpuscular Hemoglobin 27.8 pg (27.0-34.0); Mean Corpuscular Volume 85.5 fL (80.0-100.0); Mean Platelet Volume 7.6 fL (7.0-11.0); Mono # (Auto) 0.5 th/mm3 (0.0-0.9); Neut # (Auto) 11.7 th/mm3 (1.8-7.7); Neut % (Auto) 91.7 % (16.0-70.0); Platelet Count 335 th/mm3 (150-450); Red Blood Count 4.58 mil/mm3 (4.50-5.90); Red Cell Distribution Width 22.5 % (11.6-17.2); White Blood Count 12.8 th/mm3 (4.0-11.0)
[2017-11-07 15:35] LABS: Acanthocytes Occ; Burr Cells 1+; Platelet Estimate Normal (Normal); Platelet Morphology Normal (Normal)
[2017-11-07 17:51] LABS: Hemoglobin A1c 5.7 % (4.3-6.0)
[2017-11-07] MEDS: MethylPREDNISolone Sod Succinate Inj 40 MG/ML Vial IV.PUSH SCH (20:03)
[2017-11-07] MEDS: Ibuprofen 200 MG Tablet PO PRN (20:04)
[2017-11-07 23:35] LABS: Albumin 3.9 g/dL (3.4-5.0); Anion Gap 15 meq/L (5-15); Aspartate Aminotransferase 21 U/L (15-37); Blood Urea Nitrogen 19 mg/dL (7-18); Calcium 8.5 mg/dL (8.5-10.1); Carbon Dioxide 23.4 meq/L (21.0-32.0); Chloride 94 meq/L (98-107); Glomerular Filtration Rate 79 mL/min (>89); Glucose,Random 244 mg/dL (74-106); Magnesium 2.4 mg/dL (1.5-2.5); Potassium 3.6 meq/L (3.5-5.1); Sodium 132 meq/L (136-145)
[2017-11-07 23:37] LABS: Phosphorus 3.8 mg/dL (2.5-4.9)
[2017-11-07 23:47] LABS: Alanine Aminotransferase 83 U/L (12-78); Alkaline Phosphatase 46 U/L (45-117); Total Protein 6.7 g/dL (6.4-8.2)
[2017-11-08] MEDS: Temazepam 15 MG Capsule PO PRN (00:56)
[2017-11-08] MEDS: Piperacil/Tazo 4.5 GM Premix 4.5 GM/100 ML BAG IV.SIG SCH ×4 (04:30→21:02)
[2017-11-08] MEDS: Senna/Docusate Sodium 8.6/50 MG Tablet PO SCH ×2 (09:06→21:00)
[2017-11-08] MEDS: MethylPREDNISolone Sod Succinate Inj 40 MG/ML Vial IV.PUSH SCH ×2 (09:08→21:01)
[2017-11-08] MEDS: Calcium Carbonate 500 MG Tablet PO SCH ×2 (09:09→21:00)
[2017-11-08] MEDS: QUEtiapine 100 MG Tablet PO SCH ×2 (09:09→21:00)
[2017-11-08] MEDS: guaiFENesin 600 MG ER Tablet PO SCH ×2 (09:09→21:00)
[2017-11-08] MEDS: Tiotropium Bromide 18 MCG/ACT Inhaler INH SCH (09:11)
[2017-11-08] MEDS: Budesonide-Formoterol 160/4.5 MCG 6 GM Inhaler INH SCH ×2 (09:11→21:02)
--- NOTE | 2017-11-08 12:27 | P.PNPAL ---
Reason for Visit Reason for visit: a. To assist with evaluation and management of symptoms including: Dyspnea b. To assist medical decision maker(s) with: better understanding of current medical conditions; weighing benefits/burdens of medical treatment options; making medical treatment decisions. Subjective Subjective/Interval History: Seen to follow-up on symptom management for dyspnea. He remains dyspneic and noncompliant with oxygen use. At this evaluation, his nasal cannula was laying on the bed. Spot pulse ox showed a saturation of 79% on room air. Oxygen was reapplied and he complained about the force with which it was entering his nose and requested that it be turned down from 6 L to 4 L. After 5 minutes at rest on 4 L, his O2 saturation remained at 86-88%. He was visibly dyspneic with conversation, but remained noncompliant with his oxygen administration. . Family/Friend Interactions: No family at bedside at this time. Unsuccessful attempts to reach his mother as the phone is busy. . Advance Directives Health Care Surrogate: Copy in medical record Health Care Surrogate Name and Number: Angelica Little Objective Vital Signs: Vital Signs 11/07/17 13:47 11/07/17 16:00 11/07/17 16:16 Temperature 98.3 F Pulse Rate 110 H 100 H 84 Respiratory Rate 20 Blood Pressure 129/98 H Pulse Oximetry 94 L 11/07/17 20:00 11/07/17 20:19 11/07/17 20:51 Temperature 97.8 F Pulse Rate 85 87 Respiratory Rate 17 Blood Pressure 148/98 H Pulse Oximetry 90 L 92 L 11/08/17 00:00 11/08/17 03:00 11/08/17 04:40 Temperature 97.5 F L Pulse Rate 90 80 Respiratory Rate 16 17 Blood Pressure 126/87 Pulse Oximetry 95 95 11/08/17 07:00 11/08/17 10:22 Temperature 98.6 F Pulse Rate 90 Respiratory Rate Blood Pressure 137/96 H Pulse Oximetry 90 L 90 L Intake & Output 11/07/17 11/08/17 11/08/17 18:59 06:59 18:59 Intake Total 1122 / 1122 300 / 300 100 / 100 Output Total 750 / 750 1200 / 1200 Balance 372 / 372 -900 / -900 100 / 100 Intake: IV 250 / 250 300 / 300 100 / 100 Levaquin 750 mg Premix Inj 150 150 / 150 ML @ 100 mls/hr IV.SIG Q24H [facility] Rx#:[id number] Zosyn 4.5 GM Premix 4.5 gm In 100 / 100 300 / 300 100 / 100 100 ml @ 200 mls/hr IV.SIG Q6H LUPE Rx#:[id number] Oral 872 / 872 Output: Urine 750 / 750 1200 / 1200 Other: # Voids 1 Date of Last Bowel Movement 11/07/17 11/07/17 11/07/17 Physical Exam: CONSTITUTIONAL/GENERAL: This is an adequately nourished patient, in no apparent distress. TUBES/LINES/DRAINS: PIV SKIN: No jaundice, rashes, or lesions. Ecchymoses on upper extremities. No wounds seen anteriorly. Skin temperature appropriate. Not diaphoretic. HEAD: Atraumatic. Normocephalic. EYES: Pupils equal and round and reactive. Extraocular motions intact. No scleral icterus. No injection or drainage. Fundi not examined. ENT: Hearing grossly normal. Nose without bleeding or purulent drainage. Throat without visible erythema, exudates, masses, or lesions. NECK: Trachea midline. Supple, nontender. No palpable thyroid enlargement or nodularity. CARDIOVASCULAR: Regular rate and rhythm without murmurs, gallops, or rubs. No JVD. Peripheral pulses symmetric. RESPIRATORY/CHEST: Symmetric, unlabored respirations. Clear to auscultation. Breath sounds equal bilaterally. No wheezes, rales, or rhonchi. GASTROINTESTINAL: Abdomen soft, non-tender, nondistended. No hepato-splenomegaly , or palpable masses. No guarding. Bowel sounds present. GENITOURINARY: Without palpable bladder distension. MUSCULOSKELETAL: Extremities without clubbing or cyanosis, 2+ dependent edema. No joint tenderness or effusion noted. No calf tenderness. No mottling or clubbing. LYMPHATICS: No palpable cervical or supraclavicular adenopathy. NEUROLOGICAL: Awake and alert. Motor and sensory grossly within normal limits. Follows commands. Moves all extremities. PSYCHIATRIC: Affect flat, guarded. Minimally cooperative with exam. . Diagnostic Tests Laboratory: Laboratory Results - last 72 hr 10/30/17 11/05/17 11/05/17 23:16 12:42 17:12 WBC RBC Hgb Hct MCV MCH MCHC RDW Plt Count MPV Prelim Diff (Auto) Neut % (Auto) Lymph % (Auto) [place] % (Auto) Eos % (Auto) Baso % (Auto) Neut # (Auto) Lymph # (Auto) [place] # (Auto) Eos # (Auto) Baso # (Auto) WBC Differential Diff Scan Differential Comment Platelet Estimate Platelet Morphology [place] Cells Acanthocytes (Spur) Puncture Site Right radial Patient Temperature 98.6 O2 Saturation 79 L* ABG pH 7.45 H ABG pCO2 38 ABG pO2 46 L* ABG HCO3 26 ABG O2 Content 13.1 ABG Base Excess 2.5 H ABG Methemoglobin 1.3 Jori Test Present Present Hemoglobin 11.8 L Carboxyhemoglobin 1.0 Inspired O2 21 Critical Value Yes Sodium Potassium Chloride Carbon Dioxide Anion Gap BUN Creatinine Estimated GFR Random Glucose Hemoglobin A1c Calcium Phosphorus Magnesium Total Bilirubin AST ALT Alkaline Phosphatase Total Creatine Kinase Total Protein Albumin TSH Free T4 Vancomycin Trough 18.3 H 11/06/17 11/07/17 11/07/17 03:13 14:06 14:06 WBC 12.8 H RBC 4.58 Hgb 12.7 L Hct 39.1 MCV 85.5 MCH 27.8 MCHC 32.5 RDW 22.5 H Plt Count 335 MPV 7.6 Prelim Diff (Auto) Slide review pending Neut % (Auto) 91.7 H Lymph % (Auto) 4.1 L [place] % (Auto) 4.0 Eos % (Auto) 0.0 Baso % (Auto) 0.2 Neut # (Auto) 11.7 H Lymph # (Auto) 0.5 L [place] # (Auto) 0.5 Eos # (Auto) 0.0 Baso # (Auto) 0.0 WBC Differential . Diff Scan Auto diff confirmed Differential Comment . Platelet Estimate Normal Platelet Morphology Normal Luis Cells 1+ H Acanthocytes (Spur) Occ H Puncture Site Patient Temperature O2 Saturation ABG pH ABG pCO2 ABG pO2 ABG HCO3 ABG O2 Content ABG Base Excess ABG Methemoglobin Jori Test Hemoglobin Carboxyhemoglobin Inspired O2 Critical Value Sodium 136 Potassium 3.7 Chloride 99 Carbon Dioxide 28.0 Anion Gap 9 BUN 22 H Creatinine 0.93 Estimated GFR 86 L Random Glucose 204 H Hemoglobin A1c 5.7 Calcium 8.0 L Phosphorus Magnesium Total Bilirubin AST ALT Alkaline Phosphatase Total Creatine Kinase 296 Total Protein Albumin TSH Free T4 Vancomycin Trough 11/07/17 11/07/17 14:06 14:06 WBC RBC Hgb Hct MCV MCH MCHC RDW Plt Count MPV Prelim Diff (Auto) Neut % (Auto) Lymph % (Auto) [place] % (Auto) Eos % (Auto) Baso % (Auto) Neut # (Auto) Lymph # (Auto) [place] # (Auto) Eos # (Auto) Baso # (Auto) WBC Differential Diff Scan Differential Comment Platelet Estimate Platelet Morphology [place] Cells Acanthocytes (Spur) Puncture Site Patient Temperature O2 Saturation ABG pH ABG pCO2 ABG pO2 ABG HCO3 ABG O2 Content ABG Base Excess ABG Methemoglobin Jori Test Hemoglobin Carboxyhemoglobin Inspired O2 Critical Value Sodium 132 L Potassium 3.6 Chloride 94 L Carbon Dioxide 23.4 Anion Gap 15 BUN 19 H Creatinine 1.00 Estimated GFR 79 L Random Glucose 244 H Hemoglobin A1c Calcium 8.5 Phosphorus 3.8 Magnesium 2.4 Total Bilirubin 0.5 AST 21 ALT 83 H Alkaline Phosphatase 46 Total Creatine Kinase Total Protein 6.7 D Albumin 3.9 TSH 22.000 H Free T4 0.15 L Vancomycin Trough Result Diagrams: 11/07/17 14:06 11/07/17 14:06 Microbiology: Microbiology 11/01/17 13:00 Aerobic Blood Culture - Final Blood - Peripheral No growth in 5 days Anaerobic Blood Culture - Final No growth in 5 days 11/01/17 13:05 Aerobic Blood Culture - Final Blood - Peripheral No growth in 5 days Anaerobic Blood Culture - Final No growth in 5 days Imaging: Chest X-Ray 10/30/17 20:15 CONCLUSION: Bilateral lower lobe consolidative infiltrates, left greater than right, increased in severity from 10/19/2017. Chest X-Ray 10/31/17 00:00 CONCLUSION: Deterioration in the appearance of the chest with increasing bibasilar consolidative changes worse on the left. Chest CTA 11/01/17 00:00 CONCLUSION: 1. No acute pulmonary emboli. 2. Worsening bibasilar consolidation with new consolidation involving the medial left upper lobe. 3. Stable to slightly smaller tiny bilateral pleural effusions. Chest X-Ray 11/02/17 00:00 CONCLUSION: Overall improvement in aeration of the left lung, otherwise not significantly changed. Chest X-Ray 11/03/17 06:00 CONCLUSION: Stable chest with bibasilar airspace disease possible associated effusions, left greater than right. Assessment and Plan Pertinent Non-Medical Issues: Psychosocial: He was born in [facility] and quit high school somewhere between his sophomore and belkis year. He later obtained his GED. 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 He was never in the and never , but does state he has a daughter and a granddaughter that live locally somewhere. He declines any further information regarding their identification or contact. 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 Legal: Refusing to fill out a healthcare surrogate at this time in spite of the conflict between legal hierarchy and patient stated wishes to have his mother being his healthcare surrogate. I have made him aware that per [place] statutes , as he is not , legal decision making would fall to his daughter if willing to serve. Ethical issues impacting care: None noted. . Important Contacts: Mother: Angelica Little . Prognosis: His prognosis is guarded. His continued medical noncompliance with respiratory and thyroid therapy places him at elevated risk for recurrent complications, hospitalizations and decline. While his medical conditions are treatable and not considered end-stage or terminal, his refusal to engage in therapy or take medications places him at an elevated risk of decline. . Code Status: Full Code (By default. Patient refuses to answer advanced directive questions.) Plan: PLAN: Legal decision maker: At this time psychiatry determined that the patient is competent and capacitated to make his own medical decisions. He has completed a HCS naming his mother as his decision maker in case of his incapacity. Goals: To be determined CODE STATUS: FULL CODE SYMPTOMS: * Dyspnea: Likely secondary to recurrent pneumonia, as patient frequently declines his medications, to include antibiotics and DuoNeb. He is also noncompliant with incentive spirometry, physical therapy and refusing to get out of bed. Due to his lack of cooperation with therapy, he remains on 5 L nasal cannula O2. Palliative care will continue to follow the patient during hospital course as condition evolves, to assist patient/decision-maker with understanding of their medical conditions, weighing benefits/burdens of treatment options, for clarification of goals of treatment. Additionally will assist with any symptoms of palliative concern. . Attestation Attestation: To help prompt me to consider important information that might be impacting today's encounter and assessment, information from prior notes written by myself or my colleagues may have been "brought forward" into today's note. My signature on this note, however, is an attestation that I personally performed the exam, history, and/or decision-making noted today, and, unless otherwise indicated, the interactions with patient, family, and staff as well as the review of records all occurred today. I also attest that the listed assessment and stated plan reflect my best clinical judgment today based on the combination of historical information, prior notes, and today's exam/ interactions. When time spent is documented, it refers only to time spent today by the signer, or if indicated, combined time spent today by collaborating physician/nurse practitioner. .
--- NOTE | 2017-11-08 12:49 | P.PNIM ---
Subjective Interval history: This is a 52-year-old male who was recently admitted earlier in October with community-acquired pneumonia and COPD exacerbation who was treated successfully with antibiotics and discharged on home oxygen. He readmits yesterday for worsening hypoxia. Per the admission H&P, it states he was not wearing his oxygen or taking his antibiotics. Patient continued to worsen and was seen by Dr. Harris with the pulmonary service today. He is transferred emergently to the CVICU for noninvasive positive pressure ventilation. Patient is dyspneic and cannot speak in full sentences. The remainder of the history is quite limited and taken from the medical record due to the patient's dyspnea. Of note , he does deny chest pain. Endorses shortness of breath. Endorses cough. Endorses fever. Recent CTA from prior admission is negative for acute PE. Recent echo demonstrates preserved biventricular function. SUBJ 11/01: Lying in bed and remains quite hypoxemic. On 50% Ventimask oxygen saturation is an elderly 81%. I have ordered a CT PE protocol to rule out a PE which is unlikely and also to rule out parapneumonic effusion. If effusion present he may need drainage of the effusion. At this time remains critical 11/02: Breathing subjectively improved. Oxygen saturation is maintained about 88 % on 6 L nasal cannula. Patient is noncompliant with BiPAP and Ventimask. CT angiogram yesterday showed no PE, bilateral infiltrates indicating multilobar pneumonia. 11/03/17. Ambulating to the bathroom with the nurse. With sob No v/n/d/c. 11/04/17 the patient says he has multiple bouts of diarrhea today. Check for C. difficile is negative. Start Imodium and Lactinex. Patient's is now wearing oxygen at this time however she is desaturating. He is not compliant with medications without oxygen. No fever or chills. Says she takes Motrin at home and is helping better. Discussed with the patient is completing with Motrin she still wants to try it. 11/05/17 patient with suicidal ideation earlier today. Will consult psychiatry. Patient is also refusing oxygen he is desaturating, he is on 5 L by nasal nasal cannula however he is now wearing the oxygen. Is also refusing to nebs and other medications. We will also consult palliative care for goals of care as patient is refusing treatments and care. With lower extremity edema. He says he is short of breath. No nausea vomiting says he is eating fairly well. Diarrhea resolved no more diarrhea since yesterday. C. difficile is negative. He received Imodium and Lactinex was started. 11-06 patient is refusing to take duonebs seen by psychiatry NOT ALWAYS KEEPING HIS OXYGEN ON NEEDS TO DO IS NEEDS MUCINEX IS REFUSING MEDS AND TREATMENTS 11-07 keeps taking oxygen off refusing breathing treatments NOT MUCH IMPROVEMENT CONTINUE ANTIBIOTICS AND STEROIDS MUCINEX IF HE WILL TAKE STILL NEEDING 5 LITERS OF OXYGEN LABS NOT AVAILABLE- 11-08 KEEPS TAKING OFF OXYGEN STILL REFUSING BREATHING TREATMENT NOT MUCH IMPROVEMENT NOT USING OXYGEN MUCH SATS 79 TO 80 ON ROOM AIR Physical Exam Vital signs: Vital Signs 11/07/17 13:47 11/07/17 16:00 11/07/17 16:16 Temperature 98.3 F Pulse Rate 110 H 100 H 84 Respiratory Rate 20 Blood Pressure 129/98 H Pulse Oximetry 94 L 11/07/17 20:00 11/07/17 20:19 11/07/17 20:51 Temperature 97.8 F Pulse Rate 85 87 Respiratory Rate 17 Blood Pressure 148/98 H Pulse Oximetry 90 L 92 L 11/08/17 00:00 11/08/17 03:00 11/08/17 04:40 Temperature 97.5 F L Pulse Rate 90 80 Respiratory Rate 16 17 Blood Pressure 126/87 Pulse Oximetry 95 95 11/08/17 07:00 11/08/17 10:22 Temperature 98.6 F Pulse Rate 90 Respiratory Rate Blood Pressure 137/96 H Pulse Oximetry 90 L 90 L Intake & Output 11/07/17 11/08/17 11/08/17 18:59 06:59 18:59 Intake Total 1122 / 1122 300 / 300 100 / 100 Output Total 750 / 750 1200 / 1200 Balance 372 / 372 -900 / -900 100 / 100 Intake: IV 250 / 250 300 / 300 100 / 100 Levaquin 750 mg Premix Inj 150 150 / 150 ML @ 100 mls/hr IV.SIG Q24H [facility]PE Rx#:[id number] Zosyn 4.5 GM Premix 4.5 gm In 100 / 100 300 / 300 100 / 100 100 ml @ 200 mls/hr IV.SIG Q6H LUPE Rx#:[id number] Oral 872 / 872 Output: Urine 750 / 750 1200 / 1200 Other: # Voids 1 Date of Last Bowel Movement 11/07/17 11/07/17 11/07/17 Narrative: GENERAL: Awake and alert talkative not very cooperative --only does commands he wants to do SKIN: Warm and dry. HEAD: Atraumatic. Normocephalic. EYES: Pupils equal and round. No scleral icterus. No injection or drainage. ENT: No nasal bleeding or discharge. Mucous membranes pink and moist. NECK: Trachea midline. No JVD. CARDIOVASCULAR: Regular rate and rhythm. S1-S2 no S3 or S4 RESPIRATORY: No accessory muscle use. Breath sounds equal bilaterally. Coarse breath sounds bilaterally GASTROINTESTINAL: Abdomen soft, non-tender, nondistended. Hepatic and splenic margins not palpable. MUSCULOSKELETAL: Extremities without clubbing, or cyanosis. No obvious deformities. +1 TO 2 lower extremity edema NEUROLOGICAL: Awake and alert. No obvious cranial nerve deficits. Motor grossly within normal limits. Five out of 5 muscle strength in the arms and legs. Normal speech. PSYCHIATRIC: INAppropriate mood and affect; insight and judgment ABnormal. Results - Labs CBC & Chem 7: 11/07/17 14:06 11/07/17 14:06 Laboratory Results - last 24 hr 10/30/17 11/07/17 11/07/17 23:16 14:06 14:06 WBC 12.8 H RBC 4.58 Hgb 12.7 L Hct 39.1 MCV 85.5 MCH 27.8 MCHC 32.5 RDW 22.5 H Plt Count 335 MPV 7.6 Prelim Diff (Auto) Slide review pending Neut % (Auto) 91.7 H Lymph % (Auto) 4.1 L [place] % (Auto) 4.0 Eos % (Auto) 0.0 Baso % (Auto) 0.2 Neut # (Auto) 11.7 H Lymph # (Auto) 0.5 L [place] # (Auto) 0.5 Eos # (Auto) 0.0 Baso # (Auto) 0.0 WBC Differential . Diff Scan Auto diff confirmed Differential Comment . Platelet Estimate Normal Platelet Morphology Normal Luis Cells 1+ H Acanthocytes (Spur) Occ H Jori Test Present Sodium Potassium Chloride Carbon Dioxide Anion Gap BUN Creatinine Estimated GFR Random Glucose Hemoglobin A1c 5.7 Calcium Phosphorus Magnesium Total Bilirubin AST ALT Alkaline Phosphatase Total Protein Albumin TSH Free T4 11/07/17 11/07/17 14:06 14:06 WBC RBC Hgb Hct MCV MCH MCHC RDW Plt Count MPV Prelim Diff (Auto) Neut % (Auto) Lymph % (Auto) [place] % (Auto) Eos % (Auto) Baso % (Auto) Neut # (Auto) Lymph # (Auto) [place] # (Auto) Eos # (Auto) Baso # (Auto) WBC Differential Diff Scan Differential Comment Platelet Estimate Platelet Morphology [place] Cells Acanthocytes (Spur) Jori Test Sodium 132 L Potassium 3.6 Chloride 94 L Carbon Dioxide 23.4 Anion Gap 15 BUN 19 H Creatinine 1.00 Estimated GFR 79 L Random Glucose 244 H Hemoglobin A1c Calcium 8.5 Phosphorus 3.8 Magnesium 2.4 Total Bilirubin 0.5 AST 21 ALT 83 H Alkaline Phosphatase 46 Total Protein 6.7 D Albumin 3.9 TSH 22.000 H Free T4 0.15 L - Imaging Chest X-Ray 10/30/17 20:15 CONCLUSION: Bilateral lower lobe consolidative infiltrates, left greater than right, increased in severity from 10/19/2017. Chest X-Ray 10/31/17 00:00 CONCLUSION: Deterioration in the appearance of the chest with increasing bibasilar consolidative changes worse on the left. Chest CTA 11/01/17 00:00 CONCLUSION: 1. No acute pulmonary emboli. 2. Worsening bibasilar consolidation with new consolidation involving the medial left upper lobe. 3. Stable to slightly smaller tiny bilateral pleural effusions. Chest X-Ray 11/02/17 00:00 CONCLUSION: Overall improvement in aeration of the left lung, otherwise not significantly changed. Chest X-Ray 11/03/17 06:00 CONCLUSION: Stable chest with bibasilar airspace disease possible associated effusions, left greater than right. - Procedures None Assessment and Plan - Plan 52-year-old male with COPD and recent diagnosis of pneumonia presents with worsening acute hypoxic respiratory failure. Continue antibiotics, nebs, steroids. Active Problems: Acute hypoxic respiratory failure Recent Community Acquired pneumonia Healthcare associated pneumonia COPD exacerbation- acute, severe MALIGNANT NONCOMPLIANCE Recommendations: NEURO: -Minimize sedation RESP: -Patient did not tolerate BiPAP, noncompliant with Ventimask currently acceptable oxygen saturation on nasal cannula -Titrate FiO2 to keep saturation above 88% given COPD -DuoNeb every 6 hours scheduled and as needed. EzPAP, Acapella q 6 -CT pulmonary angiogram to rule out PE, to rule out parapneumonic effusion -If effusion present may need thoracentesis -Continue IV steroids, Symbicort and Spiriva Refusing to do duo nebs-which will slow down his progression to improvement CV: -Normal saline IV fluids, previous 2D echo showed preserved LV function GI: -Heart healthy diet, IV famotidine : -Monitor renal function closely. ID: -Antibiotics vancomycin and Zosyn. Added Levaquin 11/01 for atypical coverage -Blood urine and sputum cultures. urine for Legionella and pneumococcal antigen negative - Diarrhea C diff neg. Start probiotics, imodium . HEME: -Monitor CBC, coags ENDO: -Electrolyte replacement per protocol Psych Suicidal ideation, Consult psych -seen by them able to make his own wrong decisions Noncompliance. Consult palliative care for goals of care as patient is refusing meds, O2 supplement PROPH: -Bilateral lower extremity SCDs. Lovenox/famotidine LINES: -Utilize peripheral IVs, central line if needed Malignant noncompliance-continues to refuse treatment to medications Diarrhea improved Seen already by psychiatry VERY SLOW IMPROVEMENT REFUSING BREATHING TREATMENTS Code Status: FULL CODE Discussed Condition With: RN AND PT Discharge Planning: ONCE BREATHING BETTER AND OFF OXYGEN
[2017-11-08] MEDS: LORazepam 1 MG Tablet PO PRN (14:54)
[2017-11-08] MEDS: Ibuprofen 200 MG Tablet PO PRN (19:36)
[2017-11-08 21:19] LABS: Baso % (Auto) 0.1 % (0.0-2.0); Hematocrit 35.4 % (39.0-51.0); Hemoglobin 11.6 gm/dL (13.0-17.0); Lymph # (Auto) 0.7 th/mm3 (1.0-4.8); Lymph % (Auto) 5.4 % (9.0-44.0); Mean Corpuscular HGB Conc 32.8 % (32.0-36.0); Mean Corpuscular Volume 85.3 fL (80.0-100.0); Mean Platelet Volume 7.9 fL (7.0-11.0); Neut # (Auto) 11.3 th/mm3 (1.8-7.7); Neut % (Auto) 86.5 % (16.0-70.0); Platelet Count 312 th/mm3 (150-450); Red Blood Count 4.15 mil/mm3 (4.50-5.90); Red Cell Distribution Width 22.9 % (11.6-17.2)
[2017-11-08 22:01] LABS: Alanine Aminotransferase 85 U/L (12-78); Albumin 3.4 g/dL (3.4-5.0); Alkaline Phosphatase 44 U/L (45-117); Anion Gap 9 meq/L (5-15); Aspartate Aminotransferase 40 U/L (15-37); Blood Urea Nitrogen 24 mg/dL (7-18); Calcium 8.3 mg/dL (8.5-10.1); Carbon Dioxide 32.5 meq/L (21.0-32.0); Chloride 98 meq/L (98-107); Glomerular Filtration Rate 67 mL/min (>89); Glucose,Random 138 mg/dL (74-106); Magnesium 2.3 mg/dL (1.5-2.5); Phosphorus 4.4 mg/dL (2.5-4.9); Potassium 3.4 meq/L (3.5-5.1); Sodium 139 meq/L (136-145); Total Protein 6.1 g/dL (6.4-8.2)
[2017-11-09] MEDS: Piperacil/Tazo 4.5 GM Premix 4.5 GM/100 ML BAG IV.SIG SCH ×4 (05:51→21:40)
[2017-11-09] MEDS: LORazepam 1 MG Tablet PO PRN ×2 (05:51→21:47)
[2017-11-09 08:50] LABS: Baso % (Auto) 0.1 % (0.0-2.0); Hemoglobin 11.5 gm/dL (13.0-17.0); Lymph # (Auto) 0.6 th/mm3 (1.0-4.8); Lymph % (Auto) 5.3 % (9.0-44.0); Mean Corpuscular HGB Conc 32.8 % (32.0-36.0); Mean Corpuscular Hemoglobin 28.3 pg (27.0-34.0); Mean Corpuscular Volume 86.2 fL (80.0-100.0); Mean Platelet Volume 7.6 fL (7.0-11.0); Mono # (Auto) 0.6 th/mm3 (0.0-0.9); Mono % (Auto) 5.3 % (0.0-8.0); Neut # (Auto) 9.7 th/mm3 (1.8-7.7); Neut % (Auto) 89.3 % (16.0-70.0); Platelet Count 305 th/mm3 (150-450); Red Blood Count 4.06 mil/mm3 (4.50-5.90); Red Cell Distribution Width 23.1 % (11.6-17.2); White Blood Count 10.9 th/mm3 (4.0-11.0)
[2017-11-09] MEDS: Calcium Carbonate 500 MG Tablet PO SCH ×2 (08:53→21:40)
[2017-11-09] MEDS: QUEtiapine 100 MG Tablet PO SCH ×2 (08:53→21:45)
[2017-11-09] MEDS: MethylPREDNISolone Sod Succinate Inj 40 MG/ML Vial IV.PUSH SCH ×2 (08:55→21:41)
[2017-11-09] MEDS: Senna/Docusate Sodium 8.6/50 MG Tablet PO SCH ×2 (08:55→21:46)
[2017-11-09] MEDS: guaiFENesin 600 MG ER Tablet PO SCH ×2 (08:55→21:40)
[2017-11-09] MEDS: Budesonide-Formoterol 160/4.5 MCG 6 GM Inhaler INH SCH ×2 (08:56→21:49)
[2017-11-09 09:20] LABS: Albumin 3.5 g/dL (3.4-5.0); Anion Gap 8 meq/L (5-15); Aspartate Aminotransferase 29 U/L (15-37); Blood Urea Nitrogen 21 mg/dL (7-18); Calcium 8.4 mg/dL (8.5-10.1); Carbon Dioxide 32.9 meq/L (21.0-32.0); Chloride 98 meq/L (98-107); Glomerular Filtration Rate 81 mL/min (>89); Glucose,Random 172 mg/dL (74-106); Magnesium 2.2 mg/dL (1.5-2.5); Potassium 3.4 meq/L (3.5-5.1); Sodium 139 meq/L (136-145)
[2017-11-09 09:22] LABS: Alanine Aminotransferase 85 U/L (12-78); Phosphorus 4.1 mg/dL (2.5-4.9)
[2017-11-09 09:24] LABS: Alkaline Phosphatase 46 U/L (45-117)
[2017-11-09 09:32] LABS: Lymphocytes 5 % (9-44); Monocytes 6 % (0-8); Myelocytes 5 % (0-0); Platelet Estimate Normal (Normal); Platelet Morphology Normal (Normal)
[2017-11-09 09:33] LABS: Acanthocytes Occ
[2017-11-09] MEDS: Tiotropium Bromide 18 MCG/ACT Inhaler INH SCH (13:55)
--- NOTE | 2017-11-09 16:23 | P.PNIM ---
Subjective Interval history: Nursing reports that he is intermittently taking off his oxygen. Patient himself says that he is keeping his oxygen on. Says he has no place to go after discharge. Physical Exam Vital signs: Vital Signs 11/08/17 17:59 11/08/17 18:00 11/08/17 19:00 Temperature 97.0 F L 97.1 F L Pulse Rate 83 80 Respiratory Rate 18 18 Blood Pressure 141/97 H 137/92 H Pulse Oximetry 91 L 90 L 90 L 11/08/17 21:01 11/08/17 23:00 11/09/17 04:00 Temperature 97.1 F L 97.8 F Pulse Rate 80 87 Respiratory Rate 22 20 18 Blood Pressure 141/93 H 142/95 H Pulse Oximetry 92 L 90 L 11/09/17 08:00 11/09/17 10:35 11/09/17 12:00 Temperature 97.7 F 97.4 F L Pulse Rate 77 84 Respiratory Rate 16 16 Blood Pressure 153/96 H 133/90 Pulse Oximetry 91 L 92 L 92 L Intake & Output 11/08/17 11/09/17 11/09/17 18:59 06:59 18:59 Intake Total 1050 / 1050 780 / 780 Output Total 1400 / 1400 800 / 800 Balance -350 / -350 -20 / -20 Intake: IV 250 / 250 300 / 300 Levaquin 750 mg Premix Inj 150 150 / 150 ML @ 100 mls/hr IV.SIG Q24H LU[facility] Rx#:[id number] Zosyn 4.5 GM Premix 4.5 gm In 100 / 100 300 / 300 100 ml @ 200 mls/hr IV.SIG Q6H LUPE Rx#:[id number] Oral 800 / 800 480 / 480 Output: Urine 1400 / 1400 800 / 800 Other: # Voids 1 Date of Last Bowel Movement 11/08/17 # Bowel Movements 1 Narrative: Lungs are clear bilaterally Unlabored breathing Lying in bed, nasal cannula in nose Results - Labs CBC & Chem 7: 11/09/17 08:21 11/09/17 08:21 Laboratory Results - last 24 hr 11/08/17 11/08/17 11/09/17 20:44 20:44 08:21 WBC 13.0 H 10.9 RBC 4.15 L 4.06 L Hgb 11.6 L 11.5 L Hct 35.4 L 35.0 L MCV 85.3 86.2 MCH 28.0 28.3 MCHC 32.8 32.8 RDW 22.9 H 23.1 H Plt Count 312 305 MPV 7.9 7.6 Prelim Diff (Auto) Slide review pending Slide review pending Neut % (Auto) 86.5 H 89.3 H Lymph % (Auto) 5.4 L 5.3 L [place] % (Auto) 8.0 5.3 Eos % (Auto) 0.0 0.0 Baso % (Auto) 0.1 0.1 Neut # (Auto) 11.3 H 9.7 H Lymph # (Auto) 0.7 L 0.6 L [place] # (Auto) 1.0 H 0.6 Eos # (Auto) 0.0 0.0 Baso # (Auto) 0.0 0.0 WBC Differential . Manual diff final Diff Scan Auto diff confirmed Seg Neuts % (Manual) 82 H Band Neuts % (Manual) 2 Lymphocytes % (Manual) 5 L Monocytes % (Manual) 6 Myelocytes % (Man) 5 H Abs Neuts (Manual) 9.7 H Differential Comment . . Platelet Estimate Normal Platelet Morphology Normal Basophilic Stippling Faint H Acanthocytes (Spur) Occ H Sodium 139 Potassium 3.4 L Chloride 98 Carbon Dioxide 32.5 H D Anion Gap 9 BUN 24 H Creatinine 1.15 Estimated GFR 67 L Random Glucose 138 H D Calcium 8.3 L Phosphorus 4.4 Magnesium 2.3 Total Bilirubin 0.3 AST 40 H ALT 85 H Alkaline Phosphatase 44 L Total Protein 6.1 L D Albumin 3.4 11/09/17 08:21 WBC RBC Hgb Hct MCV MCH MCHC RDW Plt Count MPV Prelim Diff (Auto) Neut % (Auto) Lymph % (Auto) [place] % (Auto) Eos % (Auto) Baso % (Auto) Neut # (Auto) Lymph # (Auto) [place] # (Auto) Eos # (Auto) Baso # (Auto) WBC Differential Diff Scan Seg Neuts % (Manual) Band Neuts % (Manual) Lymphocytes % (Manual) Monocytes % (Manual) Myelocytes % (Man) Abs Neuts (Manual) Differential Comment Platelet Estimate Platelet Morphology Basophilic Stippling Acanthocytes (Spur) Sodium 139 Potassium 3.4 L Chloride 98 Carbon Dioxide 32.9 H Anion Gap 8 BUN 21 H Creatinine 0.98 Estimated GFR 81 L Random Glucose 172 H Calcium 8.4 L Phosphorus 4.1 Magnesium 2.2 Total Bilirubin 0.3 AST 29 ALT 85 H Alkaline Phosphatase 46 Total Protein 6.0 L Albumin 3.5 - Procedures None Assessment and Plan - Plan 52-year-old male with COPD and recent diagnosis of pneumonia presents with worsening acute hypoxic respiratory failure. Continue antibiotics, nebs, steroids. Acute hypoxic respiratory failure Healthcare associated pneumonia COPD exacerbation- acute, severe MALIGNANT NONCOMPLIANCE -Continue IV steroids, Symbicort and Spiriva -Antibiotics vancomycin and Zosyn and Levaquin. Will obtain pro calcitonin and see if antibiotics are further warranted -Blood urine and sputum cultures. urine for Legionella and pneumococcal antigen negative - Diarrhea C diff neg. probiotics, imodium . Noncompliance. Consult palliative care for goals of care as patient is refusing meds, O2 supplement Malignant noncompliance-continues to refuse treatment to medications Diarrhea improved Seen already by psychiatry
--- NOTE | 2017-11-09 17:20 | XR ---
EXAM DATE: 11/09/2017 5:11 PM EDT AGE/SEX: 52 years / Male INDICATIONS: . Short of breath. CLINICAL DATA: This is the patient's subsequent encounter. Patient reports that signs and symptoms h ave been present for 4 - 6 days and indicates a pain score of 4/10. MEDICAL/SURGICAL HISTORY: Diabetes mellitus type II. Hypertension. Carcinoma of the prostate, p eripheral vascular disease, coronary artery disease . . Coronary artery stent. Cardiac cauterizatio n. COMPARISON: [facility] – [place], CHEST 1V SINGLE AP, 11/03/2017. . FINDINGS: Interstitial prominence, bilateral moderate pleural effusions, and cardiomegaly again noted. Left low er lobe consolidation. Osseous structures are stable. CONCLUSION: Stable appearance of the chest. Electronically signed by: Jose A Zacarias MD 11/09/2017 5:19 PM EDT
[2017-11-10] MEDS: Piperacil/Tazo 4.5 GM Premix 4.5 GM/100 ML BAG IV.SIG SCH (05:59)
[2017-11-10] MEDS: guaiFENesin 600 MG ER Tablet PO SCH ×2 (10:15→20:42)
[2017-11-10] MEDS: Senna/Docusate Sodium 8.6/50 MG Tablet PO SCH ×2 (10:16→20:43)
[2017-11-10] MEDS: Calcium Carbonate 500 MG Tablet PO SCH ×2 (10:16→20:38)
[2017-11-10] MEDS: Tiotropium Bromide 18 MCG/ACT Inhaler INH SCH (10:17)
[2017-11-10] MEDS: QUEtiapine 100 MG Tablet PO SCH ×2 (10:20→20:39)
[2017-11-10] MEDS: predniSONE 20 MG Tablet PO SCH ×2 (10:20→20:39)
[2017-11-10] MEDS: Budesonide-Formoterol 160/4.5 MCG 6 GM Inhaler INH SCH ×2 (13:09→20:52)
--- NOTE | 2017-11-10 17:39 | P.DS ---
Date of admission: 10/30/17 21:51 Primary care physician: Jose Raul Cassidy Brief History from admission: 52-year-old male presents to the emergency department for the evaluation of shortness of breath. Patient states some home shortness of breath for the past 2 days. He was recently discharged from [facility] on 10/24/17 where he was treated for pneumonia. He was discharged on home oxygen which he reports he has not been taking and as well as antibiotics. CTA done during that admission was negative for PE. Patient denies any chest pain or current shortness of breath. Is concerned about a "shiny object" in his right forearm where his IV was on previous admission. Denies any abdominal pain. No nausea/ vomiting/diarrhea. No fevers/chills. DS: Medications - Discharge Medications Prescriptions: amoxicillin 500 mg PO BID #16 cap prednisone 10 mg PO DIRECTED #30 tab quetiapine 50 mg PO BID #60 tab DS: Summary Hospital Course: Patient was initially admitted to the ICU. CT was negative for pulmonary embolism. Was eventually successfully transitioned down to 4 L nasal cannula. Patient was very noncompliant with multiple treatment options including nebulizers and BiPAP and nasal cannula. He was actually noted to be saturating at 89-90% on room air as he refused nasal cannula multiple times on his last 48 hours. Psychiatry had deemed the patient fully competent to make medical decisions. Pulmonology had been following the patient and weaned him down on his steroids and antibiotics as well. Patient has met maximal benefit from hospitalization is clinically stable for discharge. - Time Spent with Patient Total time spent providing and/or coordinating discharge services: Less than 30 minutes - Quality: VTE Deep Vein Thrombosis/Pulmonary Embolism Present on Admission: No Exam Vital signs: Vital Signs 11/09/17 20:00 11/10/17 00:35 11/10/17 03:00 Temperature 97.6 F 97.7 F 97.7 F Pulse Rate 110 H 97 H 83 Respiratory Rate 14 15 16 Blood Pressure 131/87 141/88 H 137/93 H Pulse Oximetry 91 L 91 L 91 L 11/10/17 04:02 11/10/17 08:00 11/10/17 10:27 Temperature 97.6 F Pulse Rate 86 75 Respiratory Rate 20 16 14 Blood Pressure 127/82 Pulse Oximetry 89 L 90 L 11/10/17 15:00 Temperature 97.3 F L Pulse Rate 92 H Respiratory Rate 18 Blood Pressure 141/87 H Pulse Oximetry 89 L Intake & Output 11/09/17 11/10/17 11/10/17 18:59 06:59 18:59 Intake Total 1400 / 1400 2062.5 / 2062.5 720 / 720 Output Total 1000 / 1000 1650 / 1650 Balance 1400 / 1400 1062.5 / 1062.5 -930 / -930 Weight 81 kg Intake: IV 862.5 / 862.5 Levaquin 750 mg Premix Inj 150 150 / 150 ML @ 100 mls/hr IV.SIG Q24H [facility]PE Rx#:[id number] Zosyn 4.5 GM Premix 4.5 gm In 200 / 200 100 ml @ 200 mls/hr IV.SIG Q6H LUPE Rx#:[id number] Oral 1400 / 1400 1200 / 1200 720 / 720 Output: Urine 1000 / 1000 1650 / 1650 Other: # Voids 1,500 Date of Last Bowel Movement 11/09/17 11/10/17 # Bowel Movements 0 Narrative: Clear lungs bilaterally, unlabored breathing, wearing nasal cannula, then takes it off Results Procedures completed during hospitalization: None Labs on day of discharge: Labs from last 24 hours 11/09/17 17:44 Procalcitonin Less than 0.02 - Impressions ITS Impressions Chest CTA 11/01/17 00:00 CONCLUSION: 1. No acute pulmonary emboli. 2. Worsening bibasilar consolidation with new consolidation involving the medial left upper lobe. 3. Stable to slightly smaller tiny bilateral pleural effusions. Chest X-Ray 11/09/17 00:00 CONCLUSION: Stable appearance of the chest. Discharge Plan - Discharge Disposition Patient Disposition: ACLF/SENIOR CARE - Discharge Condition Condition: Stable - Discharge Order Discharge Orders: Discharge Order (Routine); Ordered 11/10/17 Ordered By: Estiven Lock - Physicians Team Primary Care Provider: Jose Raul Cassidy Attending Provider: Estiven Lock Other Providers: Jaya Harris MD ; Juan Back MD ; Jay Clay MD ; Dorene Mejia MD ; Chandrakant Watson, PhD
[2017-11-10] MEDS: Ibuprofen 200 MG Tablet PO PRN (20:39)
[2017-11-10] MEDS: LORazepam 1 MG Tablet PO PRN (20:48)
[2017-11-11] MEDS: Temazepam 15 MG Capsule PO PRN (01:28)
[2017-11-11] MEDS: guaiFENesin 600 MG ER Tablet PO SCH (09:46)
[2017-11-11] MEDS: Calcium Carbonate 500 MG Tablet PO SCH (09:46)
[2017-11-11] MEDS: Senna/Docusate Sodium 8.6/50 MG Tablet PO SCH (09:48)
[2017-11-11] MEDS: predniSONE 20 MG Tablet PO SCH (09:50)
[2017-11-11] MEDS: QUEtiapine 100 MG Tablet PO SCH (09:50)
[2017-11-11] MEDS: Tiotropium Bromide 18 MCG/ACT Inhaler INH SCH (09:51)
[2017-11-11] MEDS: Budesonide-Formoterol 160/4.5 MCG 6 GM Inhaler INH SCH (09:51)
== END 2017-11-11 15:05 ==
LOC: NEPE 18:46 → NEDA 21:51 → HCIS 10-31 03:19 → HCVI 10-31 13:40 → HCPC 11-02 13:02 → HCIN 11-07 10:37 → N07 11-08 17:26
PROVIDERS: ADMIT Internal Medicine; ATTEND Internal Medicine

== ENCOUNTER 2018-03-15 23:12 | Observation (INO) ==
[2018-03-16 00:35] LABS: Baso # (Auto) 0.1 th/mm3 (0.0-0.2); Baso % (Auto) 1.3 % (0.0-2.0); Eos # (Auto) 0.1 th/mm3 (0.0-0.4); Eos % (Auto) 2.2 % (0.0-4.0); Hemoglobin 10.4 gm/dL (13.0-17.0); Lymph # (Auto) 1.1 th/mm3 (1.0-4.8); Lymph % (Auto) 25.6 % (9.0-44.0); Mean Corpuscular HGB Conc 33.8 % (32.0-36.0); Mean Corpuscular Hemoglobin 33.5 pg (27.0-34.0); Mean Corpuscular Volume 99.2 fL (80.0-100.0); Mean Platelet Volume 7.1 fL (7.0-11.0); Mono # (Auto) 0.5 th/mm3 (0.0-0.9); Mono % (Auto) 11.3 % (0.0-8.0); Neut # (Auto) 2.6 th/mm3 (1.8-7.7); Neut % (Auto) 59.6 % (16.0-70.0); Platelet Count 257 th/mm3 (150-450); Red Blood Count 3.12 mil/mm3 (4.50-5.90); Red Cell Distribution Width 15.4 % (11.6-17.2); White Blood Count 4.4 th/mm3 (4.0-11.0)
--- NOTE | 2018-03-16 00:48 | XR ---
EXAM DATE: 03/16/2018 12:38 AM EST AGE/SEX: 53 years / Male INDICATIONS: Shortness of breath. CLINICAL DATA: This is the patient's initial encounter. Patient reports that signs and symptoms have been present for 1 day and indicates a pain score of 0/10. MEDICAL/SURGICAL HISTORY: Diabetes mellitus type II. Hypertension. Carcinoma, prostatic. Cor onary artery disease. Coronary artery stent. COMPARISON: [facility] [place] CHEST 1V SINGLE AP, 02/22/2018. . FINDINGS: A single AP view of the chest demonstrates the lungs to be symmetrically aerated without evidence of mass, infiltrate or effusion. Chronic pleural thickening involving the lateral right chest. Multiple old right-sided rib fractures. The cardiomediastinal contours are unremarkable. Osseous structures a re intact. CONCLUSION: No acute cardiopulmonary disease. Electronically signed by: Alok Vang MD 03/16/2018 12:46 AM EST
--- NOTE | 2018-03-16 00:53 | ED ---
HPI General Chief Complaint: Chest Pain Stated Complaint: sob Time Seen by Provider: 03/16/18 00:11 Source: patient, EMS and old records reviewed Mode of arrival: EMS Limitations: no limitations History of Present Illness MD complaint: Reports chest pain STEMI Alert: No Onset (ago): hour(s) (1.5) Duration: constant Onset: during rest Pain location: Reports substernal Severity scale (1-10): 8 Quality: Reports tightness Pain radiation: Reports none Relieving factors: nitroglycerin Exacerbating factors: nothing Associated symptoms: Reports dyspnea Treatments prior to arrival chest pain: Reports aspirin, nitroglycerin and oxygen Related Data Previous Rx's Medication Instructions Recorded albuterol sulfate [Ventolin HFA] 1 puff INHALATION Q4-6H PRN #1 10/23/17 inhaler budesonide-formoterol [Symbicort] 1 puff INH BID #1 inhaler 10/23/17 calcium carbonate [Oyster Shell 500 mg PO BID #60 tab 10/23/17 Calcium 500] ergocalciferol (vitamin D2) 50,000 unit PO Q7D #10 cap 10/23/17 potassium chloride 20 meq PO DAILY #30 tab 10/23/17 tramadol 50 mg PO Q8HR PRN #21 tab 10/24/17 quetiapine 50 mg PO BID #60 tab 11/10/17 levothyroxine [Synthroid] 50 mcg PO DAILY@0600 #30 tab 03/02/18 tiotropium bromide [Spiriva with 18 mcg INH DAILY #1 inh 03/02/18 HandiHaler] trazodone 150 mg PO DAILY #30 tab 03/02/18 Allergies Allergy/AdvReac Type Severity Reaction Status Date / Time Bleach (Sodium Hypochlorite) Allergy Hives Verified 03/16/18 00:13 oxycodone Allergy Anaphylaxis Verified 03/16/18 00:13 Review of Systems ROS: all other systems reviewed are negative [facility] Medical History Medical History Aggressive behavior (Acute) Alcohol abuse (Acute) Anemia (Acute) Anxiety (Acute) Bicuspid aortic valve (Acute) COPD (chronic obstructive pulmonary disease) (Acute) Celiac disease (Acute) Cirrhosis (Acute) Copper deficiency (Acute) Depression (Acute) Duodenitis (Acute) Edema (Acute) Fracture of femoral neck, left (Acute) GI bleed (Acute) Gastritis (Acute) Hemorrhoids (Acute) Hiatal hernia (Acute) History of DVT (deep vein thrombosis) (Acute) Hypothyroidism (Acute) Insomnia (Acute) Malabsorption (Acute) Migraines (Acute) Mild dementia (Acute) Rhabdomyolysis (Acute) Sigmoidoscopy performed (Acute) Substance abuse (Acute) Vitamin B12 deficiency (Acute) Surgical History Surgical History Hernia (Acute) Cataract (Acute) H/O esophagogastroduodenoscopy (Acute) H/O eye surgery (Acute) S/P pericardiocentesis (Acute) Social History Social History Substance History: No History of Abuse Second Hand Smoke Exposure: No Smoking Status: Former smoker Tobacco Type: Cigarettes How Often Do You Have a Drink Containing Alcohol: Never Recent Travel in [facility] within the Last 8 Weeks: No Recent Out of Country Travel within the Last 8 Weeks: No Immunization History Tetanus Immunization: Unsure Exam Const General: cooperative, healthy appearing, comfortable, disheveled and other ( Looks older than his stated age of 53) Orientation: alert, awake and oriented x3 HENMT Head: normal to inspection, normocephalic and atraumatic Teeth and gingiva: poor dentition Eyes General: appearance normal, both eyes and all related structures Conjunctivae: conjunctivae normal Sclera: sclerae normal EOM: EOM intact bilaterally Neck Neck: normal visual inspection and full ROM Chest Chest: normal inspection of the chest and tenderness Resp Effort & Inspection: normal respiratory effort and able to speak in complete sentences Auscultation: clear to auscultation bilaterally Cardio Rate: regular rate Rhythm: regular rhythm Heart Sounds: S1 normal and S2 normal GI Inspection: normal to inspection Palpation: soft Back/Spine/Pelvis Cervical Spine: cervical ROM normal Thoracic/Lumbar Spine: thoraco-lumbar ROM normal Skin General: no rashes or lesions noted, turgor normal and dry skin Neuro General: alert, awake, oriented x3, moves all extremities and CN's II-XI intact bilaterally Extrem General: normal to inspection, full ROM and edema (Marked nonpitting pretibial edema) Laterality: bilaterally Psych Appearance: grossly normal Mental Status: mental status grossly normal Speech and Movement: speech and movement normal Mood: congruent mood Affect: normal affect Attitude: cooperative Thought Process: normal Thought Content: normal Judgment: judgment good Course Initial Documented Vital Signs Temperature 97.3 F L 03/16/18 00:08 Pulse Rate 85 03/16/18 00:08 Respiratory Rate 18 03/16/18 00:08 Blood Pressure 123/83 03/16/18 00:08 Pulse Oximetry 92 L 03/16/18 00:08 Last Documented Vital Signs Temperature 97.3 F L 03/16/18 00:08 Pulse Rate 85 03/16/18 00:08 Respiratory Rate 18 03/16/18 00:08 Blood Pressure 123/83 03/16/18 00:08 Pulse Oximetry 94 L 03/16/18 00:15 Medical Decision Making MDM Narrative Medical decision making narrative: This is a patient who was reportedly just admitted to an assisted living facility today who presents to us tonight with chest pain or shortness of breath. He has a history of COPD. He also has a history of alcohol abuse and hypothyroidism. On a recent hospitalization, he had acute pneumonia and respiratory failure requiring intubation. He was also found to have a dilated ascending aorta on echo done during that hospitalization. A chest pain workup has been ordered. I have also ordered a CTA of his aorta because of the chest pain and history of dilated a sending aorta. The patient was treated by [facility] with aspirin and sublingual nitroglycerin x3. I have added Nitropaste here. CTA was negative for acute findings. The patient reports that the symptoms are improved but still present. He also states that he became very nauseous when he was given IV contrast. The patient is amenable to admission to the chest pain center. Medical Screen Exam Complete: Yes Emergency Medical Condition: Yes Differential Diagnosis Differential Diagnosis: Differential diagnosis of chest pain includes but is not limited to musculoskeletal pain, pulmonary embolism, acute coronary syndrome , pneumonia, pleurisy Medical Records Medical records reviewed: Yes I reviewed the patient's medical records. The patient had a prolonged hospitalization in February. He had hyponatremia and rhabdomyolysis which was complicated by acute pneumonia and respiratory failure which required intubation. During that hospital stay, he had an echo which showed a dilated proximal aorta. Ejection fraction was normal at 50%. Lab Data Lab results reviewed: Yes I reviewed the patient's lab results. Result diagrams: 03/16/18 00:21 03/16/18 00:21 Lab Results 03/16/18 03/16/18 Range/Units 00:21 00:21 WBC 4.4 (4.0-11.0) th/mm3 RBC 3.12 L (4.50-5.90) mil/mm3 Hgb 10.4 L (13.0-17.0) gm/dL Hct 31.0 L (39.0-51.0) % MCV 99.2 (80.0-100.0) fL MCH 33.5 (27.0-34.0) pg MCHC 33.8 (32.0-36.0) % RDW 15.4 (11.6-17.2) % Plt Count 257 (150-450) th/mm3 MPV 7.1 (7.0-11.0) fL Neut % (Auto) 59.6 (16.0-70.0) % Lymph % (Auto) 25.6 (9.0-44.0) % [place] % (Auto) 11.3 H (0.0-8.0) % Eos % (Auto) 2.2 (0.0-4.0) % Baso % (Auto) 1.3 (0.0-2.0) % Neut # (Auto) 2.6 (1.8-7.7) th/mm3 Lymph # (Auto) 1.1 (1.0-4.8) th/mm3 [place] # (Auto) 0.5 (0.0-0.9) th/mm3 Eos # (Auto) 0.1 (0.0-0.4) th/mm3 Baso # (Auto) 0.1 (0.0-0.2) th/mm3 WBC Differential . Differential Comment Auto diff final Sodium 136 (136-145) meq/L Potassium 4.6 (3.5-5.1) meq/L Chloride 100 (98-107) meq/L Carbon Dioxide 26.3 (21.0-32.0) meq/L Anion Gap 10 (5-15) meq/L BUN 14 (7-18) mg/dL Creatinine 0.91 (0.60-1.30) mg/dL Estimated GFR 87 L (>89) mL/min Random Glucose 92 (74-106) mg/dL Calcium 7.4 L* (8.5-10.1) mg/dL Calcium Adj for Albumin 7.4 L* (8.5-10.1) mg/dL Troponin I Less than 0.02 L (0.02-0.05) ng/mL Albumin 4.0 (3.4-5.0) g/dL Imaging Data Radiologist's impression: Chest X-Ray 03/16/18 00:11 CONCLUSION: No acute cardiopulmonary disease. Thoracic Aorta CT 03/16/18 00:26 CONCLUSION: 1. Stable mild aneurysmal change involving the ascending aorta measuring 4.2 cm. No dissection. 2. Cardiomegaly. 3. Cholelithiasis. ECG Data EKG Prior to Arrival: No Attestation: I personally reviewed and interpreted this ECG as follows: Discharge Plan Discharge Disposition Patient Disposition: ED Admit(ED Internal Use Only) Discharge Order Discharge Orders: ED Use Only Admit Order (Routine); Ordered 03/16/18 Ordered By: Norma Zhang Discharge Details Diagnosis: Chest pain, Hypocalcemia Physicians Team ED Provider: Norma Zhang Primary Care Provider: Jose Raul Cassidy Rxs /Orders / Referrals /Forms Prescriptions: No Action quetiapine 100 mg Tablet 50 mg PO BID Qty: 60 RF: 0 levothyroxine [Synthroid] 50 mcg Tablet 50 mcg PO DAILY@0600 Qty: 30 RF: 0 tiotropium bromide [Spiriva with HandiHaler] 18 mcg Capsule, W/Inhalation Device 18 mcg INH DAILY Qty: 1 RF: 0 trazodone 150 mg Tablet 150 mg PO DAILY Qty: 30 RF: 0 potassium chloride 20 mEq Tablet,Er Particles/Crystals 20 meq PO DAILY Qty: 30 RF: 0 calcium carbonate [Oyster Shell Calcium 500] 500 mg calcium (1,250 mg) Tablet 500 mg PO BID Qty: 60 RF: 0 ergocalciferol (vitamin D2) 50,000 unit Capsule 50,000 unit PO Q7D Qty: 10 RF: 0 budesonide-formoterol [Symbicort] 160-4.5 mcg/actuation Hfa Aerosol Inhaler 1 puff INH BID Qty: 1 RF: 0 albuterol sulfate [Ventolin HFA] 90 mcg/actuation Hfa Aerosol Inhaler 1 puff INHALATION Q4-6H PRN (Reason: Shortness Of Breath) Qty: 1 RF: 0 tramadol 50 mg Tablet 50 mg PO Q8HR PRN (Reason: Acute Pain) Qty: 21 RF: 0 Discharge Instructions Patient Printed Instructions: Chest Pain (ED) Status ED Status: With Doctor
[2018-03-16 01:19] LABS: Anion Gap 10 meq/L (5-15); Blood Urea Nitrogen 14 mg/dL (7-18); Calcium 7.4 mg/dL (8.5-10.1); Carbon Dioxide 26.3 meq/L (21.0-32.0); Chloride 100 meq/L (98-107); Glomerular Filtration Rate 87 mL/min (>89); Glucose,Random 92 mg/dL (74-106); Potassium 4.6 meq/L (3.5-5.1); Sodium 136 meq/L (136-145)
[2018-03-16 01:39] LABS: Calcium-Albumin Corrected 7.4 mg/dL (8.5-10.1)
--- NOTE | 2018-03-16 02:17 | CT ---
EXAM DATE: 03/16/2018 2:00 AM EST AGE/SEX: 53 years / Male INDICATIONS: Chest pain, shortness of breath. CLINICAL DATA: This is the patient's initial encounter. Patient reports that signs and symptoms have been present for 1 day and indicates a pain score of 8/10. MEDICAL/SURGICAL HISTORY: Chronic obstructive pulmonary disease. Hiatal hernia. Deep venous throm bosis. Anemia. Cirrhosis. Colitis. Substance Abuse. Dilated Ascending Aorta. . Left Hip ORIF RADIATION DOSE: 8.18 CTDI (mGy) COMPARISON: [facility], CT THORAX W CONTRAST, 05/31/2017.. . TECHNIQUE: Volumetric scanning was performed using a multi-row detector CT scanner during bolus infu niharika of 80 ml Omnipaque 350 (iohexol) nonionic water-soluble contrast as a single exam dose. The da ta was post processed with a variety of visualization algorithms including full volume maximum intens ity projection, multi-planar sliding thin slab reformation, curved planar reformation, and surface re ndering techniques. Using automated exposure control and adjustment of the mA and/or kV according to patient size, radiation dose was kept as low as reasonably achievable to obtain optimal diagnostic q uality images. DICOM format image data is available electronically for review and comparison. FINDINGS: THORACIC/ABDOMINAL AORTA: The ascending aorta is just out of the range of normal in terms of size lanette suring 4.2 cm in diameter. This is stable. The remaining thoracic and abdominal aorta is normal in ca liber. No aneurysm or dissection. The arch vessels, celiac, SMA, SONJA, renal arteries, and inflow vess els are patent. HEART AND MEDIASTINUM: Mild cardiomegaly without pericardial effusion. Pulmonary arteries are normal in caliber. No adenopathy. LUNG PARENCHYMA: Scarring involving the right middle lobe. Mild dependent atelectasis bilaterally. No mass or infiltrate. OTHER STRUCTURES: Small gallstones within an otherwise normal-appearing gallbladder. Tiny umbilical h ernia containing fat. Orthopedic hardware involving the left hip. Old right posterior lateral ninth a nd 10th rib fractures with lack of union. CONCLUSION: 1. Stable mild aneurysmal change involving the ascending aorta measuring 4.2 cm. No dissection. 2. Cardiomegaly. 3. Cholelithiasis. Electronically signed by: Alok Vang MD 03/16/2018 2:16 AM EST
[2018-03-16] MEDS ORDERED: Morphine Inj 4 MG/ML Vial IV.PUSH PRN (02:29)
[2018-03-16] MEDS: Calcium/Vitamin D 250/125 MG Tablet PO SCH ×2 (03:58→09:29)
[2018-03-16 04:06] LABS: Creatine Kinase 701 U/L (39-308)
[2018-03-16 04:18] LABS: CKMB Percent 1.7 % (0.0-4.0); Creatine Kinase MB 12.2 ng/mL (0.5-3.6)
[2018-03-16 07:12] LABS: Creatine Kinase 691 U/L (39-308)
[2018-03-16 07:24] LABS: CKMB Percent 1.7 % (0.0-4.0)
[2018-03-16] MEDS ORDERED: Acetaminophen 500 MG Tablet PO PRN (07:24)
--- NOTE | 2018-03-16 10:34 | P.HPCA ---
History of Present Illness Primary Care Physician: Jose Raul Cassidy Chief Complaint: Chest pain History of Present Illness: 53 year old male with medical history of hypothyroidism, major depressive disorder, alcoholism, and COPD presents to ER for further evaluation of chest pain. Onset last evening around 10pm. Location left lower chest and lower sternum. Characterized as tightness. No radiation. Duration constant. Mild to moderate in severity. Associated symptoms include nausea, "dry heaves,", and diaphoresis. Hurts to take a deep breath and to touch area. Denies similar pain in the past. Reports recently being discharged fro hospital a few weeks ago. Since discharge was living with his mother until Tuesday when he decided to return to his assisted living. Tells me he did not like it there because the temperature was too cold, was unhappy with the food provided, and did not like his new roommate. States he does not plan on returning there. Endorses long standing problem with alcohol and since discharge been drinking 1 large bottle Vodka every 3 days. Last drink Tuesday. Reports increase situational stress due to daughter drug current drug addiction. States only medication that he takes his trazodone, [id number] Motrin, and occasionally a multivitamin. States he has been diagnosed with hypothyroidism since age 19 and does not require levothyroxine. States eating nor does he need multiple inhalers described, but will occasionally use albuterol. Past cardiac testing Does not recall any recent cardiac testing. 06/10/2015 Lexiscan-hypokinesis in the septal region, decreased ejection fraction of 43%. No evidence of stress-induced ischemia. Social history Denies known hypertension, hyperlipidemia, diabetes, coronary artery disease, heart failure, or history of [place]. Current smoker of 1-2 grades daily, denies ever being a heavier tobacco user. Endorses being an alcoholic drinking 1 large bottle of Vodka every 3 days. Denies occasional drug use. Endorses past cocaine and crack use. Ambulated with walker. Family history Noncontributory for early onset cardiovascular disease - Diagnosis (1) Atypical chest pain (2) Anemia (3) Hypothyroid (4) Alcohol abuse Review of Systems All other systems reviewed negative except as stated in HPI [facility] - History History Provided By: Patient - Medical History Medical History: Medical History (Last Reviewed 03/16/18 @ 13:25 by EMILY Tong) Aggressive behavior Alcohol abuse Anemia Anxiety Bicuspid aortic valve COPD (chronic obstructive pulmonary disease) Celiac disease Cirrhosis Copper deficiency Depression Duodenitis Edema Fracture of femoral neck, left GI bleed Gastritis Hemorrhoids Hiatal hernia History of DVT (deep vein thrombosis) Hypothyroidism Insomnia Malabsorption Migraines Mild dementia Rhabdomyolysis Sigmoidoscopy performed Substance abuse Vitamin B12 deficiency - Surgical History Surgical History: Surgical History (Last Reviewed 03/16/18 @ 13:26 by EMILY Tong) Hernia (Acute) Cataract (Acute) H/O esophagogastroduodenoscopy H/O eye surgery S/P pericardiocentesis - Family History Family History: Family History (Last Reviewed 02/24/18 @ 15:13 by Deirdre Simon) Father Lung cancer Other Cardiac defibrillator in situ Family history of hypertension - Tobacco History Second Hand Smoke Exposure: No Tobacco Use In Past 30 Days: No Smoking Status: Current every day smoker Tobacco Type: Cigarettes Cigarettes Per Day: 2 - Alcohol History How Often Do You Have a Drink Containing Alcohol: 4 or more times a week (daily drinker) - Substance Use History Substance History: No History of Abuse - Travel History History of Recent Travel: No Recent Travel in the [place] Within the Last 8 Weeks: No Recent Travel Out of the Country Within the Last 8 Weeks: No - Immunization History Tetanus Immunization: Unsure Medications and Allergies Active Medications: Active Medications Acetaminophen (Tylenol) 500 mg PO Q4H PRN PRN Reason: HEADACHE Calcium/Vitamin D (Oscal With D 250/125 Mg) 2 tab PO BID COUNTS INCLUDE 234 BEDS AT THE [facility] Last Admin: 03/16/18 09:29 Dose: 2 tab Morphine Sulfate (Morphine Inj) 2 mg IV.PUSH Q4H PRN PRN Reason: PAIN SCALE 8 TO 10 Nitroglycerin (Nitro-Bid 2% Oint) 1 inch TOPICAL Q6HR COUNTS INCLUDE 234 BEDS AT THE [facility] Last Admin: 03/16/18 06:19 Dose: 1 inch Nitroglycerin (Nitrostat Sl) 0.4 mg SL Q5M PRN PRN Reason: CHEST PAIN Ondansetron HCl (Zofran Inj) 4 mg IV.PUSH Q6H PRN PRN Reason: NAUSEA Sodium Chloride (Ns Flush) 2 ml IV.FLUSH UNSCH PRN PRN Reason: FLUSH AFTER USING IV ACCESS Sodium Chloride (Ns Flush) 2 ml IV.FLUSH BID COUNTS INCLUDE 234 BEDS AT THE [facility] Last Admin: 03/16/18 09:29 Dose: 2 ml Sodium Chloride (Ns Flush) 2 ml IV.FLUSH PRN PRN PRN Reason: FLUSH AFTER USING IV ACCESS Allergies Allergy/AdvReac Type Severity Reaction Status Date / Time Bleach (Sodium Hypochlorite) Allergy Hives Verified 03/16/18 00:13 oxycodone Allergy Anaphylaxis Verified 03/16/18 00:13 Exam Vital signs: Vital Signs 03/16/18 00:08 03/16/18 00:15 03/16/18 03:46 Temperature 97.3 F L 97.8 F Pulse Rate 85 71 Respiratory Rate 18 16 Blood Pressure 123/83 124/78 Pulse Oximetry 92 L 94 L 94 L 03/16/18 08:00 Temperature 97.6 F Pulse Rate 61 Respiratory Rate 16 Blood Pressure 129/83 Pulse Oximetry 92 L Intake & Output 03/15/18 03/16/18 03/16/18 18:59 06:59 18:59 Output Total 300 / 300 Balance -300 / -300 Weight 67.585 kg Output: Urine 300 / 300 Other: # Voids 1 Weight On Admission 67.585 kg Narrative: GENERAL: Alert WN, WD, NAD, male who appears older than stated age chronically ill HEAD: NC, AT EYES: Sclera clear, conjunctiva without injection ENT: Mucous membranes pink and moist CV: RRR, without murmur, rub, gallop, no JVD, S1-S2. Left anterior chest wall tender with palpation. RESP: Diminished lungs throughout bilateral, no crackles, wheeze, rhonchi, symmetrical chest rise, nonlabored, able to speak in full sentences ABD: Soft, NT, ND, no masses, positive bowel tones EXT: Pulses +2x4, bilateral lower extremities gross edema L>R MS: Normal tone x4 extremities, nontender, no obvious deformities, full range of motion NEURO: Motor strength 5/5 PSYCH: A+O x3, flat affect, appropriate speech, questionable insight and judgment SKIN: Normal turgor, dry skin, normal texture, no lesions, no rashes Results 03/16/18 00:21 03/16/18 00:21 Cardiac Enzymes 03/16/18 03/16/18 03/16/18 Range/Units 00:21 03:00 06:24 CK-MB (CK-2) 12.2 H 12.0 H (0.5-3.6) ng/mL Troponin I Less than 0.02 L Less than 0.02 L Less than 0.02 L (0.02-0.05) ng/mL CBC 03/16/18 Range/Units 00:21 WBC 4.4 (4.0-11.0) th/mm3 RBC 3.12 L (4.50-5.90) mil/mm3 Hgb 10.4 L (13.0-17.0) gm/dL Hct 31.0 L (39.0-51.0) % Plt Count 257 (150-450) th/mm3 Neut # (Auto) 2.6 (1.8-7.7) th/mm3 Lymph # (Auto) 1.1 (1.0-4.8) th/mm3 Trigg # (Auto) 0.5 (0.0-0.9) th/mm3 Eos # (Auto) 0.1 (0.0-0.4) th/mm3 Baso # (Auto) 0.1 (0.0-0.2) th/mm3 Comprehensive Metabolic Panel 03/16/18 Range/Units 00:21 Sodium 136 (136-145) meq/L Potassium 4.6 (3.5-5.1) meq/L Chloride 100 (98-107) meq/L Carbon Dioxide 26.3 (21.0-32.0) meq/L BUN 14 (7-18) mg/dL Creatinine 0.91 (0.60-1.30) mg/dL Calcium 7.4 L* (8.5-10.1) mg/dL Albumin 4.0 (3.4-5.0) g/dL Intake and Output 03/15/18 03/16/18 03/16/18 22:59 06:59 14:59 Output Total 300 / 300 Balance -300 / -300 Output: Urine 300 / 300 Other: # Voids 1 Weight 67.585 kg Weight On Admission 67.585 kg - Imaging and Cardiology Imaging: Impressions Chest X-Ray 03/16/18 00:11 CONCLUSION: No acute cardiopulmonary disease. Thoracic Aorta CT 03/16/18 00:26 CONCLUSION: 1. Stable mild aneurysmal change involving the ascending aorta measuring 4.2 cm. No dissection. 2. Cardiomegaly. 3. Cholelithiasis. EKG interpretations - EKG EKG results cardiology: sinus rhythm, normal QRS (Nonspecific ST -T wave changes ) Caprini VTE Risk Assessment Caprini VTE Risk Assessment: No/Low Risk (score <= 1) Caprini Risk Assessment Model: Point Value = 1 Point Value = 2 Point Value = 3 Point Value = 5 Age 41-60 Minor surgery BMI > 25 kg/m2 Swollen legs Varicose veins or History of unexplained or recurrent spontaneous Oral contraceptives or hormone replacement Sepsis (< 1 month) Serious lung disease, including pneumonia (< 1 month) Abnormal pulmonary function Acute myocardial infarction Congestive heart failure (< 1 month) History of inflammatory bowel disease Medical patient at bed rest Age 61-74 Arthroscopic surgery Major open surgery (> 45 min) Laparoscopic surgery (> 45 min) Malignancy Confined to bed (> 72 hours) Immobilizing plaster cast Central venous access Age >= 75 History of VTE Family history of VTE Factor V Leiden Prothrombin [id number] Lupus anticoagulant Anticardiolipin antibodies Elevated serum homocysteine Heparin-induced thrombocytopenia Other congenital or acquired thrombophilia Stroke (< 1 month) Elective arthroplasty Hip, pelvis, or leg fracture Acute spinal cord injury (< 1 month) Prophylaxis Regimen: Total Risk Factor Score Risk Level Prophylaxis Regimen 0-1 Low Early ambulation 2 Moderate Order ONE of the following: *Sequential Compression Device (SCD) *Heparin 5000 units SQ BID 3-4 Higher Order ONE of the following medications: *Heparin 5000 units SQ TID *Enoxaparin/Lovenox 40 mg SQ daily (WT < 150 kg, CrCl > 30 mL/min) *Enoxaparin/Lovenox 30 mg SQ daily (WT < 150 kg, CrCl > 10-29 mL/min) *Enoxaparin/Lovenox 30 mg SQ BID (WT < 150 kg, CrCl > 30 mL/min) AND/OR *Sequential Compression Device (SCD) 5 or more Highest Order ONE of the following medications: *Heparin 5000 units SQ TID (Preferred with Epidurals) *Enoxaparin/Lovenox 40 mg SQ daily (WT < 150 kg, CrCl > 30 mL/min) *Enoxaparin/Lovenox 30 mg SQ daily (WT < 150 kg, CrCl > 10-29 mL/min) *Enoxaparin/Lovenox 30 mg SQ BID (WT < 150 kg, CrCl > 30 mL/min) AND *Sequential Compression Device (SCD) Assessment and Plan - Assessment (1) Atypical chest pain Code(s): R07.89 - Other chest pain Status: Acute Plan: Admitted to chest pain center. ACS ruled out 3 sets of EKGs and cardiac enzymes. Will be seen and evaluated by Dr. Peter Fairbanks. Discussed possible cardiac testing however this will be determined after evaluation by residential sales associate. (2) Anemia Code(s): D64.9 - Anemia, unspecified Status: Acute Plan: Made aware of hemoglobin and hematocrit findings. Apparently this is a chronic issue for him and he has been previously notified of this. Likely anemia is due to chronic disease state. Instructed to follow-up with primary care provider. (3) Hypothyroid Code(s): E03.9 - Hypothyroidism, unspecified Status: Chronic Plan: Patient quit taking levothyroxine and states he does not wish to restart. Discussed importance of medication adherence. Follow-up with primary care provider. (4) Alcohol abuse Code(s): F10.10 - Alcohol abuse, uncomplicated Status: Chronic Plan: Encouraged support for Alcoholic Anonymous. H&P: Quality - VTE Deep Vein Thrombosis/Pulmonary Embolism Present on Admission: No (2) Anemia Qualifiers: Anemia type: unspecified type Qualified Code(s): D64.9 - Anemia, unspecified (3) Hypothyroid Qualifiers: Hypothyroidism type: unspecified Qualified Code(s): E03.9 - Hypothyroidism, unspecified
--- NOTE | 2018-03-16 11:38 | P.PNCA ---
Subjective Interval history: 53-year-old white male initially evaluated by a nurse practitioner. In short he was recently discharged from the hospital spent a short time with his mother and then was moved to an assisted living facility. He got there yesterday did not like the facility it was cold he did not like the food and so he developed chest pain. After a long titus discussion with the patient is clear that he has a severe end-stage alcoholic. When he has the finances he currently drinks about 1 large vodka bottle every 3-4 days. He has a lifelong history of alcohol abuse beginning at about age 17 with beer progressing. He has been dry for periods in the past, has tried Alcoholics Anonymous in the past but has relapsed each time. His additional medical history is extensive and well- documented already in the chart. Evaluation currently has ruled out for ACS with negative enzymes and no change in his EKGs. He is shown on CT scan to continue to have dilation of his ascending aorta but this is stable he also has cardiomegaly and a cardiomyopathy and cholelithiasis. His current presentation clearly does not meet criteria for admission which is what he wants but additional time was spent talking to him about ongoing care and management. An attempt was made to have him fully understand the imperative nature of a significant change of lifestyle including total cessation of alcohol alcohol using companions and avoidance of tobacco and drug related environments. He was strongly encouraged to return to Alcoholics Anonymous, to return to seek aid from his Yazidism religion, and to determine if his mother would give him one more chance if he truly intends to make lifestyle changes. It does sound like she can benefit from his assistance as well if he will stay clean. Medications and Allergies Active Medications: Active Medications Acetaminophen (Tylenol) 500 mg PO Q4H PRN PRN Reason: HEADACHE Calcium/Vitamin D (Oscal With D 250/125 Mg) 2 tab PO BID [facility] Last Admin: 03/16/18 09:29 Dose: 2 tab Morphine Sulfate (Morphine Inj) 2 mg IV.PUSH Q4H PRN PRN Reason: PAIN SCALE 8 TO 10 Nitroglycerin (Nitro-Bid 2% Oint) 1 inch TOPICAL Q6HR [facility] Last Admin: 03/16/18 06:19 Dose: 1 inch Nitroglycerin (Nitrostat Sl) 0.4 mg SL Q5M PRN PRN Reason: CHEST PAIN Ondansetron HCl (Zofran Inj) 4 mg IV.PUSH Q6H PRN PRN Reason: NAUSEA Sodium Chloride (Ns Flush) 2 ml IV.FLUSH UNSCH PRN PRN Reason: FLUSH AFTER USING IV ACCESS Sodium Chloride (Ns Flush) 2 ml IV.FLUSH BID [facility] Last Admin: 03/16/18 09:29 Dose: 2 ml Sodium Chloride (Ns Flush) 2 ml IV.FLUSH PRN PRN PRN Reason: FLUSH AFTER USING IV ACCESS Allergies Allergy/AdvReac Type Severity Reaction Status Date / Time Bleach (Sodium Hypochlorite) Allergy Hives Verified 03/16/18 00:13 oxycodone Allergy Anaphylaxis Verified 03/16/18 00:13 Physical Exam Vital signs: Vital Signs 03/16/18 00:08 03/16/18 00:15 03/16/18 03:46 Temperature 97.3 F L 97.8 F Pulse Rate 85 71 Respiratory Rate 18 16 Blood Pressure 123/83 124/78 Pulse Oximetry 92 L 94 L 94 L 03/16/18 08:00 Temperature 97.6 F Pulse Rate 61 Respiratory Rate 16 Blood Pressure 129/83 Pulse Oximetry 92 L Intake & Output 03/15/18 03/16/18 03/16/18 18:59 06:59 18:59 Output Total 300 / 300 Balance -300 / -300 Weight 67.585 kg Output: Urine 300 / 300 Other: # Voids 1 Weight On Admission 67.585 kg Narrative: Examination is as documented Neck no JVD Chest diminished breath sounds but no rales wheezes or rhonchi Cardiovascular PMI is displaced and diffuse but with no heave. No gallops or rubs are noted Abdomen soft slightly tender in the right upper quadrant but no guarding or rebound that would question the presence of a slight amount of any of ascites. Extremities 3+ pitting edema Results 03/16/18 00:21 03/16/18 00:21 Cardiac Enzymes 03/16/18 03/16/18 03/16/18 Range/Units 00:21 03:00 06:24 CK-MB (CK-2) 12.2 H 12.0 H (0.5-3.6) ng/mL Troponin I Less than 0.02 L Less than 0.02 L Less than 0.02 L (0.02-0.05) ng/mL CBC 03/16/18 Range/Units 00:21 WBC 4.4 (4.0-11.0) th/mm3 RBC 3.12 L (4.50-5.90) mil/mm3 Hgb 10.4 L (13.0-17.0) gm/dL Hct 31.0 L (39.0-51.0) % Plt Count 257 (150-450) th/mm3 Neut # (Auto) 2.6 (1.8-7.7) th/mm3 Lymph # (Auto) 1.1 (1.0-4.8) th/mm3 [place] # (Auto) 0.5 (0.0-0.9) th/mm3 Eos # (Auto) 0.1 (0.0-0.4) th/mm3 Baso # (Auto) 0.1 (0.0-0.2) th/mm3 Comprehensive Metabolic Panel 03/16/18 Range/Units 00:21 Sodium 136 (136-145) meq/L Potassium 4.6 (3.5-5.1) meq/L Chloride 100 (98-107) meq/L Carbon Dioxide 26.3 (21.0-32.0) meq/L BUN 14 (7-18) mg/dL Creatinine 0.91 (0.60-1.30) mg/dL Calcium 7.4 L* (8.5-10.1) mg/dL Albumin 4.0 (3.4-5.0) g/dL Intake and Output 03/15/18 03/16/18 03/16/18 22:59 06:59 14:59 Output Total 300 / 300 Balance -300 / -300 Output: Urine 300 / 300 Other: # Voids 1 Weight 67.585 kg Weight On Admission 67.585 kg - Imaging and Cardiology Imaging: Impressions Chest X-Ray 03/16/18 00:11 CONCLUSION: No acute cardiopulmonary disease. Thoracic Aorta CT 03/16/18 00:26 CONCLUSION: 1. Stable mild aneurysmal change involving the ascending aorta measuring 4.2 cm. No dissection. 2. Cardiomegaly. 3. Cholelithiasis. Assessment and Plan - Plan We will discharge the patient to totally cease alcohol use, seek help with Alcoholics Anonymous and with his religion. He will also attempt to see if his mother give him another chance if he remains totally dry. Time was spent discussing with him the approach to absence, the need for proper nutrition, the need for lifestyle change, and the fact that failing these he is close to the end of the line in his short-term life expectancy is grave. He indicates to me what appears to be a sincere desire to try and break the cycle.
--- NOTE | 2018-03-16 11:49 | ECG ---
Date Performed: 03/16/2018 Time Performed: 05:58:46 PTAGE: 53 years EKG: Sinus rhythm WITH FIRST DEGREE AV BLOCK LOW QRS VOLTAGE IN PRECORDIAL LEADS ABNORMAL ECG No significant change PREVIOUS TRACING : 02/10/2018 02.11 DOCTOR: Peter Fairbanks Interpretating Date/Time 03/16/2018 11:48:01
--- NOTE | 2018-03-16 11:50 | ECG ---
Date Performed: 03/16/2018 Time Performed: 03:08:16 PTAGE: 53 years EKG: SUPRAVENTRICULAR RHYTHM LOW QRS VOLTAGE IN PRECORDIAL LEADS BORDERLINE ECG PREVIOUS TRACING : 02/10/2018 02.11 DOCTOR: Peter Fairbanks Interpretating Date/Time 03/16/2018 11:49:22
--- NOTE | 2018-03-16 11:53 | ECG ---
Date Performed: 03/15/2018 Time Performed: 23:40:06 PTAGE: 53 years EKG: Sinus rhythm WITH OCCASIONAL VENTRICULAR PREMATURE COMPLEXES LOW QRS VOLTAGE IN PRECORDIAL LEADS Baseline interfe rence precludes accurate assessment but appears to be no significant change NO PREVIOUS TRACING DOCTOR: Peter Fairbanks Interpretating Date/Time 03/16/2018 11:51:32
== END 2018-03-16 15:36 | disposition home or self-care (01) ==
LOC: NEPC 23:12 → NEDA 23:12 → NEPGCP 03-16 03:37
PROVIDERS: ADMIT Internal Medicine Cardiovascular Disease; ATTEND Internal Medicine Cardiovascular Disease